=== PATIENT | female | born 1955 | race Caucasian/White ===

== ENCOUNTER 2020-03-06 07:00 | Outpatient (REF) | payer MEDICARE, MEDICAID, SELFPAY ==
--- NOTE | 2020-03-06 | MR_ITS ---
EXAMINATION: MR LUMBAR SPINE WITHOUT CONTRAST CLINICAL INFORMATION: Right lumbar radiculopathy. COMPARISON: No relevant prior imaging. TECHNIQUE: MRI of the lumbar spine was obtained using routine sequences without contrast. FINDINGS: There is a chronic compression deformity that is partially visualized within the gpdzh-[id number] of this examination at T11. Vertebral heights are otherwise maintained. Slight grade 1 anterolisthesis of L5 on S1 related to facet degenerative changes at this level. There are are no acute bone marrow signal changes. Slight loss of intervertebral disc height and T2 signal intensity at L5-S1. Disc desiccation is visualized at multiple additional levels. The tip of the conus medullaris is located at L2-L3. No mass effect the conus. Visualized distal cord signal intensity is normal. At L1-L2 the annular contour is normal. No canal or neuroforaminal compromise. At L2-L3 the annular contour is normal. No canal or neuroforaminal compromise. At L3-L4 the annular contour is normal. No canal or neuroforaminal compromise. At L4-L5 there is an asymmetrically bulging disc to the right. No canal stenosis. No mass effect on the traversing or foraminal nerve root. At L5-S1 there is a slightly bulging disc. Bilateral facet degenerative change. No canal stenosis. No mass effect on the traversing or foraminal nerve roots. Limited visualization of the retroperitoneal anatomy reveals a well marginated benign-appearing cystic lesion within the upper pole of left kidney. Psoas and paraspinal muscle groups are symmetric. IMPRESSION: Mild disc degeneration at multiple levels within the lumbar spine. Slight grade 1 anterolisthesis of L5 on S1 related to facet degenerative changes at this level. No canal stenosis. No mass effect on the traversing or foraminal nerve roots within the [id number]-rl-[id number] of this examination. A chronic compression deformity of the T11 vertebral body is partially included within the cqthc-st-dwss of this examination with approximately 50% vertebral height loss centrally and slight anterior wedging.
== END 2020-03-06 07:01 | disposition home or self-care (01) ==
LOC: HO.MRI 07:00
PROVIDERS: Visit Provider Anesthesiology
DX: M54.16 Radiculopathy, lumbar region (principal)
CPT/HCPCS: 72148

== ENCOUNTER → 2020-03-08 17:13 | Outpatient (BNVA) | payer MEDICARE, MEDICAID, SELFPAY | PROVIDERS: Visit Provider Anesthesiology | DX: G89.4 Chronic pain syndrome (principal); M47.816 Spondylosis without myelopathy or radiculopathy, lumbar region; M43.16 Spondylolisthesis, lumbar region | CPT/HCPCS: 99213 ==

== ENCOUNTER → 2020-03-27 08:29 | Outpatient (BNVA) | payer MEDICARE, MEDICAID, SELFPAY | PROVIDERS: PCP Internal Medicine; Visit Provider Anesthesiology | DX: G89.4 Chronic pain syndrome (principal); M47.816 Spondylosis without myelopathy or radiculopathy, lumbar region; M43.16 Spondylolisthesis, lumbar region | CPT/HCPCS: 99212 ==

== ENCOUNTER → 2020-04-10 10:35 | Outpatient (BNVA) | payer MEDICARE, MEDICAID, SELFPAY | PROVIDERS: PCP Internal Medicine; Visit Provider Anesthesiology | DX: G89.4 Chronic pain syndrome (principal); M47.816 Spondylosis without myelopathy or radiculopathy, lumbar region; M43.16 Spondylolisthesis, lumbar region; M46.1 Sacroiliitis, not elsewhere classified; Z79.891 Long term (current) use of opiate analgesic | CPT/HCPCS: 99212 ==

== ENCOUNTER → 2020-05-10 13:37 | Outpatient (BNVA) | payer MEDICARE, MEDICAID, SELFPAY | PROVIDERS: PCP Internal Medicine; Visit Provider Anesthesiology | DX: M47.816 Spondylosis without myelopathy or radiculopathy, lumbar region (principal); M43.16 Spondylolisthesis, lumbar region; G89.4 Chronic pain syndrome; M46.1 Sacroiliitis, not elsewhere classified | CPT/HCPCS: 99212 ==

== ENCOUNTER 2020-06-02 12:49 | Day surgery (SDC) | payer MEDICARE, MEDICAID, SELFPAY ==
--- NOTE | 2020-06-01 10:25 | P.CONAN_ITS ---
Documented by User: Narcisa Musa 06/01/20 10:28 HPI - Anesthesia Eval Consult details Narrative: 64yo F for bilateral Therapeutic Medial Branch Block, L3-L4-DR L5 [facility] Past Medical History Medical History Allergic rhinitis Anxiety Chronic pain syndrome COPD (chronic obstructive pulmonary disease) Crohn's disease Depression Ear build-up Ear discharge of both ears GERD (gastroesophageal reflux disease) GERD without esophagitis Lumbar degenerative disc disease Osteoporosis Overweight (BMI 25.0-29.9) Pure hypercholesterolemia Renal calculi Sacroiliitis Spondylolisthesis, lumbar region Spondylosis of lumbar region without myelopathy or radiculopathy Vitamin D deficiency Surgical History Surgical History History of hysterectomy History of nasal surgery History of surgery Social History Social History Alcohol intake: current Alcohol intake frequency: holidays/special occasions only Alcohol type: wine Smoking Status: Former smoker Second Hand Smoke Exposure: No Use of substances other than those prescribed or required for medical reasons: No Advance Directives: Yes Advance Directives Information Provided: No Advance Directives on File: Yes Advance Directives Date on File: 06/02/20 Recently lost weight without trying: No Meds Allergies Allergy/AdvReac Type Severity Reaction Status Date / Time No Known Allergies Allergy Verified 05/29/20 14:59 [No Known Allergies*] Home Medications Medication Instructions Recorded Confirmed Type albuterol sulfate 90 mcg/actuation 2 puff PO Q6H PRN 04/10/20 05/29/20 History aerosol inhaler budesonide 180 mcg/actuation 2 inh INHALATION BID 04/10/20 05/29/20 History breath activated powder inhaler bupropion HCl 300 mg 24 hr tablet, 300 mg PO DAILY 04/10/20 05/29/20 History extended release cholecalciferol (vitamin D3) 25 25 mcg PO DAILY 04/10/20 05/29/20 History mcg (1,000 unit) capsule omeprazole 40 mg capsule,delayed 40 mg PO BID 04/10/20 05/29/20 History release polyethylene glycol 3350 17 17 g PO BID PRN 04/13/20 05/29/20 History gram/dose oral powder mesalamine 0.375 gram See Rx Instructions PO BID cap 05/29/20 05/29/20 History capsule,extended release 24 hr Exam Exam Date and Time: June 01, 2020 1025 Assessment and Plan Assessment Anesthesia Assessment: Chart Reviewed Documented by User: Genny Hu 06/02/20 13:32 [facility] Past Medical History Medical History Allergic rhinitis Anxiety Chronic pain syndrome COPD (chronic obstructive pulmonary disease) Crohn's disease Depression Ear build-up Ear discharge of both ears GERD (gastroesophageal reflux disease) GERD without esophagitis Lumbar degenerative disc disease Osteoporosis Overweight (BMI 25.0-29.9) Pure hypercholesterolemia Renal calculi Sacroiliitis Spondylolisthesis, lumbar region Spondylosis of lumbar region without myelopathy or radiculopathy Vitamin D deficiency Surgical History Surgical History History of hysterectomy History of nasal surgery History of surgery Social History Social History Alcohol intake: current Alcohol intake frequency: holidays/special occasions only Alcohol type: wine Smoking Status: Former smoker Second Hand Smoke Exposure: No Use of substances other than those prescribed or required for medical reasons: No Advance Directives: Yes Advance Directives Information Provided: No Advance Directives on File: Yes Advance Directives Date on File: 06/02/20 Recently lost weight without trying: No Meds Allergies Allergy/AdvReac Type Severity Reaction Status Date / Time No Known Allergies Allergy Verified 05/29/20 14:59 [No Known Allergies*] Home Medications Medication Instructions Recorded Confirmed Type albuterol sulfate 90 mcg/actuation 2 puff PO Q6H PRN 04/10/20 05/29/20 History aerosol inhaler budesonide 180 mcg/actuation 2 inh INHALATION BID 04/10/20 05/29/20 History breath activated powder inhaler bupropion HCl 300 mg 24 hr tablet, 300 mg PO DAILY 04/10/20 05/29/20 History extended release cholecalciferol (vitamin D3) 25 25 mcg PO DAILY 04/10/20 05/29/20 History mcg (1,000 unit) capsule omeprazole 40 mg capsule,delayed 40 mg PO BID 04/10/20 05/29/20 History release polyethylene glycol 3350 17 17 g PO BID PRN 04/13/20 05/29/20 History gram/dose oral powder mesalamine 0.375 gram See Rx Instructions PO BID cap 05/29/20 05/29/20 History capsule,extended release 24 hr Exam Airway Mallampati Class: II TM Dist: >3cm Neck ROM: Full Heart: RRR Lungs: CTA Assessment and Plan Assessment Anesthesia Assessment: Anesthesia Plan Discussed and Chart Reviewed Final Anesthetic Review NPO: Yes ASA Class: II Final Preanesthetic Review: Meds/Allgs Chart Reviewed, Consent Obtained/Reviewed and Anes Risks/Benef Reviewed Patient Risk: Intermediate Procedure Risk: Intermediate Anesthetic Plan Anesthetic Plan: MAC: Disposition: Standard PACU
[2020-06-01 10:44] VITALS: BMI 27.0
--- NOTE | 2020-06-02 | FL_ITS ---
EXAMINATION: XR FLUOROSCOPY WITH IMAGES CLINICAL INFORMATION: Medial branch block L3 and L4 COMPARISON: None. TECHNIQUE: Fluoroscopy performed by Dr. Chepe Sandhu. Fluoroscopy time: 100 minutes DAP: 7.10 mGycm2 Images: 6 FINDINGS: There is contrast with needle positioned lateral to bilateral L4 and L5 pedicles for medial branch block. No bony erosive changes seen. The SI joints are symmetrical. FL/FL guidance in OR IMPRESSION: Fluoroscopy provided to Dr. Sandhu for bilateral medial branch block at L4 and L5 vertebra
--- NOTE | 2020-06-02 13:00 | PM.OP ---
Brief Operative Note Date of Service: 06/02/20 Pre-op diagnosis: spondylosis lumbar without myelopathy or radiculopathy Post-op diagnosis: same Procedure: Bilateral medial branch block L3-L4 dorsal ramus L5 therapeutic with steroids Implants: None Surgeon: Chepe Sandhu MD Anesthesia: MAC Estimated blood loss (mL): 1 Pathology: none sent Condition: stable Disposition: PACU
--- NOTE | 2020-06-02 13:01 | MHC.SHP ---
Pre-Procedural Eval Section A The patient is an INPATIENT: No The History & Physical has been completed within 30 days and I have reviewed it.: No Section B Chief Complaint: Spondylosis of Lumbar Spine, Spondylolisthesis Details of Present Illness: spondylosis lumbar Relevant Family History (Specify if Yes): No Relevant Social History: None Present Medications: see Short Stay Collaborative assessment Medical History: No relevant PMH History of Previous Operations: No relevant previous surgery Allergies: Allergies Allergy/AdvReac Type Severity Reaction Status Date / Time No Known Allergies Allergy Verified 05/29/20 14:59 [No Known Allergies*] Review of Systems Sugical H&P ROS: Negative: Constitution, Cardiovascular, Respiratory, Neurological, Psychiatric, Hem-Onc, Allergic/Immunologic, Gastrointestinal, Genitourinary, Musculoskeletal, Integumentary, Endocrine and Eyes/Ears/Nose/Throat Exam Surgical H&P Exam: Normal: HEENT, Normal: Heart, Normal: Lungs, Normal: Extremities, Normal: Abdomen, Normal: Skin and Normal: Neurological Plan Diagnosis/Plan: Unchanged I have reviewed the history and physical and performed a pertinent physical examination on my patient. No changes have occurred unless specified.
[2020-06-02 13:07] VITALS: BP 148/101; PULSE 95; RESP 20; TEMP 37; O2SAT 98
--- NOTE | 2020-06-02 13:21 | MHC.SHP ---
Pre-Procedural Eval Section A The patient is an INPATIENT: No The History & Physical has been completed within 30 days and I have reviewed it.: No Section B Chief Complaint: Spondylosis of Lumbar Spine, Spondylolisthesis Details of Present Illness: spondylosis lumbar spine Relevant Family History (Specify if Yes): No Relevant Social History: None Present Medications: see Short Stay Collaborative assessment Medical History: No relevant PMH History of Previous Operations: No relevant previous surgery Allergies: Allergies Allergy/AdvReac Type Severity Reaction Status Date / Time No Known Allergies Allergy Verified 05/29/20 14:59 [No Known Allergies*] Review of Systems Sugical H&P ROS: Negative: Constitution, Cardiovascular, Respiratory, Neurological, Psychiatric, Hem-Onc, Allergic/Immunologic, Gastrointestinal, Genitourinary, Musculoskeletal, Integumentary, Endocrine and Eyes/Ears/Nose/Throat Exam Surgical H&P Exam: Normal: HEENT, Normal: Heart, Normal: Lungs, Normal: Extremities, Normal: Abdomen, Normal: Skin and Normal: Neurological Plan I have reviewed the history and physical and performed a pertinent physical examination on my patient. No changes have occurred unless specified.
--- NOTE | 2020-06-02 13:26 | MHC.SHP ---
Pre-Procedural Eval Section A The patient is an INPATIENT: No The History & Physical has been completed within 30 days and I have reviewed it.: No Section B Chief Complaint: Spondylosis of Lumbar Spine, Spondylolisthesis Details of Present Illness: as above Relevant Family History (Specify if Yes): No Relevant Social History: None Present Medications: see Short Stay Collaborative assessment Medical History: No relevant PMH History of Previous Operations: No relevant previous surgery Allergies: Allergies Allergy/AdvReac Type Severity Reaction Status Date / Time No Known Allergies Allergy Verified 05/29/20 14:59 [No Known Allergies*] Review of Systems Sugical H&P ROS: Negative: Constitution, Cardiovascular, Respiratory, Neurological, Psychiatric, Hem-Onc, Allergic/Immunologic, Gastrointestinal, Genitourinary, Musculoskeletal, Integumentary, Endocrine and Eyes/Ears/Nose/Throat Exam Surgical H&P Exam: Normal: HEENT, Normal: Heart, Normal: Lungs, Normal: Extremities, Normal: Abdomen, Normal: Skin and Normal: Neurological Plan I have reviewed the history and physical and performed a pertinent physical examination on my patient. No changes have occurred unless specified.I will perform b/l therapeutic medial branch block L3- L4- L5
[2020-06-02 14:08] VITALS: BP 128/73; PULSE 90; RESP 12; TEMP 36.4; O2SAT 98
--- NOTE | 2020-06-02 14:09 | P.OP_ITS ---
Operative Note Operative Note Date of Service: 06/02/20 Narrative: After obtaining informed consent about risks benefits and alternatives for medial branch block bilateral L3-L4 does ramus L5 the patient was taken inside of the operating room where she was positioned prone on operating table. [place] [employer] monitors were applied patient was deeply sedated. Time-out was performed delineating correct site side and nature of the procedure, patient's name and date of , risk of fire, need of antibiotics which is none, risk of DVT development. Patient's lower back was prepped with ChloraPrep and draped with utility drapes. C-arm was brought of the operating field and sq picture of sacral bone a and L4 and L5 vertebra as were demonstrated on the screen. The point of interest were delineated as superior articular process of bilateral L4 and L5 vertebra as at the connection with corresponding transverse processes, as well as connection of superior articular processes of S1 bilaterally with sacral alae. 22 gauge 3-1/2 inch needle was driven to were the point of interest in tunnel vision fashion. When tip of the needle gently contacted the bone the contrast was injected into the needle. In 1 position at the left L4 vertebra the vascular spread of the contrast was noted and needle was reposition. After injection of the contrast demonstrated no vascular in no intrathecal intake of the contrast each needle position was injected with 1-1.5 cc of bupivacaine 0.5% mixed with Kenalog. Total dose of Kenalog was 80 mg. The patient tolerated procedure well. She was taking outside of the operating room to recovery room where she recovered uneventfully. She went home without immediate complications. Of note severe sacroiliac joint instability signs were noted on the right side of the patient's sacral alae big gap between sacral alae a and iliac crest was observed on the screen.
[2020-06-02 14:23] VITALS: BP 148/96; PULSE 73; RESP 16; O2SAT 97
[2020-06-02 14:38] VITALS: BP 127/80; PULSE 71; RESP 16; O2SAT 97
== END 2020-06-02 15:10 | disposition home or self-care (01) ==
PROVIDERS: PCP Internal Medicine; Visit Provider Anesthesiology
PROC: (CPT 64493; principal; 2020-06-02 14:00)
DX: M47.816 Spondylosis without myelopathy or radiculopathy, lumbar region (principal); M43.16 Spondylolisthesis, lumbar region; M46.1 Sacroiliitis, not elsewhere classified; G89.4 Chronic pain syndrome; M81.0 Age-related osteoporosis without current pathological fracture; J44.9 Chronic obstructive pulmonary disease, unspecified; J30.9 Allergic rhinitis, unspecified; F32.9 Major depressive disorder, single episode, unspecified; E55.9 Vitamin D deficiency, unspecified; Z79.899 Other long term (current) drug therapy; Z87.891 Personal history of nicotine dependence
CPT/HCPCS: 64493; 64494; J1100; J2250; J3010; J3300; Q9967

== ENCOUNTER → 2020-06-26 11:06 | Outpatient (BNVA) | payer MEDICARE, MEDICAID, SELFPAY | PROVIDERS: PCP Internal Medicine; Visit Provider Anesthesiology ==

== ENCOUNTER → 2020-06-28 14:42 | Outpatient (BNVA) | payer MEDICARE, MEDICAID, SELFPAY | PROVIDERS: PCP Internal Medicine; Visit Provider Anesthesiology | DX: M47.816 Spondylosis without myelopathy or radiculopathy, lumbar region (principal); M43.16 Spondylolisthesis, lumbar region; M46.1 Sacroiliitis, not elsewhere classified; G89.4 Chronic pain syndrome | CPT/HCPCS: 99212 ==

== ENCOUNTER 2020-07-07 07:36 | Day surgery (SDC) | payer MEDICARE, MEDICAID, SELFPAY ==
[2020-07-04 09:44] VITALS: BMI 27.8
--- NOTE | 2020-07-06 13:09 | HO.ANESPROP2 ---
Documented by User: Narcisa Baezaney 07/17/20 08:36 HPI - Anesthesia Eval Consult details Narrative: 65yo F for Bilateral Sacroiliac Joint Steroid Injection s/p Medial Branch Block 05/2020 wit [facility] Active Problems Active Problems: All Active Problems (Updated 05/29/20 @ 15:13 by Ralph Colorado MD) Annual physical exam (Acute) Overweight (BMI 25.0-29.9) (Acute) Depression (Acute) Anxiety (Acute) Renal calculi (Acute) Vitamin D deficiency (Acute) Allergic rhinitis (Acute) Osteoporosis (Acute) Pure hypercholesterolemia (Acute) Lumbar degenerative disc disease (Acute) GERD without esophagitis (Acute) Crohn's disease (Acute) COPD (chronic obstructive pulmonary disease) (Acute) GERD (gastroesophageal reflux disease) (Acute) Ear discharge of both ears (Acute) Ear build-up (Acute) Sacroiliitis (Acute) Chronic pain syndrome (Acute) Spondylolisthesis, lumbar region (Acute) Spondylosis of lumbar region without myelopathy or radiculopathy (Acute) Past Medical History Medical History Allergic rhinitis Anxiety Chronic pain syndrome COPD (chronic obstructive pulmonary disease) Crohn's disease Depression Ear build-up Ear discharge of both ears GERD (gastroesophageal reflux disease) GERD without esophagitis Lumbar degenerative disc disease Osteoporosis Overweight (BMI 25.0-29.9) Pure hypercholesterolemia Renal calculi Sacroiliitis Spondylolisthesis, lumbar region Spondylosis of lumbar region without myelopathy or radiculopathy Vitamin D deficiency Surgical History Surgical History (Updated 07/04/20 @ 09:46 by Brooklyn Crespo) History of hysterectomy History of nasal surgery History of surgery History of surgery Social History Social History Alcohol intake: current Alcohol intake frequency: holidays/special occasions only Alcohol type: wine Smoking Status: Former smoker Second Hand Smoke Exposure: No Advance Directives Date on File: 06/02/20 Meds Allergies Allergy/AdvReac Type Severity Reaction Status Date / Time No Known Allergies Allergy Verified 07/19/20 08:13 [No Known Allergies*] Home Medications Medication Instructions Recorded Confirmed Last Taken Type albuterol sulfate 90 mcg/actuation 2 puff PO Q6H PRN 04/10/20 07/19/20 Unknown History aerosol inhaler budesonide 180 mcg/actuation 2 inh INHALATION BID 04/10/20 07/19/20 Unknown History breath activated powder inhaler bupropion HCl 300 mg 24 hr tablet, 300 mg PO DAILY 04/10/20 07/19/20 06/02/20 06:00 History extended release cholecalciferol (vitamin D3) 25 25 mcg PO DAILY 04/10/20 07/19/20 06/02/20 06:00 History mcg (1,000 unit) capsule omeprazole 40 mg capsule,delayed 40 mg PO BID 04/10/20 07/19/20 07/07/20 06:45 History release polyethylene glycol 3350 17 17 g PO BID PRN 04/13/20 07/19/20 Unknown History gram/dose oral powder mesalamine 0.375 gram See Rx Instructions PO BID cap 05/29/20 07/19/20 Unknown History capsule,extended release 24 hr Exam Exam Date and Time: July 06, 2020 1309 Height,Weight and Vital Signs: Height 5 ft 1 in Weight 66.678 kg Assessment and Plan Assessment Anesthesia Assessment: Chart Reviewed Documented by User: Jerry Olivas MD 07/27/20 07:57 [facility] Past Medical History Medical History Allergic rhinitis Anxiety Chronic pain syndrome COPD (chronic obstructive pulmonary disease) Crohn's disease Depression Ear build-up Ear discharge of both ears GERD (gastroesophageal reflux disease) GERD without esophagitis Lumbar degenerative disc disease Osteoporosis Overweight (BMI 25.0-29.9) Pure hypercholesterolemia Renal calculi Sacroiliitis Spondylolisthesis, lumbar region Spondylosis of lumbar region without myelopathy or radiculopathy Vitamin D deficiency Surgical History Surgical History (Updated 07/04/20 @ 09:46 by Brooklyn Crespo) History of hysterectomy History of nasal surgery History of surgery History of surgery Social History Social History Alcohol intake: current Alcohol intake frequency: holidays/special occasions only Alcohol type: wine Smoking Status: Former smoker Second Hand Smoke Exposure: No Advance Directives Date on File: 06/02/20 Meds Allergies Allergy/AdvReac Type Severity Reaction Status Date / Time No Known Allergies Allergy Verified 07/19/20 08:13 [No Known Allergies*] Home Medications Medication Instructions Recorded Confirmed Last Taken Type albuterol sulfate 90 mcg/actuation 2 puff PO Q6H PRN 04/10/20 07/19/20 Unknown History aerosol inhaler budesonide 180 mcg/actuation 2 inh INHALATION BID 04/10/20 07/19/20 Unknown History breath activated powder inhaler bupropion HCl 300 mg 24 hr tablet, 300 mg PO DAILY 04/10/20 07/19/20 06/02/20 06:00 History extended release cholecalciferol (vitamin D3) 25 25 mcg PO DAILY 04/10/20 07/19/20 06/02/20 06:00 History mcg (1,000 unit) capsule omeprazole 40 mg capsule,delayed 40 mg PO BID 04/10/20 07/19/20 07/07/20 06:45 History release polyethylene glycol 3350 17 17 g PO BID PRN 04/13/20 07/19/20 Unknown History gram/dose oral powder mesalamine 0.375 gram See Rx Instructions PO BID cap 05/29/20 07/19/20 Unknown History capsule,extended release 24 hr Exam Airway Mallampati Class: II TM Dist: >3cm Neck ROM: Full Assessment and Plan Assessment Anesthesia Assessment: Anesthesia Plan Discussed and Chart Reviewed Final Anesthetic Review NPO: Yes ASA Class: III Final Preanesthetic Review: No Changes in Pt Med Stat, Meds/Allgs Chart Reviewed, Consent Obtained/Reviewed and Anes Risks/Benef Reviewed Patient Risk: Intermediate Procedure Risk: Low Anesthetic Plan Anesthetic Plan: MAC: Disposition: Standard PACU
--- NOTE | ~2020-07-07 | FL_ITS ---
EXAMINATION: XR FLUOROSCOPY WITH IMAGES CLINICAL INFORMATION: Sacroiliac joint injection COMPARISON: None. TECHNIQUE: Fluoroscopy performed by Dr. Chepe Sandhu. Fluoroscopy time: 0.2 minutes DAP: 2.7 mGycm2 Images: 2 FINDINGS: Images demonstrate needle placement and contrast injection over the bilateral sacroiliac joints. FL/FL guidance in OR IMPRESSION: Fluoroscopic guidance for bilateral sacroiliac joint injection.
[2020-07-07 08:29] VITALS: BP 134/100; PULSE 95; RESP 18; TEMP 37.1; O2SAT 99
[2020-07-07] MEDS: Lactated Ringers 1,000 ML 100 ML IVCONT (08:35)
--- NOTE | 2020-07-07 08:50 | P.HPSUR_ITS ---
Pre-Procedural Eval Section A The patient is an INPATIENT: No Changes since office visit: Yes Patient answered all questions The History & Physical has been completed within 30 days and I have reviewed it.: No Section B Chief Complaint: Sacroiliitis Details of Present Illness: as above Relevant Family History (Specify if Yes): No Relevant Social History: None Present Medications: None Medical History: No relevant PMH History of Previous Operations: No relevant previous surgery Allergies: Allergies Allergy/AdvReac Type Severity Reaction Status Date / Time No Known Allergies Allergy Verified 07/07/20 08:39 [No Known Allergies*] Review of Systems Sugical H&P ROS: Negative: Constitution, Cardiovascular, Respiratory, Neurologic al, Psychiatric, Hem-Onc, Allergic/Immunologic, Gastrointestinal, Genitourinary, Musculoskeletal, Integumentary, Endocrine and Eyes/Ears/Nose/Throat Exam Surgical H&P Exam: Normal: HEENT, Normal: Heart, Normal: Lungs, Normal: Extremities, Normal: Abdomen, Normal: Skin and Normal: Neurological Plan Diagnosis/Plan: Unchanged I have reviewed the history and physical and performed a pertinent physical examination on my patient. No changes have occurred unless specified.
[2020-07-07 09:20] VITALS: BP 124/82; PULSE 92; RESP 16; TEMP 36.4; O2SAT 99
--- NOTE | 2020-07-07 09:23 | P.OP_ITS ---
Operative Note Operative Note Date of Service: 07/07/20 Narrative: Informed consent was explained thoroughly to the patient. All questions about benefits and risks for the procedure were answered. Patient came to the operating room she was positioned prone on the operating table with the pillow under her pelvis. [place] [employer] monitors were applied and patient was deeply sedated. Her lower back and buttocks was prepped with ChloraPrep prepped and draped with sterile towels. Sterilely draped C-arm was brought over the operating field and sq picture of patient's pelvis was demonstrated on the screen. For each joint tilting C-arm contralateral to the site of the joint and 15? to the foot of the patient the most posterior portion of the joints were clearly delineated on the screen. Skin was injected in the projection of the joint slightly medial to the location of the joint with 25 gauge 1/2 inch needle using local lidocaine 2% without epinephrine. After that 22 gauge 3 and 1/2 inch needle was driven to were each point of interest in tunnel vision fashion. When needle entered the joint capsule injection of the contrast was performed demonstrating intra-articular and minimally periarticular spread of the contrast. After that 4 cc. of bupivacaine 0.5% mixad with kenalog was injected into each joint. total dose of kenalog between 2 joints was 80 mg. Upon completion of the injections the needles were removed and pressure were applied. Sterile dressing was applied. Upon completion of the injection patient was awaken taking outside of the operating room to the recovery room where she recovered uneventfully. She went home without immediate complications.
[2020-07-07 09:35] VITALS: BP 138/88; PULSE 77; RESP 17; TEMP 36.4; O2SAT 97
== END 2020-07-07 10:32 | disposition home or self-care (01) ==
PROVIDERS: PCP Internal Medicine; Visit Provider Anesthesiology
PROC: 3E0U33Z Introduction of Anti-inflammatory into Joints, Percutaneous Approach (ICD-10-PCS; CPT 27096; principal; 2020-07-07 08:10)
DX: M46.1 Sacroiliitis, not elsewhere classified (principal); G89.4 Chronic pain syndrome; J44.9 Chronic obstructive pulmonary disease, unspecified; F32.9 Major depressive disorder, single episode, unspecified; Z79.899 Other long term (current) drug therapy; Z87.891 Personal history of nicotine dependence
CPT/HCPCS: G0260; J2250; J3010; J3300; Q9967

== ENCOUNTER → 2020-07-19 08:02 | Outpatient (BNVA) | payer MEDICARE, MEDICAID, SELFPAY | PROVIDERS: PCP Internal Medicine; Visit Provider Anesthesiology | DX: M47.816 Spondylosis without myelopathy or radiculopathy, lumbar region (principal); M43.16 Spondylolisthesis, lumbar region; G89.4 Chronic pain syndrome; M46.1 Sacroiliitis, not elsewhere classified | CPT/HCPCS: 99212 ==

== ENCOUNTER → 2020-08-02 11:19 | Outpatient (BNVA) | payer MEDICARE, MEDICAID, SELFPAY | PROVIDERS: PCP Internal Medicine; Visit Provider Anesthesiology | DX: M47.816 Spondylosis without myelopathy or radiculopathy, lumbar region (principal); M43.16 Spondylolisthesis, lumbar region; G89.4 Chronic pain syndrome; M45.1 Ankylosing spondylitis of occipito-atlanto-axial region; M53.3 Sacrococcygeal disorders, not elsewhere classified; Z79.899 Other long term (current) drug therapy | CPT/HCPCS: Q3014 ==

== ENCOUNTER 2020-08-16 07:25 | Outpatient (REF) | payer MEDICARE, MEDICAID, SELFPAY ==
[2020-08-16 08:31] LABS: MANUAL DIFF FLAG NO
[2020-08-16 08:38] LABS: Basophils Percent Auto 0.4 % (0-2); Eosinophils Absolute Auto 0.1 X10*3/uL (0.0-0.4); Eosinophils Percent Auto 1.5 % (0-4); Hematocrit 41.4 % (37-47); Hemoglobin 13.6 g/dl (12.0-16.0); Imm Gran Abs Auto 0.05 X10*3/uL (0.00-0.03); Imm Gran Pct Auto 0.6 % (0.0-0.4); Lymphocytes Absolute Auto 1.9 X10*3/uL (1.2-4.9); Lymphocytes Percent Auto 22.6 % (20-40); Mean Corpuscular HGB Conc 32.9 g/dl (31.0-35.0); Mean Corpuscular Hemoglobin 29.7 pg (27.0-33.0); Mean Corpuscular Volume 90.4 fL (80-98); Mean Platelet Volume 9.7 fL (9.4-12.3); Monocytes Absolute Auto 0.7 X10*3/uL (0.1-1.2); Monocytes Percent Auto 8.1 % (2-11); Neutrophils Absolute Auto 5.7 X10*3/uL (2.0-8.3); Neutrophils Percent Auto 66.8 % (45-73); Platelet Count 271 X10*3/uL (160-400); Red Blood Count 4.58 X10*6/uL (4.20-5.50); White Blood Count 8.6 X10*3/uL (4.8-10.8)
[2020-08-16 08:45] LABS: Glucose Urine UA NEG (NEG); Leukocyte Esterase Urine 2+ (NEG); Nitrite Urine POS (NEG); Specific Gravity - Urine >= 1.030 (1.005-1.025); UACC Culture Trigger YES; Urine Blood TRACE (NEG); Urine Ketones NEG (NEG); Urine Protein NEG (NEG-TRACE)
[2020-08-16 08:47] LABS: Appearance Urine HAZY; Color Urine YELLOW
[2020-08-16 09:02] LABS: Bacteria Urine 3+ /LPF; Mucus Urine 2+ /LPF; RBC Urine 0 /HPF (0); Squamous Epithelial Cell Urine 1+ /LPF
[2020-08-16 09:03] LABS: Amorphous Sediment Urine 2+ /LPF
[2020-08-16 09:10] LABS: Alanine Aminotransferase 15 U/L (0-31); Albumin Level 4.4 g/dL (3.5-5.0); Alkaline Phosphatase 82 U/L (39-117); Anion Gap 14 (12-20); Aspartate Amino Transferase 17 U/L (5-31); Bilirubin Total 0.8 mg/dL (0.0-1.0); Blood Urea Nitrogen 29 mg/dL (9-16); Calcium 9.7 mg/dL (8.4-10.2); Carbon Dioxide 26 mmol/L (22-29); Chloride 105 mmol/L (96-108); Cholesterol 193 mg/dL; Estimated Glomerular Filt Rate > 60; Glucose Fasting 84 mg/dL (60-99); HDL Cholesterol 58 mg/dL; LDL Cholesterol Calculated 117 mg/dl; Potassium 4.2 mmol/L (3.3-5.1); Sodium 141 mmol/L (135-145); Total Protein 6.7 g/dL (6.5-8.0); Triglycerides 91 mg/dL
[2020-08-16 09:21] LABS: Erythrocyte Sedimentation Rate 6 MM/HR (0-20)
[2020-08-16 09:23] LABS: TSH reflex Free T4 1.46 uIU/mL (0.32-4.0); Vitamin D 25-OH Total 20.2 ng/mL (>30)
== END 2020-08-16 07:26 | disposition home or self-care (01) ==
LOC: HO.LAB 07:25
PROVIDERS: PCP Internal Medicine; Visit Provider Internal Medicine
DX: Z00.00 Encounter for general adult medical examination without abnormal findings (principal); I10 Essential (primary) hypertension; N20.0 Calculus of kidney; E55.9 Vitamin D deficiency, unspecified; E78.00 Pure hypercholesterolemia, unspecified; E66.3 Overweight; M51.36 Other intervertebral disc degeneration, lumbar region
CPT/HCPCS: 36415; 80053; 80061; 81001; 81003; 82306; 84443; 85025; 85652; 87086; 99212

== ENCOUNTER → 2020-09-25 10:46 | Outpatient (REF) | payer MEDICARE, MEDICAID, SELFPAY ==
--- NOTE | 2020-09-25 11:00 | CA_ITS ---
Acquisition Time: 2020-09-25 11:11:22 Total Exercise Time: 00:06:35 Test Indications: Chest Pain Medications: SEE H Protocol: JIE Max HR: 146 BPM 93% of Pred: 156 BPM Max BP: 130/080 mmHG Max Work Load: 7.9 METS Exercise stress ECHO using Jie protocol, total of 6 min 35 sec. METS 7.90, TAPHR up to 93 %. Pt tolerated well, denies any anginal sx. EKG with isolated PVC. Mild upsloaping ST depression seen in lead 2. ECHO images taken at rest and immediately at peak exercise HR achieved. Definity contrast used. Normotensive response to exercise. Test reviewed with Dr. Hartman. Equivocal stress test Referred By: Jalen Doty Overread By: Gracie Nogueira NP
== END ==
LOC: HO.CARD 10:46
PROVIDERS: PCP Internal Medicine; Visit Provider Internal Medicine Cardiovascular Disease
DX: R07.2 Precordial pain (principal)
CPT/HCPCS: 93350; Q9957

== ENCOUNTER → 2020-09-27 08:07 | Outpatient (BNVA) | payer MEDICARE, MEDICAID, SELFPAY | PROVIDERS: PCP Internal Medicine; Visit Provider Anesthesiology | DX: M47.816 Spondylosis without myelopathy or radiculopathy, lumbar region (principal); M43.16 Spondylolisthesis, lumbar region; M46.1 Sacroiliitis, not elsewhere classified; M53.3 Sacrococcygeal disorders, not elsewhere classified; G89.4 Chronic pain syndrome | CPT/HCPCS: 99212 ==

== ENCOUNTER 2020-10-13 07:46 | Day surgery (SDC) | payer MEDICARE, MEDICAID, SELFPAY ==
[2020-10-09 10:35] VITALS: BMI 27.6
--- NOTE | 2020-10-11 12:34 | P.CONAN_ITS ---
Documented by User: Narcisa Baezaney 10/11/20 12:35 HPI - Anesthesia Eval Consult details Narrative: 65yo F for Ganglion Impar Block s/p joint injection with MAC 06/2020 [facility] Active Problems Active Problems: All Active Problems (Updated 08/02/20 @ 11:28 by Chepe Sandhu MD) Annual physical exam (Acute) Coccydynia (Acute) Overweight (BMI 25.0-29.9) (Acute) Depression (Acute) Anxiety (Acute) Renal calculi (Acute) Vitamin D deficiency (Acute) Allergic rhinitis (Acute) Osteoporosis (Acute) Pure hypercholesterolemia (Acute) Lumbar degenerative disc disease (Acute) GERD without esophagitis (Acute) Crohn's disease (Acute) COPD (chronic obstructive pulmonary disease) (Acute) GERD (gastroesophageal reflux disease) (Acute) Ear discharge of both ears (Acute) Ear build-up (Acute) Sacroiliitis (Acute) Chronic pain syndrome (Acute) Spondylolisthesis, lumbar region (Acute) Spondylosis of lumbar region without myelopathy or radiculopathy (Acute) Past Medical History Medical History Allergic rhinitis Anxiety Chronic pain syndrome Coccydynia COPD (chronic obstructive pulmonary disease) Crohn's disease Depression Ear build-up Ear discharge of both ears GERD (gastroesophageal reflux disease) GERD without esophagitis Lumbar degenerative disc disease Osteoporosis Overweight (BMI 25.0-29.9) Pure hypercholesterolemia Renal calculi Sacroiliitis Spondylolisthesis, lumbar region Spondylosis of lumbar region without myelopathy or radiculopathy Vitamin D deficiency Surgical History Surgical History History of hysterectomy History of nasal surgery History of surgery History of surgery Social History Social History Alcohol intake: current Alcohol intake frequency: holidays/special occasions only Alcohol type: wine Smoking Status: Former smoker Second Hand Smoke Exposure: No Are you DNR?: No Advance Directives: No Advance Directives Information Provided: Yes Advance Directives on File: No Advance Directives Date on File: 06/02/20 Recently lost weight without trying: No Eating poorly because of decreased appetite: No Nutrition Risks: No Nutritional Risk Meds Allergies Allergy/AdvReac Type Severity Reaction Status Date / Time No Known Allergies Allergy Verified 10/09/20 10:17 [No Known Allergies*] Home Medications Medication Instructions Recorded Confirmed Last Taken Type albuterol sulfate 90 mcg/actuation 2 puff PO Q6H PRN 04/10/20 10/09/20 Unknown History aerosol inhaler bupropion HCl 300 mg 24 hr tablet, 300 mg PO DAILY 04/10/20 10/13/20 10/13/20 06:30 History extended release cholecalciferol (vitamin D3) 25 25 mcg PO DAILY 04/10/20 10/09/20 06/02/20 06:00 History mcg (1,000 unit) capsule omeprazole 40 mg capsule,delayed 40 mg PO BID 04/10/20 10/13/20 10/13/20 06:30 History release polyethylene glycol 3350 17 17 g PO BID PRN 04/13/20 10/09/20 Unknown History gram/dose oral powder mesalamine 0.375 gram See Rx Instructions PO BID cap 05/29/20 10/09/20 Unknown History capsule,extended release 24 hr Exam Exam Date and Time: October 11, 2020 1234 Height,Weight and Vital Signs: Height 5 ft 1 in Weight 66.224 kg Pertinent Lab Results Pertinent Lab Results: Laboratory Tests 08/16/20 08/16/20 07:45 07:45 WBC 8.6 Hgb 13.6 Hct 41.4 Plt Count 271 Sodium 141 Potassium 4.2 Chloride 105 Carbon Dioxide 26 BUN 29 H Creatinine 0.70 Assessment and Plan Assessment Anesthesia Assessment: Chart Reviewed Documented by User: Acacia Loza 10/13/20 08:54 [facility] Past Medical History Medical History Allergic rhinitis Anxiety Chronic pain syndrome Coccydynia COPD (chronic obstructive pulmonary disease) Crohn's disease Depression Ear build-up Ear discharge of both ears GERD (gastroesophageal reflux disease) GERD without esophagitis Lumbar degenerative disc disease Osteoporosis Overweight (BMI 25.0-29.9) Pure hypercholesterolemia Renal calculi Sacroiliitis Spondylolisthesis, lumbar region Spondylosis of lumbar region without myelopathy or radiculopathy Vitamin D deficiency Family History Family history of problems with anesthesia: No Surgical History Surgical History History of hysterectomy History of nasal surgery History of surgery History of surgery History of Problems with Anesthesia: No Social History Social History Alcohol intake: current Alcohol intake frequency: holidays/special occasions only Alcohol type: wine Smoking Status: Former smoker Second Hand Smoke Exposure: No Are you DNR?: No Advance Directives: No Advance Directives Information Provided: Yes Advance Directives on File: No Advance Directives Date on File: 06/02/20 Recently lost weight without trying: No Eating poorly because of decreased appetite: No Nutrition Risks: No Nutritional Risk Meds Allergies Allergy/AdvReac Type Severity Reaction Status Date / Time No Known Allergies Allergy Verified 10/09/20 10:17 [No Known Allergies*] Home Medications Medication Instructions Recorded Confirmed Last Taken Type albuterol sulfate 90 mcg/actuation 2 puff PO Q6H PRN 04/10/20 10/09/20 Unknown History aerosol inhaler bupropion HCl 300 mg 24 hr tablet, 300 mg PO DAILY 04/10/20 10/13/20 10/13/20 06:30 History extended release cholecalciferol (vitamin D3) 25 25 mcg PO DAILY 04/10/20 10/09/20 06/02/20 06:00 History mcg (1,000 unit) capsule omeprazole 40 mg capsule,delayed 40 mg PO BID 04/10/20 10/13/20 10/13/20 06:30 History release polyethylene glycol 3350 17 17 g PO BID PRN 04/13/20 10/09/20 Unknown History gram/dose oral powder mesalamine 0.375 gram See Rx Instructions PO BID cap 05/29/20 10/09/20 Unknown History capsule,extended release 24 hr Exam Height,Weight and Vital Signs: Vital Signs Temp Pulse Resp BP Pulse Ox 10/13/20 08:07 98.0 F 90 16 144/85 H 94 Airway Mallampati Class: II TM Dist: >3cm Neck ROM: Full Loose/Missing/Broken Teeth: Yes (Loose top front) Heart: RRR Lungs: CTAB Assessment and Plan Assessment Anesthesia Assessment: Anesthesia Plan Discussed and Chart Reviewed Final Anesthetic Review NPO: Yes ASA Class: II Final Preanesthetic Review: No Changes in Pt Med Stat, Meds/Allgs Chart Reviewed, Consent Obtained/Reviewed and Anes Risks/Benef Reviewed Patient Risk: Low Procedure Risk: Low Assessment/Block/Sedation in SS: Assess/Block/Sedation-SS Anesthetic Plan Anesthetic Plan: MAC: Disposition: Standard PACU
--- NOTE | ~2020-10-13 | FL_ITS ---
EXAMINATION: XR FLUOROSCOPY WITH IMAGES CLINICAL INFORMATION: Ganglion block. COMPARISON: None. TECHNIQUE: Fluoroscopy performed by Dr. Chepe Sandhu. Fluoroscopy time: 0.2 minutes DAP: 11 mGycm2 Images: 3 FINDINGS: Images demonstrate needle placement and contrast injection over the inferior sacrum. FL/FL guidance in OR IMPRESSION: Fluoroscopic guidance for sacral injection.
[2020-10-13 08:07] VITALS: BP 144/85; PULSE 90; RESP 16; TEMP 36.7; O2SAT 94
[2020-10-13] MEDS: Lactated Ringers 1,000 ML 50 ML IV (08:17)
--- NOTE | 2020-10-13 08:35 | MHC.SHP ---
Pre-Procedural Eval Section A The patient is an INPATIENT: No Changes since office visit: Yes Patient answered all questions The History & Physical has been completed within 30 days and I have reviewed it.: No Section B Chief Complaint: Coccydynia Details of Present Illness: as above Relevant Family History (Specify if Yes): No Relevant Social History: None Present Medications: see Short Stay Collaborative assessment Medical History: No relevant PMH History of Previous Operations: No relevant previous surgery Allergies: Allergies Allergy/AdvReac Type Severity Reaction Status Date / Time No Known Allergies Allergy Verified 10/09/20 10:17 [No Known Allergies*] Review of Systems Sugical H&P ROS: Negative: Constitution, Cardiovascular, Respiratory, Neurological, Psychiatric, Hem-Onc, Allergic/Immunologic, Gastrointestinal, Genitourinary, Musculoskeletal, Integumentary, Endocrine and Eyes/Ears/Nose/Throat Exam Surgical H&P Exam: Normal: HEENT, Normal: Heart, Normal: Lungs, Normal: Extremities, Normal: Abdomen, Normal: Skin and Normal: Neurological Plan Diagnosis/Plan: Unchanged I have reviewed the history and physical and performed a pertinent physical examination on my patient. No changes have occurred unless specified.
--- NOTE | 2020-10-13 08:36 | P.BOP_ITS ---
Brief Operative Note Date of Service: 10/13/20 Pre-op diagnosis: coccydynia Post-op diagnosis: same Procedure: ganglion impar injection Implants: none Surgeon: Chepe Sandhu MD Anesthesia: MAC Was an Adjunct Trainer used for this Procedure?: No Estimated blood loss (mL): 1 Pathology: none sent Condition: stable Disposition: PACU
--- NOTE | 2020-10-13 08:39 | W.PM.OPN ---
Operative Note Operative Note Date of Service: 10/13/20 Narrative: After obtaining informed consent patient was taken to the operating room where she was position on operating table prone. ASA monitors were applied and patient was moderately sedated. Time-out was performed delineating correct site, side, the nature of the procedure, patient's allergy, preoperative antibiotic if needed. All operating room staff was participating in OR time-out procedure. The lower back, bilateral buttocks and inter- buttock crease worth thoroughly prepped with ChloraPrep and draped with sterile utility drapes. Sterilely draped C-arm was brought over the operating field and picture of caudal spine was delineated on the screen. The rudimentary disc between 1st and 2nd caudal vertebra was chosen as the target. 22 gauge 3-1/2 inch needle was inserted through the skin and advanced toward the disc between the 1st and 2nd vertebrae under anterior posterior and lateral views. When the tip of the needle cleared out the silhouette of the anterior caudal spine on lateral view injection of the contrast was performed delineating retro pelvic spread of the contrast and no intravesicular and no intravascular spread of the contrast.. After that injection of the treatment medicine containing bupivacaine 0.5% mixed with Kenalog 40 mg was injected into the area the needle was removed. Sterile dressing with bacitracin applied into inter buttock crease. Patient tolerated procedure well she was taken outside of the operating room to recovery room where she recovered uneventfully. SHE was informed about risk of the ganglion impar injections in terms of vesical or and rectal damage.
[2020-10-13 09:19] VITALS: BP 110/71; PULSE 77; RESP 14; TEMP 36.9; O2SAT 94
[2020-10-13 09:35] VITALS: BP 107/71; PULSE 71; RESP 14; O2SAT 95
[2020-10-13 09:43] VITALS: BP 105/66; PULSE 88; RESP 16; O2SAT 97
== END 2020-10-13 10:27 | disposition home or self-care (01) ==
PROVIDERS: PCP Internal Medicine; Visit Provider Anesthesiology
PROC: (CPT 64999; principal; 2020-10-13 09:00)
DX: M53.3 Sacrococcygeal disorders, not elsewhere classified (principal); M46.1 Sacroiliitis, not elsewhere classified; M47.816 Spondylosis without myelopathy or radiculopathy, lumbar region; M43.16 Spondylolisthesis, lumbar region; G89.4 Chronic pain syndrome; J44.9 Chronic obstructive pulmonary disease, unspecified; M81.0 Age-related osteoporosis without current pathological fracture; Z87.891 Personal history of nicotine dependence
CPT/HCPCS: 64999; J2250; J3010; J3300; Q9967

== ENCOUNTER → 2020-11-20 10:49 | Outpatient (BNVA) | payer MEDICARE, MEDICAID, SELFPAY | PROVIDERS: PCP Internal Medicine; Visit Provider Anesthesiology | DX: M47.816 Spondylosis without myelopathy or radiculopathy, lumbar region (principal); M43.16 Spondylolisthesis, lumbar region; M46.1 Sacroiliitis, not elsewhere classified; M53.3 Sacrococcygeal disorders, not elsewhere classified; G89.4 Chronic pain syndrome | CPT/HCPCS: 99212 ==

== ENCOUNTER 2021-02-15 13:16 | Day surgery (SDC) | payer MEDICARE, MEDICAID, SELFPAY ==
--- NOTE | 2021-02-14 10:29 | P.CONAN_ITS ---
Documented by User: Narcisa Musa NP 02/14/21 10:32 HPI - Anesthesia Eval Consult details Narrative: 65yo F for Ganglion Impar Block,sacral s/p same 09/2020 with [facility] Active Problems Active Problems: All Active Problems (Updated 10/13/20 @ 18:05 by Ralph Colorado MD) Hiatal hernia (Acute) Annual physical exam (Acute) Coccydynia (Acute) Overweight (BMI 25.0-29.9) (Acute) Depression (Acute) Anxiety (Acute) Renal calculi (Acute) Vitamin D deficiency (Acute) Allergic rhinitis (Acute) Osteoporosis (Acute) Pure hypercholesterolemia (Acute) Lumbar degenerative disc disease (Acute) GERD without esophagitis (Acute) Crohn's disease (Acute) COPD (chronic obstructive pulmonary disease) (Acute) GERD (gastroesophageal reflux disease) (Acute) Ear discharge of both ears (Acute) Ear build-up (Acute) Sacroiliitis (Acute) Chronic pain syndrome (Acute) Spondylolisthesis, lumbar region (Acute) Spondylosis of lumbar region without myelopathy or radiculopathy (Acute) Past Medical History Medical History Allergic rhinitis Anxiety Chronic pain syndrome Coccydynia COPD (chronic obstructive pulmonary disease) Crohn's disease Depression Ear build-up Ear discharge of both ears GERD (gastroesophageal reflux disease) GERD without esophagitis Hiatal hernia Lumbar degenerative disc disease Osteoporosis Overweight (BMI 25.0-29.9) Renal calculi Sacroiliitis Spondylolisthesis, lumbar region Spondylosis of lumbar region without myelopathy or radiculopathy Vitamin D deficiency Family History Family history of problems with anesthesia: No Surgical History Surgical History History of hysterectomy History of nasal surgery History of surgery History of surgery History of Problems with Anesthesia: No Social History Social History Alcohol intake: current Alcohol intake frequency: holidays/special occasions only Alcohol type: wine Patient Tobacco Use Status: Former Tobacco user Quit Date: 1 yr ago Second Hand Smoke Exposure: No Use of substances other than those prescribed or required for medical reasons: No Are you DNR?: No Advance Directives: No Advance Directives Information Provided: Yes Advance Directives Date on File: 06/02/20 Meds Allergies Allergy/AdvReac Type Severity Reaction Status Date / Time No Known Allergies Allergy Verified 02/15/21 13:23 [No Known Allergies*] Home Medications Medication Instructions Recorded Confirmed Last Taken Type albuterol sulfate 90 mcg/actuation 2 puff PO Q6H PRN 04/10/20 10/09/20 Unknown History aerosol inhaler bupropion HCl 300 mg 24 hr tablet, 300 mg PO DAILY 04/10/20 10/13/20 10/13/20 06:30 History extended release cholecalciferol (vitamin D3) 25 25 mcg PO DAILY 04/10/20 10/09/20 06/02/20 06:00 History mcg (1,000 unit) capsule omeprazole 40 mg capsule,delayed 40 mg PO BID 04/10/20 10/13/20 02/15/21 07:00 History release polyethylene glycol 3350 17 17 g PO BID PRN 04/13/20 10/09/20 Unknown History gram/dose oral powder mesalamine 0.375 gram See Rx Instructions PO BID cap 05/29/20 10/09/20 Unknown History capsule,extended release 24 hr Exam Exam Date and Time: February 14, 2021 1029 Pertinent Lab Results Pertinent Lab Results: Laboratory Tests ? 08/16/20 08/16/20 ? 07:45 07:45 WBC ?8.6 ? Hgb ?13.6 ? Hct ?41.4 ? Plt Count ?271 ? Sodium ? ?141 Potassium ? ?4.2 Chloride ? ?105 Carbon Dioxide ? ?26 BUN ? ?29 H Creatinine ? ?0.70 Assessment and Plan Assessment Anesthesia Assessment: Chart Reviewed Final Anesthetic Review Family History of Problems with Anesthesia: No History of Problems with Anesthesia: No Documented by User: Juni Barnard MD 02/15/21 14:49 [facility] Past Medical History Medical History Allergic rhinitis Anxiety Chronic pain syndrome Coccydynia COPD (chronic obstructive pulmonary disease) Crohn's disease Depression Ear build-up Ear discharge of both ears GERD (gastroesophageal reflux disease) GERD without esophagitis Hiatal hernia Lumbar degenerative disc disease Osteoporosis Overweight (BMI 25.0-29.9) Renal calculi Sacroiliitis Spondylolisthesis, lumbar region Spondylosis of lumbar region without myelopathy or radiculopathy Vitamin D deficiency Surgical History Surgical History History of hysterectomy History of nasal surgery History of surgery History of surgery Social History Social History Alcohol intake: current Alcohol intake frequency: holidays/special occasions only Alcohol type: wine Patient Tobacco Use Status: Former Tobacco user Quit Date: 1 yr ago Second Hand Smoke Exposure: No Use of substances other than those prescribed or required for medical reasons: No Are you DNR?: No Advance Directives: No Advance Directives Information Provided: Yes Advance Directives Date on File: 06/02/20 Meds Allergies Allergy/AdvReac Type Severity Reaction Status Date / Time No Known Allergies Allergy Verified 02/15/21 13:23 [No Known Allergies*] Home Medications Medication Instructions Recorded Confirmed Last Taken Type albuterol sulfate 90 mcg/actuation 2 puff PO Q6H PRN 04/10/20 10/09/20 Unknown History aerosol inhaler bupropion HCl 300 mg 24 hr tablet, 300 mg PO DAILY 04/10/20 10/13/20 10/13/20 06:30 History extended release cholecalciferol (vitamin D3) 25 25 mcg PO DAILY 04/10/20 10/09/20 06/02/20 06:00 History mcg (1,000 unit) capsule omeprazole 40 mg capsule,delayed 40 mg PO BID 04/10/20 10/13/20 02/15/21 07:00 History release polyethylene glycol 3350 17 17 g PO BID PRN 04/13/20 10/09/20 Unknown History gram/dose oral powder mesalamine 0.375 gram See Rx Instructions PO BID cap 05/29/20 10/09/20 Unknown History capsule,extended release 24 hr Exam Airway Mallampati Class: II TM Dist: >3cm Neck ROM: Full Loose/Missing/Broken Teeth: No Heart: [id number] Lungs: cta b/l Assessment and Plan Assessment Anesthesia Assessment: Anesthesia Plan Discussed Final Anesthetic Review NPO: Yes ASA Class: III Final Preanesthetic Review: No Changes in Pt Med Stat, Meds/Allgs Chart Reviewed, Consent Obtained/Reviewed and Anes Risks/Benef Reviewed Patient Risk: Intermediate Procedure Risk: Low Assessment/Block/Sedation in SS: Assess/Block/Sedation-SS Anesthetic Plan Anesthetic Plan: MAC: and Agree w/ Assess. and Plan Disposition: Standard PACU
--- NOTE | ~2021-02-15 | FL_ITS ---
EXAMINATION: XR FLUOROSCOPY WITH IMAGES CLINICAL INFORMATION: Perirectal/presacral pain. COMPARISON: Fluoroscopy 10/13/2020 TECHNIQUE: Fluoroscopy performed by Dr. Chepe Sandhu. Fluoroscopy time: 0.2 minutes DAP: 3.63 mGycm2 Images: 3 FINDINGS: There is needle placed in pre sacrococcygeal space with contrast opacifying it similar to previous study from 10/13/2020. FL/FL guidance in OR IMPRESSION: Fluoroscopy was provided to Dr. Chepe Sandhu for pain management.
[2021-02-15 13:25] VITALS: BMI 30.2
--- NOTE | 2021-02-15 13:26 | MHC.SHP ---
Pre-Procedural Eval Section A Date of Service: 02/15/21 Section B Chief Complaint: sacrococcygeal area Details of Present Illness: as above Relevant Family History (Specify if Yes): No Relevant Social History: None Present Medications: see Short Stay Collaborative assessment Medical History: No relevant PMH History of Previous Operations: No relevant previous surgery Allergies: Allergies Allergy/AdvReac Type Severity Reaction Status Date / Time No Known Allergies Allergy Verified 02/15/21 13:23 [No Known Allergies*] Review of Systems Sugical H&P ROS: Negative: Cardiovascular, Respiratory, Neurological, Psychiatric, Hem-Onc, Allergic/Immunologic, Gastrointestinal, Genitourinary, Musculoskeletal, Integumentary, Endocrine and Eyes/Ears/Nose/Throat and Yes, Specify: Constitution (obesity) Exam Surgical H&P Exam: Normal: HEENT, Normal: Heart, Normal: Lungs, Normal: Extremities, Normal: Skin and Normal: Neurological and Significant Findings: Abdomen (obese) Plan Diagnosis/Plan: Unchanged I have reviewed the history and physical and performed a pertinent physical examination on my patient. No changes have occurred unless specified.
[2021-02-15 13:50] VITALS: BMI 30.2
[2021-02-15 13:53] VITALS: BP 138/91; PULSE 85; RESP 16; TEMP 36.6; O2SAT 96
[2021-02-15] MEDS: Lactated Ringers 1,000 ML 100 ML IVCONT (14:00)
[2021-02-15 14:20] VITALS: BP 142/92; PULSE 79; RESP 16; O2SAT 97
--- NOTE | 2021-02-15 15:16 | PM.OP ---
Brief Operative Note Date of Service: 02/15/21 Pre-op diagnosis: Coccydynia Post-op diagnosis: same Implants: Ganglion impar steroid injection Surgeon: Chepe Sandhu MD Anesthesia: MAC Was an Line Maintenance Supervisor used for this Procedure?: No Estimated blood loss (mL): 1 Pathology: none sent Condition: stable Disposition: PACU
[2021-02-15 15:25] VITALS: BP 105/69; PULSE 68; RESP 16; TEMP 36.6; O2SAT 94
[2021-02-15 15:40] VITALS: BP 108/84; PULSE 71; RESP 16; O2SAT 94
[2021-02-15] MEDS: Acetaminophen 325 MG TABLET 650 MG PO (15:51)
[2021-02-15] MEDS: oxyCODONE HCl Immed Release 5 MG TABLET 10 MG PO (15:51)
[2021-02-15 16:01] VITALS: BP 128/97; PULSE 99; RESP 18; O2SAT 98
[2021-02-15] MEDS: fentaNYL citrate/PF 100 MCG/2 ML VIAL 50 MCG IVPUSH ×2 (16:06→16:15)
[2021-02-15 16:11] VITALS: BP 163/103; PULSE 86; RESP 16; O2SAT 96
--- NOTE | 2021-02-15 20:50 | P.OP_ITS ---
Operative Note Operative Note Date of Service: 02/15/21 Narrative: Informed consent was explained to the patient. All questions were explained and? answered.? The patient was taken inside the operating room where she was positioned prone on the operating table.? [employer] [place] [employer] monitors were applied.? Patient was deeply sedated.? Time-out was performed delineating correct site, side, the nature of the procedure, patient's allergy, preoperative antibiotic if needed.? All operating room staff was participating in OR time-out procedure. The lower back upper buttocks and inter gluteal crease were prepped with ChloraPrep twice and draped with sterile towels.? Sterilely draped C-arm was brought over the operating field and picture of the coccyx midline superimposing the symphysis pubis was obtained on the screen. ? After that the position of the C-arm was changed for the lateral view.? The coccygeal spine was chosen as the target for the injection.? The intervertebral disc between the 2nd and 1st coccygeal vertebra was chosen as the target for the insertion of the needle.? The projection of the target to the skin was infiltrated with lidocaine 2%.? After that 22 gauge 3-1/2 inch needle was advanced through the disc on anterior posterior and lateral views.? When needle cleared out the anterior contour of the coccygeal spine 2 mm -injection of the contrast was performed demonstrating the spread of the contrast in the posterior retro pelvic space and no contrast spread in vesicular, intravascular or intestinal pattern.? After that the treatment solution containing kenalog 80 mg a and bupivacaine 0.5% was injected into the area.? The patient tolerated procedure well.? She went to recovery room where she recovered uneventfully.
== END 2021-02-15 16:49 | disposition home or self-care (01) ==
PROVIDERS: PCP Internal Medicine; Visit Provider Anesthesiology
PROC: (CPT 64999; principal; 2021-02-15 14:30)
DX: M53.3 Sacrococcygeal disorders, not elsewhere classified (principal); M46.1 Sacroiliitis, not elsewhere classified
CPT/HCPCS: 64999; J2250; J3010; J3300; Q9967

== ENCOUNTER 2021-03-26 11:10 | Outpatient (REF) | payer MEDICARE, MEDICAID, SELFPAY | END 2021-03-26 11:11 | disposition home or self-care (01) | LOC: HO.LAB 11:10 | PROVIDERS: Visit Provider Internal Medicine | DX: Z20.822 Contact with and (suspected) exposure to COVID-19 (principal) | CPT/HCPCS: C9803; U0003; U0005 ==

== ENCOUNTER → 2021-04-12 08:03 | Outpatient (BNVA) | payer MEDICARE, MEDICAID, SELFPAY | PROVIDERS: PCP Internal Medicine; Visit Provider Anesthesiology | DX: M47.816 Spondylosis without myelopathy or radiculopathy, lumbar region (principal); M43.16 Spondylolisthesis, lumbar region; M46.1 Sacroiliitis, not elsewhere classified; M53.3 Sacrococcygeal disorders, not elsewhere classified; G89.4 Chronic pain syndrome | CPT/HCPCS: 99212 ==

== ENCOUNTER → 2021-05-07 15:54 | Outpatient (BNVA) | payer MEDICARE, MEDICAID, SELFPAY | PROVIDERS: PCP Internal Medicine; Visit Provider Anesthesiology | DX: M47.816 Spondylosis without myelopathy or radiculopathy, lumbar region (principal); M43.16 Spondylolisthesis, lumbar region; M46.1 Sacroiliitis, not elsewhere classified; M53.3 Sacrococcygeal disorders, not elsewhere classified; G89.4 Chronic pain syndrome | CPT/HCPCS: 99212 ==

== ENCOUNTER → 2021-05-30 08:09 | Outpatient (BNVA) | payer MEDICARE, MEDICAID, SELFPAY | PROVIDERS: PCP Internal Medicine; Visit Provider Anesthesiology | DX: Z51.81 Encounter for therapeutic drug level monitoring (principal); M47.816 Spondylosis without myelopathy or radiculopathy, lumbar region; M43.16 Spondylolisthesis, lumbar region; M46.1 Sacroiliitis, not elsewhere classified; M53.3 Sacrococcygeal disorders, not elsewhere classified; G89.4 Chronic pain syndrome | CPT/HCPCS: 99212 ==

== ENCOUNTER → 2021-06-27 08:23 | Outpatient (BNVA) | payer MEDICARE, MEDICAID, SELFPAY | PROVIDERS: PCP Internal Medicine; Visit Provider Anesthesiology | DX: Z51.81 Encounter for therapeutic drug level monitoring (principal); F11.20 Opioid dependence, uncomplicated; M47.816 Spondylosis without myelopathy or radiculopathy, lumbar region; M43.16 Spondylolisthesis, lumbar region; M46.1 Sacroiliitis, not elsewhere classified; M53.3 Sacrococcygeal disorders, not elsewhere classified; G89.4 Chronic pain syndrome | CPT/HCPCS: 99212 ==

== ENCOUNTER → 2021-07-25 09:44 | Outpatient (BNVA) | payer MEDICARE, MEDICAID, SELFPAY | PROVIDERS: PCP Internal Medicine; Visit Provider Anesthesiology | DX: Z51.81 Encounter for therapeutic drug level monitoring (principal); F11.20 Opioid dependence, uncomplicated; M47.816 Spondylosis without myelopathy or radiculopathy, lumbar region; M43.16 Spondylolisthesis, lumbar region; M46.1 Sacroiliitis, not elsewhere classified; M53.3 Sacrococcygeal disorders, not elsewhere classified; G89.4 Chronic pain syndrome | CPT/HCPCS: 99212 ==

== ENCOUNTER → 2021-08-22 13:28 | Outpatient (BNVA) | payer MEDICARE, MEDICAID, SELFPAY | PROVIDERS: PCP Internal Medicine; Visit Provider Anesthesiology | DX: Z51.81 Encounter for therapeutic drug level monitoring (principal); F11.20 Opioid dependence, uncomplicated | CPT/HCPCS: 99211 ==

== ENCOUNTER → 2021-09-19 13:13 | Outpatient (BNVA) | payer MEDICARE, MEDICAID, SELFPAY | PROVIDERS: PCP Internal Medicine; Visit Provider Anesthesiology | DX: Z51.81 Encounter for therapeutic drug level monitoring (principal); F11.20 Opioid dependence, uncomplicated | CPT/HCPCS: 99211 ==

== ENCOUNTER 2021-09-20 10:45 | Outpatient (REF) | payer MEDICARE, MEDICAID, SELFPAY ==
--- NOTE | ~2021-09-20 | XR_ITS ---
EXAMINATION: XR KNEE, LEFT CLINICAL INFORMATION: Pain COMPARISON: None TECHNIQUE: Four views of the left knee. FINDINGS: Mild medial compartment joint space narrowing. No evidence of acute fracture or dislocation. Moderate effusion. No abnormal soft tissue calcification. XR/XR knee LT 3V IMPRESSION: No radiographic evidence of acute fracture. Moderate effusion. Mild medial compartment arthritis.
== END 2021-09-20 10:46 | disposition home or self-care (01) ==
LOC: HO.XRAY 10:45
PROVIDERS: PCP Internal Medicine; Visit Provider Internal Medicine
DX: M25.562 Pain in left knee (principal)
CPT/HCPCS: 73562

== ENCOUNTER → 2021-10-17 07:59 | Outpatient (BNVA) | payer MEDICARE, MEDICAID, SELFPAY | PROVIDERS: PCP Internal Medicine; Visit Provider Physician Assistant | DX: M25.562 Pain in left knee (principal); S86.812D Strain of other muscle(s) and tendon(s) at lower leg level, left leg, subsequent encounter | CPT/HCPCS: 99212 ==

== ENCOUNTER 2021-10-24 08:42 | Outpatient (REF) | payer MEDICARE, MEDICAID, SELFPAY ==
--- NOTE | ~2021-10-24 | US_ITS ---
EXAMINATION: US VENOUS ULTRASOUND WITH DOPPLER LOWER EXTREMITY, LEFT CLINICAL INFORMATION: Left leg edema COMPARISON: None TECHNIQUE: Ultrasound of the deep veins is performed from the hip to the calf with compression sonography and color and pulse Doppler assessment. Spectral analysis with color-flow imaging is performed. FINDINGS: There is normal venous compression and respiratory variation and augmented flow. The visualized common femoral vein, superficial femoral vein, profunda femoral vein, popliteal vein, and the trifurcation region shows no evidence of deep venous thrombosis. There is no significant popliteal fossa cyst. No appreciable abnormal fluid collections. If the patient's symptoms persist, followup ultrasound in 5 days 7 days might be of value to exclude proximal propagation from a non-visualized calf vein. US/US venous duplex LE LT IMPRESSION: No DVT demonstrated in the left lower extremity.
== END 2021-10-24 08:43 | disposition home or self-care (01) ==
LOC: HO.US 08:42
PROVIDERS: Visit Provider Physician Assistant
DX: R60.9 Edema, unspecified (principal); M79.89 Other specified soft tissue disorders; S86.812A Strain of other muscle(s) and tendon(s) at lower leg level, left leg, initial encounter; Z51.81 Encounter for therapeutic drug level monitoring; Z79.899 Other long term (current) drug therapy
CPT/HCPCS: 93971; 99211

== ENCOUNTER 2021-10-31 07:00 | Outpatient (REF) | payer MEDICARE, MEDICAID, SELFPAY ==
--- NOTE | ~2021-10-31 | MM_ITS ---
EXAMINATION: BONE DENSITOMETRY CLINICAL INDICATION: Age-related osteoporosis without current pathological fracture. COMPARISON: Baseline BD dated 07/22/2019. TECHNIQUE: Using a [employer] DXA System (software version: 13.1) manufactured by [employer], dual-energy x-ray absorptiometry was performed of the lumbar spine and left hip. The images are of good technical quality. Summary results are attached. FINDINGS: AP SPINE L1-L4: Current: BMD 0.702 g/cm2, Z-score -2.6, T-score -4.0, osteoporosis, 7.3% decrease from baseline (<5% change is not significant). Baseline: BMD 0.757 g/cm2. LEFT FEMUR, NECK: Current: BMD 0.711 g/cm2, Z-score -1.0, T-score -2.4, osteopenia. Baseline: BMD 0.738 g/cm2. LEFT FEMUR, TOTAL: Current: BMD 0.729 g/cm2, Z-score -1.2, T-score -2.2, osteopenia, 3.2% decrease from baseline (<5% change is not significant). Baseline: BMD 0.753 g/cm2. IDENTIFIED RISK FACTORS: Osteoporosis, history of fracture (adult), tobacco use (current smoker), recurrent falls. Early menopause, secondary osteoporosis, hysterectomy, bilateral oophorectomy. HISTORY OF FRACTURE: Spine. Other. MEDICATIONS: Vitamin D. MM/XR DEXA axial skeleton IMPRESSION: 1. DIAGNOSIS: Severe osteoporosis based on the lowest T-score value of -4.0 in the lumbar spine and fracture history applying World Health Organization criteria. 2. 10-YEAR FRACTURE RISK PREDICTION, FRAX: Major osteoporotic fracture (clinical spine, forearm, hip or shoulder) 21.1%. Hip fracture 6.5%. 3. Treatment Recommendations: NOF guidelines recommend consideration for treatment in postmenopausal women and men age 50 and older presenting with the following: -A hip or vertebral (clinical or morphometric) fracture. -T-score less than or equal to -2.5 at the femoral neck or spine after appropriate evaluation to exclude secondary causes. -Low bone mass at the hip or spine and a 10-year fracture probability by FRAX of greater than or equal to 3% for hip fracture or greater than or equal to 20% for major osteoporotic fracture based on the [place] adapted WHO algorithm. 4. Other Recommendations: All treatment decisions require clinical judgment and consideration of individual patient factors, including patient preferences, comorbidities, previous drug use, risk factors not captured in the FRAX model (e.g. frailty, falls, vitamin D deficiency, increased bone turnover, interval significant decline in bone density) and possible under or overestimation of fracture risk by FRAX. Additional medical evaluation for secondary cause of low bone mineral density may be appropriate. FUTURE SCAN RECOMMENDATION: People with diagnosed cases of osteoporosis or at high risk for fracture should have regular bone mineral density tests. For patients eligible for Medicare, routine testing is allowed once every 2 years. The testing frequency can be increased to one year for patients who have rapidly progressing disease, those who are receiving or discontinuing medical therapy to restore bone mass, or have additional risk factors.
--- NOTE | ~2021-10-31 | MM_ITS ---
EXAMINATION: MM SCREENING DIGITAL BREAST TOMOSYNTHESIS, BILATERAL CLINICAL INFORMATION: Screening. Asymptomatic. The lifetime risk of breast cancer based on the Tyrer-Cuzick Model is 3%. COMPARISON: Outside mammography: 04/13/2010, 12/21/2008, 03/04/2007 ([facility]). TECHNIQUE: Digital breast tomosynthesis is performed in both the craniocaudal and mediolateral oblique views along with computer-aided detection (CAD). Synthesized 2D images are generated from the tomosynthesis. FINDINGS: There are scattered areas of fibroglandular density (ACR BI-RADS breast composition Category b). There are no significant masses, abnormal calcifications, or other abnormalities. Parenchymal pattern is similar to prior studies. There is no developing density or architectural abnormality. The axilla and skin contours are unremarkable. No significant changes from prior outside exams. MM/MM tomosynthesis screening BI IMPRESSION: No mammographic evidence of malignancy. ASSESSMENT: BI-RADS 1: Negative RECOMMENDATION: Routine annual mammography screening. This patient's information was entered into a reminder system with a target due date for their next mammogram.
[2021-10-31 07:11] LABS: MANUAL DIFF FLAG NO
[2021-10-31 07:26] LABS: Basophils Percent Auto 0.4 % (0-2); Eosinophils Absolute Auto 0.2 X10*3/uL (0.0-0.4); Eosinophils Percent Auto 2.9 % (0-4); Hematocrit 42.5 % (37.0-47.0); Hemoglobin 13.8 g/dl (12.0-16.0); Imm Gran Abs Auto 0.03 X10*3/uL (0.00-0.03); Imm Gran Pct Auto 0.4 % (0.0-0.4); Lymphocytes Absolute Auto 1.7 X10*3/uL (1.2-4.9); Lymphocytes Percent Auto 24.7 % (20-40); Mean Corpuscular HGB Conc 32.5 g/dl (31.0-35.0); Mean Corpuscular Hemoglobin 28.3 pg (27.0-33.0); Mean Corpuscular Volume 87.1 fL (80.0-98.0); Mean Platelet Volume 9.3 fL (9.4-12.3); Monocytes Absolute Auto 0.6 X10*3/uL (0.1-1.2); Monocytes Percent Auto 8.2 % (2-11); Neutrophils Absolute Auto 4.4 x10*3/uL (2.0-8.3); Neutrophils Percent Auto 63.4 % (45-73); Platelet Count 260 X10*3/uL (160-400); Red Blood Count 4.88 X10*6/uL (4.20-5.50); Red Cell Distribution Width 11.5 % (11.0-16.0)
[2021-10-31 08:10] LABS: Appearance Urine CLOUDY; Color Urine YELLOW; Glucose Urine UA NEG (NEG); Leukocyte Esterase Urine 3+ (NEG); Nitrite Urine POS (NEG); Specific Gravity - Urine 1.015 (1.005-1.025); UACC Culture Trigger YES; Urine Blood TRACE (NEG); Urine Ketones NEG (NEG); Urine Protein NEG (NEG-TRACE)
[2021-10-31 08:14] LABS: Alanine Aminotransferase 17 U/L (0-31); Albumin Level 4.5 g/dL (3.5-5.0); Alkaline Phosphatase 103 U/L (39-117); Anion Gap 14 (12-20); Aspartate Amino Transferase 17 U/L (5-31); Bilirubin Total 0.5 mg/dL (0.0-1.0); Blood Urea Nitrogen 14 mg/dL (9-16); Calcium 9.5 mg/dL (8.4-10.2); Carbon Dioxide 24 mmol/L (22-29); Chloride 108 mmol/L (96-108); Cholesterol 235 mg/dL; Estimated Glomerular Filt Rate > 60; Glucose Fasting 99 mg/dL (60-99); HDL Cholesterol 54 mg/dL; LDL Cholesterol Calculated 149 mg/dl; Potassium 4.1 mmol/L (3.3-5.1); Sodium 142 mmol/L (135-145); Total Protein 6.9 g/dL (6.5-8.0); Triglycerides 163 mg/dL
[2021-10-31 08:22] LABS: TSH reflex Free T4 1.81 uIU/mL (0.32-4.0); Vitamin D 25-OH Total 21.4 ng/mL (>30)
[2021-10-31 09:10] LABS: Bacteria Urine 3+ /LPF; Squamous Epithelial Cell Urine 1+ /LPF; WBC Urine TNTC /HPF (0-4)
[2021-10-31 09:12] LABS: WBC Clumps Urine NOTED
== END 2021-10-31 07:01 | disposition home or self-care (01) ==
LOC: HO.MAMMO 07:00
PROVIDERS: PCP Internal Medicine; Visit Provider Internal Medicine
DX: Z12.31 Encounter for screening mammogram for malignant neoplasm of breast (principal); M81.0 Age-related osteoporosis without current pathological fracture; I10 Essential (primary) hypertension; E78.00 Pure hypercholesterolemia, unspecified; E55.9 Vitamin D deficiency, unspecified; R82.71 Bacteriuria; B96.20 Unspecified Escherichia coli [E. coli] as the cause of diseases classified elsewhere; Z16.11 Resistance to penicillins
CPT/HCPCS: 36415; 77063; 77067; 77080; 80053; 80061; 81001; 81003; 82306; 84443; 85025; 87086; 87088; 87186

== ENCOUNTER → 2021-11-21 08:10 | Outpatient (BNVA) | payer MEDICARE, MEDICAID, SELFPAY | PROVIDERS: PCP Internal Medicine; Visit Provider Anesthesiology | DX: M47.816 Spondylosis without myelopathy or radiculopathy, lumbar region (principal); M43.16 Spondylolisthesis, lumbar region; G89.4 Chronic pain syndrome; M46.1 Sacroiliitis, not elsewhere classified; M53.3 Sacrococcygeal disorders, not elsewhere classified; Z79.891 Long term (current) use of opiate analgesic | CPT/HCPCS: 99212 ==

== ENCOUNTER → 2021-12-19 08:44 | Outpatient (BNVA) | payer MEDICARE, MEDICAID, SELFPAY | PROVIDERS: PCP Internal Medicine; Visit Provider Anesthesiology | DX: G89.4 Chronic pain syndrome (principal); M47.816 Spondylosis without myelopathy or radiculopathy, lumbar region; M43.16 Spondylolisthesis, lumbar region; M46.1 Sacroiliitis, not elsewhere classified; M53.3 Sacrococcygeal disorders, not elsewhere classified; Z79.891 Long term (current) use of opiate analgesic | CPT/HCPCS: 99212 ==

== ENCOUNTER → 2022-01-16 08:39 | Outpatient (BNVA) | payer MEDICARE, MEDICAID, SELFPAY | PROVIDERS: PCP Internal Medicine; Visit Provider Anesthesiology | DX: M47.816 Spondylosis without myelopathy or radiculopathy, lumbar region (principal); M43.16 Spondylolisthesis, lumbar region; G89.4 Chronic pain syndrome; M46.1 Sacroiliitis, not elsewhere classified; M53.3 Sacrococcygeal disorders, not elsewhere classified; Z79.891 Long term (current) use of opiate analgesic | CPT/HCPCS: 99212 ==

== ENCOUNTER → 2022-02-13 08:40 | Outpatient (BNVA) | payer MEDICARE, MEDICAID, SELFPAY | PROVIDERS: PCP Internal Medicine; Visit Provider Anesthesiology | DX: Z51.81 Encounter for therapeutic drug level monitoring (principal); F11.20 Opioid dependence, uncomplicated | CPT/HCPCS: 99211 ==

== ENCOUNTER → 2022-03-21 08:44 | Outpatient (BNVA) | payer MEDICARE, MEDICAID, SELFPAY | PROVIDERS: PCP Internal Medicine; Visit Provider Anesthesiology | DX: Z51.81 Encounter for therapeutic drug level monitoring (principal); F11.20 Opioid dependence, uncomplicated | CPT/HCPCS: 99211 ==

== ENCOUNTER → 2022-04-22 10:32 | Outpatient (BNVA) | payer MEDICARE, MEDICAID, SELFPAY | PROVIDERS: PCP Internal Medicine; Visit Provider Anesthesiology | DX: Z51.81 Encounter for therapeutic drug level monitoring (principal); F11.20 Opioid dependence, uncomplicated; M47.816 Spondylosis without myelopathy or radiculopathy, lumbar region; M43.16 Spondylolisthesis, lumbar region; M46.1 Sacroiliitis, not elsewhere classified; M53.3 Sacrococcygeal disorders, not elsewhere classified; G89.4 Chronic pain syndrome | CPT/HCPCS: 99212 ==

== ENCOUNTER 2022-05-14 12:53 | Outpatient (REF) | payer MEDICARE, MEDICAID, SELFPAY ==
--- NOTE | ~2022-05-14 | XR_ITS ---
EXAMINATION: XR CHEST CLINICAL INFORMATION: Chest pain. COMPARISON: 10/27/2019 chest radiographs. TECHNIQUE: 2 views of the chest were obtained. FINDINGS: No significant abnormality is noted involving the heart, lungs, mediastinum, bony thorax or soft tissues. XR/XR chest 2V IMPRESSION: No acute cardiopulmonary process.
== END 2022-05-14 12:54 | disposition home or self-care (01) ==
LOC: HO.XRAY 12:53
PROVIDERS: PCP Internal Medicine; Visit Provider Internal Medicine
DX: R09.89 Other specified symptoms and signs involving the circulatory and respiratory systems (principal)
CPT/HCPCS: 71046

== ENCOUNTER → 2022-05-21 08:35 | Outpatient (BNVA) | payer MEDICARE, MEDICAID, SELFPAY | PROVIDERS: PCP Internal Medicine; Visit Provider Anesthesiology | DX: Z13.89 Encounter for screening for other disorder (principal) ==

== ENCOUNTER 2022-12-23 14:40 | Outpatient (AMB) | payer OTHER, SELFPAY ==
[2022-12-23 14:44] VITALS: BP 128/80; PULSE 85; O2SAT 96; BMI 29.3
--- NOTE | 2022-12-23 14:44 | MHC.PC.OV ---
Vital Signs 12/23/22 14:44 Height 5 ft 1 in Weight 155 lb 4 oz BMI 29.3 BP 128/80 Blood Pressure Location Lt brachial Position Sitting Pulse 85 Pulse Source Pulse Oximeter Pulse Oximetry (%) 96 Oxygen Delivery Method Room Air Intake Visit Reasons: PE Undergraduate Internship Required: No Accompanied by: Self / Same As Patient Allergies mortin Allergy (Intermediate, Uncoded 04/27/23 17:40) Activates Crohns Medication List - Last Reconciled 12/23/22 by Ralph Colorado MD albuterol sulfate 90 mcg/actuation 2 puffs PO Q6H PRN budesonide 180 mcg/actuation (Pulmicort Flexhaler) 2 inhalations PO BID bupropion HCl 300 mg PO DAILY calcitonin (salmon) 200 unit/actuation 1 spray intranasal (ALT) DAILY cholecalciferol (vitamin D3) 25 mcg PO DAILY diphenhydramine HCl 25 mg PO TID PRN 30 days fluticasone propionate 50 mcg/actuation 2 sprays intranasal DAILY PRN 30 days hydroxyzine HCl 50 mg PO BID mesalamine ER 2 capsules PO 2 times a day; omeprazole 40 mg PO ONCE oxycodone Take 1-2 tabs orally 2 times a day PRN; Partial Fill upon patient request. Tobacco use date assessed: 12/23/22 Fall risk assessment: 1 Fall in past year Last assessed Fall Risk: 12/23/22 Dental Screening Dental Screen Date: 12/23/22 Did you have a dental visit in the last 12 months?: Yes Did you have a dental problem in the last 6 months where you did not have access to dental care?: No Was dental information given to patient?: Patient has dentist CATHERINE GUDINO HPI Details Patient comes in today for her annual physical examination States that she feels okay Still has chronic low back pain and joint pains but states that her pain are mostly manageable on her current Rx - she is now following up with [facility] She denies any headaches or dizziness Denies any chest pains, no SOB No nausea/vomiting, no abdominal pain No change in bowel habits noted She denies any acute urinary symptoms [facility] History Compression fracture of T11 vertebra with delayed healing Compression fracture of L4 vertebra Obesity (BMI 30-39.9) Hiatal hernia Coccydynia Overweight (BMI 25.0-29.9) Depression Anxiety Renal calculi Vitamin D deficiency Allergic rhinitis Osteoporosis Lumbar degenerative disc disease GERD without esophagitis Crohn's disease COPD (chronic obstructive pulmonary disease) GERD (gastroesophageal reflux disease) Ear discharge of both ears Ear build-up Sacroiliitis Chronic pain syndrome Spondylolisthesis, lumbar region Spondylosis of lumbar region without myelopathy or radiculopathy Surgical History (Updated 04/27/23 @ 18:21 by Ralph Colorado MD) Hx of colonoscopy History of surgery History of hysterectomy History of surgery History of nasal surgery Social History Housing: Apartment Alcohol intake: current Alcohol intake frequency: holidays/special occasions only Alcohol type: wine Patient Tobacco Use Status: Former Tobacco user Quit Date: 1 yr ago Tobacco use type: Cigarette e-Cigarette/Vaping Use: Never Used Second Hand Smoke Exposure: No Advance Directives Date on File: 06/02/20 service: No Current occupational status: disabled Cognitive needs: No Hearing needs: No Vision needs: Yes (glasses) Questionnaire PHQ-9 Over the last 2 weeks, how often have you been bothered by any of the following problems? 1. Little interest or pleasure in doing things: not at all 2. Feeling down, depressed, or hopeless: not at all 3. Trouble falling or staying asleep, or sleeping too much: not at all 4. Feeling tired or having little energy: not at all 5. Poor appetite or overeating: not at all 6. Feeling bad about yourself - or that you are a failure or have let yourself or your family down: not at all 7. Trouble concentrating on things, such as reading the newspaper or watching television: not at all 8. Moving or speaking so slowly that other people could have noticed. Or the opposite - being so fidgety or restless that you have been moving around a lot more than usual: not at all 9. Thoughts that you would be better off or of hurting yourself in some way: not at all Total score: 0 Depression Screening Interpretation: Negative 57076 - PHQ-9 Billing: Yes Source: Developed by Drs. Francisco Javier Rodriguez, Palak BKamran Sapp and colleagues, with an educational kelsie from [employer]. Thrive Questionnaire Date Thrive assessed: 12/23/22 I am a: Patient What is your living situation today?: I have a steady place to live Within the past 12 months, did the food you bought not last and you didn't have the money to get more?: Never true Within the past 12 months, did you worry whether your food would run out before you got money to buy more?: Never true Do you have trouble paying for medicines?: No Do you have trouble getting transportation to medical appointments?: No Do you have trouble paying your heating and electricity bill?: No Do you have trouble taking care of your child, family member or friend?: No Do you have trouble with day-to-day activities such as bathing, preparing meals, shopping, managing finances, etc.?: No Are you currently unemployed and looking for a job?: No Are you interested in more education?: No Currently or been in a relationship where the following occur: no concerns reported AUDIT C Alcohol Use Questionnaire (AUDIT-C) 1. How often do you have a drink containing alcohol?: Monthly or less Total Score: 1 Score Reviewed/Action Taken: Yes CULLEN-7 AMB Questionnaire CULLEN-7 Date CULLEN - 7 assessed: 12/23/22 Feeling nervous, anxious, or on edge: 0 = Not at all Not being able to stop or control worryin = Not at all Worrying too much about different things: 0 = Not at all Trouble relaxin = Not at all Being so restless that it is hard to sit still: 0 = Not at all Becoming easily annoyed or irritable: 0 = Not at all Feeling afraid as if something awful might happen: 0 = Not at all Total CULLEN-7 score (0-4 normal; 5-9 mild; 10-14 moderate; 15-21 severe): 0 Source: Developed by Drs. Francisco Javier Rodriguez, Kamran Robison and colleagues, with an educational kelsie from [employer]. Physical exam (Primary Care) Vital Signs: Last Vital Signs Pulse 85 12/23/22 14:44 BP 128/80 12/23/22 14:44 Pulse Ox 96 12/23/22 14:44 Oxygen Delivery Method Room Air 12/23/22 14:44 BMI result Body Mass Index 29.3 Tobacco/Smoking Status: Tobacco use Status Tobacco use date assessed 12/23/22 12/23/22 14:57 Patient Tobacco Use Status Former Tobacco user 12/23/22 14:57 Tobacco use type Cigarette 12/23/22 14:57 e-Cigarette/Vaping Use Never Used 12/23/22 14:57 PHQ-9: PHQ-9 Score PHQ-9: Total score 0 12/23/22 15:19 Depression Screening Interpretation: Negative Thrive Assessment: Date of Thrive Assessment Date Thrive assessed 12/23/22 12/23/22 14:57 Currently or been in a relationship where the following occur: no concerns reported Assessment and Plan Assessment & Plan (1) Annual physical exam: Code(s): Z00.00 - Encounter for general adult medical examination without abnormal findings Plan: Check labs [place] - has not had any follow up labs done in over a year now (labs were last done in October 2021) Had her repeat colonoscopy last done with Dr. Carrillo Dhillon on 05/28/2021 - is up-to-date She is scheduled for her annual mammogram in February 2023 (2) Pure hypercholesterolemia: Code(s): E78.00 - Pure hypercholesterolemia, unspecified Plan: She is advised that her cholesterol numbers last done in October 2021 were high and have increased significantly from her previous numbers but patient continues to decline pharmacotherapy and prefers NOT to start on cholesterol-lowering medications as much as possible Reinforced low cholesterol diet Will have her recheck her fasting lipids and labs [place]O for follow-up (3) COPD (chronic obstructive pulmonary disease): Code(s): J44.9 - Chronic obstructive pulmonary disease, unspecified Qualifiers: COPD type: unspecified COPD Qualified Code(s): J44.9 - Chronic obstructive pulmonary disease, unspecified Plan: Continue Pulmicort Flexhaler 180 mcg 2 inhalations BID and Albuterol HFA 2 inhalations every 6 hours as needed Follow up with pulmonary as scheduled (4) Crohn's disease: Code(s): K50.90 - Crohn's disease, unspecified, without complications Qualifiers: Digestive disease complication type: without complication Gastrointestinal tract location: unspecified location Qualified Code(s): K50.90 - Crohn's disease, unspecified, without complications Plan: States that aside for some occasional diarrhea, her Crohn's disease has been well-controlled overall on her current Rx Continue Mesalamine ER 1.2 gm 2 tablets BID and Dicyclomine 10 mg TID PRN Had a normal EGD and colonoscopy done at [facility] on 03/31/2019 and normal repeat colonoscopy last year on 05/28/2021 Follow-up with GI (Dr. Dhillon) as scheduled (5) GERD without esophagitis: Code(s): K21.9 - Gastro-esophageal reflux disease without esophagitis Plan: Dietary restrictions reinforced Continue Omeprazole 40 mg BID Follow up with GI as scheduled (6) Osteoporosis: Code(s): M81.0 - Age-related osteoporosis without current pathological fracture Qualifiers: Osteoporosis type: age-related Presence of current pathological fracture: without current pathological fracture Qualified Code(s): M81.0 - Age-related osteoporosis without current pathological fracture Plan: Baseline BMD done last year on 10/31/2021 revealed (+) severe osteoporosis with a T score of -4.0 in the lumbar spine - this has declined significantly from her baseline BMD done in 2019 Reinforced fall precautions Continue Calcitonin 200 units nasal spray QD Follow up with endocrinology as scheduled (7) Vitamin D deficiency: Code(s): E55.9 - Vitamin D deficiency, unspecified Plan: Advised that her Vitamin D level is still low on her labs back in October 2021 Continue Vitamin D3 1000 units QD (8) Allergic rhinitis: Code(s): J30.9 - Allergic rhinitis, unspecified Qualifiers: Allergic rhinitis seasonality: unspecified Allergic rhinitis trigger: unspecified Qualified Code(s): J30.9 - Allergic rhinitis, unspecified Plan: Continue Loratadine 10 mg QD PRN and Fluticasone 50 mcg nasal spray QD PRN (9) Lumbar degenerative disc disease: Code(s): M51.36 - Other intervertebral disc degeneration, lumbar region Plan: Reinforced activity and weight-lifting restrictions Continue Oxycodone 5 mg PRN Follow up with [facility] as scheduled (10) Left knee pain: Code(s): M25.562 - Pain in left knee Qualifiers: Chronicity: unspecified Qualified Code(s): M25.562 - Pain in left knee Plan: Mostly due to OA Follow up with orthopedics as scheduled (11) Renal calculi: Code(s): N20.0 - Calculus of kidney Plan: Follow up with urology (Dr. Genny Lopez) as scheduled Patient has had to undergo ESWL a few times in the past due to recurrent obstructive kidney stones (12) Anxiety: Code(s): F41.9 - Anxiety disorder, unspecified Plan: Continue Hydroxyzine 50 mg BID PRN and Bupropion 300 mg QD (13) Depression: Code(s): F32.9 - Major depressive disorder, single episode, unspecified Qualifiers: Active/Remission status: currently active Depression Type: major depressive disorder Major depression episode severity: unspecified Major depression recurrence: recurrent Qualified Code(s): F33.9 - Major depressive disorder, recurrent, unspecified Plan: Continue Bupropion 300 mg QD Follow up with psychiatry as scheduled (14) Obesity (BMI 30-39.9): Code(s): E66.9 - Obesity, unspecified Plan: Reinforced diet/exercise as tolerated/lose weight Plan Follow up in 4 months Orders: Orders Comprehensive [place]. Panel Fast 12/23/22 E78.00 - Pure hypercholesterolemia, unspecified, Z00.00 - Encounter for general adult medical examination without abnormal findings TSH reflex Free T4 12/23/22 E78.00 - Pure hypercholesterolemia, unspecified, Z00.00 - Encounter for general adult medical examination without abnormal findings Vitamin D 25-OH Total 12/23/22 E55.9 - Vitamin D deficiency, unspecified, Z00.00 - Encounter for general adult medical examination without abnormal findings Complete Blood Count Auto Diff 12/23/22 I10 - Essential (primary) hypertension, Z00.00 - Encounter for general adult medical examination without abnormal findings Lipid Panel 12/23/22 E78.00 - Pure hypercholesterolemia, unspecified, Z00.00 - Encounter for general adult medical examination without abnormal findings UA CC w/rflx Micro + Cult 12/23/22 R30.0 - Dysuria, Z00.00 - Encounter for general adult medical examination without abnormal findings Medications: Changed From oxycodone Take 1-2 tabs orally 2 times a day PRN; Partial Fill upon patient request. 28 caps 0RF severe pain (scale score 7-10) To oxycodone Take 1-2 tabs orally 2 times a day PRN; Partial Fill upon patient request. 28 caps 0RF severe pain (scale score 7-10) Coding Level of Care Code Est Pt Prev Care >65y(81222) Diagnoses Annual physical exam Z00.00 Pure hypercholesterolemia E78.00 Chronic obstructive pulmonary disease, unspecified COPD type J44.9 COPD type: unspecified COPD Crohn's disease without complication, unspecified gastrointestinal tract location K50.90 Digestive disease complication type: without complication Gastrointestinal tract location: unspecified location GERD without esophagitis K21.9 Age-related osteoporosis without current pathological fracture M81.0 Osteoporosis type: age-related Presence of current pathological fracture: without current pathological fracture Vitamin D deficiency E55.9 Allergic rhinitis, unspecified seasonality, unspecified trigger J30.9 Allergic rhinitis seasonality: unspecified Allergic rhinitis trigger: unspecified Lumbar degenerative disc disease M51.36 Left knee pain, unspecified chronicity M25.562 Chronicity: unspecified Renal calculi N20.0 Anxiety F41.9 Episode of recurrent major depressive disorder, unspecified depression episode severity F33.9 Active/Remission status: currently active Depression Type: major depressive disorder Major depression episode severity: unspecified Major depression recurrence: recurrent Obesity (BMI 30-39.9) E66.9
== END 2022-12-23 15:39 | disposition home or self-care (01) ==
PROVIDERS: Visit Provider Internal Medicine
DX: Z00.00 Encounter for general adult medical examination without abnormal findings (principal); E78.00 Pure hypercholesterolemia, unspecified; J44.9 Chronic obstructive pulmonary disease, unspecified; K50.90 Crohn's disease, unspecified, without complications; K21.9 Gastro-esophageal reflux disease without esophagitis; M81.0 Age-related osteoporosis without current pathological fracture; E55.9 Vitamin D deficiency, unspecified; J30.9 Allergic rhinitis, unspecified; M51.36 Other intervertebral disc degeneration, lumbar region; M25.562 Pain in left knee; N20.0 Calculus of kidney; F41.9 Anxiety disorder, unspecified
CPT/HCPCS: 99397

== ENCOUNTER 2023-02-25 07:41 | Outpatient (REF) | payer OTHER, SELFPAY ==
[2023-02-25 07:55] LABS: MANUAL DIFF FLAG NO
[2023-02-25 09:24] LABS: Basophils Percent Auto 0.3 % (0-2); Eosinophils Absolute Auto 0.2 X10*3/uL (0.0-0.4); Eosinophils Percent Auto 2.5 % (0-4); Hematocrit 42.1 % (37.0-47.0); Hemoglobin 13.1 g/dl (12.0-16.0); Imm Gran Abs Auto 0.02 X10*3/uL (0.00-0.03); Imm Gran Pct Auto 0.3 % (0.0-0.4); Lymphocytes Absolute Auto 1.5 X10*3/uL (1.2-4.9); Lymphocytes Percent Auto 26.1 % (20-40); Mean Corpuscular HGB Conc 31.1 g/dl (31.0-35.0); Mean Corpuscular Hemoglobin 25.6 pg (27.0-33.0); Mean Corpuscular Volume 82.2 fL (80.0-98.0); Monocytes Absolute Auto 0.5 X10*3/uL (0.1-1.2); Monocytes Percent Auto 9.2 % (2-11); Neutrophils Absolute Auto 3.6 x10*3/uL (2.0-8.3); Neutrophils Percent Auto 61.6 % (45-73); Platelet Count 238 X10*3/uL (160-400); Red Blood Count 5.12 X10*6/uL (4.20-5.50); Red Cell Distribution Width 13.2 % (11.0-16.0); White Blood Count 5.9 X10*3/uL (4.8-10.8)
[2023-02-25 09:31] LABS: Appearance Urine Cloudy; Color Urine Yellow; Glucose Urine UA Negative (Negative); PH 7.5 (5.0-9.0); Urine Blood Negative (Negative)
[2023-02-25 09:32] LABS: Leukocyte Esterase Urine Moderate (2+) (Negative); Nitrite Urine Positive (Negative); UMIC TRIGGER UACC YES; Urine Ketones Negative (Negative); Urine Protein Negative (Neg-Trace)
[2023-02-25 09:36] LABS: Bacteria Urine 4+ (None Seen); Hyaline Casts Urine 0-2 /LPF (0-2); RBC Urine 0-2 /HPF (0-2); Squamous Epithelial Cell Urine 0-2 /HPF (0-2); UACC Culture Trigger YES; WBC Urine >50 /HPF (0-5)
[2023-02-25 10:04] LABS: Alanine Aminotransferase 11 U/L (0-31); Albumin Level 4.2 g/dL (3.5-5.0); Alkaline Phosphatase 111 U/L (39-117); Anion Gap 13 (12-20); Aspartate Amino Transferase 13 U/L (5-31); Bilirubin Total 0.6 mg/dL (0.0-1.0); Blood Urea Nitrogen 13 mg/dL (9-16); Calcium 9.3 mg/dL (8.4-10.2); Carbon Dioxide 24 mmol/L (22-29); Chloride 109 mmol/L (96-108); Cholesterol 208 mg/dL (<200); Estimated Glomerular Filt Rate > 60; Glucose Fasting 106 mg/dL (60-99); HDL Cholesterol 46 mg/dL (>40); LDL Cholesterol Calculated 136 mg/dL (<100); Potassium 3.7 mmol/L (3.3-5.1); Sodium 142 mmol/L (135-145); Total Protein 6.8 g/dL (6.5-8.0); Triglycerides 134 mg/dL (<150)
[2023-02-25 10:10] LABS: TSH reflex Free T4 0.86 uIU/mL (0.32-4.0); Vitamin D 25-OH Total 27.1 ng/mL (>30)
== END 2023-02-25 07:42 | disposition home or self-care (01) ==
LOC: HO.LAB 07:41
PROVIDERS: PCP Internal Medicine; Visit Provider Internal Medicine
DX: Z00.00 Encounter for general adult medical examination without abnormal findings (principal); I10 Essential (primary) hypertension; E78.00 Pure hypercholesterolemia, unspecified; E55.9 Vitamin D deficiency, unspecified; R30.0 Dysuria
CPT/HCPCS: 36415; 80053; 80061; 81001; 82306; 84443; 85025; 87086; 87088; 87186

== ENCOUNTER 2023-03-13 12:35 | Outpatient (AMB) | payer OTHER, SELFPAY ==
--- NOTE | 2023-03-13 12:58 | AM.OFFVISNUR ---
Intake Intake Visit Reasons: flu shot Allergies mortin Allergy (Intermediate, Uncoded 12/23/22 15:24) Activates Crohns Office Procedures Flu Questionnaire Does the patient have a severe egg allergy?: No Does the patient have severe life threatening allergies?: No Does the patient have a fever or illness today?: No Has the patient ever had Guillain-[place] Syndrome?: No Has the patient ever had any past reaction to a flu shot?: No Immunizations flu vacc [id number] 6mos up(PF) 60 mcg(15 mcgx4)/0.5 mL IM syringe Performing Provider: Ralph Colorado MD [facility] Administered by: Laureen Chapman RN on 03/13/23 12:58 Dose Route Admin Location Dispensed Lot Number Expiration Date NDC Cloth Printer 0.5 mL IM Right Deltoid 0.5 mL [id number] 11/23/23 11460-009-10 [employer] VIS Given Date VIS Provided VIS Publication Date 03/13/23 Single Vaccine 20 Eligibility Eligibility Date Funding Source Not [facility] Eligible 03/13/23 Private Coding Assessment & Plan Assessment & Plan Orders: Orders Influenza [id number] Immunization Today Z23 - Encounter for immunization
== END 2023-03-13 13:00 | disposition home or self-care (01) ==
PROVIDERS: PCP Internal Medicine; Visit Provider Internal Medicine
DX: Z23 Encounter for immunization (principal)
CPT/HCPCS: 90471; 90686

== ENCOUNTER 2023-03-17 12:31 | Outpatient (REF) | payer OTHER, SELFPAY ==
--- NOTE | ~2023-03-17 | MM_ITS ---
EXAMINATION: MM SCREENING DIGITAL BREAST TOMOSYNTHESIS, BILATERAL CLINICAL INFORMATION: Screening. Asymptomatic. COMPARISON: Mammography: This study is compared with prior exams dating back to 2009. TECHNIQUE: Digital breast tomosynthesis is performed in both the craniocaudal and mediolateral oblique views along with computer-aided detection (CAD). Synthesized 2D images are generated from the tomosynthesis. FINDINGS: The breasts are almost entirely fatty (ACR BI-RADS breast composition Category a). There are no significant masses, abnormal calcifications, or other abnormalities. MM/MM tomosynthesis screening BI IMPRESSION: No mammographic evidence of malignancy. ASSESSMENT: BI-RADS BI-RADS 1 - Negative RECOMMENDATION: Routine annual mammography screening. 1 year F/U This examination should not preclude the clinical evaluation of a suspicious palpable abnormality. This patient's information was entered into a reminder system with a target due date for their next mammogram.
== END 2023-03-17 12:32 | disposition home or self-care (01) ==
LOC: HO.MAMMO 12:31
PROVIDERS: PCP Internal Medicine; Visit Provider Internal Medicine
DX: Z12.31 Encounter for screening mammogram for malignant neoplasm of breast (principal)
CPT/HCPCS: 77063; 77067

== ENCOUNTER → 2023-03-17 12:45 | Outpatient (BNV) | payer OTHER, SELFPAY | PROVIDERS: PCP Internal Medicine; Visit Provider Radiology Diagnostic Radiology | DX: Z12.31 Encounter for screening mammogram for malignant neoplasm of breast (principal) | CPT/HCPCS: 77063; 77067 ==

== ENCOUNTER 2023-04-25 14:20 | Outpatient (AMB) | payer OTHER, SELFPAY ==
[2023-04-25 14:55] VITALS: BP 106/80; PULSE 94; O2SAT 99; BMI 28.0
--- NOTE | 2023-04-25 14:55 | A.OFFPC_ITS ---
Vital Signs 04/25/23 14:55 Height 5 ft 1 in Weight 148 lb BMI 28.0 BP 106/80 Blood Pressure Location Lt brachial Position Sitting Pulse 94 Pulse Source Pulse Oximeter Pulse Oximetry (%) 99 Oxygen Delivery Method Room Air Intake Visit Reasons: 4 month f/u Allergies mortin Allergy (Intermediate, Uncoded 04/27/23 17:40) Activates Crohns Medication List - Last Reconciled 04/27/23 by Ralph Colorado MD albuterol sulfate 90 mcg/actuation 2 puffs PO Q6H PRN budesonide 180 mcg/actuation (Pulmicort Flexhaler) 2 inhalations PO BID bupropion HCl 300 mg PO DAILY calcitonin (salmon) 200 unit/actuation 1 spray intranasal (ALT) DAILY cholecalciferol (vitamin D3) 25 mcg PO DAILY diphenhydramine HCl 25 mg PO TID PRN 30 days fluticasone propionate 50 mcg/actuation 2 sprays intranasal DAILY PRN 30 days hydroxyzine HCl 50 mg PO BID mesalamine ER 2 capsules PO 2 times a day; omeprazole 40 mg PO ONCE oxycodone 15 mg PO Q4H PRN 2 days oxycodone Take 1-2 tabs orally 2 times a day PRN; Partial Fill upon patient request. Tobacco use date assessed: 12/23/22 Fall risk assessment: 1 Fall in past year Last assessed Fall Risk: 04/25/23 Dental Screening Dental Screen Date: 04/25/23 Did you have a dental visit in the last 12 months?: Yes Did you have a dental problem in the last 6 months where you did not have access to dental care?: No Was dental information given to patient?: Patient has dentist HPI 4 month f/u HPI Details Patient comes in today for her follow up visit She recently underwent repeat da Fauzia/laparoscopic repair of her paraesophageal hernia with mesh a couple of weeks ago at [facility] Is currently still experiencing some soreness over her epigastric area but states that she feels okay overall She denies any headaches or dizziness Denies any chest pains, no SOB No nausea/vomiting, no change in bowel habits noted Had her follow up labs done a couple of months ago - to discuss her results [facility] Medical History Compression fracture of T11 vertebra with delayed healing Compression fracture of L4 vertebra Obesity (BMI 30-39.9) Hiatal hernia Coccydynia Overweight (BMI 25.0-29.9) Depression Anxiety Renal calculi Vitamin D deficiency Allergic rhinitis Osteoporosis Lumbar degenerative disc disease GERD without esophagitis Crohn's disease COPD (chronic obstructive pulmonary disease) GERD (gastroesophageal reflux disease) Ear discharge of both ears Ear build-up Sacroiliitis Chronic pain syndrome Spondylolisthesis, lumbar region Spondylosis of lumbar region without myelopathy or radiculopathy Surgical History History of surgery History of hysterectomy History of surgery History of nasal surgery Social History Housing: Apartment Alcohol intake: current Alcohol intake frequency: holidays/special occasions only Alcohol type: wine Patient Tobacco Use Status: Former Tobacco user Quit Date: 1 yr ago Tobacco use type: Cigarette e-Cigarette/Vaping Use: Never Used Second Hand Smoke Exposure: No Advance Directives Date on File: 06/02/20 service: No Current occupational status: disabled Cognitive needs: No Hearing needs: No Vision needs: Yes (glasses) Questionnaire Thrive Questionnaire Date Thrive assessed: 12/23/22 CULLEN-7 AMB Questionnaire CULLEN-7 Date CULLEN - 7 assessed: 12/23/22 Source: Developed by Drs. Francisco Javier Rodriguez, Palak العلي, Kamran Calvin and colleagues, with an educational kelsie from [employer]. Review of Systems Const Denies chills, Reports fatigue, Denies fever(s) and Denies headache(s) ENT Denies dysphagia, Denies dizziness, Denies otalgia, Denies headache(s), Denies neck pain, Denies odynophagia, Denies sinus pain and Denies sore throat Card Denies chest pain, Denies palpitations and Denies dyspnea Resp Denies cough and Denies dyspnea GI Reports abdominal pain (mild, over the epigastric area (related to her recent surgery)), Denies constipation, Denies dysphagia, Denies heartburn, Denies diarrhea, Denies nausea, Denies odynophagia and Denies vomiting Denies difficulty voiding, Denies nocturia and Denies dysuria Musc Reports back pain (over the lower back - chronic), Reports arthralgias (over both knees) and Denies neck pain Skin/Breast Denies rash Neuro Denies dizziness and Denies headache(s) Psych Denies anxiety Endo Reports fatigue and Denies palpitations Aller/Immun Reports seasonal rhinorrhea Physical exam (Primary Care) Vital Signs: Last Vital Signs Pulse 94 04/25/23 14:55 BP 106/80 04/25/23 14:55 Pulse Ox 99 04/25/23 14:55 Oxygen Delivery Method Room Air 04/25/23 14:55 BMI result Body Mass Index 28.0 Tobacco/Smoking Status: Tobacco use Status Tobacco use date assessed 12/23/22 04/25/23 14:56 Patient Tobacco Use Status Former Tobacco user 04/25/23 14:56 Tobacco use type Cigarette 04/25/23 14:56 e-Cigarette/Vaping Use Never Used 04/25/23 14:56 Thrive Assessment: Date of Thrive Assessment Date Thrive assessed 12/23/22 04/25/23 14:56 Const General: no acute distress and alert HENMT Ears: TM's normal bilaterally and EAC's normal Throat: Yes posterior oropharynx normal and Yes tonsils normal (no TP congestion) Neck Neck: Yes no lymphadenopathy and Yes supple Resp Auscultation: clear to auscultation bilaterally, no rales and no wheezes Cardio Rate: regular rate Rhythm: regular rhythm Heart sounds: no murmurs GI Palpation (GI): Soft to palpation, Tenderness to palpation present (GI) (minimal) in the epigastrum, no guarding, not rigid and No Rebound tenderness present Auscultation: normal bowel sounds Back/Spine/Pelvis Thoracic/Lumbar Spine: lumbar spinal tenderness Skin Rashes: no rashes Extrem General: Yes no clubbing, cyanosis or edema Right lower extremity: knee Details: tenderness; no swelling Left lower extremity: knee Details: tenderness; no swelling Results Reviewed Results Reviewed: Laboratory Tests 02/25/23 02/25/23 07:52 07:53 WBC 5.9 Hgb 13.1 Hct 42.1 Plt Count 238 Sodium 142 Potassium 3.7 Creatinine 0.57 Estimated GFR > 60 Fasting Glucose 106 H Calcium 9.3 AST 13 ALT 11 Triglycerides 134 Cholesterol 208 H LDL Cholesterol, Calc 136 H HDL Cholesterol 46 25-OH Vitamin D Total 27.1 TSH 0.86 Ur Specific [place] 1.010 Urine Protein Negative Urine Glucose (UA) Negative Urine Blood Negative Assessment and Plan Assessment & Plan (1) Pure hypercholesterolemia: Code(s): E78.00 - Pure hypercholesterolemia, unspecified Plan: Results of her labs done a couple of months ago reviewed and discussed with patient - advised that her cholesterol numbers have improved slightly from last year but they are still elevated Reinforced low cholesterol diet; patient still does NOT wish to be started on cholesterol-lowering medications and would like to continue working on diet modification alone Will recheck her fasting lipids and labs in 6 months for follow-up (2) COPD (chronic obstructive pulmonary disease): Code(s): J44.9 - Chronic obstructive pulmonary disease, unspecified Qualifiers: COPD type: unspecified COPD Qualified Code(s): J44.9 - Chronic obstructive pulmonary disease, unspecified Plan: Continue Pulmicort Flexhaler 180 mcg 2 inhalations BID and Albuterol HFA 2 inhalations every 6 hours as needed Follow up with pulmonary as scheduled (3) Crohn's disease: Code(s): K50.90 - Crohn's disease, unspecified, without complications Qualifiers: Digestive disease complication type: without complication Gastrointestinal tract location: unspecified location Qualified Code(s): K50.90 - Crohn's disease, unspecified, without complications Plan: States that aside for some occasional diarrhea, her Crohn's disease has been w ell-controlled overall on her current Rx Continue Mesalamine ER 1.2 gm 2 tablets BID and Dicyclomine 10 mg TID PRN Had a normal EGD and colonoscopy done at [facility] a few years ago on 03/31/2019 Follow-up with GI (Dr. Shepherd) as scheduled (4) Hiatal hernia: Code(s): K44.9 - Diaphragmatic hernia without obstruction or gangrene Plan: S/P repeat da Fauzia/laparoscopic paraesophageal hernia repair with mesh a couple of weeks ago on 04/15/2023 Follow up with thoracic surgery as scheduled (5) GERD without esophagitis: Code(s): K21.9 - Gastro-esophageal reflux disease without esophagitis Plan: Dietary restrictions reinforced Continue Omeprazole 40 mg BID Follow up with GI as scheduled (6) Osteoporosis: Code(s): M81.0 - Age-related osteoporosis without current pathological fracture Qualifiers: Osteoporosis type: age-related Presence of current pathological fracture: without current pathological fracture Qualified Code(s): M81.0 - Age- related osteoporosis without current pathological fracture Plan: Baseline BMD done a couple of years ago on 10/31/2021 revealed (+) severe osteoporosis with a T score of -4.0 in the lumbar spine - this has declined significantly from her baseline BMD done in 2019 Reinforced fall precautions She has been started on Calcitonin 200 units nasal spray QD Follow up with endocrinology as scheduled (7) Vitamin D deficiency: Code(s): E55.9 - Vitamin D deficiency, unspecified Plan: Advised that her Vitamin D level is still low on her recent labs Continue Vitamin D3 1000 units QD (8) Allergic rhinitis: Code(s): J30.9 - Allergic rhinitis, unspecified Qualifiers: Allergic rhinitis seasonality: unspecified Allergic rhinitis trigger: unspecified Qualified Code(s): J30.9 - Allergic rhinitis, unspecified Plan: Continue Loratadine 10 mg QD PRN and Fluticasone 50 mcg nasal spray QD PRN (9) Lumbar degenerative disc disease: Code(s): M51.36 - Other intervertebral disc degeneration, lumbar region Plan: Reinforced activity and weight-lifting restrictions Continue Oxycodone 5 mg PRN She used to see [facility] but now appears to be following up with pain management at [facility] (10) Left knee pain: Code(s): M25.562 - Pain in left knee Qualifiers: Chronicity: unspecified Qualified Code(s): M25.562 - Pain in left knee Plan: Most likely due to OA Follow up with orthopedics as scheduled (11) Renal calculi: Code(s): N20.0 - Calculus of kidney Plan: Patient has had to undergo ESWL a few times in the past due to recurrent obstructive kidney stones Follow up with urology (Dr. Genny Lopez) as scheduled (12) Anxiety: Code(s): F41.9 - Anxiety disorder, unspecified Plan: Continue Hydroxyzine 50 mg BID PRN and Bupropion 300 mg QD (13) Depression: Code(s): F32.9 - Major depressive disorder, single episode, unspecified Qualifiers: Active/Remission status: currently active Depression Type: major depre ssive disorder Major depression episode severity: unspecified Major depression recurrence: recurrent Qualified Code(s): F33.9 - Major depressive disorder, recurrent, unspecified Plan: Continue Bupropion 300 mg QD Follow up with psychiatry as scheduled (14) Obesity (BMI 30-39.9): Code(s): E66.9 - Obesity, unspecified Plan: Reinforced diet/exercise as tolerated/lose weight Plan Follow up in 6 months Orders: Orders Lipid Panel 6 Months E78.00 - Pure hypercholesterolemia, unspecified Comprehensive [place]. Panel Fast 6 Months E78.00 - Pure hypercholesterolemia, unspecified Complete Blood Count Auto Diff 6 Months I10 - Essential (primary) hypertension UA CC w/rflx Micro + Cult 6 Months R30.0 - Dysuria Vitamin D 25-OH Total 6 Months E55.9 - Vitamin D deficiency, unspecified Coding Level of Care Code Est Pt Level 4 (17131) Diagnoses Pure hypercholesterolemia E78.00 Chronic obstructive pulmonary disease, unspecified COPD type J44.9 COPD type: unspecified COPD Crohn's disease without complication, unspecified gastrointestinal tract location K50.90 Digestive disease complication type: without complication Gastrointestinal tract location: unspecified location Hiatal hernia K44.9 GERD without esophagitis K21.9 Age-related osteoporosis without current pathological fracture M81.0 Osteoporosis type: age-related Presence of current pathological fracture: without current pathological fracture Vitamin D deficiency E55.9 Allergic rhinitis, unspecified seasonality, unspecified trigger J30.9 Allergic rhinitis seasonality: unspecified Allergic rhinitis trigger: unspecified Lumbar degenerative disc disease M51.36 Left knee pain, unspecified chronicity M25.562 Chronicity: unspecified Renal calculi N20.0 Anxiety F41.9 Episode of recurrent major depressive disorder, unspecified depression episode severity F33.9 Active/Remission status: currently active Depression Type: major depressive disorder Major depression episode severity: unspecified Major depression recurrence: recurrent Obesity (BMI 30-39.9) E66.9
== END 2023-04-25 15:58 | disposition home or self-care (01) ==
PROVIDERS: PCP Internal Medicine; Visit Provider Internal Medicine
DX: E78.00 Pure hypercholesterolemia, unspecified (principal); J44.9 Chronic obstructive pulmonary disease, unspecified; K50.90 Crohn's disease, unspecified, without complications; F33.9 Major depressive disorder, recurrent, unspecified; K44.9 Diaphragmatic hernia without obstruction or gangrene; K21.9 Gastro-esophageal reflux disease without esophagitis; M81.0 Age-related osteoporosis without current pathological fracture; E55.9 Vitamin D deficiency, unspecified; J30.9 Allergic rhinitis, unspecified; M51.36 Other intervertebral disc degeneration, lumbar region; M25.562 Pain in left knee; N20.0 Calculus of kidney
CPT/HCPCS: 99214

== ENCOUNTER 2023-10-29 08:45 | Outpatient (AMB) | payer OTHER, SELFPAY ==
[2023-10-29 08:47] VITALS: BP 138/94; PULSE 90; O2SAT 98; BMI 27.8
--- NOTE | 2023-10-29 08:47 | A.OFFPC_ITS ---
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 Allergies ibuprofen [From Motrin] Adverse Reaction (Intermediate, Verified 10/29/23 09:18) activates her Crohn's disease Medication List - Last Reconciled 10/29/23 by Ralph Colorado MD albuterol sulfate 90 mcg/actuation 2 puffs PO Q6H PRN budesonide 180 mcg/actuation (Pulmicort Flexhaler) 2 inhalations PO BID bupropion HCl XL 300 mg PO DAILY calcitonin (salmon) 200 unit/actuation 1 spray intranasal (ALT) DAILY cholecalciferol (vitamin D3) 25 mcg PO DAILY diphenhydramine HCl 25 mg PO TID PRN 30 days fluticasone propionate 50 mcg/actuation 2 sprays intranasal DAILY PRN 30 days hydroxyzine HCl 50 mg PO BID mesalamine 1.2 grams PO DAILY omeprazole 40 mg PO DAILY Tobacco use date assessed: 10/29/23 Fall risk assessment: No Falls in past year Last assessed Fall Risk: 10/29/23 Dental Screening Dental Screen Date: 10/29/23 Did you have a dental visit in the last 12 months?: Yes Did you have a dental problem in the last 6 months where you did not have access to dental care?: No Was dental information given to patient?: Patient has dentist HPI 6 month f/u HPI Details Patient comes in today for her follow up visit States that she feels okay She denies any headaches or dizziness Denies any chest pains, no SOB No nausea/vomiting, no abdominal pain No change in bowel habits noted Patient brought in her BP log for the past week from home - log shows that her systolic BP averages around 129 to 145 mm, with the systolic BP over 140 mm only a couple of times Still has frequent recurrent pain over her lower back and multiple joints but states that these have been adequately controlled on her current meds and regimen - she continues to follow up with pain management at [facility] She did not get her follow up labs done prior to her visit today - states that she was not aware that she needed to get labs done and will try to go and get them done [facility] Medical History Compression fracture of T11 vertebra with delayed healing Compression fracture of L4 vertebra Obesity (BMI 30-39.9) Hiatal hernia Coccydynia Overweight (BMI 25.0-29.9) Depression Anxiety Renal calculi Vitamin D deficiency Allergic rhinitis Osteoporosis Lumbar degenerative disc disease GERD without esophagitis Crohn's disease COPD (chronic obstructive pulmonary disease) GERD (gastroesophageal reflux disease) Ear discharge of both ears Ear build-up Sacroiliitis Chronic pain syndrome Spondylolisthesis, lumbar region Spondylosis of lumbar region without myelopathy or radiculopathy Surgical History Hx of colonoscopy History of surgery History of hysterectomy History of surgery History of nasal surgery Social History Housing: Apartment Alcohol intake: current Alcohol intake frequency: holidays/special occasions only Alcohol type: wine Patient Tobacco Use Status: Former Tobacco user Tobacco use type: Cigarette e-Cigarette/Vaping Use: Never Used Second Hand Smoke Exposure: No Advance Directives Date on File: 06/02/20 service: No Current occupational status: disabled Cognitive needs: No Hearing needs: No Vision needs: Yes (glasses) Questionnaire PHQ-9 Over the last 2 weeks, how often have you been bothered by any of the following problems? 1. Little interest or pleasure in doing things: not at all 2. Feeling down, depressed, or hopeless: not at all 3. Trouble falling or staying asleep, or sleeping too much: not at all 4. Feeling tired or having little energy: not at all 5. Poor appetite or overeating: not at all 6. Feeling bad about yourself - or that you are a failure or have let yourself or your family down: not at all 7. Trouble concentrating on things, such as reading the newspaper or watching television: not at all 8. Moving or speaking so slowly that other people could have noticed. Or the opposite - being so fidgety or restless that you have been moving around a lot more than usual: not at all 9. Thoughts that you would be better off or of hurting yourself in some way: not at all Total score: 0 Depression Screening Interpretation: Negative Depression Screening Done: Yes 80222 - PHQ-9 Billing: Yes Source: Developed by Drs. Francisco Javier Rodriguez, Palak العلي, Kamran Calvin and colleagues, with an educational kelsie from [employer]. Thrive Questionnaire Date Thrive assessed: 10/29/23 I am a: Patient What is your living situation today?: I have a steady place to live Within the past 12 months, did the food you bought not last and you didn't have the money to get more?: Never true Within the past 12 months, did you worry whether your food would run out before you got money to buy more?: Never true Do you have trouble paying for medicines?: No Do you have trouble getting transportation to medical appointments?: No Do you have trouble paying your heating and electricity bill?: No Do you have trouble taking care of your child, family member or friend?: No Do you have trouble with day-to-day activities such as bathing, preparing meals, shopping, managing finances, etc.?: No Are you currently unemployed and looking for a job?: No Are you interested in more education?: No Please select the resources that you would like help with: None Currently or been in a relationship where the following occur: no concerns reported THRIVE Score: 0 AUDIT C Alcohol Use Questionnaire (AUDIT-C) 1. How often do you have a drink containing alcohol?: Monthly or less 3. How often do you have six or more drinks on one occasion?: Never Total Score: 1 Score Reviewed/Action Taken: Yes CULLEN-7 AMB Questionnaire CULLEN-7 Date CULLEN - 7 assessed: 10/29/23 Feeling nervous, anxious, or on edge: 0 = Not at all Not being able to stop or control worryin = Not at all Worrying too much about different things: 0 = Not at all Trouble relaxin = Not at all Being so restless that it is hard to sit still: 0 = Not at all Becoming easily annoyed or irritable: 0 = Not at all Feeling afraid as if something awful might happen: 0 = Not at all Total CULLEN-7 score (0-4 normal; 5-9 mild; 10-14 moderate; 15-21 severe): 0 Source: Developed by Drs. Francisco Javier Rodriguez, Palak العلي, Kamran Calvin and colleagues, with an educational kelsie from [employer]. CULLEN-7 Assessment Billing CULLEN-7 Assessment Tool: CULLEN-7 Assessment 95212 Review of Systems Const Denies chills, Denies fatigue, Denies fever(s) and Denies headache(s) ENT Denies dysphagia, Denies dizziness, Denies otalgia, Denies headache(s), Denies neck pain, Denies odynophagia, Denies sinus pain and Denies sore throat Card Denies chest pain, Denies palpitations and Denies dyspnea Resp Denies cough and Denies dyspnea GI Denies abdominal pain, Denies constipation, Denies dysphagia, Denies heartburn, Denies diarrhea, Denies nausea, Denies odynophagia and Denies vomiting Denies difficulty voiding, Denies nocturia, Denies dysuria and Denies urinary urgency Musc Reports back pain (over the lower back - chronic), Reports arthralgias (over both knees) and Denies neck pain Skin/Breast Denies rash Neuro Denies dizziness and Denies headache(s) Psych Denies anxiety Endo Denies fatigue and Denies palpitations Aller/Immun Reports seasonal rhinorrhea Physical exam (Primary Care) Vital Signs: Last Vital Signs Pulse 90 10/29/23 08:47 BP 138/94 H 10/29/23 08:47 Pulse Ox 98 10/29/23 08:47 Oxygen Delivery Method Room Air 10/29/23 08:47 BMI result Body Mass Index 27.8 Tobacco/Smoking Status: Tobacco use Status Tobacco use date assessed 10/29/23 10/29/23 08:55 Patient Tobacco Use Status Former Tobacco user 10/29/23 08:55 Tobacco use type Cigarette 10/29/23 08:55 e-Cigarette/Vaping Use Never Used 10/29/23 08:55 Depression Screening Interpretation: Negative Thrive Assessment: Date of Thrive Assessment Date Thrive assessed 10/29/23 10/29/23 09:00 Currently or been in a relationship where the following occur: no concerns reported Const General: no acute distress and alert HENMT Ears: TM's normal bilaterally and EAC's normal Throat: Yes posterior oropharynx normal and Yes tonsils normal (no TP congestion) Neck Neck: Yes no lymphadenopathy and Yes supple Thyroid: Thyroid normal Resp Auscultation: clear to auscultation bilaterally, no rales and no wheezes Cardio Rate: regular rate Rhythm: regular rhythm Heart sounds: no murmurs GI Palpation (GI): Soft to palpation and nontender Auscultation: normal bowel sounds General: Yes no CVA tenderness Back/Spine/Pelvis Back: no CVA tenderness Thoracic/Lumbar Spine: lumbar spinal tenderness Skin Rashes: no rashes Extrem General: Yes no clubbing, cyanosis or edema Right lower extremity: knee Details: tenderness; no swelling Left lower extremity: knee Details: tenderness; no swelling Assessment and Plan Assessment & Plan (1) Pure hypercholesterolemia: Code(s): E78.00 - Pure hypercholesterolemia, unspecified Plan: She was not able to get her follow up labs done prior to her appointment today - states that she will try to get them done [facility] She was reminded that her cholesterol numbers were still elevated when they were last checked in February 2023 although they have improved slightly from previous Reinforced low cholesterol diet; patient still does NOT wish to be started on cholesterol-lowering medications and would like to continue working on diet modification alone Will recheck her fasting lipids and labs in 6 months for follow-up (2) COPD (chronic obstructive pulmonary disease): Code(s): J44.9 - Chronic obstructive pulmonary disease, unspecified Qualifiers: COPD type: unspecified COPD Qualified Code(s): J44.9 - Chronic obstructive pulmonary disease, unspecified Plan: Continue Pulmicort Flexhaler 180 mcg 2 inhalations BID and Albuterol HFA 2 inhalations every 6 hours as needed Follow up with pulmonary as scheduled (3) Crohn's disease: Code(s): K50.90 - Crohn's disease, unspecified, without complications Qualifiers: Gastrointestinal tract location: unspecified location Digestive disease complication type: without complication Qualified Code(s): K50.90 - Crohn's disease, unspecified, without complications Plan: States that aside for some occasional diarrhea, her Crohn's disease has been mostly well-controlled overall on her current Rx Continue Mesalamine ER 1.2 gm 1 tablet QD and Dicyclomine 10 mg TID PRN She had a normal EGD and colonoscopy done at [facility] a few years ago on 03/31/2019 Follow-up with GI (Dr. Shepherd) as scheduled (4) Hiatal hernia: Code(s): K44.9 - Diaphragmatic hernia without obstruction or gangrene Plan: S/P repeat da Fauzia/laparoscopic paraesophageal hernia repair with mesh a couple of weeks ago on 04/15/2023 Follow up with thoracic surgery as scheduled (5) GERD without esophagitis: Code(s): K21.9 - Gastro-esophageal reflux disease without esophagitis Plan: Dietary restrictions reinforced Continue Omeprazole 40 mg BID Follow up with GI as scheduled (6) Osteoporosis: Code(s): M81.0 - Age-related osteoporosis without current pathological fracture Qualifiers: Osteoporosis type: age-related Presence of current pathological fracture: without current pathological fracture Qualified Code(s): M81.0 - Age- related osteoporosis without current pathological fracture Plan: Baseline BMD done a couple of years ago on 10/31/2021 revealed (+) severe osteoporosis with a T score of -4.0 in the lumbar spine - this has declined significantly from her baseline BMD done in 2019 Reinforced fall precautions She has been started on Calcitonin 200 units nasal spray QD Follow up with endocrinology as scheduled (7) Vitamin D deficiency: Code(s): E55.9 - Vitamin D deficiency, unspecified Plan: Continue Vitamin D3 1000 units QD (8) Allergic rhinitis: Code(s): J30.9 - Allergic rhinitis, unspecified Qualifiers: Allergic rhinitis trigger: unspecified Allergic rhinitis seasonality: unspecified Qualified Code(s): J30.9 - Allergic rhinitis, unspecified Plan: Continue Loratadine 10 mg QD PRN and Fluticasone 50 mcg nasal spray QD PRN (9) Lumbar degenerative disc disease: Code(s): M51.36 - Other intervertebral disc degeneration, lumbar region Plan: Reinforced activity and weight-lifting restrictions Continue Oxycodone 5 mg PRN She used to see [facility] but now appears to be following up with pain management at [facility] (10) Left knee pain: Code(s): M25.562 - Pain in left knee Qualifiers: Chronicity: unspecified Qualified Code(s): M25.562 - Pain in left knee Plan: This is most likely due to OA Follow up with orthopedics as scheduled (11) Renal calculi: Code(s): N20.0 - Calculus of kidney Plan: Patient has had to undergo ESWL a few times in the past due to recurrent obstructive kidney stones Follow up with urology (Dr. Genny Lopez) as scheduled (12) Anxiety: Code(s): F41.9 - Anxiety disorder, unspecified Plan: Continue Hydroxyzine 50 mg BID PRN and Bupropion 300 mg QD (13) Depression: Code(s): F32.9 - Major depressive disorder, single episode, unspecified Qualifiers: Depression Type: major depressive disorder Major depression recurrence: recurrent Active/Remission status: currently active Major depression episode severity: unspecified Qualified Code(s): F33.9 - Major depressive disorder, recurrent, unspecified Plan: Continue Bupropion 300 mg QD Follow up with psychiatry as scheduled (14) Overweight (BMI 25.0-29.9): Code(s): E66.3 - Overweight Plan: Reinforced diet/exercise as tolerated/lose weight Plan Follow up in 6 months Orders: Orders Comprehensive [place]. Panel Fast 6 Months E78.00 - Pure hypercholesterolemia, unspecified Lipid Panel 6 Months E78.00 - Pure hypercholesterolemia, unspecified Coding Level of Care Code Est Pt Level 4 (89083) Diagnoses Pure hypercholesterolemia E78.00 Chronic obstructive pulmonary disease, unspecified COPD type J44.9 COPD type: unspecified COPD Crohn's disease without complication, unspecified gastrointestinal tract location K50.90 Gastrointestinal tract location: unspecified location Digestive disease complication type: without complication Hiatal hernia K44.9 GERD without esophagitis K21.9 Age-related osteoporosis without current pathological fracture M81.0 Osteoporosis type: age-related Presence of current pathological fracture: without current pathological fracture Vitamin D deficiency E55.9 Allergic rhinitis, unspecified seasonality, unspecified trigger J30.9 Allergic rhinitis trigger: unspecified Allergic rhinitis seasonality: unspecified Lumbar degenerative disc disease M51.36 Left knee pain, unspecified chronicity M25.562 Chronicity: unspecified Renal calculi N20.0 Anxiety F41.9 Episode of recurrent major depressive disorder, unspecified depression episode severity F33.9 Depression Type: major depressive disorder Major depression recurrence: recurrent Active/Remission status: currently active Major depression episode severity: unspecified Overweight (BMI 25.0-29.9) E66.3 Additional Codes CULLEN-7 Assessment Billing - CULLEN-7 Assessment Tool: CULLEN-7 Assessment [id number] ([id number])
[2023-10-29 09:29] VITALS: BP 136/96
== END 2023-10-29 09:33 | disposition home or self-care (01) ==
PROVIDERS: PCP Internal Medicine; Visit Provider Internal Medicine
DX: F33.9 Major depressive disorder, recurrent, unspecified (principal)
CPT/HCPCS: 96127; 99214

== ENCOUNTER 2023-11-03 11:46 | Emergency (ER) | payer OTHER, SELFPAY ==
--- NOTE | ~2023-11-03 | CT_ITS ---
EXAMINATION: CT CHEST WITHOUT CONTRAST CLINICAL INFORMATION: Right-sided rib pain. Leaning injury COMPARISON: Chest radiograph 05/14/2022 TECHNIQUE: Multidetector volumetric CT imaging of the chest was done. Axial MIP volume rendering provided. Sagittal and coronal reformatted images were obtained. This CT examination was performed using dose optimization techniques as appropriate, variously including the following: *Automated exposure control *Adjustment of mA and/or kV according to patient size (this includes techniques or standardized protocols for targeted exams where dose is matched to indication/reason for exam; i.e. 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 LUNGS: Status post partial right pneumonectomy with a suture line present. No recurrent lung mass is seen. There is a question of a small subcentimeter right perihilar nodular density but diagnosis is difficult without IV contrast. No concerning lung masses are seen. Bibasilar atelectasis is present. MEDIASTINUM: The mediastinum is normal. CORONARY ARTERY CALCIFICATION: None visualized on this study. PLEURA: There is no pleural effusion. No pleural mass or thickening. AXILLA: No lymphadenopathy. UPPER ABDOMEN: There is a small to moderate-sized hiatal hernia present. There is bilateral nonobstructing nephrolithiasis with the largest stone measuring 4 mm in the mid left kidney. The stone measures 1350 Hounsfield units and is 10.3 cm from the posterior axillary line. A benign 3.3 cm Bosniak class I renal cyst is noted in the upper pole of the left kidney which requires no additional imaging or follow up. No solid renal masses are seen. OSSEOUS STRUCTURES: There is generalized osteopenia. There is a compression fracture involving the T10 vertebral body. Multifocal other milder thoracic compression fractures are seen most prominent at T4 and T5. CT/CT chest wo IV con IMPRESSION: 1. No evidence of a rib fracture. 2. Status post partial right pneumonectomy. 3. Bilateral nonobstructing nephrolithiasis. 4. Multifocal thoracic compression fractures. 5. Other incidental findings as described above. Fleischner guidelines were followed.
[2023-11-03 14:11] VITALS: BP 164/111; PULSE 96; RESP 18; TEMP 36.4; O2SAT 99; BMI 27.8
--- NOTE | 2023-11-03 14:13 | ED.GENADULT ---
HPI - General Adult General Chief complaint: General Medical Stated complaint: Rib injury Time Seen by Provider: 11/03/23 20:37 Source: patient Mode of arrival: ambulatory Limitations: no limitations History of Present Illness ED Provider: kayley HPI narrative: Patient states that she leaned over her dryer door and felt pops in her right ribs. Patient states that she has broken these ribs before and was hospitalized for a week because of it pain increases on deep breaths and movement no shortness a breath Related Data Home Medications ?Medication ?Instructions ?Recorded ?Confirmed bupropion HCl 300 mg 24 hr tablet, 300 mg PO DAILY 04/10/20 10/29/23 extended release cholecalciferol (vitamin D3) 25 25 mcg PO DAILY 04/10/20 10/29/23 mcg (1,000 unit) capsule hydroxyzine HCl 50 mg tablet 50 mg PO BID 10/01/21 10/29/23 mesalamine 1.2 gram tablet,delayed 1.2 g PO DAILY 10/29/23 10/29/23 release omeprazole 40 mg capsule,delayed 40 mg PO DAILY 10/29/23 10/29/23 release Previous Rx's ?Medication ?Instructions ?Recorded budesonide 180 mcg/actuation 2 inh PO BID #1 ea 03/25/21 breath activated powder inhaler (Pulmicort Flexhaler) diphenhydramine HCl 25 mg capsule 25 mg PO TID PRN allergy symptoms 07/22/23 30 days #90 caps fluticasone propionate 50 2 spray intranasal DAILY PRN 08/06/23 mcg/actuation nasal allergy symptoms 30 days #16 grams spray,suspension albuterol sulfate 90 mcg/actuation 2 puff PO Q6H PRN Shortness Of 10/07/23 aerosol inhaler Breath #8.5 grams calcitonin (salmon) 200 1 spray intranasal (ALT) DAILY 10/07/23 unit/actuation nasal spray #3.7 mL lidocaine 4 % topical patch 1 patch topical DAILY #15 ea 11/03/23 (Salonpas (lidocaine)) oxycodone 5 mg tablet 5 mg PO Q6H PRN pain #20 tabs 11/03/23 Allergies Allergy/AdvReac Type Severity Reaction Status Date / Time ibuprofen [From Motrin] AdvReac Intermediate activates Verified 11/03/23 14:16 her Crohn's disease Review of Systems Review of Systems: Yes all other systems are reviewed and are negative [facility] Past Medical History Medical History Compression fracture of T11 vertebra with delayed healing Compression fracture of L4 vertebra Obesity (BMI 30-39.9) Hiatal hernia Coccydynia Overweight (BMI 25.0-29.9) Depression Anxiety Renal calculi Vitamin D deficiency Allergic rhinitis Osteoporosis Lumbar degenerative disc disease GERD without esophagitis Crohn's disease COPD (chronic obstructive pulmonary disease) GERD (gastroesophageal reflux disease) Ear discharge of both ears Ear build-up Sacroiliitis Chronic pain syndrome Spondylolisthesis, lumbar region Spondylosis of lumbar region without myelopathy or radiculopathy Surgical History Hx of colonoscopy History of surgery History of hysterectomy History of surgery History of nasal surgery Social History Social History Housing: Apartment Alcohol intake: current Alcohol intake frequency: holidays/special occasions only Alcohol type: wine Patient Tobacco Use Status: Former Tobacco user Tobacco use type: Cigarette Smoked in Last 30 Days: No e-Cigarette/Vaping Use: Never Used Second Hand Smoke Exposure: No Advance Directives: No Advance Directives Information Provided: Yes Advance Directives Date on File: 06/02/20 Do you have a plan to hurt others: No Plan service: No Current occupational status: disabled Cognitive needs: No Hearing needs: No Vision needs: Yes (glasses) Physical Exam ED Vital Signs: BMI result Body Mass Index 27.8 Appearance: Alert. Oriented X3. No acute distress. ENT: Pharynx normal. Oral Mucosa moist Neck: Normal inspection. Neck supple. CVS: Normal heart rate and rhythm. Pulses normal. Respiratory: No respiratory distress. Equal air entry bilateral, no wheezing/rales/rhonchi right lower rib costal margin Abdomen: Soft and nontender. Bowel sounds are present, no mass palpable, no CVA tenderness Skin: Skin warm and dry. Normal skin color. Normal skin turgor. Extremities: No lower extremity edema. No calf tenderness Neuro: Oriented X 3. Course Course Course Narrative: RME performed by Erma Amezcua PA-C. Patient is a 68 year old assigned female at presenting to the emergency department with right sided rib pain. Patient states that she leaned over her dryer door and felt pops in her right ribs. Patient states that she has broken these ribs before and was hospitalized for a week because of it. Detailed physical exam and review of systems are deferred to the director of physical education. Imaging ordered. Patient placed back in the waiting room pending room availability and results. Medications Administered Discontinued Medications Generic Name Dose Route Start Last Admin Trade Name Natacha PRN Reason Stop Dose Admin Lidocaine 1 patch 11/03/23 21:05 11/03/23 21:23 Lidocaine 4 % Patch Adh..Patch TRANSDERMA 11/03/23 21:06 1 patch ONCE ONE Administration Protocol Morphine Sulfate 30 mg 11/03/23 21:05 11/03/23 21:23 Morphine Sulfate Immed Release 15 Mg Tablet PO 11/03/23 21:06 30 mg ONCE ONE Administration Medical Decision Making Medical Decision Making MDM Narrative: Patient's CT scan negative for rib fracture likely has rib contusion Differential Diagnosis Differential Diagnoses: The differential diagnosis associated with the presentation includes Rib fracture/contusion Independent Interpretation I performed an independent interpretation of an: CT Scan Radiology Impression Discussion of test interpretation with radiology: I have reviewed the radiologist's reading. Radiologist Impression: [address] [address] [address] Scan Report Signed Patient: Vicki Lindquist MR#: [id number] : 1955 Acct:[id number] Age/Sex: 68 / F ADM Date: 11/03/23 Loc: HO.ED Attending Dr: Ordering Physician: Erma Amezcua Date of Service: 11/03/23 Procedure(s): CT chest wo IV con Accession Number(s): [id number] cc: Ralph Colorado MD; Erma Amezcua~ EXAMINATION: CT CHEST WITHOUT CONTRAST CLINICAL INFORMATION: Right-sided rib pain. Leaning injury COMPARISON: Chest radiograph 05/14/2022 TECHNIQUE: Multidetector volumetric CT imaging of the chest was done. Axial MIP volume rendering provided. Sagittal and coronal reformatted images were obtained. This CT examination was performed using dose optimization techniques as appropriate, variously including the following: *Automated exposure control *Adjustment of mA and/or kV according to patient size (this includes techniques or standardized protocols for targeted exams where dose is matched to indication/reason for exam; i.e. 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 LUNGS: Status post partial right pneumonectomy with a suture line present. No recurrent lung mass is seen. There is a question of a small subcentimeter right perihilar nodular density but diagnosis is difficult without IV contrast. No concerning lung masses are seen. Bibasilar atelectasis is present. MEDIASTINUM: The mediastinum is normal. CORONARY ARTERY CALCIFICATION: None visualized on this study. PLEURA: There is no pleural effusion. No pleural mass or thickening. AXILLA: No lymphadenopathy. UPPER ABDOMEN: There is a small to moderate-sized hiatal hernia present. There is bilateral nonobstructing nephrolithiasis with the largest stone measuring 4 mm in the mid left kidney. The stone measures 1350 Hounsfield units and is 10.3 cm from the posterior axillary line. A benign 3.3 cm Bosniak class I renal cyst is noted in the upper pole of the left kidney which requires no additional imaging or follow up. No solid renal masses are seen. OSSEOUS STRUCTURES: There is generalized osteopenia. There is a compression fracture involving the T10 vertebral body. Multifocal other milder thoracic compression fractures are seen most prominent at T4 and T5. CT/CT chest wo IV con IMPRESSION: 1. No evidence of a rib fracture. 2. Status post partial right pneumonectomy. 3. Bilateral nonobstructing nephrolithiasis. 4. Multifocal thoracic compression fractures. 5. Other incidental findings as described above. Fleischner guidelines were followed. Discharge Plan Discharge Clinical Impression: Rib contusion Patient Disposition: Home, Self-Care Instructions: Rib Contusion (ED) Additional Instructions: Likely have rib contusion of the right lower rib Take pain medication as prescribed Apply Lidoderm patch daily for [address] scan is negative for acute fracture Prescriptions: New oxycodone 5 mg tablet 5 mg PO Q6H PRN (Reason: pain) Qty: 20 0RF Rx Instructions: Partial Fill upon patient request. lidocaine [Salonpas (lidocaine)] 4 % adhesive patch,medicated 1 patch topical DAILY Qty: 15 0RF Rx Instructions: may leave on for up to 12 hrs No Action Pulmicort Flexhaler 180 mcg/actuation aerosol powdr breath activated 2 inh PO BID Qty: 1 0RF diphenhydramine HCl 25 mg capsule 25 mg PO TID PRN (Reason: allergy symptoms) 30 Days Qty: 90 0RF fluticasone propionate 50 mcg/actuation spray,suspension 2 spray intranasal DAILY PRN (Reason: allergy symptoms) 30 Days Qty: 16 5RF Rx Instructions: administer into each nostril calcitonin (salmon) 200 unit/actuation spray,non-aerosol 1 spray intranasal (ALT) DAILY Qty: 3.7 0RF albuterol sulfate 90 mcg/actuation HFA aerosol inhaler 2 puff PO Q6H PRN (Reason: Shortness Of Breath) Qty: 8.5 2RF bupropion HCl 300 mg tablet extended release 24 hr 300 mg PO DAILY cholecalciferol (vitamin D3) 25 mcg (1,000 unit) capsule 25 mcg PO DAILY omeprazole 40 mg capsule,delayed release(DR/EC) 40 mg PO DAILY mesalamine 1.2 gram tablet,delayed release (DR/EC) 1.2 g PO DAILY hydroxyzine HCl 50 mg tablet 50 mg PO BID Interventions: ED Discharge Assessment Last Done: 11/03/23 22:08 Discharge Date/Time: 11/03/23 22:09 Print Language: Indonesian
[2023-11-03 20:10] VITALS: BP 183/90; PULSE 85; RESP 20; TEMP 36.6; O2SAT 98
[2023-11-03] MEDS: Lidocaine 4 % Patch ADH..PATCH 1 PATCH TRANSDERMA (21:23)
[2023-11-03] MEDS: Morphine Sulfate Immed Release 15 MG TABLET 30 MG PO (21:23)
[2023-11-03 21:53] VITALS: BP 183/90; PULSE 85; RESP 20; TEMP 36.6; O2SAT 98
[2023-11-03 22:08] VITALS: BP 183/90; PULSE 85; RESP 20; TEMP 36.6; O2SAT 98
== END 2023-11-03 22:09 | disposition home or self-care (01) ==
PROVIDERS: Emergency Provider Internal Medicine; PCP Internal Medicine
DX: S22.31XA Fracture of one rib, right side, initial encounter for closed fracture (principal); J44.9 Chronic obstructive pulmonary disease, unspecified; X58.XXXA Exposure to other specified factors, initial encounter; Y93.9 Activity, unspecified; Y92.9 Unspecified place or not applicable; Y99.9 Unspecified external cause status
CPT/HCPCS: 71250; 99284

== ENCOUNTER 2023-11-10 16:24 | Outpatient (AMB) | payer OTHER, SELFPAY ==
--- NOTE | 2023-11-10 16:34 | MHC.PC.OV ---
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 Channel Layer: Not Required per policy Accompanied by: Self / Same As Patient Allergies ibuprofen [From Motrin] Adverse Reaction (Intermediate, Verified 11/10/23 17:14) activates her Crohn's disease Medication List - Last Reconciled 11/10/23 by Ralph Colorado MD albuterol sulfate 90 mcg/actuation 2 puffs PO Q6H PRN budesonide 180 mcg/actuation (Pulmicort Flexhaler) 2 inhalations PO BID bupropion HCl XL 300 mg PO DAILY calcitonin (salmon) 200 unit/actuation 1 spray intranasal (ALT) DAILY cholecalciferol (vitamin D3) 25 mcg PO DAILY diphenhydramine HCl 25 mg PO TID PRN 30 days fluticasone propionate 50 mcg/actuation 2 sprays intranasal DAILY PRN 30 days hydroxyzine HCl 50 mg PO BID lidocaine 4% (Salonpas (lidocaine)) 1 patch topical DAILY mesalamine 1.2 grams PO DAILY omeprazole 40 mg PO DAILY oxycodone 5 mg PO Q6H PRN Tobacco use date assessed: 11/10/23 Fall risk assessment: 1 Fall in past year Last assessed Fall Risk: 11/10/23 Dental Screening Dental Screen Date: 10/29/23 [place] [facility] [place] HPI Details Patient comes in today for her [facility] follow-up visit She went to the ER last week for increased pain in her right cage area Recalls that she was leaning over the door of her drum drier at home, with her right ribs pressed onto the drum drier door when she felt something pop on her right ribs followed by increased pain that feels worse when she moves or takes deep breaths States that she has broken some ribs over the same area in the past and with her symptoms, was concerned that she may have broken her ribs again prompting her to go to the ER [facility] for further evaluation She had a chest CT done, which showed no evidence of a rib fracture She was reassured and sent home on a few tablets of Oxycodone 5 mg and Lidocaine patch and would like to get a reflll for some Oxycodone 5 mg Patient states that she is currently still experiencing recurrent pain over her right rib anterolaterally but her pain is slightly better than last week She denies any headaches or dizziness Denies any chest pains, no increased shortness of breath No nausea /vomiting, no abdominal pain No change in bowel habits noted [facility] Medical History Compression fracture of T11 vertebra with delayed healing Compression fracture of L4 vertebra Obesity (BMI 30-39.9) Hiatal hernia Coccydynia Overweight (BMI 25.0-29.9) Depression Anxiety Renal calculi Vitamin D deficiency Allergic rhinitis Osteoporosis Lumbar degenerative disc disease GERD without esophagitis Crohn's disease COPD (chronic obstructive pulmonary disease) GERD (gastroesophageal reflux disease) Ear discharge of both ears Ear build-up Sacroiliitis Chronic pain syndrome Spondylolisthesis, lumbar region Spondylosis of lumbar region without myelopathy or radiculopathy Surgical History Hx of colonoscopy History of surgery History of hysterectomy History of surgery History of nasal surgery Social History Housing: Apartment Alcohol intake: current Alcohol intake frequency: holidays/special occasions only Alcohol type: wine Patient Tobacco Use Status: Former Tobacco user Tobacco use type: Cigarette e-Cigarette/Vaping Use: Never Used Second Hand Smoke Exposure: No Advance Directives Date on File: 06/02/20 service: No Current occupational status: disabled Cognitive needs: No Hearing needs: No Vision needs: Yes (glasses) Questionnaire Thrive Questionnaire Date Thrive assessed: 10/29/23 CULLEN-7 AMB Questionnaire CULLEN-7 Date CULLEN - 7 assessed: 10/29/23 Source: Developed by Drs. Francisco Javier Rodriguez, Palak العلي, Kamran Calvin and colleagues, with an educational kelsie from [employer] Review of Systems Const Denies chills, Denies fatigue, Denies fever(s) and Denies headache(s) ENT Denies dysphagia, Denies dizziness, Denies otalgia, Denies headache(s), Denies neck pain, Denies odynophagia, Denies sinus pain and Denies sore throat Card Reports chest pain (mostly over the right ribs - feels worse with movement or deep breaathing), Denies palpitations and Denies dyspnea Resp Denies cough and Denies dyspnea GI Denies abdominal pain, Denies constipation, Denies dysphagia, Denies heartburn, Denies diarrhea, Denies nausea, Denies odynophagia and Denies vomiting Denies difficulty voiding, Denies nocturia, Denies dysuria and Denies urinary urgency Musc Reports back pain (over the lower back - chronic), Reports arthralgias (over both knees) and Denies neck pain Skin/Breast Denies rash Neuro Denies dizziness and Denies headache(s) Psych Denies anxiety Endo Denies fatigue and Denies palpitations Physical exam (Primary Care) Vital Signs: Last Vital Signs Pulse 90 11/10/23 16:36 BP 150/100 H 11/10/23 16:36 Pulse Ox 98 11/10/23 16:36 Oxygen Delivery Method Room Air 11/10/23 16:36 BMI result Body Mass Index 27.5 Tobacco/Smoking Status: Tobacco use Status Tobacco use date assessed 11/10/23 11/10/23 16:41 Patient Tobacco Use Status Former Tobacco user 11/10/23 16:35 Tobacco use type Cigarette 11/10/23 16:35 e-Cigarette/Vaping Use Never Used 11/10/23 16:35 Thrive Assessment: Date of Thrive Assessment Date Thrive assessed 10/29/23 11/10/23 16:35 Const General: no acute distress and alert HENMT Ears: TM's normal bilaterally and EAC's normal Throat: Yes posterior oropharynx normal and Yes tonsils normal (no TP congestion) Neck Neck: Yes no lymphadenopathy and Yes supple Thyroid: Thyroid normal Chest Other: (+) tenderness over the right ribs/chest wall anterlaterally Resp Auscultation: clear to auscultation bilaterally, no rales and no wheezes Cardio Rate: regular rate Rhythm: regular rhythm Heart sounds: no murmurs GI Palpation (GI): Soft to palpation and nontender Auscultation: normal bowel sounds General: Yes no CVA tenderness Back/Spine/Pelvis Back: no CVA tenderness Thoracic/Lumbar Spine: lumbar spinal tenderness Skin Rashes: no rashes Extrem General: Yes no clubbing, cyanosis or edema Right lower extremity: knee Details: tenderness; no swelling Left lower extremity: knee Details: tenderness; no swelling Assessment and Plan Assessment & Plan (1) Rib pain on right side: Code(s): R07.81 - Pleurodynia Plan: Patient's chest CT done at the ER last week revealed NO rib fractures Continue Oxycodone 5 mg Q 6 to 8 hours PRN (Rx refilled) but she is advised to start cutting back on her dosing (2) Pure hypercholesterolemia: Code(s): E78.00 - Pure hypercholesterolemia, unspecified Plan: She still is not able to get her follow up labs done yet - states that she will try to get them done [place] She was reminded that her cholesterol numbers were still elevated when they were last checked in February 2023 although they have improved slightly from previous Reinforced low cholesterol diet; patient still does NOT wish to be started on cholesterol-lowering medications and would like to continue working on diet modification alone Will recheck her fasting lipids and labs in 6 months for follow-up (3) COPD (chronic obstructive pulmonary disease): Code(s): J44.9 - Chronic obstructive pulmonary disease, unspecified Qualifiers: COPD type: unspecified COPD Qualified Code(s): J44.9 - Chronic obstructive pulmonary disease, unspecified Plan: Continue Pulmicort Flexhaler 180 mcg 2 inhalations BID and Albuterol HFA 2 inhalations every 6 hours as needed Follow up with pulmonary as scheduled (4) Crohn's disease: Code(s): K50.90 - Crohn's disease, unspecified, without complications Qualifiers: Gastrointestinal tract location: unspecified location Digestive disease complication type: without complication Qualified Code(s): K50.90 - Crohn's disease, unspecified, without complications Plan: States that aside for some occasional diarrhea, her Crohn's disease has been mostly well-controlled overall on her current Rx Continue Mesalamine ER 1.2 gm 1 tablet QD and Dicyclomine 10 mg TID PRN She had a normal EGD and colonoscopy done at [facility] a few years ago on 03/31/2019 Follow-up with GI (Dr. Shepherd) as scheduled (5) Hiatal hernia: Code(s): K44.9 - Diaphragmatic hernia without obstruction or gangrene Plan: S/P repeat da Fauzia/laparoscopic paraesophageal hernia repair with mesh back on 04/15/2023 Follow up with thoracic surgery as scheduled (6) GERD without esophagitis: Code(s): K21.9 - Gastro-esophageal reflux disease without esophagitis Plan: Dietary restrictions reinforced Continue Omeprazole 40 mg BID Follow up with GI as scheduled (7) Osteoporosis: Code(s): M81.0 - Age-related osteoporosis without current pathological fracture Qualifiers: Osteoporosis type: age-related Presence of current pathological fracture: without current pathological fracture Qualified Code(s): M81.0 - Age-related osteoporosis without current pathological fracture Plan: Baseline BMD done a couple of years ago on 10/31/2021 revealed (+) severe osteoporosis with a T score of -4.0 in the lumbar spine - this has declined significantly from her baseline BMD done in 2019 Reinforced fall precautions Continue Calcitonin 200 units nasal spray QD Follow up with endocrinology as scheduled (8) Vitamin D deficiency: Code(s): E55.9 - Vitamin D deficiency, unspecified Plan: Continue Vitamin D3 1000 units QD (9) Allergic rhinitis: Code(s): J30.9 - Allergic rhinitis, unspecified Qualifiers: Allergic rhinitis trigger: unspecified Allergic rhinitis seasonality: unspecified Qualified Code(s): J30.9 - Allergic rhinitis, unspecified Plan: Continue Loratadine 10 mg QD PRN and Fluticasone 50 mcg nasal spray QD PRN (10) Lumbar degenerative disc disease: Code(s): M51.36 - Other intervertebral disc degeneration, lumbar region Plan: Reinforced activity and weight-lifting restrictions Continue Oxycodone 5 mg PRN She used [place] [facility] [place] but now appears to be following up with pain management at [facility] (11) Left knee pain: Code(s): M25.562 - Pain in left knee Qualifiers: Chronicity: unspecified Qualified Code(s): M25.562 - Pain in left knee Plan: This is most likely due to OA Follow up with orthopedics as scheduled (12) Renal calculi: Code(s): N20.0 - Calculus of kidney Plan: Patient has had to undergo ESWL a few times in the past due to recurrent obstructive kidney stones Follow up with urology (Dr. Genny Lopez) as scheduled (13) Anxiety: Code(s): F41.9 - Anxiety disorder, unspecified Plan: Continue Hydroxyzine 50 mg BID PRN and Bupropion 300 mg QD (14) Depression: Code(s): F32.9 - Major depressive disorder, single episode, unspecified Qualifiers: Depression Type: major depressive disorder Major depression recurrence: recurrent Active/Remission status: currently active Major depression episode severity: unspecified Qualified Code(s): F33.9 - Major depressive disorder, recurrent, unspecified Plan: Continue Bupropion 300 mg QD Follow up with psychiatry as scheduled (15) Overweight (BMI 25.0-29.9): Code(s): E66.3 - Overweight Plan: Reinforced diet/exercise as tolerated/lose weight Plan Follow up as scheduled in April 2024 Medications: Changed From oxycodone Partial Fill upon patient request. 5 mg PO Q6H PRN 20 tabs 0RF pain To oxycodone Partial Fill upon patient request. 5 mg PO Q6-8H PRN 20 tabs 0RF pain Coding Level of Care Code Est Pt Level 4 (87908) Diagnoses Rib pain on right side R07.81 Pure hypercholesterolemia E78.00 Chronic obstructive pulmonary disease, unspecified COPD type J44.9 COPD type: unspecified COPD Crohn's disease without complication, unspecified gastrointestinal tract location K50.90 Gastrointestinal tract location: unspecified location Digestive disease complication type: without complication Hiatal hernia K44.9 GERD without esophagitis K21.9 Age-related osteoporosis without current pathological fracture M81.0 Osteoporosis type: age-related Presence of current pathological fracture: without current pathological fracture Vitamin D deficiency E55.9 Allergic rhinitis, unspecified seasonality, unspecified trigger J30.9 Allergic rhinitis trigger: unspecified Allergic rhinitis seasonality: unspecified Lumbar degenerative disc disease M51.36 Left knee pain, unspecified chronicity M25.562 Chronicity: unspecified Renal calculi N20.0 Anxiety F41.9 Episode of recurrent major depressive disorder, unspecified depression episode severity F33.9 Depression Type: major depressive disorder Major depression recurrence: recurrent Active/Remission status: currently active Major depression episode severity: unspecified Overweight (BMI 25.0-29.9) E66.3
[2023-11-10 16:36] VITALS: BP 150/100; PULSE 90; O2SAT 98; BMI 27.5
== END 2023-11-10 17:20 | disposition home or self-care (01) ==
PROVIDERS: PCP Internal Medicine; Visit Provider Internal Medicine
DX: R07.81 Pleurodynia (principal); J44.9 Chronic obstructive pulmonary disease, unspecified; K50.90 Crohn's disease, unspecified, without complications; F33.9 Major depressive disorder, recurrent, unspecified; E78.00 Pure hypercholesterolemia, unspecified; K44.9 Diaphragmatic hernia without obstruction or gangrene; K21.9 Gastro-esophageal reflux disease without esophagitis; M81.0 Age-related osteoporosis without current pathological fracture; E55.9 Vitamin D deficiency, unspecified; J30.9 Allergic rhinitis, unspecified; M51.36 Other intervertebral disc degeneration, lumbar region; M25.562 Pain in left knee
CPT/HCPCS: 99214

== ENCOUNTER 2023-11-11 06:33 | Outpatient (REF) | payer OTHER, SELFPAY ==
[2023-11-11 06:46] LABS: MANUAL DIFF FLAG NO
[2023-11-11 08:11] LABS: Basophils Percent Auto 0.6 % (0-2); Eosinophils Absolute Auto 0.2 X10*3/uL (0.0-0.4); Eosinophils Percent Auto 3.5 % (0-4); Hematocrit 41.7 % (37.0-47.0); Hemoglobin 13.6 g/dl (12.0-16.0); Imm Gran Abs Auto 0.02 X10*3/uL (0.00-0.03); Imm Gran Pct Auto 0.3 % (0.0-0.4); Lymphocytes Absolute Auto 1.8 X10*3/uL (1.2-4.9); Lymphocytes Percent Auto 27.2 % (20-40); Mean Corpuscular HGB Conc 32.6 g/dl (31.0-35.0); Mean Corpuscular Hemoglobin 27.9 pg (27.0-33.0); Mean Corpuscular Volume 85.6 fL (80.0-98.0); Mean Platelet Volume 9.8 fL (9.4-12.3); Monocytes Absolute Auto 0.7 X10*3/uL (0.1-1.2); Monocytes Percent Auto 10.1 % (2-11); Neutrophils Absolute Auto 3.9 x10*3/uL (2.0-8.3); Neutrophils Percent Auto 58.3 % (45-73); Platelet Count 242 X10*3/uL (160-400); Red Blood Count 4.87 X10*6/uL (4.20-5.50); Red Cell Distribution Width 13.4 % (11.0-16.0); White Blood Count 6.6 X10*3/uL (4.8-10.8)
[2023-11-11 08:14] LABS: Appearance Urine Cloudy; Color Urine Yellow; Glucose Urine UA Negative (Negative); Leukocyte Esterase Urine Moderate (2+) (Negative); Nitrite Urine Positive (Negative); PH 6.5 (5.0-9.0); Specific Gravity - Urine 1.015 (1.005-1.025); UMIC TRIGGER UACC YES; Urine Blood Moderate (2+) (Negative); Urine Ketones Negative (Negative); Urine Protein Trace mg/dL (Neg-Trace)
[2023-11-11 08:20] LABS: Bacteria Urine 4+ (None Seen); Hyaline Casts Urine 0-2 /LPF (0-2); RBC Urine >20 /HPF (0-2); Squamous Epithelial Cell Urine 0-2 /HPF (0-2); UACC Culture Trigger YES; WBC Urine >50 /HPF (0-5)
[2023-11-11 09:09] LABS: Alanine Aminotransferase 18 U/L (0-31); Albumin Level 4.2 g/dL (3.5-5.0); Alkaline Phosphatase 91 U/L (39-117); Anion Gap 14 (12-20); Aspartate Amino Transferase 18 U/L (5-31); Bilirubin Total 0.4 mg/dL (0.0-1.0); Blood Urea Nitrogen 11 mg/dL (9-16); Calcium 9.5 mg/dL (8.4-10.2); Carbon Dioxide 24 mmol/L (22-29); Chloride 106 mmol/L (96-108); Cholesterol 177 mg/dL (<200); Estimated Glomerular Filt Rate > 60; Glucose Fasting 90 mg/dL (60-99); HDL Cholesterol 51 mg/dL (>40); LDL Cholesterol Calculated 110 mg/dL (<100); Potassium 3.6 mmol/L (3.3-5.1); Sodium 140 mmol/L (135-145); Total Protein 6.8 g/dL (6.5-8.0); Triglycerides 83 mg/dL (<150)
[2023-11-11 09:25] LABS: TSH reflex Free T4 1.45 uIU/mL (0.32-4.0); Vitamin D 25-OH Total 25.2 ng/mL (>30)
== END 2023-11-11 06:34 | disposition home or self-care (01) ==
LOC: HO.LAB 06:33
PROVIDERS: PCP Internal Medicine; Visit Provider Internal Medicine
DX: Z00.00 Encounter for general adult medical examination without abnormal findings (principal); E78.00 Pure hypercholesterolemia, unspecified; I10 Essential (primary) hypertension; E55.9 Vitamin D deficiency, unspecified; R82.90 Unspecified abnormal findings in urine
CPT/HCPCS: 36415; 80053; 80061; 81001; 82306; 84443; 85025; 87086; 87088; 87186

== ENCOUNTER 2024-01-09 11:52 | Outpatient (AMB) | payer OTHER, SELFPAY ==
--- NOTE | 2024-01-09 11:52 | AM.OFFWIN_ITS ---
Intake Vital Signs 01/09/24 11:53 Height 5 ft 1 in Weight 149 lb BMI 28.2 BP 118/82 Blood Pressure Location Lt brachial Position Sitting Pulse 99 Pulse Source Pulse Oximeter Temp 98.1 F Temp Source Oral Pulse Oximetry (%) 97 Oxygen Delivery Method Room Air Intake Visit Reasons: EP Congestion 3 days Intake Note: pt c/o productive cough congestion for 3 days Patient Tobacco Use Status: Former Tobacco user Allergies ibuprofen [From Motrin] Adverse Reaction (Intermediate, Verified 01/09/24 11:53) activates her Crohn's disease Do you need a note to return to daycare/school/sports/work: No HPI HPI Comments History of Present Illness Details 68 y/o female patient who presents to [facility] walk in clinic with c/o URI symptoms x 3 days. Reports Productive cough associated with wheezing, SOB and chest tightness. [facility] Medical History Compression fracture of T11 vertebra with delayed healing Compression fracture of L4 vertebra Obesity (BMI 30-39.9) Hiatal hernia Coccydynia Overweight (BMI 25.0-29.9) Depression Anxiety Renal calculi Vitamin D deficiency Allergic rhinitis Osteoporosis Lumbar degenerative disc disease GERD without esophagitis Crohn's disease COPD (chronic obstructive pulmonary disease) GERD (gastroesophageal reflux disease) Ear discharge of both ears Ear build-up Sacroiliitis Chronic pain syndrome Spondylolisthesis, lumbar region Spondylosis of lumbar region without myelopathy or radiculopathy Surgical History Hx of colonoscopy History of surgery History of hysterectomy History of surgery History of nasal surgery Social History Housing: Apartment Alcohol intake: current Alcohol intake frequency: holidays/special occasions only Alcohol type: wine Patient Tobacco Use Status: Former Tobacco user Tobacco use type: Cigarette e-Cigarette/Vaping Use: Never Used Second Hand Smoke Exposure: No Advance Directives Date on File: 06/02/20 service: No Current occupational status: disabled Cognitive needs: No Hearing needs: No Vision needs: Yes (glasses) Review of Systems Const All systems reviewed & are unremarkable except as noted in HPI and below Physical Exam Vital Signs: Last Vital Signs Temp 98.1 F 01/09/24 11:53 Pulse 99 01/09/24 11:53 BP 118/82 01/09/24 11:53 Pulse Ox 97 01/09/24 11:53 Oxygen Delivery Method Room Air 01/09/24 11:53 BMI result Body Mass Index 28.2 Const General: comfortable and no acute distress Orientation/consciousness: patient oriented x3 HEENT Head: Yes normocephalic Ears: external ears normal and TM abnormal with fluid behind the TM bilateral Face and sinus: Yes sinuses nontender Mouth: moist mucous membranes Throat: Yes posterior oropharynx normal Resp Effort & Inspection: normal respiratory effort, able to speak in complete sentences and Actively coughing Auscultation: no crackles, no rales, rhonchi throughout and wheezes throughout Cardio Heart sounds: S1 normal heart sound present and S2 normal heart sound present Neuro General: patient oriented x3, gait normal and moves all extremities Psych Speech and movement: Normal speech and movement present Office Procedures Nebulizer Treatment Nebulizer Treatment 01462-Rhtsozoad/MDI RX initial, or Nebulizer Subsequent Treatment Office Meds ipratropium 0.5 mg-albuterol 3 mg (2.5 mg base)/3 mL nebulization soln Performing Provider: Veronica Edwards NP Performing Location: [facility] Administered by: Veronica Edwards NP on 01/09/24 12:19 Dose Route Admin Location Dispensed Lot Number Expiration Date ND Board Writer 3 mL inhalation 3 mL [id number] 06/26/24 24652-330-63 [employer] Assessment & Plan Assessment & Plan (1) Productive cough: Code(s): R05.8 - Other specified cough Plan: Ordered Neb Tx in the office Ordered Chest Xray Ordered Abx (2) Wheezing on auscultation: Code(s): R06.2 - Wheezing Plan: Ordered Neb Tx in the office Ordered Chest Xray Ordered Abx Orders: Orders XR chest 2V Today R05.8 - Other specified cough, R06.2 - Wheezing AMB Nebulizer Treatment Today R06.2 - Wheezing Medications: New doxycycline hyclate 100 mg PO BID 10 days 20 caps 0RF R05.8 - Other specified cough, R06.2 - Wheezing prednisone 50 mg PO DAILY 5 days 5 tabs 0RF R06.2 - Wheezing azithromycin 500 mg PO DAILY 3 days 3 tabs 0RF R05.8 - Other specified cough, R06.2 - Wheezing benzonatate 100 mg PO TID 90 caps 0RF R05.8 - Other specified cough Refilled albuterol sulfate 90 mcg/actuation 2 puffs PO Q6H PRN 8.5 grams 0RF Shortness Of Breath R06.2 - Wheezing Coding Level of Care Code Est Pt Level 4 (30585) Diagnoses Productive cough R05.8 Wheezing on auscultation R06.2 CPT Codes Nebulizer Treatment - Nebulizer Treatment, initial or subsequent: 41427- Nebulizer/MDI RX initial, or Nebulizer Subsequent Treatment ([id number]) Time Spent (min) 20
[2024-01-09 11:53] VITALS: BP 118/82; PULSE 99; TEMP 36.7; O2SAT 97; BMI 28.2
== END 2024-01-09 13:03 | disposition home or self-care (01) ==
PROVIDERS: PCP Internal Medicine; Visit Provider Nurse Practitioner Family
DX: R05.8 Other specified cough (principal); R06.2 Wheezing
CPT/HCPCS: 94640; 99214; J7620

== ENCOUNTER 2024-01-09 12:15 | Outpatient (REF) | payer OTHER, SELFPAY ==
--- NOTE | ~2024-01-09 | XR_ITS ---
EXAMINATION: XR CHEST CLINICAL INFORMATION: Productive cough. Shortness of breath, chest pain, wheezing. COMPARISON: Most recent CT chest dated 11/03/2023. TECHNIQUE: 2 views of the chest were obtained. FINDINGS: No airspace consolidation. No pleural effusion or pneumothorax. Stable cardiomediastinal silhouette. Redemonstration of a sliding hiatal hernia. No acute osseous abnormality. Left humeral ORIF. XR/XR chest 2V IMPRESSION: 1. No acute cardiopulmonary findings. 2. Stable sliding hiatal hernia.
== END 2024-01-09 12:16 | disposition home or self-care (01) ==
LOC: HO.HMGCX 12:15
PROVIDERS: PCP Internal Medicine; Visit Provider Nurse Practitioner Family
DX: R06.2 Wheezing (principal); R05.8 Other specified cough
CPT/HCPCS: 71046

== ENCOUNTER 2024-01-13 07:09 | Outpatient (REF) | payer OTHER, SELFPAY ==
[2024-01-13 08:30] LABS: COVID-19 Test Negative (Negative); IDNOW Serial# 152EDE1D
== END 2024-01-13 07:10 | disposition home or self-care (01) ==
LOC: HO.LAB 07:09
DX: R05.9 Cough, unspecified (principal)
CPT/HCPCS: 87635

== ENCOUNTER 2024-02-14 11:14 | Emergency (ER) | payer OTHER, SELFPAY ==
--- NOTE | ~2024-02-14 | XR_ITS ---
EXAMINATION: XR CHEST 2 VIEWS CLINICAL INFORMATION: chest pain COMPARISON: December 2023 TECHNIQUE: XR CHEST 2 VIEWS, 2 Views Lungs and Stormy: Both lungs are clear. Pleura: Normal. Costophrenic angles are sharp. No pneumothorax. Heart: The heart is normal in size. Mediastinum: Retrocardiac opacity with air-fluid level likely sliding hilum hernia unchanged.. Bones: Partially included metals ORIF left humerus. XR/XR chest 2V IMPRESSION: 1. No radiographic evidence of acute cardiopulmonary disease. 2. Retrocardiac opacity with air-fluid level likely sliding hiatal hernia. Electronically signed by: Hemant Harris MD 02/14/2024 01:08 PM EDT
--- NOTE | ~2024-02-14 | CT_ITS ---
EXAMINATION: CT CERVICAL SPINE CLINICAL INFORMATION: fall, dizzy COMPARISON: No prior CT available, TECHNIQUE: Computed axial sagittal and coronal images acquired using department's standard protocol. This CT examination was performed using dose optimization techniques as appropriate, variously including the following: *Automated exposure control *Adjustment of mA and/or kV according to patient size (this includes techniques or standardized protocols for targeted exams where dose is matched to indication/reason for exam; i.e. extremities or head) *Use of iterative reconstruction technique CONTRAST: None DLP: 973 mGy-cm FINDINGS: SKULL BASE: Visualized structures at skull base are normal, complete opacification of right maxillary sinus. CERVICAL VERTEBRAE: Seven cervical vertebrae identified maintaining proper height and alignment, ATLANTOAXIAL AND ATLANTOOCCIPITAL ARTICULATION: Included occipital condyle are properly articulating with C1, measuring of C1 is intact. Proper articulation of the odontoid process with C1. POSTERIOR SPINES and lateral transverse processes: All are intact. DISCS: Narrowing of intervertebral disc spaces and developed small osteophyte from the edges of endplates encroaching on the neural foramen bilaterally at multiple levels. PREVERTEBRAL SOFT TISSUE: Within normal limits, no evidence of prevertebral soft tissue swelling. Visualized portion of the trachea larynx are normal. LUNG APICES: Included lung apices are clear bilaterally. Paravertebral soft tissue including LYMPH NODE AND SALIVARY GLANDS THYROID: Paravertebral soft tissue including cervical lymph nodes are within normal limits. Included paranasal and salivary unremarkable. CT/CT cervical spine wo IV con IMPRESSION: 1. No CT evidence of cervical spine fracture. 2. Mild narrowing of intervertebral disc spaces and developed small osteophyte from the edges of endplates encroaching on the neural foramen bilaterally at multiple levels. 3. Incidental finding was made of complete Opacification of the right maxillary sinus. Electronically signed by: Hemant Harris MD 02/14/2024 02:09 PM EDT
--- NOTE | ~2024-02-14 | CT_ITS ---
EXAMINATION: CT HEAD WITHOUT CONTRAST CLINICAL INFORMATION: Fall. Dizziness. COMPARISON: None available. TECHNIQUE: Contiguous axial imaging was performed from the skull base to vertex without intravenous administration of contrast. This CT examination was performed using dose optimization techniques as appropriate, variously including the following: *Automated exposure control *Adjustment of mA and/or kV according to patient size (this includes techniques or standardized protocols for targeted exams where dose is matched to indication/reason for exam; i.e. extremities or head) *Use of iterative reconstruction technique DLP: 973 mGy-cm FINDINGS: No acute intracranial hemorrhage. No mass effect or midline shift. No parenchymal lesion. The omalley-white differentiation is maintained. No extra-axial fluid collection. The ventricles and sulci are unremarkable. The basal cisterns are patent. The calvarium is intact. Near complete opacification of the right maxillary sinus. Otherwise, the visualized paranasal sinuses and mastoid air cells are clear. CT/CT head/brain wo IV con IMPRESSION: 1. No acute intracranial hemorrhage or mass effect. 2. Near-complete opacification of the right maxillary sinus. Electronically signed by: Timi Driver MD 02/14/2024 01:59 PM EDT
--- NOTE | 2024-02-14 11:17 | ED.GENADULT ---
HPI - General Adult General Chief complaint: Fall Stated complaint: fall Time Seen by Provider: 02/14/24 12:46 Source: patient Mode of arrival: ambulatory Limitations: no limitations History of Present Illness ED Provider: DR. Doss HPI narrative: Patient is a 68-year-old female with history of COPD, chronic pain syndrome, GERD, Crohns, DDD presenting to the emergency department with complaint of dizziness, lightheadedness, chest pain and dyspnea after a fall on Friday or Friday. 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 Denies head strike or loss of consciousness, not anticoagulated. Went to [facility] [place] on Fri for evaluation and told everything was negative. Patient is complaining of severe chest pain with movement or touch or taking a deep breath, patient has black and blue on her anterior chest from the that she sustained last week. Patient is in apparent distress during the exam due to pain and blood pressure is high due to pain. Patient was prescribed oxycodone at discharge from [facility] that is not controlling her pain well. not taking anticoagulation. Related Data Home Medications ?Medication ?Instructions ?Recorded ?Confirmed bupropion HCl 300 mg 24 hr tablet, 300 mg PO DAILY 04/10/20 11/10/23 extended release cholecalciferol (vitamin D3) 25 25 mcg PO DAILY 04/10/20 11/10/23 mcg (1,000 unit) capsule hydroxyzine HCl 50 mg tablet 50 mg PO BID 10/01/21 11/10/23 mesalamine 1.2 gram tablet,delayed 1.2 g PO DAILY 10/29/23 11/10/23 release omeprazole 40 mg capsule,delayed 40 mg PO DAILY 10/29/23 11/10/23 release Previous Rx's ?Medication ?Instructions ?Recorded budesonide 180 mcg/actuation 2 inh PO BID #1 ea 03/25/21 breath activated powder inhaler (Pulmicort Flexhaler) diphenhydramine HCl 25 mg capsule 25 mg PO TID PRN allergy symptoms 07/22/23 30 days #90 caps fluticasone propionate 50 2 spray intranasal DAILY PRN 08/06/23 mcg/actuation nasal allergy symptoms 30 days #16 grams spray,suspension calcitonin (salmon) 200 1 spray intranasal (ALT) DAILY 10/07/23 unit/actuation nasal spray #3.7 mL lidocaine 4 % topical patch 1 patch topical DAILY #15 ea 11/03/23 (Salonpas (lidocaine)) albuterol sulfate 90 mcg/actuation 2 puff PO Q6H PRN Shortness Of 01/09/24 aerosol inhaler Breath #8.5 grams azithromycin 500 mg tablet 500 mg PO DAILY 3 days #3 tabs 01/09/24 benzonatate 100 mg capsule 100 mg PO TID #90 caps 01/09/24 doxycycline hyclate 100 mg capsule 100 mg PO BID 10 days #20 caps 01/09/24 prednisone 50 mg tablet 50 mg PO DAILY 5 days #5 tabs 01/09/24 hydromorphone 2 mg tablet 2 mg PO Q6H PRN pain #7 tabs 02/14/24 (Dilaudid) Allergies Allergy/AdvReac Type Severity Reaction Status Date / Time ibuprofen [From Motrin] AdvReac Intermediate activates Verified 02/14/24 11:21 her Crohn's disease Review of Systems Review of Systems: All other systems are reviewed and are negative Constitutional: Reports as per HPI and Reports no additional constitutional complaints Eyes: Reports as per HPI and Reports no additional eye complaints Reports system reviewed and no additional complaints, except as documented Cardiovascular: Reports as per HPI and Reports no additional cardiovascular complaints Respiratory: Reports as per HPI and Reports no additional respiratory complaints Gastrointestinal: Reports as per HPI and Reports no additional gastrointestinal complaints Genitourinary: Reports no additional female genitourinary complaints Musculoskeletal: Reports no additional musculoskeletal complaints Skin/Breast: Reports system reviewed and no additional complaints, except as docu Psychiatric: Reports no additional psychiatric complaints Endocrine: Reports no additional endocrine complaints Hematologic/Lymphatic: Reports no additional hematologic/lymphatic complaints Allergic/Immunologic: Reports no additional allergic/immunologic complaints Reports system reviewed and no additional complaints, except as documented and Reports Abnormal speech present [facility] Past Medical History Medical History Compression fracture of T11 vertebra with delayed healing Compression fracture of L4 vertebra Obesity (BMI 30-39.9) Hiatal hernia Coccydynia Overweight (BMI 25.0-29.9) Depression Anxiety Renal calculi Vitamin D deficiency Allergic rhinitis Osteoporosis Lumbar degenerative disc disease GERD without esophagitis Crohn's disease COPD (chronic obstructive pulmonary disease) GERD (gastroesophageal reflux disease) Ear discharge of both ears Ear build-up Sacroiliitis Chronic pain syndrome Spondylolisthesis, lumbar region Spondylosis of lumbar region without myelopathy or radiculopathy Surgical History Hx of colonoscopy History of surgery History of hysterectomy History of surgery History of nasal surgery Social History Social History Housing: Apartment Alcohol intake: current Alcohol intake frequency: holidays/special occasions only Alcohol type: wine Patient Tobacco Use Status: Former Tobacco user Tobacco use type: Cigarette e-Cigarette/Vaping Use: Never Used Second Hand Smoke Exposure: No Advance Directives Date on File: 06/02/20 service: No Current occupational status: disabled Cognitive needs: No Hearing needs: No Vision needs: Yes (glasses) Physical Exam ED Vital Signs: Vital Signs - 24 hr 02/14/24 11:18 02/14/24 13:05 02/14/24 15:00 Temperature 97.3 F 97.6 F Pulse Rate 95 85 82 Respiratory Rate 20 20 Blood Pressure 192/147 H 198/132 H 172/108 H Pulse Oximetry 98 96 97 Oxygen Delivery Method Room Air Room Air Room Air BMI result Body Mass Index 28.6 Vital signs have been reviewed and appear to be correct. Blood pressure elevated. Heart rate normal. Respiratory rate normal. Temperature normal. Oxygen saturation normal. Appearance: Alert. Oriented X3. in acute distress due to pain. Head: Normal external exam. Normocephalic. Atraumatic. No Yan signs noted. No raccoon eyes noted Eyes: PERRLA. EOMI. Conjunctiva and sclera normal. Eyelids normal. ENT: TM's Normal. Pharynx normal. Uvula midline. Moist mucous membranes. No trismus noted. No drooling noted. No muffled voice noted. Neck: Normal inspection. Neck supple. FROM. No adenopathy. Thyroid Normal. No meningeal signs. No neck mass noted. CVS: Normal heart rate and rhythm. Heart sound normal. No murmurs noted. Pulses normal throughout. Respiratory: No respiratory distress. Painless inspiration. Breath sounds normal. No wheezes/rales/rhonchi noted. Anterior chest wall and sternal ecchymosis, severe tenderness to touch or movement, No accessory muscle usage noted or decreased air movement noted. Abdomen: Soft and nontender. Bowel sounds normal in all 4 quadrants. No distention noted. No organomegaly noted. No visible injury noted. Back: No CVA tenderness. Full range of motion noted. Skin: Skin warm and dry. Normal skin color. Normal skin turgor. No rashes/lesions/lacerations noted. Extremities: No lower extremity edema. Extremities exhibit normal range of motion. Extremities nontender. Neuro: Oriented X 3. Cranial nerve exam: II-XII are grossly intact No motor deficit. No sensory deficit. Reflexes normal. Course Course Course Narrative: This is a rapid medical exam performed by Pérez Gordon NP: Additional HPI, ROS, PE not included below will be deferred to primary provider. Plan: EKG, labs, CXR, CT head and cspine Reevaluation(s) Reevaluation #1: feels better with Dilaudid, chest pain and high blood pressure secondary to recent fall and severe pain, will control with Dilaudid p.r.n. and follow-up with PCP. Patient was counseled about Dilaudid and risk of dizziness and falling Time: 15:18 Medications Administered Discontinued Medications Generic Name Dose Route Start Last Admin Trade Name Freq PRN Reason Stop Dose Admin Morphine Sulfate 2 mg 02/14/24 13:20 02/14/24 13:52 Morphine Sulfate 2 Mg/Ml Cartridge IVPUSH 02/14/24 13:21 2 mg ONCE ONE Administration Protocol Medical Decision Making Differential Diagnosis Differential Diagnoses: The differential diagnosis associated with the presentation includes ( ACS, chest wall pain, electrolyte derangement, severe anemia, rib fracture, sternal fracture, intracranial bleed, cervical spine injury.) Admission/Observation Consideration of admission/observation: Escalation of care including admission/observation considered Lab Data MDM Lab Attestation statement: I reviewed the patient's lab results. 02/14/24 11:54 02/14/24 11:54 Labs: Lab Results 02/14/24 Range/Units 11:54 WBC 8.5 (4.8-10.8) X10*3/uL RBC 4.87 (4.20-5.50) X10*6/uL Hgb 13.9 (12.0-16.0) g/dl Hct 41.1 (37.0-47.0) % MCV 84.4 (80.0-98.0) fL MCH 28.5 (27.0-33.0) pg MCHC 33.8 (31.0-35.0) g/dl RDW 12.1 (11.0-16.0) % Plt Count 212 (160-400) X10*3/uL MPV 8.8 L (9.4-12.3) fL Immature Gran % (Auto) 0.6 H (0.0-0.4) % Neut % (Auto) 68.6 (45-73) % Lymph % (Auto) 18.1 L (20-40) % Woodward % (Auto) 9.8 (2-11) % Eos % (Auto) 2.5 (0-4) % Baso % (Auto) 0.4 (0-2) % Lymph # (Auto) 1.6 (1.2-4.9) X10*3/uL Woodward # (Auto) 0.8 (0.1-1.2) X10*3/uL Eos # (Auto) 0.2 (0.0-0.4) X10*3/uL Baso # (Auto) 0.0 (0.0-0.2) X10*3/uL Abs Immat Gran (auto) 0.05 H (0.00-0.03) X10*3/uL Absolute Neuts (auto) 5.9 (2.0-8.3) x10*3/uL Absolute Nucleated RBC 0.000 (0.0-0.012) X10*3/uL Nucleated RBC % (auto) 0.0 (0.0-0.2) /100WBC PT 10.4 L (10.9-12.4) SEC INR 0.9 (0.9-1.1) Sodium 142 (135-145) mmol/L Potassium 3.3 (3.3-5.1) mmol/L Chloride 110 H (96-108) mmol/L Carbon Dioxide 23 (22-29) mmol/L Anion Gap 12 (12-20) BUN 13 (9-16) mg/dL Creatinine 0.61 (0.5-1.4) mg/dL Estim Creat Clear Calc 79.2 Estimated GFR > 60 Random Glucose 89 (60-115) mg/dL Calcium 9.3 (8.4-10.2) mg/dL Total Bilirubin 0.6 (0.0-1.0) mg/dL AST 23 (5-31) U/L ALT 25 (0-31) U/L Alkaline Phosphatase 89 (39-117) U/L Troponin I High Sens < 2.7 (<3.5-17.0) ng/L Total Protein 6.8 (6.5-8.0) g/dL Albumin 4.1 (3.5-5.0) g/dL Independent Interpretation I performed an independent interpretation of an: EKG ( Normal sinus rhythm at 84 beats per minutes, left axis deviation, normal intervals, LVH.), Plain X-Ray ( Chest:. No radiographic evidence of acute cardiopulmonary disease. 2. Retrocardiac opacity with air-fluid level likely sliding hiatal hernia.) and CT Scan ( Head/cervical spine: No acute intracranial pathology, no cervical spine injury.) Radiology Impression Discussion of test interpretation with radiology: I have reviewed the radiologist's reading. Discharge Plan Discharge Clinical Impression: Chest wall contusion Patient Disposition: Home, Self-Care Instructions: Contusion in Adults (ED) Prescriptions: New hydromorphone [Dilaudid] 2 mg tablet 2 mg PO Q6H PRN (Reason: pain) Qty: 7 0RF Rx Instructions: Partial Fill upon patient request. No Action Pulmicort Flexhaler 180 mcg/actuation aerosol powdr breath activated 2 inh PO BID Qty: 1 0RF diphenhydramine HCl 25 mg capsule 25 mg PO TID PRN (Reason: allergy symptoms) 30 Days Qty: 90 0RF fluticasone propionate 50 mcg/actuation spray,suspension 2 spray intranasal DAILY PRN (Reason: allergy symptoms) 30 Days Qty: 16 5RF Rx Instructions: administer into each nostril calcitonin (salmon) 200 unit/actuation spray,non-aerosol 1 spray intranasal (ALT) DAILY Qty: 3.7 0RF lidocaine [Salonpas (lidocaine)] 4 % adhesive patch,medicated 1 patch topical DAILY Qty: 15 0RF Rx Instructions: may leave on for up to 12 hrs bupropion HCl 300 mg tablet extended release 24 hr 300 mg PO DAILY cholecalciferol (vitamin D3) 25 mcg (1,000 unit) capsule 25 mcg PO DAILY omeprazole 40 mg capsule,delayed release(DR/EC) 40 mg PO DAILY mesalamine 1.2 gram tablet,delayed release (DR/EC) 1.2 g PO DAILY prednisone 50 mg tablet 50 mg PO DAILY 5 Days Qty: 5 0RF azithromycin 500 mg tablet 500 mg PO DAILY 3 Days Qty: 3 0RF doxycycline hyclate 100 mg capsule 100 mg PO BID 10 Days Qty: 20 0RF benzonatate 100 mg capsule 100 mg PO TID Qty: 90 0RF albuterol sulfate 90 mcg/actuation HFA aerosol inhaler 2 puff PO Q6H PRN (Reason: Shortness Of Breath) Qty: 8.5 0RF hydroxyzine HCl 50 mg tablet 50 mg PO BID Referrals: Ralph Colorado MD [Primary Care Provider] - Print Language: Kinyarwanda
[2024-02-14 11:18] VITALS: BP 192/147; PULSE 95; RESP 20; TEMP 36.3; O2SAT 98; BMI 28.6
--- NOTE | 2024-02-14 11:20 | ECG_ITS ---
Test Reason : CP Blood Pressure : / mmHG Vent. Rate : 084 BPM Atrial Rate : 084 BPM P-R Int : 120 ms QRS Dur : 078 ms QT Int : 356 ms P-R-T Axes : 027 -36 002 degrees QTc Int : 420 ms Normal sinus rhythm Left axis deviation Moderate voltage criteria for LVH, may be normal variant ( R in aVL , [place] product ) Nonspecific ST abnormality Abnormal ECG When compared with ECG of 28-JAN-2019 14:37, T wave amplitude has decreased in Lateral leads Referred By: Joyce Gordon Electronically Signed By:FLAKO CRUZ
[2024-02-14 12:04] LABS: Basophils Percent Auto 0.4 % (0-2); Eosinophils Absolute Auto 0.2 X10*3/uL (0.0-0.4); Eosinophils Percent Auto 2.5 % (0-4); Hematocrit 41.1 % (37.0-47.0); Hemoglobin 13.9 g/dl (12.0-16.0); Imm Gran Abs Auto 0.05 X10*3/uL (0.00-0.03); Imm Gran Pct Auto 0.6 % (0.0-0.4); Lymphocytes Absolute Auto 1.6 X10*3/uL (1.2-4.9); Lymphocytes Percent Auto 18.1 % (20-40); MANUAL DIFF FLAG NO; Mean Corpuscular HGB Conc 33.8 g/dl (31.0-35.0); Mean Corpuscular Hemoglobin 28.5 pg (27.0-33.0); Mean Corpuscular Volume 84.4 fL (80.0-98.0); Mean Platelet Volume 8.8 fL (9.4-12.3); Monocytes Absolute Auto 0.8 X10*3/uL (0.1-1.2); Monocytes Percent Auto 9.8 % (2-11); Neutrophils Absolute Auto 5.9 x10*3/uL (2.0-8.3); Neutrophils Percent Auto 68.6 % (45-73); Platelet Count 212 X10*3/uL (160-400); Red Blood Count 4.87 X10*6/uL (4.20-5.50); Red Cell Distribution Width 12.1 % (11.0-16.0); White Blood Count 8.5 X10*3/uL (4.8-10.8)
[2024-02-14 12:10] LABS: INTERNATIONAL NORM RATIO 0.9 (0.9-1.1); Prothrombin Time 10.4 SEC (10.9-12.4)
[2024-02-14 12:21] LABS: Alanine Aminotransferase 25 U/L (0-31); Albumin Level 4.1 g/dL (3.5-5.0); Alkaline Phosphatase 89 U/L (39-117); Anion Gap 12 (12-20); Aspartate Amino Transferase 23 U/L (5-31); Bilirubin Total 0.6 mg/dL (0.0-1.0); Blood Urea Nitrogen 13 mg/dL (9-16); Calcium 9.3 mg/dL (8.4-10.2); Carbon Dioxide 23 mmol/L (22-29); Chloride 110 mmol/L (96-108); Creatinine Clr Calc Pharmacy 79.2; Estimated Glomerular Filt Rate > 60; Glucose Random 89 mg/dL (60-115); Potassium 3.3 mmol/L (3.3-5.1); Sodium 142 mmol/L (135-145); Total Protein 6.8 g/dL (6.5-8.0)
[2024-02-14 12:28] LABS: Troponin-I High Sensitivity < 2.7 ng/L (<3.5-17.0)
[2024-02-14 13:05] VITALS: BP 198/132; PULSE 85; RESP 20; TEMP 36.4; O2SAT 96
[2024-02-14] MEDS: Morphine Sulfate 2 MG/ML CARTRIDGE IVPUSH (13:52)
[2024-02-14 15:00] VITALS: BP 172/108; PULSE 82; O2SAT 97
[2024-02-14] MEDS: HYDROmorphone HCl 1 MG/ML SYRINGE IVPUSH (15:23)
[2024-02-14 16:34] VITALS: BP 172/108; PULSE 82; RESP 14; TEMP 36.8; O2SAT 97
== END 2024-02-14 16:34 | disposition home or self-care (01) ==
PROVIDERS: Registered Nurse Emergency; Emergency Provider Emergency Medicine; PCP Internal Medicine
DX: S20.219A Contusion of unspecified front wall of thorax, initial encounter (principal); W01.0XXA Fall on same level from slipping, tripping and stumbling without subsequent striking against object, initial encounter; Y93.9 Activity, unspecified; Y92.9 Unspecified place or not applicable; Y99.9 Unspecified external cause status; R07.9 Chest pain, unspecified; R06.00 Dyspnea, unspecified; R42 Dizziness and giddiness; Z79.899 Other long term (current) drug therapy; J44.9 Chronic obstructive pulmonary disease, unspecified
CPT/HCPCS: 36415; 70450; 71046; 72125; 80053; 84484; 85025; 85610; 93005; 96374; 96375; 99284; 99285; J1170; J2270

== ENCOUNTER 2024-02-17 12:06 | Outpatient (AMB) | payer OTHER, SELFPAY ==
--- NOTE | 2024-02-17 12:33 | A.OFFPC_ITS ---
Vital Signs 02/17/24 12:36 Height 5 ft 1 in Weight 150 lb 4 oz BMI 28.4 BP 140/76 H Blood Pressure Location Lt brachial Position Sitting Pulse 93 Pulse Source Pulse Oximeter Pulse Oximetry (%) 96 Oxygen Delivery Method Room Air Intake Visit Reasons: EDF [facility] 02/10 Fall Intake Note: Patient is here to follow-up after a [place] [facility], [facility] on 02/14 Aerospace Technician Required: No Asset Management Coordinator: Not Required per policy Accompanied by: Self / Same As Patient Allergies ibuprofen [From Motrin] Adverse Reaction (Intermediate, Verified 02/17/24 12:35) activates her Crohn's disease Tobacco use date assessed: 02/17/24 Fall risk assessment: 1 Fall in past year Last assessed Fall Risk: 02/17/24 Dental Screening Dental Screen Date: 10/29/23 HPI HPI Comments History of Present Illness Details 68 yo female patient who presents to the clinic today for EDF. She was admitted at [facility] on 02/14/24 after she fell and landed on her chest. She was diagnosed with chest wall contusion and discharged home with Dilaudid. Pt reports still having severe pain, pain worse with breathing, coughing and sneezing. Reports that Dilaudid has been working very well, but she ran out of medications and Acetaminophen not working. Reports Tramadol, Oxy and Lido patches not working at all. Pt in tears and very emotional, does not want to return to ED for pain medications. [facility] Medical History Compression fracture of T11 vertebra with delayed healing Compression fracture of L4 vertebra Obesity (BMI 30-39.9) Hiatal hernia Coccydynia Overweight (BMI 25.0-29.9) Depression Anxiety Renal calculi Vitamin D deficiency Allergic rhinitis Osteoporosis Lumbar degenerative disc disease GERD without esophagitis Crohn's disease COPD (chronic obstructive pulmonary disease) GERD (gastroesophageal reflux disease) Ear discharge of both ears Ear build-up Sacroiliitis Chronic pain syndrome Spondylolisthesis, lumbar region Spondylosis of lumbar region without myelopathy or radiculopathy Surgical History Hx of colonoscopy History of surgery History of hysterectomy History of surgery History of nasal surgery Social History (Reviewed 02/17/24 @ 12:35 by LYDIA [place] Housing: Apartment Alcohol intake: current Alcohol intake frequency: holidays/special occasions only Alcohol type: wine Patient Tobacco Use Status: Former Tobacco user Tobacco use type: Cigarette e-Cigarette/Vaping Use: Never Used Second Hand Smoke Exposure: No Advance Directives Date on File: 06/02/20 service: No Current occupational status: disabled Cognitive needs: No Hearing needs: No Vision needs: Yes (glasses) Questionnaire Thrive Questionnaire Date Thrive assessed: 10/29/23 CULLEN-7 AMB Questionnaire CULLEN-7 Date CULLEN - 7 assessed: 10/29/23 Source: Developed by Drs. Francisco Javier Rodriguez, Palak العلي, Kamran Calvin and colleagues, with an educational kelsie from [employer]. Review of Systems Const All systems reviewed & are unremarkable except as noted in HPI and below Physical exam (Primary Care) Vital Signs: Last Vital Signs Pulse 93 02/17/24 12:36 BP 140/76 H 02/17/24 12:36 Pulse Ox 96 02/17/24 12:36 Oxygen Delivery Method Room Air 02/17/24 12:36 BMI result Body Mass Index 28.4 Tobacco/Smoking Status: Tobacco use Status Tobacco use date assessed 02/17/24 02/17/24 12:38 Patient Tobacco Use Status Former Tobacco user 02/17/24 12:38 Tobacco use type Cigarette 02/17/24 12:38 e-Cigarette/Vaping Use Never Used 02/17/24 12:38 Thrive Assessment: Date of Thrive Assessment Date Thrive assessed 10/29/23 02/17/24 12:38 Const General: cooperative Nutritional Appearance: obese Orientation/consciousness: patient oriented x3 Chest Chest palpation & inspection: abnormal inspection of the chest (Large black/blue bruise, sternal region and breast. ) erythema, no crepitus and tenderness Resp Effort & Inspection: normal respiratory effort Auscultation: clear to auscultation bilaterally, no crackles, no rales, no rhonchi and no wheezes Cardio Heart sounds: S1 normal heart sound present and S2 normal heart sound present Skin General skin exam: ecchymosis and erythema Neuro General: patient oriented x3, gait normal and moves all extremities Psych Speech and movement: Normal speech and movement present Assessment and Plan Assessment & Plan (1) Chest wall contusion: Code(s): S20.219A - Contusion of unspecified front wall of thorax, initial encounter Qualifiers: Encounter type: initial encounter Laterality: unspecified laterality Qualified Code(s): S20.219A - Contusion of unspecified front wall of thorax, initial encounter Plan: Ordered Vicodin Q4-5 hrs for severe pain IceHot Lidocaine patches Medications: New hydrocodone-acetaminophen 5-300 mg Partial Fill upon patient request. 1 tab PO Q4-6H PRN 7 tabs 0RF severe pain S20.219A - Contusion of unspecified front wall of thorax, initial encounter Discontinued hydromorphone (Dilaudid) Partial Fill upon patient request. Discontinued Reason: Patient Completed Course 2 mg PO Q6H PRN 7 tabs 0RF pain Coding Level of Care Code Est Pt Level 4 (38999) Diagnoses Contusion of chest wall, unspecified laterality, initial encounter S20.219A Encounter type: initial encounter Laterality: unspecified laterality Time Spent (min) 20 Comment Spent reviewing hospital notes and Patient education
[2024-02-17 12:36] VITALS: BP 140/76; PULSE 93; O2SAT 96; BMI 28.4
== END 2024-02-17 13:52 | disposition home or self-care (01) ==
PROVIDERS: PCP Internal Medicine; Visit Provider Nurse Practitioner Family
DX: S20.219A Contusion of unspecified front wall of thorax, initial encounter (principal)

== ENCOUNTER → 2024-02-17 12:06 | Outpatient (BNVA) | payer OTHER, SELFPAY | PROVIDERS: PCP Internal Medicine; Visit Provider Nurse Practitioner Family | DX: S20.219A Contusion of unspecified front wall of thorax, initial encounter (principal) | CPT/HCPCS: 99212 ==

== ENCOUNTER 2024-03-11 08:33 | Outpatient (AMB) | payer OTHER, SELFPAY ==
[2024-03-11 08:52] VITALS: BP 162/104; PULSE 84; O2SAT 98; BMI 28.9
--- NOTE | 2024-03-11 08:52 | A.OFFPC_ITS ---
Vital Signs 03/11/24 08:52 Height 5 ft 1 in Weight 153 lb BMI 28.9 BP 162/104 H Blood Pressure Location Lt brachial Position Sitting Pulse 84 Pulse Source Pulse Oximeter Pulse Oximetry (%) 98 Oxygen Delivery Method Room Air Intake Visit Reasons: [facility] 02/22 lifting injury/vertigo Emulsion Operator Required: No Accompanied by: Self / Same As Patient Allergies ibuprofen [From Motrin] Adverse Reaction (Intermediate, Verified 03/11/24 08:53) activates her Crohn's disease Tobacco use date assessed: 02/17/24 Fall risk assessment: 1 Fall in past year Last assessed Fall Risk: 03/11/24 Dental Screening Dental Screen Date: 10/29/23 HPI HPI Comments History of Present Illness Details 68 y/o female patient who presents to [facility] clinic today for HDF. Pt was admitted @ [facility] for Compression Fracture L4. She was discharged home on Pain medications. She is currently being followed by Pain management. She saw Orthopedics who have recommended Surgical interventions. Pt is still contemplating about surgery. Pt very emotional during the visit requesting more Pain medications (Percocet). [facility] Medical History Compression fracture of T11 vertebra with delayed healing Compression fracture of L4 vertebra Obesity (BMI 30-39.9) Hiatal hernia Coccydynia Overweight (BMI 25.0-29.9) Depression Anxiety Renal calculi Vitamin D deficiency Allergic rhinitis Osteoporosis Lumbar degenerative disc disease GERD without esophagitis Crohn's disease COPD (chronic obstructive pulmonary disease) GERD (gastroesophageal reflux disease) Ear discharge of both ears Ear build-up Sacroiliitis Chronic pain syndrome Spondylolisthesis, lumbar region Spondylosis of lumbar region without myelopathy or radiculopathy Surgical History Hx of colonoscopy History of surgery History of hysterectomy History of surgery History of nasal surgery Social History Housing: Apartment Alcohol intake: current Alcohol intake frequency: holidays/special occasions only Alcohol type: wine Patient Tobacco Use Status: Former Tobacco user Tobacco use type: Cigarette e-Cigarette/Vaping Use: Never Used Second Hand Smoke Exposure: No Advance Directives Date on File: 06/02/20 service: No Current occupational status: disabled Cognitive needs: No Hearing needs: No Vision needs: Yes (glasses) Questionnaire PHQ-9 Over the last 2 weeks, how often have you been bothered by any of the following problems? 1. Little interest or pleasure in doing things: not at all 2. Feeling down, depressed, or hopeless: not at all 3. Trouble falling or staying asleep, or sleeping too much: not at all 4. Feeling tired or having little energy: not at all 5. Poor appetite or overeating: not at all 6. Feeling bad about yourself - or that you are a failure or have let yourself or your family down: not at all 7. Trouble concentrating on things, such as reading the newspaper or watching television: not at all 8. Moving or speaking so slowly that other people could have noticed. Or the opposite - being so fidgety or restless that you have been moving around a lot more than usual: not at all 9. Thoughts that you would be better off or of hurting yourself in some way: not at all Total score: 0 Depression Screening Interpretation: Negative Depression Screening Done: Yes 59270 - PHQ-9 Billing: Yes Source: Developed by Drs. Francisco Javier Rodriguez, Palak العلي, Kamran Calvin and colleagues, with an educational kelsie from [employer]. Thrive Questionnaire Date Thrive assessed: 10/29/23 AUDIT C Alcohol Use Questionnaire (AUDIT-C) 1. How often do you have a drink containing alcohol?: Monthly or less 3. How often do you have six or more drinks on one occasion?: Never Total Score: 1 Score Reviewed/Action Taken: Yes CULLEN-7 AMB Questionnaire CULLEN-7 Date CULLEN - 7 assessed: 10/29/23 Source: Developed by Drs. Francisco Javier Rodriguez, Kamran Robison and colleagues, with an educational kelsie from [employer]. Review of Systems Const All systems reviewed & are unremarkable except as noted in HPI and below Physical exam (Primary Care) Vital Signs: Last Vital Signs Pulse 84 03/11/24 08:52 BP 162/104 H 03/11/24 08:52 Pulse Ox 98 03/11/24 08:52 Oxygen Delivery Method Room Air 03/11/24 08:52 BMI result Body Mass Index 28.9 Tobacco/Smoking Status: Tobacco use Status Tobacco use date assessed 02/17/24 03/11/24 09:03 Patient Tobacco Use Status Former Tobacco user 03/11/24 09:03 Tobacco use type Cigarette 03/11/24 09:03 e-Cigarette/Vaping Use Never Used 03/11/24 09:03 PHQ-9: PHQ-9 Score PHQ-9: Total score 0 03/11/24 09:25 Depression Screening Interpretation: Negative Thrive Assessment: Date of Thrive Assessment Date Thrive assessed 10/29/23 03/11/24 09:03 Const Other: Walks with a cane for support. General: cooperative and no acute distress; No comfortable Nutritional Appearance: obese Orientation/consciousness: patient oriented x3 Resp Effort & Inspection: normal respiratory effort Auscultation: clear to auscultation bilaterally Cardio Heart sounds: S1 normal heart sound present and S2 normal heart sound present Back/Spine/Pelvis Other: Has a Back brace Back: back tenderness Neuro General: patient oriented x3 and moves all extremities Psych Affect: Labile affect present and Sad affect present Coding Level of Care Code Est Pt Level 4 (08142) Diagnoses Compression fracture of L4 vertebra, initial encounter S32.040A Encounter type: initial encounter Time Spent (min) 20 Comment Spent reviewing Hospital notes and patient education. Assessment & Plan Assessment & Plan (1) Compression fracture of L4 vertebra: Code(s): S32.040A - Wedge compression fracture of fourth lumbar vertebra, initial encounter for closed fracture Category: Medical Qualifiers: Encounter type: initial encounter Qualified Code(s): S32.040A - Wedge compression fracture of fourth lumbar vertebra, initial encounter for closed fracture Plan: Advised Pt to f/u with pain management regarding pain control Informed Pt that I'll message PCP regarding Narcotics refills. B/P elevated this morning and previous months. Advised Pt to start HTN medication due to risk of Stroke or DC. Pt declined HTN medications, stating that BP elevated due to her Pain. Advised Pt that I will not Prescribe Narcotics due to her persistent elevated BP readings.
== END 2024-03-11 09:52 | disposition home or self-care (01) ==
PROVIDERS: PCP Internal Medicine; Visit Provider Nurse Practitioner Family
DX: S32.040A Wedge compression fracture of fourth lumbar vertebra, initial encounter for closed fracture (principal)

== ENCOUNTER → 2024-03-11 08:33 | Outpatient (BNVA) | payer OTHER, SELFPAY | PROVIDERS: PCP Internal Medicine; Visit Provider Nurse Practitioner Family | DX: S32.040D Wedge compression fracture of fourth lumbar vertebra, subsequent encounter for fracture with routine healing (principal); X58.XXXD Exposure to other specified factors, subsequent encounter | CPT/HCPCS: 96127; 99212 ==

== ENCOUNTER 2024-04-07 08:23 | Outpatient (AMB) | payer OTHER, SELFPAY ==
[2024-04-07 08:26] VITALS: BP 120/86; PULSE 84; O2SAT 97; BMI 28.4
--- NOTE | 2024-04-07 08:26 | MHC.PC.OV ---
Vital Signs 04/07/24 08:26 Height 5 ft 1 in Weight 150 lb 8 oz BMI 28.4 BP 120/86 Blood Pressure Location Lt brachial Position Sitting Pulse 84 Pulse Source Pulse Oximeter Pulse Oximetry (%) 97 Oxygen Delivery Method Room Air Intake Visit Reasons: [facility] 03/26 high bp Consulting Practice Manager Required: No Accompanied by: Self / Same As Patient Allergies ibuprofen [From Motrin] Adverse Reaction (Intermediate, Verified 04/07/24 08:26) activates her Crohn's disease Tobacco use date assessed: 04/07/24 Fall risk assessment: No Falls in past year Last assessed Fall Risk: 04/07/24 Dental Screening Dental Screen Date: 04/07/24 Did you have a dental visit in the last 12 months?: Yes Did you have a dental problem in the last 6 months where you did not have access to dental care?: No Was dental information given to patient?: Patient has dentist HPI HPI Comments History of Present Illness Details 68 y/o female patient who presents to the clinic today for HDF. Patient was admitted at [facility] on 03/23/24 for Elevated BP associated with headaches/dizziness, and pain control due to multiple compression fractures. She was discharged home in stable condition. CT Angio Head and neck demonstrated a small 1 mm out pouching from right ICA showing small Aneurysm. She was evaluated by Neurology while in the hospital - who will continue to monitor out patient. She was started on Amlodipine 5 mg to regulate her BPs. [facility] Medical History Compression fracture of T11 vertebra with delayed healing Compression fracture of L4 vertebra Obesity (BMI 30-39.9) Hiatal hernia Coccydynia Overweight (BMI 25.0-29.9) Depression Anxiety Renal calculi Vitamin D deficiency Allergic rhinitis Osteoporosis Lumbar degenerative disc disease GERD without esophagitis Crohn's disease COPD (chronic obstructive pulmonary disease) GERD (gastroesophageal reflux disease) Ear discharge of both ears Ear build-up Sacroiliitis Chronic pain syndrome Spondylolisthesis, lumbar region Spondylosis of lumbar region without myelopathy or radiculopathy Surgical History Hx of colonoscopy History of surgery History of hysterectomy History of surgery History of nasal surgery Social History Housing: Apartment Alcohol intake: current Alcohol intake frequency: holidays/special occasions only Alcohol type: wine Patient Tobacco Use Status: Former Tobacco user Tobacco use type: Cigarette e-Cigarette/Vaping Use: Never Used Second Hand Smoke Exposure: No Advance Directives Date on File: 06/02/20 service: No Current occupational status: disabled Cognitive needs: No Hearing needs: No Vision needs: Yes (glasses) Questionnaire PHQ-9 Over the last 2 weeks, how often have you been bothered by any of the following problems? 1. Little interest or pleasure in doing things: not at all 2. Feeling down, depressed, or hopeless: not at all 3. Trouble falling or staying asleep, or sleeping too much: not at all 4. Feeling tired or having little energy: not at all 5. Poor appetite or overeating: not at all 6. Feeling bad about yourself - or that you are a failure or have let yourself or your family down: not at all 7. Trouble concentrating on things, such as reading the newspaper or watching television: not at all 8. Moving or speaking so slowly that other people could have noticed. Or the opposite - being so fidgety or restless that you have been moving around a lot more than usual: not at all 9. Thoughts that you would be better off or of hurting yourself in some way: not at all Total score: 0 Depression Screening Interpretation: Negative Depression Screening Done: Yes 49501 - PHQ-9 Billing: Yes Source: Developed by Drs. Francisco Javier Rodriguez, Palak العلي, Kamran Calvin and colleagues, with an educational kelsie from [employer]. Thrive Questionnaire Date Thrive assessed: 04/07/24 I am a: Patient What is your living situation today?: I have a steady place to live Within the past 12 months, did the food you bought not last and you didn't have the money to get more?: Never true Within the past 12 months, did you worry whether your food would run out before you got money to buy more?: Never true Do you have trouble paying for medicines?: No Do you have trouble getting transportation to medical appointments?: No Do you have trouble paying your heating and electricity bill?: No Do you have trouble taking care of your child, family member or friend?: No Do you have trouble with day-to-day activities such as bathing, preparing meals, shopping, managing finances, etc.?: No Are you currently unemployed and looking for a job?: No Are you interested in more education?: No Please select the resources that you would like help with: None Currently or been in a relationship where the following occur: No concerns reported THRIVE Score: 0 AUDIT C Alcohol Use Questionnaire (AUDIT-C) 1. How often do you have a drink containing alcohol?: Monthly or less 3. How often do you have six or more drinks on one occasion?: Never Total Score: 1 Score Reviewed/Action Taken: Yes CULLEN-7 AMB Questionnaire CULLEN-7 Date CULLEN - 7 assessed: 04/07/24 Feeling nervous, anxious, or on edge: 0 = Not at all Not being able to stop or control worryin = Not at all Worrying too much about different things: 0 = Not at all Trouble relaxin = Not at all Being so restless that it is hard to sit still: 0 = Not at all Becoming easily annoyed or irritable: 0 = Not at all Feeling afraid as if something awful might happen: 0 = Not at all Total CULLEN-7 score (0-4 normal; 5-9 mild; 10-14 moderate; 15-21 severe): 0 Source: Developed by Drs. Francisco Javier Rodriguez, Palak العلي, Kamran Calvin and colleagues, with an educational kelsie from [employer]. Review of Systems Const All systems reviewed & are unremarkable except as noted in HPI and below Physical exam (Primary Care) Vital Signs: Last Vital Signs Pulse 84 04/07/24 08:26 BP 120/86 04/07/24 08:26 Pulse Ox 97 04/07/24 08:26 Oxygen Delivery Method Room Air 04/07/24 08:26 BMI result Body Mass Index 28.4 Tobacco/Smoking Status: Tobacco use Status Tobacco use date assessed 04/07/24 04/07/24 08:31 Patient Tobacco Use Status Former Tobacco user 04/07/24 08:31 Tobacco use type Cigarette 04/07/24 08:31 e-Cigarette/Vaping Use Never Used 04/07/24 08:31 PHQ-9: PHQ-9 Score PHQ-9: Total score 0 04/07/24 08:31 Depression Screening Interpretation: Negative Thrive Assessment: Date of Thrive Assessment Date Thrive assessed 04/07/24 04/07/24 08:31 Currently or been in a relationship where the following occur: No concerns reported Const General: cooperative and no acute distress Nutritional Appearance: obese Orientation/consciousness: patient oriented x3 HENMT Head: Yes normocephalic Resp Effort & Inspection: normal respiratory effort Auscultation: clear to auscultation bilaterally Cardio Heart sounds: S1 normal heart sound present and S2 normal heart sound present Skin General skin exam: no rashes or lesions noted Neuro General: patient oriented x3, gait normal and moves all extremities Psych Speech and movement: Normal speech and movement present Coding Level of Care Code Est Pt Level 4 (34708) Diagnoses Elevated blood pressure reading R03.0 Brain aneurysm I67.1 Additional Codes PHQ-9 - 48243 - PHQ-9 Billing: Yes ([id number]) Time Spent (min) 20 Assessment & Plan Assessment & Plan (1) Elevated blood pressure reading: Code(s): R03.0 - Elevated blood-pressure reading, without diagnosis of hypertension Plan: Continue on Amlodipine 5 mg F/U with PCP. (2) Brain aneurysm: Code(s): I67.1 - Cerebral aneurysm, nonruptured Plan: CTA found 1 mm small Aneurysm right ICA. Managed by [facility] Neurology.
== END 2024-04-07 08:43 | disposition home or self-care (01) ==
PROVIDERS: PCP Internal Medicine; Visit Provider Nurse Practitioner Family
DX: R03.0 Elevated blood-pressure reading, without diagnosis of hypertension (principal); I67.1 Cerebral aneurysm, nonruptured

== ENCOUNTER → 2024-04-07 08:23 | Outpatient (BNVA) | payer OTHER, SELFPAY | PROVIDERS: PCP Internal Medicine; Visit Provider Nurse Practitioner Family | DX: R03.0 Elevated blood-pressure reading, without diagnosis of hypertension (principal); I67.1 Cerebral aneurysm, nonruptured | CPT/HCPCS: 96127; 99212 ==

== ENCOUNTER 2024-04-29 09:10 | Outpatient (AMB) | payer OTHER, SELFPAY ==
[2024-04-29 09:13] VITALS: BP 116/80; PULSE 85; O2SAT 96; BMI 28.7
--- NOTE | 2024-04-29 09:13 | A.OFFPC_ITS ---
Vital Signs 04/29/24 09:13 Height 5 ft 1 in Weight 152 lb BMI 28.7 BP 116/80 Blood Pressure Location Lt brachial Position Sitting Pulse 85 Pulse Source Pulse Oximeter Pulse Oximetry (%) 96 Oxygen Delivery Method Room Air Intake Visit Reasons: 6 Month F/U Passport Support Associate Required: No Accompanied by: Self / Same As Patient Allergies ibuprofen [From Motrin] Adverse Reaction (Intermediate, Verified 04/29/24 09:53) activates her Crohn's disease Medication List - Last Reconciled 04/29/24 by Ralph Colorado MD albuterol sulfate 90 mcg/actuation 2 puffs PO Q6H PRN amlodipine 5 mg PO DAILY budesonide 180 mcg/actuation (Pulmicort Flexhaler) 2 inhalations PO BID bupropion HCl XL 300 mg PO DAILY calcitonin (salmon) 200 unit/actuation 1 spray intranasal (ALT) DAILY cholecalciferol (vitamin D3) 25 mcg PO DAILY diphenhydramine HCl 25 mg PO TID PRN 30 days fluticasone propionate 50 mcg/actuation 2 sprays intranasal DAILY PRN 30 days gabapentin 100 mg PO BEDTIME 30 days hydroxyzine HCl 50 mg PO BID lidocaine 4% (Salonpas (lidocaine)) 1 patch topical DAILY mesalamine 1.2 grams PO DAILY omeprazole 40 mg PO DAILY oxycodone 5 mg PO BID-TID PRN Tobacco use date assessed: 04/29/24 Fall risk assessment: No Falls in past year Last assessed Fall Risk: 04/29/24 Dental Screening Dental Screen Date: 04/29/24 Did you have a dental visit in the last 12 months?: Yes Did you have a dental problem in the last 6 months where you did not have access to dental care?: No Was dental information given to patient?: Patient has dentist HPI 6 Month F/U HPI Details Patient comes in today for her follow-up visit States that she just recently completed her PT sessions for her left shoulder Has not yet received any physical therapy for her lower back and she is still experiencing frequent and recurrent low back pain She also has not been back to see pain management at [facility] in a while now and is advised to reach out to them to schedule her appt with them [place] She appears to be tolerating her Amlodipine for her blood pressure so far States that she still has recurrent dizziness but she denies any headaches Denies any exertional chest pains, no increased shortness of breath No nausea/vomiting, no abdominal pain No change in bowel habits noted She has not yet had her follow-up labs done prior to her appointment today [facility] Medical History Compression fracture of T11 vertebra with delayed healing Compression fracture of L4 vertebra Obesity (BMI 30-39.9) Hiatal hernia Coccydynia Overweight (BMI 25.0-29.9) Depression Anxiety Renal calculi Vitamin D deficiency Allergic rhinitis Osteoporosis Lumbar degenerative disc disease GERD without esophagitis Crohn's disease COPD (chronic obstructive pulmonary disease) GERD (gastroesophageal reflux disease) Ear discharge of both ears Ear build-up Sacroiliitis Chronic pain syndrome Spondylolisthesis, lumbar region Spondylosis of lumbar region without myelopathy or radiculopathy Surgical History Hx of colonoscopy History of surgery History of hysterectomy History of surgery History of nasal surgery Social History Housing: Apartment Alcohol intake: current Alcohol intake frequency: holidays/special occasions only Alcohol type: wine Patient Tobacco Use Status: Former Tobacco user Tobacco use type: Cigarette e-Cigarette/Vaping Use: Never Used Second Hand Smoke Exposure: No Advance Directives Date on File: 06/02/20 service: No Current occupational status: disabled Cognitive needs: No Hearing needs: No Vision needs: Yes (glasses) Questionnaire PHQ-9 Over the last 2 weeks, how often have you been bothered by any of the following problems? 1. Little interest or pleasure in doing things: not at all 2. Feeling down, depressed, or hopeless: not at all 3. Trouble falling or staying asleep, or sleeping too much: not at all 4. Feeling tired or having little energy: not at all 5. Poor appetite or overeating: not at all 6. Feeling bad about yourself - or that you are a failure or have let yourself or your family down: not at all 7. Trouble concentrating on things, such as reading the newspaper or watching television: not at all 8. Moving or speaking so slowly that other people could have noticed. Or the opposite - being so fidgety or restless that you have been moving around a lot more than usual: not at all 9. Thoughts that you would be better off or of hurting yourself in some way: not at all Total score: 0 Depression Screening Interpretation: Negative Depression Screening Done: Yes 18658 - PHQ-9 Billing: Yes Source: Developed by Drs. Francisco Javier Rodriguez, Palak العلي, Kamran Calvin and colleagues, with an educational kelsie from [employer]. Thrive Questionnaire Date Thrive assessed: 04/29/24 I am a: Patient What is your living situation today?: I have a steady place to live Within the past 12 months, did the food you bought not last and you didn't have the money to get more?: Never true Within the past 12 months, did you worry whether your food would run out before you got money to buy more?: Never true Do you have trouble paying for medicines?: No Do you have trouble getting transportation to medical appointments?: No Do you have trouble paying your heating and electricity bill?: No Do you have trouble taking care of your child, family member or friend?: No Do you have trouble with day-to-day activities such as bathing, preparing meals, shopping, managing finances, etc.?: No Are you currently unemployed and looking for a job?: No Are you interested in more education?: No Please select the resources that you would like help with: None Currently or been in a relationship where the following occur: No concerns reported THRIVE Score: 0 AUDIT C Alcohol Use Questionnaire (AUDIT-C) 1. How often do you have a drink containing alcohol?: Monthly or less 3. How often do you have six or more drinks on one occasion?: Never Total Score: 1 Score Reviewed/Action Taken: Yes CULLEN-7 AMB Questionnaire CULLEN-7 Date CULLEN - 7 assessed: 04/29/24 Feeling nervous, anxious, or on edge: 0 = Not at all Not being able to stop or control worryin = Not at all Worrying too much about different things: 0 = Not at all Trouble relaxin = Not at all Being so restless that it is hard to sit still: 0 = Not at all Becoming easily annoyed or irritable: 0 = Not at all Feeling afraid as if something awful might happen: 0 = Not at all Total CULLEN-7 score (0-4 normal; 5-9 mild; 10-14 moderate; 15-21 severe): 0 Source: Developed by Drs. Francisco Javier Rodriguez, Palak العلي, Kamran Calvin and colleagues, with an educational kelsie from [employer]. Review of Systems Const Denies chills, Denies fatigue, Denies fever(s) and Denies headache(s) ENT Denies dysphagia, Reports dizziness (recurrent), Denies otalgia, Denies headache(s), Denies neck pain, Denies odynophagia and Denies sore throat Card Denies chest pain, Denies palpitations and Denies dyspnea Resp Denies chest congestion, Denies cough and Denies dyspnea GI Denies abdominal pain, Denies constipation, Denies dysphagia, Denies heartburn, Denies diarrhea, Denies nausea, Denies odynophagia and Denies vomiting Denies difficulty voiding, Denies nocturia, Denies dysuria and Denies urinary urgency Musc Reports back pain (over the lower back - chronic), Reports arthralgias (over both knees; previous left shoulder pain has improved with PT) and Denies neck pain Skin/Breast Denies rash Neuro Reports dizziness (recurrent) and Denies headache(s) Psych Denies anxiety Endo Denies fatigue and Denies palpitations Physical exam (Primary Care) Vital Signs: Last Vital Signs Pulse 85 04/29/24 09:13 BP 116/80 04/29/24 09:13 Pulse Ox 96 04/29/24 09:13 Oxygen Delivery Method Room Air 04/29/24 09:13 BMI result Body Mass Index 28.7 Tobacco/Smoking Status: Tobacco use Status Tobacco use date assessed 04/29/24 04/29/24 09:16 Patient Tobacco Use Status Former Tobacco user 04/29/24 09:16 Tobacco use type Cigarette 04/29/24 09:16 e-Cigarette/Vaping Use Never Used 04/29/24 09:16 PHQ-9: PHQ-9 Score PHQ-9: Total score 0 04/29/24 10:00 Depression Screening Interpretation: Negative Thrive Assessment: Date of Thrive Assessment Date Thrive assessed 04/29/24 04/29/24 09:16 Currently or been in a relationship where the following occur: No concerns reported Const General: no acute distress and alert HENMT Ears: TM's normal bilaterally and EAC's normal Throat: Yes posterior oropharynx normal and Yes tonsils normal (no TP congestion) Neck Neck: Yes no lymphadenopathy and Yes supple Thyroid: Thyroid normal Resp Auscultation: clear to auscultation bilaterally, no rales and no wheezes Cardio Rate: regular rate Rhythm: regular rhythm Heart sounds: no murmurs GI Palpation (GI): Soft to palpation and nontender Auscultation: normal bowel sounds General: Yes no CVA tenderness Back/Spine/Pelvis Back: no CVA tenderness Thoracic/Lumbar Spine: lumbar spinal tenderness Skin Rashes: no rashes Extrem General: Yes no clubbing, cyanosis or edema Right lower extremity: knee Details: tenderness; no swelling Left lower extremity: knee Details: tenderness; no swelling Coding Level of Care Code Est Pt Level 4 (32968) Diagnoses Recurrent vertigo R42 Pure hypercholesterolemia E78.00 Chronic obstructive pulmonary disease, unspecified COPD type J44.9 COPD type: unspecified COPD Crohn's disease without complication, unspecified gastrointestinal tract location K50.90 Gastrointestinal tract location: unspecified location Digestive disease complication type: without complication Hiatal hernia K44.9 GERD without esophagitis K21.9 Age-related osteoporosis without current pathological fracture M81.0 Osteoporosis type: age-related Presence of current pathological fracture: without current pathological fracture Vitamin D deficiency E55.9 Allergic rhinitis, unspecified seasonality, unspecified trigger J30.9 Allergic rhinitis trigger: unspecified Allergic rhinitis seasonality: unspecified Degeneration of intervertebral disc of lumbar region with discogenic back pain M51.360 Disc-related pain type: discogenic back pain only Left knee pain, unspecified chronicity M25.562 Chronicity: unspecified Renal calculi N20.0 Anxiety F41.9 Episode of recurrent major depressive disorder, unspecified depression episode severity F33.9 Depression Type: major depressive disorder Major depression recurrence: recurrent Active/Remission status: currently active Major depression episode severity: unspecified Overweight (BMI 25.0-29.9) E66.3 Additional Codes PHQ-9 - 89367 - PHQ-9 Billing: Yes ([id number]) Assessment & Plan Assessment & Plan (1) Recurrent vertigo: Code(s): R42 - Dizziness and giddiness Category: Medical Plan: Unknown etiology Will refer her to ENT for further evaluation and management (2) Pure hypercholesterolemia: Code(s): E78.00 - Pure hypercholesterolemia, unspecified Category: Medical Plan: Patient was not able to get her follow-up labs done prior to her visit today - states that she will try to get these done [facility] Reinforced low cholesterol diet; patient still does NOT wish to be started on cholesterol-lowering medications and would like to continue working on diet modification alone Will recheck her fasting lipids and labs in 4 months for follow-up (3) COPD (chronic obstructive pulmonary disease): Code(s): J44.9 - Chronic obstructive pulmonary disease, unspecified Category: Medical Qualifiers: COPD type: unspecified COPD Qualified Code(s): J44.9 - Chronic obstructive pulmonary disease, unspecified Plan: Continue Pulmicort Flexhaler 180 mcg 2 inhalations BID and Albuterol HFA 2 inhalations every 6 hours as needed Follow up with pulmonary as scheduled (4) Crohn's disease: Code(s): K50.90 - Crohn's disease, unspecified, without complications Category: Medical Qualifiers: Gastrointestinal tract location: unspecified location Digestive disease complication type: without complication Qualified Code(s): K50.90 - Crohn's disease, unspecified, without complications Plan: States that aside for some occasional diarrhea, her Crohn's disease has been mostly well-controlled overall on her current Rx Continue Mesalamine ER 1.2 gm 1 tablet QD and Dicyclomine 10 mg TID PRN She had a normal EGD and colonoscopy done at [facility] a few years ago on 03/31/2019; due to her IBD, will likely need a repeat colonoscopy soon Follow-up with GI (Dr. Shepherd) as scheduled (5) Hiatal hernia: Code(s): K44.9 - Diaphragmatic hernia without obstruction or gangrene Category: Medical Plan: S/P repeat da Fauzia/laparoscopic paraesophageal hernia repair with mesh last year on 04/15/2023 Follow up with thoracic surgery as scheduled (6) GERD without esophagitis: Code(s): K21.9 - Gastro-esophageal reflux disease without esophagitis Category: Medical Plan: Dietary restrictions reinforced Continue Omeprazole 40 mg BID Follow up with GI as scheduled (7) Osteoporosis: Code(s): M81.0 - Age-related osteoporosis without current pathological fracture Category: Medical Qualifiers: Osteoporosis type: age-related Presence of current pathological fracture: without current pathological fracture Qualified Code(s): M81.0 - Age- related osteoporosis without current pathological fracture Plan: Baseline BMD done a couple of years ago on 10/31/2021 revealed (+) severe osteoporosis with a T score of -4.0 in the lumbar spine - this has declined significantly from her baseline BMD done in 2019 Reinforced fall precautions Continue Calcitonin 200 units nasal spray QD Will need repeat BMD next year (2024) for follow up Follow up with endocrinology as scheduled (8) Vitamin D deficiency: Code(s): E55.9 - Vitamin D deficiency, unspecified Category: Medical Plan: Continue Vitamin D3 1000 units QD (9) Allergic rhinitis: Code(s): J30.9 - Allergic rhinitis, unspecified Category: Medical Qualifiers: Allergic rhinitis trigger: unspecified Allergic rhinitis seasonality: unspecified Qualified Code(s): J30.9 - Allergic rhinitis, unspecified Plan: Continue Loratadine 10 mg QD PRN and Fluticasone 50 mcg nasal spray QD PRN (10) Lumbar degenerative disc disease: Code(s): M51.36 - Other intervertebral disc degeneration, lumbar region Category: Medical Qualifiers: Disc-related pain type: discogenic back pain only Qualified Code(s): M51.360 - Other intervertebral disc degeneration, lumbar region with discogenic back pain only Plan: Reinforced activity and weight-lifting restrictions Spine CT done last year showed (+) chronic T11 compression fracture as well as multilevel degenerative disc disease in her thoracolumbar spine Continue Oxycodone 5 mg BID - TID PRN - have advised her that I started back on Oxycodone a while back to her with her left shoulder fracture last year and then for her lumbar spine compression fracture and she now should start preparing to cut back and come off her pain med soon as I have reminded her of what I told her in the past - that I am not going to continue refilling her pain medication indefinitely as I am NOT taking on any more patients for chronic pain Rx She used to see [facility] and switched over to pain management at [facility] but she has not seen them in a while and has been advised to reach out to them to schedule a follow up appt with them [place] Will also try increasing her Gabapentin from 100 mg daily at bedtime to 100 mg TID (11) Left knee pain: Code(s): M25.562 - Pain in left knee Category: Medical Qualifiers: Chronicity: unspecified Qualified Code(s): M25.562 - Pain in left knee Plan: This is most likely due to OA Follow up with orthopedics as scheduled (12) Renal calculi: Code(s): N20.0 - Calculus of kidney Category: Medical Plan: Patient has had to undergo ESWL a few times in the past due to recurrent obstructive kidney stones Follow up with urology (Dr. Genny Lopez) as scheduled (13) Anxiety: Code(s): F41.9 - Anxiety disorder, unspecified Category: Medical Plan: Continue Hydroxyzine 50 mg BID PRN and Bupropion 300 mg QD (14) Depression: Code(s): F32.9 - Major depressive disorder, single episode, unspecified Category: Medical Qualifiers: Depression Type: major depressive disorder Major depression recurrence: recurrent Active/Remission status: currently active Major depression episode severity: unspecified Qualified Code(s): F33.9 - Major depressive disorder, recurrent, unspecified Plan: Continue Bupropion 300 mg QD Follow up with psychiatry as scheduled (15) Overweight (BMI 25.0-29.9): Code(s): E66.3 - Overweight Category: Medical Plan: Reinforced diet; exercise and weight loss may not be practical given patient's multiple physical issues Plan Follow up in 4 months Orders: Orders Complete Blood Count Auto Diff 4 Months D64.9 - Anemia, unspecified Lipid Panel 4 Months E78.00 - Pure hypercholesterolemia, unspecified Comprehensive [place]. Panel Fast 4 Months E78.00 - Pure hypercholesterolemia, unspecified TSH reflex Free T4 4 Months E78.00 - Pure hypercholesterolemia, unspecified UA CC w/rflx Micro + Cult 4 Months R30.0 - Dysuria Vitamin D 25-OH Total 4 Months E55.9 - Vitamin D deficiency, unspecified Referrals Ear/Nose/Throat Referral R42 - Dizziness and giddiness Medications: New amlodipine 5 mg PO DAILY 90 days 90 tabs 1RF Changed From gabapentin 100 mg PO BEDTIME 30 days 30 caps 1RF To gabapentin 100 mg PO TID 30 days 90 caps 1RF
--- OUTSIDE RECORDS SUMMARY | 2024-05-05 00:50 | XMS_ITS | Continuity of Care Document ---
Author Organization [facility] Address [address] [place] [id number]- Care Team Providers Care Elephant Tamer Name Role Phone Ralph Colorado MD Primary Care Physician [facility]counter [facility] Date(s): 03/17/24 - 04/16/[facility] [address] [place] [phone]- Encounter Type: Triage Allergies, Adverse Reactions, Alerts Substance Criticality Severity Reaction Reaction Severity Status ibuprofen 1 High criticality Severe IBS/Crohn's flare; abd pain Active 1severe stomach pain r/t ulcerative colitis Immunizations Given and Recorded Vaccine Date Status Refusal Reason [id number] bivalent booster vax 06/05/22 Recorded influenza virus vaccine, inactivated 03/18/22 Heriberto rded influenza virus vaccine, inactivated 02/28/21 Heriberto rded influenza virus vaccine, inactivated 02/15/20 Heriberto rded influenza virus vaccine, inactivated 03/04/19 Heriberto rded influenza virus vaccine, inactivated 02/10/19 Heriberto rded influenza virus vaccine, inactivated 04/12/18 Heriberto rded influenza virus vaccine, inactivated 02/24/16 Heriberto rded influenza virus vaccine, inactivated 02/08/15 Heriberto rded influenza virus vaccine, inactivated 1 03/29/06 [facility] [place] SARS-CoV-2 (COVID-19) mRNA-1273 vaccine 11/17/21 R ecorded SARS-CoV-2 (COVID-19) mRNA-1273 vaccine 04/17/21 R ecorded SARS-CoV-2 (COVID-19) mRNA-1273 vaccine 09/29/20 R ecorded SARS-CoV-2 (COVID-19) mRNA-1273 vaccine 09/01/20 R ecorded pneumococcal 13-valent vaccine 06/15/21 Recorded zoster vaccine, inactivated 04/12/18 Recorded zoster vaccine, inactivated 09/29/17 Recorded Zoster Vaccine Live 07/19/16 Recorded pneumococcal 23-valent vaccine 03/30/16 Recorded tetanus-diphtheria toxoids (Td) 11/07/05 Given 1Result Comment: Lot [id number] Exp 11/22/06 Medications amLODIPine 5 mg oral tablet 5 mg, 1, tablet, By Mouth, Daily, # 30 tablet, Refills 0, Tot. Refills 0, Maintenance, 03/25/24 11:56:00 AM EDT, Route to Pharmacy Electronically, [facility], Partial fill upon patient request if the prescription is for a schedule II opioid drug., 155, cm, 03/25/24 9:45:00 EDT, Height, 72.5, kg, 03/23/24 23:20:00 EDT, Dry Weight Start Date: 03/25/24 Stop Date: 04/24/24 Status: Ordered Quantity: 30.0 Unit: tablet Repeat number: 1 aspirin 81 mg oral delayed release tablet 81 mg, 1, tablet, By Mouth, Daily, # 90 tablet, Refills 3, Tot. Refills 3, Maintenance, 04/01/24 11:40:00 AM EST, [id number] Partial fill upon patient request if the prescription is for a schedule II opioid drug., 155, cm, 03/31/24 11:05:00 EST, Height, 72.5, kg, 03/23/24 23:20:00 EDT, Dry Weight Start Date: 04/01/24 Status: Ordered Quantity: 90.0 Unit: tablet Repeat number: 4 buPROPion 300 mg/24 hours (XL) oral tablet, extended release 1 tablet = 300 mg, By Mouth, Daily, 0 Refills, Maintenance, 02/25/18 12:44:24 PM EDT, ER Tablet Start Date: 02/25/18 Status: Ordered Repeat number: 1 calcitonin 200 iu/inh nasal spray 1 sprays, Nares, Both, Daily, # 3.7 mL, 0 Refills, Maintenance, 10/15/22 9:32:00 AM EDT, [place], [facility], Partial fill upon patient request if the prescription is for a schedule II opioid drug., 156, cm, 10/15/22 8:56:00 EDT, Height, 73, kg, 10/11/22 0:38:00 EDT, Dry Weight Start Date: 10/15/22 Status: Ordered Quantity: 3.7 Unit: mL Repeat number: 1 fluticasone 50 mcg/inh nasal spray 0 Refills, Maintenance, 12/10/23 8:10:00 AM EDT, Partial fill upon patient request if the prescription is for a schedule II opioid drug. Start Date: 12/10/23 Status: Ordered Repeat number: 1 hydrOXYzine hydrochloride 50 mg oral tablet 1 tablet = 50 mg, By Mouth, 2 times a day, PRN as needed for anxiety, 0 Refills, Maintenance, 01/06/23 11:25:00 AM EDT Start Date: 01/06/23 Status: Ordered Repeat number: 1 meclizine 25 mg oral tablet 1 tablet = 25 mg, By Mouth, 3 times a day, PRN for dizziness, # 30 tablet, 0 Refills, Maintenance, 03/25/24 11:55:00 AM EDT, Table[place], [facility], Partial fill upon patient request if theprescription is for a schedule II opioid drug., 155, cm, 03/25/24 9:45:00 EDT, Height, 72.5, kg, 03/23/24 23:20:00 EDT, Dry Weight Start Date: 03/25/24 Status: Ordered Quantity: 30.0 Unit: tablet Repeat number: 1 mesalamine 1.2 g oral delayed release tablet 1 tablet = 1.2 Gm, By Mouth, Daily, Maintenance, 05/22/23 6:06:00 PM EST Start Date: 05/22/23 Status: Ordered Repeat number: 1 MiraLax Powder 1 pack/packet = 17 Gm, By Mouth, Daily, 0 Refills, Maintenance, 05/30/23 12:43:00 PM EST, Powder, Partial fill upon patient request if the prescription is for a schedule II opioid drug. Start Date: 05/30/23 Status: Ordered Repeat number: 1 omeprazole 40 mg oral enteric coated capsule 1 capsule = 40 mg, By Mouth, 2 times a day, 0 Refills, Maintenance, 02/01/19 11:43:29 AM EDT, EC Capsule Start Date: 02/01/19 Status: Ordered Repeat number: 1 oxyCODONE 5 mg oral tablet 5 mg, 1, tablet, By Mouth, Every 4 hours, PRN, # 36 tablet, Refills 0, Tot. Refills 0, Pain , Moderate Start Date: 03/03/24 Status: Ordered Quantity: 36.0 Unit: tablet Repeat number: 1 Plavix 75 mg oral tablet 75 mg, 1, tablet, By Mouth, Daily, # 90 tablet, Refills 3, Tot. Refills 3, Maintenance, 04/01/24 11:39:00 AM EST, Route to Pharmacy Electronically, [facility]/pharmacy #[id number], Partial fill upon patient request if the prescription is for a schedule II opioid drug., 155, cm, 03/31/24 11:05:00 EST, Height, 72.5, kg, 03/23/24 23:20:00 EDT, Dry Weight Start Date: 04/01/24 Status: Ordered Quantity: 90.0 Unit: tablet Repeat number: 4 Ventolin HFA 108 mcg/inh inhalation aerosol with adapter 2 puffs, Inhalation, Every 6 hours, PRN Wheezing/Shortness of Breath, 0 Refills, Maintenance, 10/10/22 8:14:00 PM EDT, Aerosol Start Date: 10/10/22 Status: Ordered Repeat number: 1 VITAMIN D3 1,000 UNIT SOFTGEL VITAMIN D3 1,000 UNIT SOFTGEL, 1, capsule, By Mouth, Daily at bedtime, 0 Refills, Maintenance, 12/30/23 8:45:00 AM EDT Start Date: 12/30/23 Status: Ordered Repeat number: 1 Vitamin D3 1000 intl units oral tablet 1 tablet = 1,000 International_Units, By Mouth, Daily, 0 Refills, Maintenance, 10/31/16 9:53:42 AM EDT Start Date: 10/31/16 Status: Ordered Repeat number: 1 Problem List Condition Confirmation Course Effective Dates Status Health St atus Informant DDD (degenerative disc disease), lumbar Confirmed Active Depressive disorder Confirmed Active IBD - Inflammatory bowel disease Confirmed Active Kidney stone Confirmed Active Myofascial pain Confirmed Active Obese class I Confirmed Active Osteoporosis Confirmed Active PTSD - Post-traumatic stress disorder Confirmed Active Repair of cystocele and rectocele Confirmed 2003 Active Disorder of sacroiliac joint Confirmed Active Back pain, sacroiliac Confirmed Active RAFI - Total abdominal hysterectomy and bilateral salpingo-oophorecto my Confirmed Active Social History Social History Type Response Tobacco Use: 4 or less cigar ettes(less than 1/4 pack)/day in last 30 days. Other: some day smoker. Sex Sex Representation Female (finding) Patient Care team information Care Team Personnel Name: Ralph [place] MD Position: Reference Physician Member Role: PCP Address: [address] [place] [address] Telecom: Name: Wendi Polk RN Position: [facility] RN Member Role: Primary Care Nurse Name: Dallin Carter MA Position: [facility] ERICA RAMIREZ Member Role: Primary Care Nurse Name: Narcisa Mauricio RN Position: [facility] RN Member Role: Primary Care Nurse Name: Erich Venegas RN Position: [facility] RN Member Role: Primary Care Nurse Name: Valerie Westfall RN Position: [facility] RN Member Role: Primary Care Nurse Name: Shanti Schmitz LPN Position: [facility] RN Member Role: Primary Care Nurse Name: Jj Cervantes RN Position: [facility] RN Member Role: Primary Care Nurse Care Team Related Persons Name: PATEL GOMEZ Name: OTHER, ADALEAH Name: TRISTIAN RIVERA Name: ADRIANA VARGAS Insurance Providers Guarantor name: [facility] [employer] [facility] Information #: 1 Payer: ALEX GIPSON [facility] Member Number: NA Policy Number: NA Group Number: NA
--- OUTSIDE RECORDS SUMMARY | 2024-05-05 00:50 | XMS_ITS | Continuity of Care Document ---
Author Organization [facility] Address [address] [place] [address]- Care Team Providers Care Continuous Dryout Operator Helper Name Role Phone Ralph [place] MD [id number] - [facility] [address] [place] [address]- Attending Physician: Prashant Sanchez DO Admitting Physician: Prashant Sanchez DO Referring Physician: Ralph Colorado MD Encounter Type: Pre-OutPatient One Time Allergies, Adverse Reactions, Alerts Substance Criticality Severity Reaction Reaction Severity Status ibuprofen 1 High criticality Severe IBS/Crohn's flare; abd pain Active 1severe stomach pain r/t ulcerative colitis Immunizations Given and Recorded Vaccine Date Status Refusal Reason [id number] bivalent booster vax 06/05/22 Recorded influenza virus vaccine, inactivated 03/18/22 Heriberto rded influenza virus vaccine, inactivated 02/28/21 Heriberto rded influenza virus vaccine, inactivated 02/15/20 Heriberto rded influenza virus vaccine, inactivated 03/04/19 Heriberto rded influenza virus vaccine, inactivated 02/10/19 Heriberto rded influenza virus vaccine, inactivated 11/18/18 Heriberto rded influenza virus vaccine, inactivated 02/24/16 [...] toxoids (Td) 11/07/05 Given 1Result Comment: Lot [id number] Exp 11/22/06 Medications amLODIPine 5 mg oral tablet 5 mg, 1, tablet, By Mouth, Daily, # 30 tablet, Refills 0, Tot. Refills 0, Maintenance, 03/25/24 11:56:00 AM EDT, Route to Pharmacy Electronically, [facility] 3, Partial fill upon patient request if [...] 11:40:00 AM EST, [id number] Partial fill upon patient request if the [...] 0 Refills, Maintenance, 10/15/22 9:32:00 AM EDT, [place], [facility], Partial fill upon patient [...] Refills, Maintenance, 03/25/24 11:55:00 AM EDT, Tablet, [facility], Partial fill upon patient [...] 11:39:00 AM EST, Route to Pharmacy Electronically, [facility]/pharmacy #[id number], Partial fill upon patient request if the [...] stone Confirmed Active Myofascial pain Confirmed Active Osteoporosis Confirmed Active PTSD - Post-traumatic stress disorder Confirmed Active Repair of cystocele and rectocele Confirmed 2004 Active Disorder of sacroiliac joint Confirmed Active [...] Position: Reference Physician Member Role: PCP Address: [address] [place] [address] Telecom: Name: Wendi Polk RN Position: [facility] RN Member Role: Primary Care Nurse Name: Dallin Carter MA Position: [facility] ERICA RAMIREZ Member Role: Primary Care Nurse Name: Narcisa Mauricio RN Position: [facility] RN Member Role: Primary Care Nurse Name: Erich Venegas RN Position: [facility] RN Member Role: Primary Care Nurse Name: Valerie Westfall RN Position: [facility] RN Member Role: Primary Care Nurse Name: Shanti Schmitz LPN Position: [facility] RN Member Role: Primary Care Nurse Name: Jj Cervantes RN Position: [facility] RN Member Role: Primary Care Nurse Care Team Related Persons Name: PATEL GOMEZ Name: OTHER, ADALEARama Name: TRISTIAN RIVERA Name: ADRIANA VARGAS Insurance Providers Guarantor name: MANJU FLEMING Health Plan Information #: 1 Payer: ALEX GIPSON [facility] Member Number: [id number] Policy Number: NA Group Number: NA Health Plan Information #: 2 Payer: [facility] Member Number: [id number] Policy Number: NA Group Number: NA
--- OUTSIDE RECORDS SUMMARY | 2024-05-05 00:50 | XMS_ITS | Continuity of Care Document ---
Author Organization [facility] [address] [place], [address] [place] [address]- Care Team Providers Care Brick Sorter Name Role Phone Stanislav GARCIA, Ralph Bee Primary Care Physician [facility] Date(s): 03/17/24 - 04/16/24 [facility] [address] [place] [address] Drive [address] [place], [place] [address] Encounter Type: Triage Allergies, Adverse Reactions, Alerts Substance Criticality Severity Reaction Reaction Severity Status ibuprofen 1 High criticality Severe IBS/Crohn's flare; abd pain Active 1severe stomach pain r/t ulcerative colitis Immunizations Given and Recorded Vaccine Date Status Refusal Reason [id number] bivalent booster vax 06/05/22 Recorded influenza virus [...] toxoids (Td) 11/07/05 Given 1Result Comment: Lot [id number] Exp 11/22/06 Medications amLODIPine 5 mg oral tablet 5 mg, 1, tablet, By Mouth, Daily, # 30 tablet, Refills 0, Tot. Refills 0, Maintenance, 03/25/24 11:56:00 AM EDT, Route to Pharmacy Electronically, [facility], Partial fill upon patient request if [...] 11:40:00 AM EST, [id number], Partial fill upon patient request if the [...] 0 Refills, Maintenance, 10/15/22 9:32:00 AM EDT, [place], [facility], Partial fill upon patient [...] Refills, Maintenance, 03/25/24 11:55:00 AM EDT, Tablet, [facility], Partial fill upon patient [...] 11:39:00 AM EST, Route to Pharmacy Electronically, [facility]/pharmacy #[id number], Partial fill upon patient request if the [...] Position: Reference Physician Member Role: PCP Address: [address] [place] [address] Telecom: Name: Wendi Polk RN Position: [facility] RN Member Role: Primary Care Nurse Name: Dallin Carter MA Position: [facility] ERICA MA Member Role: Primary Care Nurse Name: Narcisa Mauricio RN Position: [facility] RN Member Role: Primary Care Nurse Name: Erich Venegas RN Position: [facility] RN Member Role: Primary Care Nurse Name: Valerie Westfall RN Position: [facility] RN Member Role: Primary Care Nurse Name: Shanti Schmitz LPN Position: [facility] RN Member Role: Primary Care Nurse Name: Jj Cervantes RN Position: [facility] RN Member Role: Primary Care Nurse Care Team Related Persons Name: PATEL GOMEZ Name: OTHER, ADALEAH Name: TRISTIAN RIVERA Name: ADRIANA VARGAS Insurance Providers Guarantor name: [facility] Health Plan Information #: 1 Payer: ALEX GIPSON [employer] Member Number: NA Policy Number: NA Group Number: NA
--- OUTSIDE RECORDS SUMMARY | 2024-05-05 00:50 | XMS_ITS | Continuity of Care Document ---
Author Organization [facility] Address [address] [place] [address]- Care Team Providers Care Ladle Cleaner Name Role Phone Stanislav GARCIA, Ralph Bee Primary Care Physician [phone] Encounter 02/26/24 - 04/14/24 [facility] [address] [place] [address]- Discharge Disposition: GOALS MET Encounter Type: Disch [facility] Allergies, Adverse Reactions, Alerts Substance Criticality Severity Reaction Reaction Severity Status ibuprofen 1 High criticality Severe IBS/Crohn's flare; abd pain Active 1severe stomach pain r/t ulcerative colitis Immunizations Given and Recorded Vaccine Date Status Refusal Reason [id number] bivalent booster vax 06/05/22 Recorded influenza virus vaccine, inactivated 03/18/22 Heriberto rded influenza virus vaccine, inactivated 02/28/21 Heriberto rded influenza virus vaccine, inactivated 02/15/20 Heriberto rded influenza virus vaccine, inactivated 03/04/19 Heriberto rded influenza virus vaccine, inactivated 02/10/19 Heriberto rded influenza virus vaccine, inactivated 04/12/18 Heriberto rded influenza virus vaccine, inactivated 02/24/16 Heriberto rded influenza virus vaccine, inactivated 9/16/15 Heriberto rded influenza virus vaccine, inactivated 1 [...] toxoids (Td) 11/07/05 Given 1Result Comment: Lot [id number] Exp 11/22/06 Medications amLODIPine 5 mg oral tablet 5 mg, 1, tablet, By Mouth, Daily, # 30 tablet, Refills 0, Tot. Refills 0, Maintenance, 03/25/24 11:56:00 AM EDT, Route to Pharmacy Electronically, [facility], Partial fill upon patient request [...] 11:40:00 AM EST, [id number] Partial fill upon patient request if the [...] 0 Refills, Maintenance, 10/15/22 9:32:00 AM EDT, [place], [facility], Partial fill upon patient [...] Refills, Maintenance, 03/25/24 11:55:00 AM EDT, Tablet, [facility], Partial fill upon patient [...] 11:39:00 AM EST, Route to Pharmacy Electronically, [facility]/pharmacy #[id number], Partial fill upon patient request if the [...] Position: Reference Physician Member Role: PCP Address: [address] [place] [address] Telecom: Name: Wendi Polk RN Position: [facility] RN Member Role: Primary Care Nurse Name: Dallin Carter MA Position: [facility] ERICA RAMIREZ Member Role: Primary Care Nurse Name: Narcisa Mauricio RN Position: [facility] RN Member Role: Primary Care Nurse Name: Erich Venegas RN Position: [facility] RN Member Role: Primary Care Nurse Name: Valerie Westfall RN Position: [facility] RN Member Role: Primary Care Nurse Name: Shanti Schmitz LPN Position: [facility] RN Member Role: Primary Care Nurse Name: Jj Cervantes RN Position: [facility] RN Member Role: Primary Care Nurse Care Team Related Persons Name: PATEL GOMEZ Name: OTHER, ADALEAH Name: TRISTIAN RIVERA Name: ADRIANA VARGAS Insurance Providers Guarantor name: [facility] [employer] [facility] Information #: 1 Payer: [employer]SON [facility] Member Number: NA Policy Number: NA Group Number: NA
--- OUTSIDE RECORDS SUMMARY | 2024-05-05 00:50 | XMS_ITS | Continuity of Care Document ---
Author Organization [facility] Address [address] [place] [address]- Care Team Providers Care Isotope Hydrologist Name Role Phone Ralph [place] MD Primary Care Physician [facility] Date(s): 03/17/24 - 04/18/24 [facility] [address] [place] [address]- Attending Physician: Prashant Sanchez DO Admitting Physician: Prashant Sanchez DO Encounter Type: Pre-OutPatient One Time Allergies, Adverse Reactions, Alerts Substance Criticality Severity Reaction Reaction Severity Status ibuprofen 1 High criticality Severe IBS/Crohn's flare; abd pain Active 1severe stomach pain r/t ulcerative colitis Immunizations Given and Recorded Vaccine Date Status Refusal Reason [id number] bivalent booster vax 06/05/22 Recorded influenza virus [...] toxoids (Td) 11/07/05 Given 1Result Comment: Lot [id number] Exp 11/22/06 Medications amLODIPine 5 mg oral tablet 5 mg, 1, tablet, By Mouth, Daily, # 30 tablet, Refills 0, Tot. Refills 0, Maintenance, 03/25/24 11:56:00 AM EDT, Route to Pharmacy Electronically, [facility], Partial fill upon patient request if [...] 11:40:00 AM EST, [id number] Partial fill upon patient request if the [...] 0 Refills, Maintenance, 10/15/22 9:32:00 AM EDT, [place], [facility], Partial fill upon patient [...] Refills, Maintenance, 03/25/24 11:55:00 AM EDT, Tablet, [facility], Partial fill upon patient [...] 11:39:00 AM EST, Route to Pharmacy Electronically, [facility]/pharmacy #[id number], Partial fill upon patient request if the [...] Care team information Care Team Personnel Name: Stanislav GARCIA, Ralph Bee Position: Reference Physician Member Role: PCP Address: [address] [place] [address] Telecom: Name: Wendi Polk RN Position: [facility] RN Member Role: Primary Care Nurse Name: Dallin Carter MA Position: [facility] ERICA RAMIREZ Member Role: Primary Care Nurse Name: Narcisa Mauricio RN Position: [facility] RN Member Role: Primary Care Nurse Name: Erich Venegas RN Position: [facility] RN Member Role: Primary Care Nurse Name: Valerie Westfall RN Position: [facility] RN Member Role: Primary Care Nurse Name: Shanti Schmitz LPN Position: [facility] RN Member Role: Primary Care Nurse Name: Jj Cervantes RN Position: [facility] RN Member Role: Primary Care Nurse Care Team Related Persons Name: PATEL GOMEZ Name: OTHER, SAJI Name: TRISTIAN RIVERA Name: ADRIANA VARGAS Insurance Providers Guarantor name: MANJU FLEMING Health Plan Information #: 2 [facility] Member Number: [id number] Policy Number: NA Group Number: NA Health Plan Information #: 1 Payer: [facility]LEX [facility] Member Number: [id number] Policy Number: NA Group Number: NA
--- OUTSIDE RECORDS SUMMARY | 2024-05-05 00:50 | XMS_ITS | Continuity of Care Document ---
Author Organization [facility] ter Address [address] [place] [id number]- Care Team Providers Care Bridge Gang Worker Name Role Phone Stanislav GARCIA, Ralph Bee Primary Care Physician [phone] Encounter [facility] Date(s): 04/01/24 - 04/28/[address] [address] Attending Physician: Sung Siegel MD Referring Physician: Sung Siegel MD Encounter Type: Preadmit IP Allergies, Adverse Reactions, Alerts Substance Criticality Severity Reaction Reaction Severity Status ibuprofen 1 High criticality Severe IBS/Crohn's flare; abd pain Active 1severe stomach pain r/t ulcerative colitis Immunizations Given and Recorded Vaccine Date Status Refusal Reason [id number] bivalent booster vax 06/05/22 Recorded influenza virus [...] toxoids (Td) 11/07/05 Given 1Result Comment: Lot [id number] Exp 11/22/06 Medications amLODIPine 5 mg oral tablet 5 mg, 1, tablet, By Mouth, Daily, # 30 tablet, Refills 0, Tot. Refills 0, Maintenance, 03/25/24 11:56:00 AM EDT, Route to Pharmacy Electronically, [facility], Partial fill upon patient [...] 11:40:00 AM EST, [id number] Partial fill upon patient request if the [...] 0 Refills, Maintenance, 10/15/22 9:32:00 AM EDT, [place], [facility], Partial fill upon patient [...] Refills, Maintenance, 03/25/24 11:55:00 AM EDT, Tablet, [facility], Partial fill upon patient [...] 11:39:00 AM EST, Route to Pharmacy Electronically, [facility]/pharmacy #[id number], Partial fill upon patient request if the [...] Position: Reference Physician Member Role: PCP Address: [address] [place] [address]- Telecom: Name: Wendi Polk RN Position: [facility] RN Member Role: Primary Care Nurse Name: Dallin Carter MA Position: [facility] ERICA RAMIREZ Member Role: Primary Care Nurse Name: Narcisa Mauricio RN Position: [facility] RN Member Role: Primary Care Nurse Name: Erich Venegas RN Position: [facility] RN Member Role: Primary Care Nurse Name: Valerie Westfall RN Position: [facility] RN Member Role: Primary Care Nurse Name: Shanti Schmitz LPN Position: [facility] RN Member Role: Primary Care Nurse Name: Jj Cervantes RN Position: [facility] RN Member Role: Primary Care Nurse Care Team Related Persons Name: PATEL GOMEZ Name: OTHER, ADALEARama Name: TRISTIAN RIVERA Name: ADRIANA VARGAS Insurance Providers Guarantor name: MANJU FLEMING Health Plan Information #: 1 Payer: [employer] Member Number: [id number] Policy Number: NA Group Number: NA Health Plan Information #: 2 Payer: [employer] Member Number: [id number] Policy Number: NA Group Number: NA
--- OUTSIDE RECORDS SUMMARY | 2024-05-05 00:50 | XMS_ITS | Continuity of Care Document ---
Author Organization [facility] Address [address] [place] [address]- Care Team Providers Care Production Support Analyst Name Role Phone Ralph Colorado MD Primary Care Physician Encounter [facility] R [id number] Date(s): 03/31/24 - 04/30/24 [facility] [address] [place] [address]- Attending Physician: Lissy Nicole Admitting Physician: Lissy Nicole Referring Physician: Lissy Nicole Encounter Type: Triage Allergies, Adverse Reactions, Alerts Substance Criticality Severity Reaction Reaction Severity Status ibuprofen 1 High criticality Severe IBS/Crohn's flare; abd pain Active 1severe stomach pain r/t ulcerative colitis Immunizations Given and Recorded Vaccine Date Status Refusal Reason [id number] bivalent booster vax 06/05/22 Recorded influenza virus [...] toxoids (Td) 11/07/05 Given 1Result Comment: Lot [id number] Exp 11/22/06 Medications amLODIPine 5 mg oral tablet 5 mg, 1, tablet, By Mouth, Daily, # 30 tablet, Refills 0, Tot. Refills 0, Maintenance, 03/25/24 11:56:00 AM EDT, Route to Pharmacy Electronically, [facility], Partial fill upon patient request [...] [id number] Partial fill upon patient request if the [...] 0 Refills, Maintenance, 10/15/22 9:32:00 AM EDT, [place], [facility], Partial fill upon patient [...] Refills, Maintenance, 03/25/24 11:55:00 AM EDT, Tablet, [facility], Partial fill upon patient [...] 11:39:00 AM EST, Route to Pharmacy Electronically, [facility]/pharmacy #[id number], Partial fill upon patient request if the [...] Position: Reference Physician Member Role: PCP Address: [address] [place] [address] [place] [address] Telecom: Name: Wendi Polk RN Position: [facility] RN Member Role: Primary Care Nurse Name: Dallin Carter MA Position: [facility] ERICA MA Member Role: Primary Care Nurse Name: Narcisa Mauricio RN Position: [facility] RN Member Role: Primary Care Nurse Name: Erich Venegas RN Position: [facility] RN Member Role: Primary Care Nurse Name: Valerie Westfall RN Position: [facility] RN Member Role: Primary Care Nurse Name: Shanti Schmitz LPN Position: [facility] RN Member Role: Primary Care Nurse Name: Jj Cervantes RN Position: [facility] RN Member Role: Primary Care Nurse Care Team Related Persons Name: PATEL GOMEZ Name: OTHER, ADALEAH Name: TRISTIAN RIVERA Name: ADRIANA VARGAS Insurance Providers Guarantor name: [facility] Health Plan Information #: 1 Payer: [employer] Member Number: NA Policy Number: NA Group Number: NA
== END 2024-04-29 10:33 | disposition home or self-care (01) ==
PROVIDERS: PCP Internal Medicine; Visit Provider Internal Medicine
DX: R42 Dizziness and giddiness (principal); J44.9 Chronic obstructive pulmonary disease, unspecified; K50.90 Crohn's disease, unspecified, without complications; F33.9 Major depressive disorder, recurrent, unspecified; E78.00 Pure hypercholesterolemia, unspecified; K44.9 Diaphragmatic hernia without obstruction or gangrene; K21.9 Gastro-esophageal reflux disease without esophagitis; M81.0 Age-related osteoporosis without current pathological fracture; E55.9 Vitamin D deficiency, unspecified; J30.9 Allergic rhinitis, unspecified; M51.360 Other intervertebral disc degeneration, lumbar region with discogenic back pain only; M25.562 Pain in left knee

== ENCOUNTER → 2024-04-29 09:10 | Outpatient (BNVA) | payer OTHER, SELFPAY | PROVIDERS: PCP Internal Medicine; Visit Provider Internal Medicine | DX: R42 Dizziness and giddiness (principal); E78.00 Pure hypercholesterolemia, unspecified; J44.9 Chronic obstructive pulmonary disease, unspecified; K50.90 Crohn's disease, unspecified, without complications; K44.9 Diaphragmatic hernia without obstruction or gangrene; K21.9 Gastro-esophageal reflux disease without esophagitis; M81.0 Age-related osteoporosis without current pathological fracture; E55.9 Vitamin D deficiency, unspecified; J30.9 Allergic rhinitis, unspecified; M51.360 Other intervertebral disc degeneration, lumbar region with discogenic back pain only; M25.562 Pain in left knee; N20.0 Calculus of kidney; F41.9 Anxiety disorder, unspecified; F33.9 Major depressive disorder, recurrent, unspecified; E66.3 Overweight | CPT/HCPCS: 96127; 99212 ==

== ENCOUNTER 2024-05-05 06:45 | Outpatient (REF) | payer OTHER, SELFPAY ==
--- NOTE | ~2024-05-05 | MM_ITS ---
EXAMINATION: MM SCREENING DIGITAL BREAST TOMOSYNTHESIS, BILATERAL CLINICAL INFORMATION: Screening. Asymptomatic. COMPARISON: Mammography: Comparison is made with available priors TECHNIQUE: Digital breast mammography with tomosynthesis is performed in both the craniocaudal and mediolateral oblique views along with computer-aided detection (CAD). FINDINGS: There are scattered areas of fibroglandular density (ACR BI-RADS breast composition Category b). There are no significant masses, abnormal calcifications, or other abnormalities. MM/MM tomosynthesis screening BI IMPRESSION: No mammographic evidence of malignancy. ASSESSMENT: BI-RADS BI-RADS 1 - Negative RECOMMENDATION: Routine annual mammography screening. 1 year F/U This examination should not preclude the clinical evaluation of a suspicious palpable abnormality. This patient's information was entered into a reminder system with a target due date for their next mammogram. Electronically signed by: Tayler Mckeon DO 05/11/2024 09:38 AM [facility]
[2024-05-05 07:00] LABS: MANUAL DIFF FLAG NO
[2024-05-05 07:38] LABS: Basophils Percent Auto 0.4 % (0-2); Eosinophils Absolute Auto 0.3 X10*3/uL (0.0-0.4); Eosinophils Percent Auto 4.1 % (0-4); Hematocrit 42.7 % (37.0-47.0); Hemoglobin 13.3 g/dl (12.0-16.0); Imm Gran Abs Auto 0.04 X10*3/uL (0.00-0.03); Imm Gran Pct Auto 0.6 % (0.0-0.4); Lymphocytes Absolute Auto 1.7 X10*3/uL (1.2-4.9); Lymphocytes Percent Auto 24.3 % (20-40); Mean Corpuscular HGB Conc 31.1 g/dl (31.0-35.0); Mean Corpuscular Hemoglobin 27.4 pg (27.0-33.0); Mean Corpuscular Volume 87.9 fL (80.0-98.0); Mean Platelet Volume 9.1 fL (9.4-12.3); Monocytes Absolute Auto 0.6 X10*3/uL (0.1-1.2); Monocytes Percent Auto 8.8 % (2-11); Neutrophils Absolute Auto 4.2 x10*3/uL (2.0-8.3); Neutrophils Percent Auto 61.8 % (45-73); Platelet Count 270 X10*3/uL (160-400); Red Blood Count 4.86 X10*6/uL (4.20-5.50); Red Cell Distribution Width 11.8 % (11.0-16.0); White Blood Count 6.8 X10*3/uL (4.8-10.8)
[2024-05-05 07:46] LABS: Appearance Urine Clear; Color Urine Yellow; Glucose Urine UA Negative (Negative); Leukocyte Esterase Urine Small (1+) (Negative); Nitrite Urine Negative (Negative); PH 5.5 (5.0-9.0); UMIC TRIGGER UACC YES; Urine Blood Negative (Negative); Urine Ketones Negative (Negative); Urine Protein Negative (Neg-Trace)
[2024-05-05 07:52] LABS: Bacteria Urine None Seen (None Seen); Hyaline Casts Urine 0-2 /LPF (0-2); RBC Urine 0-2 /HPF (0-2); Squamous Epithelial Cell Urine 0-2 /HPF (0-2); UACC Culture Trigger YES
[2024-05-05 08:14] LABS: Alanine Aminotransferase 20 U/L (0-31); Albumin Level 4.2 g/dL (3.5-5.0); Alkaline Phosphatase 97 U/L (39-117); Anion Gap 11 (12-20); Aspartate Amino Transferase 25 U/L (5-31); Bilirubin Total 0.4 mg/dL (0.0-1.0); Blood Urea Nitrogen 21 mg/dL (9-16); Calcium 9.5 mg/dL (8.4-10.2); Carbon Dioxide 29 mmol/L (22-29); Chloride 106 mmol/L (96-108); Cholesterol 195 mg/dL (<200); Estimated Glomerular Filt Rate > 60; Glucose Fasting 91 mg/dL (60-99); HDL Cholesterol 49 mg/dL (>40); LDL Cholesterol Calculated 124 mg/dL (<100); Potassium 3.9 mmol/L (3.3-5.1); Sodium 142 mmol/L (135-145); Total Protein 7.1 g/dL (6.5-8.0); Triglycerides 110 mg/dL (<150)
== END 2024-05-05 06:46 | disposition home or self-care (01) ==
LOC: HO.MAMMO 06:45
PROVIDERS: PCP Internal Medicine; Visit Provider Internal Medicine
DX: Z00.00 Encounter for general adult medical examination without abnormal findings (principal); E78.00 Pure hypercholesterolemia, unspecified; E55.9 Vitamin D deficiency, unspecified; I10 Essential (primary) hypertension; R30.0 Dysuria; Z12.31 Encounter for screening mammogram for malignant neoplasm of breast
CPT/HCPCS: 36415; 77063; 77067; 80053; 80061; 81001; 82306; 85025; 87086

== ENCOUNTER → 2024-05-05 08:00 | Outpatient (BNV) | payer OTHER, SELFPAY | PROVIDERS: PCP Internal Medicine; Visit Provider Internal Medicine | DX: Z12.31 Encounter for screening mammogram for malignant neoplasm of breast (principal) | CPT/HCPCS: 77063; 77067 ==

== ENCOUNTER 2024-06-07 09:57 | Outpatient (AMB) | payer OTHER, SELFPAY ==
--- OUTSIDE RECORDS SUMMARY | 2024-06-07 11:13 | XMS_ITS | Continuity of Care Document ---
Author Organization [facility] Address [address] [place] [address]- Care Team Providers Care Pool Attendant Name Role Phone Stanislav GARCIA, Ralph Bee Primary Care Physician [facility]counter [facility] Date(s): 04/30/24 - 05/30/24 [facility] [address] [place] [address] Encounter Type: Triage Allergies, Adverse Reactions, Alerts Substance Criticality Severity Reaction Reaction Severity Status ibuprofen 1 High criticality Severe IBS/Crohn's flare; abd pain Active 1severe stomach pain r/t ulcerative colitis Immunizations Given and Recorded Vaccine Date Status Refusal Reason [id number] bivalent booster vax 06/05/22 Recorded influenza virus [...] toxoids (Td) 11/07/05 Given 1Result Comment: Lot [id number] Exp 11/22/06 Medications amLODIPine 5 mg oral tablet 5 mg, 1, tablet, By Mouth, Daily, # 30 tablet, Refills 0, Tot. Refills 0, Maintenance, 03/25/24 11:56:00 AM EDT, Route to Pharmacy Electronically, [facility], Partial fill upon patient request [...] AM EST, Route to Pharmacy Electronically, [facility]/pharmacy #[id number], Partial fill upon patient request if the [...] 0 Refills, Maintenance, 10/15/22 9:32:00 AM EDT, [place], [facility], Partial fill upon patient [...] Refills, Maintenance, 03/25/24 11:55:00 AM EDT, [place], [facility], Partial fill upon patient [...] AM EST, Route to Pharmacy Electronically, [facility]/pharmacy #[id number], Partial fill upon patient request if the [...] Position: Reference Physician Member Role: PCP Address: [address] [place] [address] [place] [address] Telecom: Name: Wendi Polk RN Position: [facility] RN Member Role: Primary Care Nurse Name: Dallin Carter MA Position: [facility] ERICA MA Member Role: Primary Care Nurse Name: Narcisa Mauricio RN Position: [facility] RN Member Role: Primary Care Nurse Name: Erich Venegas RN Position: [facility] RN Member Role: Primary Care Nurse Name: Valerie Westfall RN Position: [facility] RN Member Role: Primary Care Nurse Name: Shanti Schmitz LPN Position: [facility] RN Member Role: Primary Care Nurse Name: Jj Cervantes RN Position: [facility] RN Member Role: Primary Care Nurse Care Team Related Persons Name: PATEL GOMEZ Name: OTHER, ADALEAH Name: TRISTIAN RIVERA Name: ADRIANA VARGAS Insurance Providers Guarantor name: [facility] [employer] [facility] Information #: 1 Payer: [employer] [facility] Member Number: NA Policy Number: NA Group Number: NA
--- NOTE | 2024-06-07 11:15 | MHC.OFFWIV ---
Intake Vital Signs 06/07/24 11:17 Height 5 ft 1 in Weight 150 lb BMI 28.3 BP 130/90 H Blood Pressure Location Lt brachial Position Sitting Pulse 97 Pulse Source Pulse Oximeter Temp 97.9 F Temp Source Oral Pulse Oximetry (%) 98 Oxygen Delivery Method Room Air Intake Visit Reasons: EP nasal drip, cough, mucus Intake Note: Pt is here today c/o post nasal drip, cough and mucus Patient Tobacco Use Status: Former Tobacco user Allergies ibuprofen [From Motrin] Adverse Reaction (Intermediate, Verified 06/07/24 11:18) activates her Crohn's disease HPI HPI Comments History of Present Illness Details Patient is a 68yo F who presents for cough Friday started with nasal congestion and a dry cough; worse at night She tried Claritin with some relief and was able to sleep last night States today she still has cough with mucus that feels like it needs to come up Hx of PNA in past and has knee replacement surgery scheduled for 06/21 Denies fever or chills No phlegm produced still PFSH Medical History Compression fracture of T11 vertebra with delayed healing Compression fracture of L4 vertebra Obesity (BMI 30-39.9) Hiatal hernia Coccydynia Overweight (BMI 25.0-29.9) Depression Anxiety Renal calculi Vitamin D deficiency Allergic rhinitis Osteoporosis Lumbar degenerative disc disease GERD without esophagitis Crohn's disease COPD (chronic obstructive pulmonary disease) GERD (gastroesophageal reflux disease) Ear discharge of both ears Ear build-up Sacroiliitis Chronic pain syndrome Spondylolisthesis, lumbar region Spondylosis of lumbar region without myelopathy or radiculopathy Surgical History Hx of colonoscopy History of surgery History of hysterectomy History of surgery History of nasal surgery Social History Housing: Apartment Alcohol intake: current Alcohol intake frequency: holidays/special occasions only Alcohol type: wine Patient Tobacco Use Status: Former Tobacco user Tobacco use type: Cigarette e-Cigarette/Vaping Use: Never Used Second Hand Smoke Exposure: No Advance Directives Date on File: 06/02/20 service: No Current occupational status: disabled Cognitive needs: No Hearing needs: No Vision needs: Yes (glasses) Review of Systems Const Denies chills and Denies fever(s) ENT Denies otalgia, Reports nasal discharge, Denies sinus pressure, Reports sore throat and Denies throat swelling Card Denies chest pain, Denies syncope and Denies dyspnea Resp Denies change in phlegm color, Reports cough, Denies excessive phlegm production and Denies dyspnea GI Denies abdominal pain and Denies vomiting Neuro Denies syncope Aller/Immun Denies throat swelling Physical Exam Vital Signs: Last Vital Signs Temp 97.9 F 06/07/24 11:17 Pulse 97 06/07/24 11:17 BP 130/90 H 06/07/24 11:17 Pulse Ox 98 06/07/24 11:17 Oxygen Delivery Method Room Air 06/07/24 11:17 BMI result Body Mass Index 28.3 General: Non-toxic, NAD. Speaking full sentences. Skin: Warm dry throughout Eye: EOMI HENT: Airway patent. Uvula midline. No pharyngeal erythema or edema. 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 Bilateral canals clear. TM non-erythematous, non-bulging. No TM perforation or hemotympanum noted. Respiratory: + slight rhonchi mid lung region without wheeze or rales. No respiratory distress. No tachypnea or stridor Cardiac: RRR. No murmur MSK: Full ROM extremities. Neurology: alert. No aphasia or facial droop. Gait without abnormality Psych: Good mood and affect Assessment & Plan Assessment & Plan (1) Cough: Code(s): R05.9 - Cough, unspecified Qualifiers: Cough type: acute Qualified Code(s): R05.1 - Acute cough Plan: Patient seen and evaluated. Non-toxic Tessalon for cough Flu/COVID/RSV ordered and obtained Use humidifier at night, sleep with head elevation Patient gave verbal understanding and had no additional questions or concerns at time of discharge All questions answered Orders: Orders SARS-CoV2/FLU/RSV Today R05.9 - Cough, unspecified Medications: New benzonatate 200 mg PO BID-TID PRN 14 caps 0RF cough Coding Level of Care Code Est Pt Level 3 (75606) Diagnoses Acute cough R05.1 Cough type: acute
[2024-06-07 11:17] VITALS: BP 130/90; PULSE 97; TEMP 36.6; O2SAT 98; BMI 28.3
== END 2024-06-07 12:18 | disposition home or self-care (01) ==
PROVIDERS: PCP Internal Medicine; Visit Provider Physician Assistant
DX: R05.1 Acute cough (principal)

== ENCOUNTER 2024-06-07 09:57 | Outpatient (REF) | payer OTHER, SELFPAY ==
[2024-06-07 16:16] LABS: Influenza A PCR NEGATIVE (Negative); Influenza B PCR NEGATIVE (Negative); Resp Syncy Virus RNA Qual PCR POSITIVE (Negative); SARS COV2 PCR INHOUSE NEGATIVE (Negative)
== END 2024-06-07 09:58 | disposition home or self-care (01) ==
LOC: HO.LNP 09:57
PROVIDERS: PCP Internal Medicine; Visit Provider Physician Assistant
DX: R05.1 Acute cough (principal)
CPT/HCPCS: 0241U; 99212

== ENCOUNTER 2024-06-08 09:11 | Outpatient (REF) | payer OTHER, SELFPAY ==
--- NOTE | ~2024-06-08 | XR_ITS ---
EXAMINATION: XR CHEST CLINICAL INFORMATION: J21.0 - Acute bronchiolitis due to respiratory syncytial virus COMPARISON: 02/14/2024. TECHNIQUE: 2 views of the chest were obtained. FINDINGS: The cardiac, hilar, and mediastinal contours are normal. Aorta is calcified and tortuous. There is a moderate size retrocardiac hiatus hernia with air-fluid level. The lungs are clear bilaterally. There is no pneumothorax or pleural effusion. Osseous structures demonstrate osteopenia and degenerative changes of the spine. Minimal compression deformities evident of 3 upper thoracic vertebral bodies. These appear chronic. Fixation hardware left proximal humerus. XR/XR chest 2V IMPRESSION: 1. No active pulmonary disease. 2. Retrocardiac hiatus hernia. Electronically signed by: Ez Lazaro MD 06/08/2024 10:47 AM [facility]
== END 2024-06-08 09:12 | disposition home or self-care (01) ==
LOC: HO.HMGCX 09:11
PROVIDERS: PCP Internal Medicine; Visit Provider Physician Assistant
DX: J44.0 Chronic obstructive pulmonary disease with (acute) lower respiratory infection (principal); J21.0 Acute bronchiolitis due to respiratory syncytial virus
CPT/HCPCS: 71046; 99212

== ENCOUNTER 2024-06-08 09:11 | Outpatient (AMB) | payer OTHER, SELFPAY ==
--- NOTE | 2024-06-08 09:40 | MHC.OFFWIV ---
Intake Vital Signs 06/08/24 09:50 Weight 150 lb BP 110/78 Blood Pressure Location Rt brachial Position Sitting Pulse 98 Pulse Source Pulse Oximeter Temp 98.2 F Temp Source Oral Pulse Oximetry (%) 97 Oxygen Delivery Method Room Air Intake Visit Reasons: EP wheezing, cough, not better Intake Note: Patient here for new wheezing and would like to rule out pneumonia. Patient Tobacco Use Status: Former Tobacco user Allergies ibuprofen [From Motrin] Adverse Reaction (Intermediate, Verified 06/08/24 09:52) activates her Crohn's disease Do you need a note to return to daycare/school/sports/work: No HPI HPI Comments History of Present Illness Details This is a 68-year-old female with a past medical history of hyperlipidemia, COPD not currently oxygen dependent, gastroesophageal reflux disease and planned surgery on June 21, 2024 for a total knee replacement presenting for evaluation of wheezing and cough after being diagnosed with RSV yesterday. Patient denies having any fevers, chills, otalgia, pharyngitis, chest pain or overt shortness of breath. Patient has been taking Tessalon Perles without relief of her symptoms. [facility] Medical History Compression fracture of T11 vertebra with delayed healing Compression fracture of L4 vertebra Obesity (BMI 30-39.9) Hiatal hernia Coccydynia Overweight (BMI 25.0-29.9) Depression Anxiety Renal calculi Vitamin D deficiency Allergic rhinitis Osteoporosis Lumbar degenerative disc disease GERD without esophagitis Crohn's disease COPD (chronic obstructive pulmonary disease) GERD (gastroesophageal reflux disease) Ear discharge of both ears Ear build-up Sacroiliitis Chronic pain syndrome Spondylolisthesis, lumbar region Spondylosis of lumbar region without myelopathy or radiculopathy Surgical History Hx of colonoscopy History of surgery History of hysterectomy History of surgery History of nasal surgery Social History Housing: Apartment Alcohol intake: current Alcohol intake frequency: holidays/special occasions only Alcohol type: wine Patient Tobacco Use Status: Former Tobacco user Tobacco use type: Cigarette e-Cigarette/Vaping Use: Never Used Second Hand Smoke Exposure: No Advance Directives Date on File: 06/02/20 service: No Current occupational status: disabled Cognitive needs: No Hearing needs: No Vision needs: Yes (glasses) Review of Systems Const All systems reviewed & are unremarkable except as noted in HPI and below Reports as per HPI, Denies body aches, Denies chills, Reports fatigue and Denies fever(s) Eyes Reports no additional complaints ENT Reports no additional complaints, Denies otalgia and Denies sore throat Card Reports no additional complaints and Denies dyspnea Resp Reports as per HPI, Reports cough, Denies hemoptysis, Denies dyspnea and Reports wheezing GI Reports as per HPI Reports no additional complaints Musc Reports no additional complaints Skin/Breast Reports system reviewed and no additional complaints, except as documented Neuro Reports no additional complaints Psych Reports no additional complaints Endo Reports no additional complaints and Reports fatigue Eran/Lymph Reports no additional complaints Aller/Immun Reports no additional complaints and Reports wheezing Physical Exam Vital Signs: Last Vital Signs Temp 98.2 F 06/08/24 09:50 Pulse 98 06/08/24 09:50 BP 110/78 06/08/24 09:50 Pulse Ox 97 06/08/24 09:50 Oxygen Delivery Method Room Air 06/08/24 09:50 Const General: cooperative, comfortable, no acute distress, alert, awake and Physically active; No lethargic Nutritional Appearance: average body habitus Orientation/consciousness: patient oriented x3 and No lethargic Limitations: no limitations HEENT Head: Yes normal to inspection and Yes normocephalic Ears: hearing grossly normal bilaterally, external ears normal, TM's normal bilaterally and EAC's normal General nose exam: Normal external nose present Face and sinus: Yes normal facial exam Mouth: Normal oral and palatal mucosa present and moist mucous membranes Throat: Yes posterior oropharynx normal and Yes postnasal drainage Eyes General: appearance normal, both eyes and all related structures Neck Lymphatic: no lymphadenopathy noted Resp Effort & Inspection: normal respiratory effort, able to speak in complete sentences, abnormal respiratory pattern, no audible wheezes, Actively coughing and no respiratory distress Auscultation: wheezes expiratory wheezes (bilaterally) Cardio Rate: regular rate Rhythm: regular rhythm Skin General skin exam: no rashes or lesions noted Neuro General: patient oriented x3 Psych Appearance: grossly normal Mental Status: mental status grossly normal Affect: Anxious affect present Attitude: cooperative Thought content: Normal thought content present Insight: Good insight present (Psych) Judgement: Good judgement present (Psych) Results Reviewed Results Reviewed: Chest x-ray reveals no acute findings. Assessment & Plan Assessment & Plan (1) RSV (acute bronchiolitis due to respiratory syncytial virus): Comment: Patient is wheezing, there is no infiltrate noted on chest x-ray. Patient will be discharged with prednisone. Code(s): J21.0 - Acute bronchiolitis due to respiratory syncytial virus Plan: Prednisone 40 mg daily x4 days. Anticipatory guidance provided as related to RSV. Orders: Orders XR chest 2V Today J21.0 - Acute bronchiolitis due to respiratory syncytial virus Medications: New prednisone 40 mg (2 x 20 mg) PO DAILY 8 tabs 0RF Coding Level of Care Code Est Pt Level 4 (45646) Diagnoses RSV (acute bronchiolitis due to respiratory syncytial virus) J21.0 Time Spent (min) 20
[2024-06-08 09:50] VITALS: BP 110/78; PULSE 98; TEMP 36.8; O2SAT 97
== END 2024-06-08 11:05 | disposition home or self-care (01) ==
PROVIDERS: PCP Internal Medicine; Visit Provider Physician Assistant
DX: J21.0 Acute bronchiolitis due to respiratory syncytial virus (principal)

== ENCOUNTER → 2024-06-08 10:28 | Outpatient (BNV) | payer OTHER, SELFPAY | PROVIDERS: PCP Internal Medicine; Visit Provider Radiology Diagnostic Radiology | DX: J21.0 Acute bronchiolitis due to respiratory syncytial virus (principal) | CPT/HCPCS: 71046 ==

== ENCOUNTER 2024-09-07 10:20 | Outpatient (AMB) | payer OTHER, SELFPAY ==
[2024-09-07 10:22] VITALS: BP 114/80; PULSE 101; O2SAT 96; BMI 27.2
--- NOTE | 2024-09-07 10:22 | A.OFFPC_ITS ---
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 Required: No Accompanied by: Self / Same As Patient Allergies ibuprofen [From Motrin] Adverse Reaction (Intermediate, Verified 09/07/24 11:15) activates her Crohn's disease Medication List - Last Reconciled 09/07/24 by Ralph Colorado MD albuterol sulfate 90 mcg/actuation 2 puffs PO Q6H PRN amlodipine 5 mg PO DAILY 90 days budesonide 180 mcg/actuation (Pulmicort Flexhaler) 2 inhalations PO BID bupropion HCl XL 300 mg PO DAILY calcitonin (salmon) 200 unit/actuation 1 spray intranasal (ALT) DAILY cholecalciferol (vitamin D3) 25 mcg PO DAILY diphenhydramine HCl 25 mg PO TID PRN 30 days fluticasone propionate 50 mcg/actuation 2 sprays intranasal DAILY PRN 30 days hydroxyzine HCl 50 mg PO BID mesalamine 1.2 grams PO DAILY omeprazole 40 mg PO DAILY oxycodone 5 mg PO BID-TID PRN Tobacco use date assessed: 09/07/24 Fall risk assessment: No Falls in past year Last assessed Fall Risk: 09/07/24 Dental Screening Dental Screen Date: 09/07/24 Did you have a dental visit in the last 12 months?: Yes Did you have a dental problem in the last 6 months where you did not have access to dental care?: No Was dental information given to patient?: Patient has dentist HPI HTN, lumbar spine compression Fx, OA, Crohn's HPI Details Patient comes in today for her follow up visit States that she has been experiencing increased fatigue lately, which she finds unusual Relates that she feels exhausted all the time recently and she thinks that this is mostly because she has not been getting much sleep at night States that she has been waking up often in the middle of the night lately for no particular reason and would not be able to go back to sleep for a long time She recently underwent left knee TKA on 06/22/24 with [facility] and is currently finishing up her physical therapy - will be having her last session today Feels that the surgery has helped with her knee pain a lot She denies any headaches or dizziness Denies any chest pains, no increased shortness of breath No nausea/vomiting, no abdominal pain No change in bowel habits noted She was not able to get her follow up labs done prior to her appointment today although she did get her labs done back in April 2024 after her office visit [facility] Medical History (Updated 09/08/24 @ 02:51 by Ralph Colorado MD) Insomnia Primary osteoarthritis of left knee Compression fracture of T11 vertebra with delayed healing Compression fracture of L4 vertebra Obesity (BMI 30-39.9) Hiatal hernia Coccydynia Overweight (BMI 25.0-29.9) Depression Anxiety Renal calculi Vitamin D deficiency Allergic rhinitis Osteoporosis Lumbar degenerative disc disease GERD without esophagitis Crohn's disease COPD (chronic obstructive pulmonary disease) GERD (gastroesophageal reflux disease) Ear discharge of both ears Ear build-up Sacroiliitis Chronic pain syndrome Spondylolisthesis, lumbar region Spondylosis of lumbar region without myelopathy or radiculopathy Surgical History Hx of colonoscopy History of surgery History of hysterectomy History of surgery History of nasal surgery Social History Housing: Apartment Alcohol intake: current Alcohol intake frequency: holidays/special occasions only Alcohol type: wine Patient Tobacco Use Status: Former Tobacco user Tobacco use type: Cigarette e-Cigarette/Vaping Use: Never Used Second Hand Smoke Exposure: No Advance Directives Date on File: 06/02/20 service: No Current occupational status: disabled Cognitive needs: No Hearing needs: No Vision needs: Yes (glasses) Questionnaire PHQ-9 Over the last 2 weeks, how often have you been bothered by any of the following problems? 1. Little interest or pleasure in doing things: not at all 2. Feeling down, depressed, or hopeless: not at all 3. Trouble falling or staying asleep, or sleeping too much: not at all 4. Feeling tired or having little energy: not at all 5. Poor appetite or overeating: not at all 6. Feeling bad about yourself - or that you are a failure or have let yourself or your family down: not at all 7. Trouble concentrating on things, such as reading the newspaper or watching television: not at all 8. Moving or speaking so slowly that other people could have noticed. Or the opposite - being so fidgety or restless that you have been moving around a lot more than usual: not at all 9. Thoughts that you would be better off or of hurting yourself in some way: not at all Total score: 0 Depression Screening Interpretation: Negative Depression Screening Done: Yes 01953 - PHQ-9 Billing: Yes Source: Developed by Drs. Francisco Javier Rodriguez, Palak العلي, Kamran Calvin and colleagues, with an educational kelsie from [employer]. Thrive Questionnaire Date Thrive assessed: 09/07/24 I am a: Patient What is your living situation today?: I have a steady place to live Within the past 12 months, did the food you bought not last and you didn't have the money to get more?: Never true Within the past 12 months, did you worry whether your food would run out before you got money to buy more?: Never true Do you have trouble paying for medicines?: No Do you have trouble getting transportation to medical appointments?: No Do you have trouble paying your heating and electricity bill?: No Do you have trouble taking care of your child, family member or friend?: No Do you have trouble with day-to-day activities such as bathing, preparing meals, shopping, managing finances, etc.?: No Are you currently unemployed and looking for a job?: No Are you interested in more education?: No Please select the resources that you would like help with: None Currently or been in a relationship where the following occur: No concerns reported THRIVE Score: 0 AUDIT C Alcohol Use Questionnaire (AUDIT-C) 1. How often do you have a drink containing alcohol?: Monthly or less 3. How often do you have six or more drinks on one occasion?: Never Total Score: 1 Score Reviewed/Action Taken: Yes CULLEN-7 AMB Questionnaire CULLEN-7 Date CULLEN - 7 assessed: 09/07/24 Feeling nervous, anxious, or on edge: 0 = Not at all Not being able to stop or control worryin = Not at all Worrying too much about different things: 0 = Not at all Trouble relaxin = Not at all Being so restless that it is hard to sit still: 0 = Not at all Becoming easily annoyed or irritable: 0 = Not at all Feeling afraid as if something awful might happen: 0 = Not at all Total CULLEN-7 score (0-4 normal; 5-9 mild; 10-14 moderate; 15-21 severe): 0 Source: Developed by Drs. Francisco Javier Rodriguez, Palak العلي, Kamran Calvin and colleagues, with an educational kelsie from [employer]. Review of Systems Const Denies chills, Reports difficulty sleeping (increased lately - wakes up often in the middle of the night), Denies fatigue, Denies fever(s) and Denies headache(s) ENT Denies dysphagia, Denies dizziness, Denies otalgia, Denies headache(s), Denies neck pain, Denies odynophagia and Denies sore throat Card Denies chest pain, Denies palpitations and Denies dyspnea Resp Denies chest congestion, Denies cough and Denies dyspnea GI Denies abdominal pain, Denies constipation, Denies dysphagia, Denies heartburn, Denies diarrhea, Denies nausea, Denies odynophagia and Denies vomiting Denies difficulty voiding, Denies nocturia, Denies dysuria and Denies urinary urgency Musc Reports back pain (over the lower back - chronic), Reports arthralgias (over both knees; going to PT for L knee currently) and Denies neck pain Skin/Breast Denies rash Neuro Denies dizziness and Denies headache(s) Psych Denies anxiety Endo Denies fatigue and Denies palpitations Physical exam (Primary Care) Vital Signs: Last Vital Signs Pulse 101 H 09/07/24 10:22 BP 114/80 09/07/24 10:22 Pulse Ox 96 09/07/24 10:22 Oxygen Delivery Method Room Air 09/07/24 10:22 BMI result Body Mass Index 27.2 Tobacco/Smoking Status: Tobacco use Status Tobacco use date assessed 09/07/24 09/07/24 10:31 Patient Tobacco Use Status Former Tobacco user 09/07/24 10:31 Tobacco use type Cigarette 09/07/24 10:31 e-Cigarette/Vaping Use Never Used 09/07/24 10:31 PHQ-9: PHQ-9 Score PHQ-9: Total score 0 09/07/24 11:18 Depression Screening Interpretation: Negative Thrive Assessment: Date of Thrive Assessment Date Thrive assessed 09/07/24 09/07/24 10:31 Currently or been in a relationship where the following occur: No concerns reported Const General: no acute distress and alert HENMT Ears: TM's normal bilaterally and EAC's normal Throat: Yes posterior oropharynx normal and Yes tonsils normal (no TP congestion) Neck Neck: Yes supple and No lymphadenopathy Thyroid: Thyroid normal Resp Auscultation: clear to auscultation bilaterally, no rales and no wheezes Cardio Rate: regular rate Rhythm: regular rhythm Heart sounds: no murmurs GI Palpation (GI): Soft to palpation and nontender Auscultation: normal bowel sounds General: Yes no CVA tenderness Back/Spine/Pelvis Back: no CVA tenderness Thoracic/Lumbar Spine: lumbar spinal tenderness Skin Rashes: no rashes Extrem Other: (+) healed vertical scar over the anterior aspect of the left knee General: Yes no clubbing, cyanosis or edema Right lower extremity: knee Details: tenderness; no swelling Left lower extremity: knee Details: tenderness; no swelling Results Reviewed Results Reviewed: Laboratory Tests 05/05/24 05/05/24 06:55 06:58 WBC 6.8 Hgb 13.3 Hct 42.7 Plt Count 270 D Sodium 142 Potassium 3.9 Creatinine 0.68 Estimated GFR > 60 Fasting Glucose 91 Calcium 9.5 AST 25 ALT 20 Triglycerides 110 Cholesterol 195 LDL Cholesterol, Calc 124 H HDL Cholesterol 49 25-OH Vitamin D Total 31.0 Ur Specific [place] 1.020 Urine Protein Negative Urine Glucose (UA) Negative Urine Blood Negative Urine Nitrite Negative Ur Leukocyte Esterase Small (1+) H Coding Level of Care Code Est Pt Level 4 (22459) Diagnoses Pure hypercholesterolemia E78.00 Chronic obstructive pulmonary disease, unspecified COPD type J44.9 COPD type: unspecified COPD Crohn's disease without complication, unspecified gastrointestinal tract location K50.90 Gastrointestinal tract location: unspecified location Digestive disease complication type: without complication Hiatal hernia K44.9 GERD without esophagitis K21.9 Age-related osteoporosis without current pathological fracture M81.0 Osteoporosis type: age-related Presence of current pathological fracture: without current pathological fracture Vitamin D deficiency E55.9 Allergic rhinitis, unspecified seasonality, unspecified trigger J30.9 Allergic rhinitis trigger: unspecified Allergic rhinitis seasonality: unspecified Primary osteoarthritis of left knee M17.12 Degeneration of intervertebral disc of lumbar region with discogenic back pain M51.360 Disc-related pain type: discogenic back pain only Renal calculi N20.0 Insomnia, unspecified type G47.00 Insomnia type: unspecified Anxiety F41.9 Episode of recurrent major depressive disorder, unspecified depression episode severity F33.9 Depression Type: major depressive disorder Major depression recurrence: recurrent Active/Remission status: currently active Major depression episode severity: unspecified Overweight (BMI 25.0-29.9) E66.3 Additional Codes PHQ-9 - 81592 - PHQ-9 Billing: Yes ([id number]) Assessment & Plan Assessment & Plan (1) Pure hypercholesterolemia: Code(s): E78.00 - Pure hypercholesterolemia, unspecified Category: Medical Plan: Patient was not able to get her follow-up labs done prior to her visit today but she did get her labs done back in April 2024 right after her office visit then Have advised patient that her cholesterol levels then have increased slightly from previous Reinforced low cholesterol diet; patient still does NOT wish to be started on cholesterol-lowering medications and would like to continue working on diet m odification alone at this time Will recheck her fasting lipids and labs in 3 months for follow-up - will just have patient use her current orders (updated) for her next lab draw (2) COPD (chronic obstructive pulmonary disease): Code(s): J44.9 - Chronic obstructive pulmonary disease, unspecified Category: Medical Qualifiers: COPD type: unspecified COPD Qualified Code(s): J44.9 - Chronic o bstructive pulmonary disease, unspecified Plan: Appears controlled at present Continue Pulmicort Flexhaler 180 mcg 2 inhalations BID and Albuterol HFA 2 inhalations every 6 hours as needed Follow up with pulmonary as scheduled (3) Crohn's disease: Code(s): K50.90 - Crohn's disease, unspecified, without complications Category: Medical Qualifiers: Gastrointestinal tract location: unspecified location Digestive disease complication type: without complication Qualified Code(s): K50.90 - Crohn's disease, unspecified, without complications Plan: States that aside for some occasional diarrhea, her Crohn's disease has been mostly well-controlled overall on her current Rx Continue Mesalamine ER 1.2 gm 1 tablet QD and Dicyclomine 10 mg TID PRN She had a normal EGD and colonoscopy done at [facility] a few years ago on 03/31/2019; due to her IBD, will likely need a repeat colonoscopy soon Follow-up with GI (Dr. Shepherd) as scheduled (4) Hiatal hernia: Code(s): K44.9 - Diaphragmatic hernia without obstruction or gangrene Category: Medical Plan: S/P repeat da Fauzia/laparoscopic paraesophageal hernia repair with mesh a couple of years ago on 04/15/2023 Follow up with thoracic surgery as scheduled (5) GERD without esophagitis: Code(s): K21.9 - Gastro-esophageal reflux disease without esophagitis Category: Medical Plan: Dietary restrictions reinforced Continue Omeprazole 40 mg QD Follow up with GI as scheduled (6) Osteoporosis: Code(s): M81.0 - Age-related osteoporosis without current pathological fracture Category: Medical Qualifiers: Osteoporosis type: age-related Presence of current pathological fracture: without current pathological fracture Qualified Code(s): M81.0 - Age- related osteoporosis without current pathological fracture Plan: Her baseline BMD done back on 10/31/2021 revealed (+) severe osteoporosis with a T score of -4.0 in the lumbar spine - this has declined significantly from her baseline BMD done in 2019 Reinforced fall precautions Continue Calcitonin 200 units nasal spray QD Will need repeat BMD later this year (2024) for follow up - this will be ordered at her next visit Follow up with endocrinology as scheduled (7) Vitamin D deficiency: Code(s): E55.9 - Vitamin D deficiency, unspecified Category: Medical Plan: Continue Vitamin D3 1000 units QD (8) Allergic rhinitis: Code(s): J30.9 - Allergic rhinitis, unspecified Category: Medical Qualifiers: Allergic rhinitis trigger: unspecified Allergic rhinitis seasonality: unspecified Qualified Code(s): J30.9 - Allergic rhinitis, unspecified Plan: Continue Loratadine 10 mg QD PRN and Fluticasone 50 mcg nasal spray QD PRN (9) Primary osteoarthritis of left knee: Code(s): M17.12 - Unilateral primary osteoarthritis, left knee Category: Medical Plan: Patient recently underwent left knee TKA on 06/22/24 with [facility] and is currently finishing up her physical therapy - will be having her last session today She feels that the surgery has helped with her knee pain a lot Follow up with orthopedics as scheduled (10) Lumbar degenerative disc disease: Code(s): M51.36 - Other intervertebral disc degeneration, lumbar region Category: Medical Qualifiers: Disc-related pain type: discogenic back pain only Qualified Code(s): M51.360 - Other intervertebral disc degeneration, lumbar region with discogenic back pain only Plan: Reinforced activity and weight-lifting restrictions Spine CT done a couple of years ago showed (+) chronic T11 compression fracture as well as multilevel degenerative disc disease in her thoracolumbar spine Follow up with [facility] as scheduled (11) Renal calculi: Code(s): N20.0 - Calculus of kidney Category: Medical Plan: Patient has had to undergo ESWL a few times in the past due to recurrent obstructive kidney stones Follow up with urology (Dr. Genny Lopez) as scheduled (12) Insomnia: Code(s): G47.00 - Insomnia, unspecified Category: Medical Qualifiers: Insomnia type: unspecified Qualified Code(s): G47.00 - Insomnia, unspecified Plan: Sleep hygiene discussed Have advised patient that there is a very high likelihood that her recent increased fatigue is due to sleep deprivation Will start her on a trial of Trazodone 50 mg Q HS PRN (13) Anxiety: Code(s): F41.9 - Anxiety disorder, unspecified Category: Medical Plan: Continue Hydroxyzine 50 mg BID PRN and Bupropion XL 300 mg QD (14) Depression: Code(s): F32.9 - Major depressive disorder, single episode, unspecified Category: Medical Qualifiers: Depression Type: major depressive disorder Major depression recurrence: recurrent Active/Remission status: currently active Major depression episode severity: unspecified Qualified Code(s): F33.9 - Major depressive disorder, recurrent, unspecified Plan: Continue Bupropion XL 300 mg QD Follow up with psychiatry as scheduled (15) Overweight (BMI 25.0-29.9): Code(s): E66.3 - Overweight Category: Medical Plan: Reinforced diet; exercise and weight loss are not practical given patient's multiple physical issues Plan Follow up in 4 months Medications: New trazodone 50 mg PO BEDTIME 30 days PRN 30 tabs 1RF sleep
--- OUTSIDE RECORDS SUMMARY | 2024-09-07 12:22 | XMS_ITS | Clinical Summary ---
Author Organization [facility] [address] [facility] Address [address] [place] [address] Phone Care Team Providers Care Manager Technical Services Name Role Phone Ralph Colorado MD Primary Care Provider + [phone] Allergies Active Allergy Reactions Criticality Noted Date Comments Ibuprofen 09/10/2022 Medications buPROPion SR (WELLBUTRIN SR) 150 mg 12 hr tablet Take 300 mg by mouth. Daily Active calcium carbonate/vitam in D3 (CALCIUM + D ORAL) Take by mouth. Active hydrOXYzine HCL (ATARAX) 50 mg tablet Take 1 Tablet by mouth 3 times daily as needed. Active MESALAMINE ORAL Take by mouth. Active omeprazole (PRILOSEC) 20 mg tablet,delayed release (DR/EC) Take 40 mg by mouth 2 times daily. Active albuterol HFA (PROAIR HFA ; PROVENTIL HFA ; VENTOLIN HFA) 90 mcg/actuation inhaler Inhale 2 puffs by mouth. 06/19/2022 Active omeprazole (PriLOSEC) [address] capsuleIndicati ons:GERD (gastroesophage al reflux disease) TAKE 1 CAPSULE BY MOUTH TWICE A DAY 180 capsule 1 05/24/2024 Active Vitamin D3 25 mcg (1,000 unit) capsuleIndicati ons:Vitamin D deficiency TAKE 1 CAPSULE BY MOUTH ONCE DAILY 90 capsule 2 06/21/2024 Active Active Problems Problem Noted Date Diagnosed Date Hiatal hernia 04/18/2024 Assessment & Plan (04/18/2024 4:11 PM EST): Ms. Lindquist is a 68 yr. female who initially had a robotic laparoscopic paraesophageal hernia repair with mesh and Kj fundoplication on August 27, 2022. Also had a redo robotic laparoscopic paraesophageal hernia repair with mesh on April 15, 2023. Presents today with complaints of ongoing signficant heartburn and occassional dysphagia. Upon arrival to office she states that her symptoms have now dissipated. Her barium swallow study shows only a very small hiatal hernia with approximately one half of the fundus above the diaphragm with mild esophageal dysmotility and prompt passage of barium from esophagus into the stomach. She was instructed to contact the thoracic surgery department moving forward on a as needed basis. and no longer complains of epigastric pain. She states that she can occasionally has the sensation that food gets slightly held up but admits that she has not been adhering to small meals and knows that she should. She has no further complaints at this time and denies any nausea, vomiting, retching, regurgitation, odynophagia or dysphagia. While in office we did review her most recent barium swallow study which was performed February 17, 2024 which showed a very small hiatal hernia with only one half of the gastric fundus above the diaphragm. Barium pill was swallowed without difficulty and prompt passage of pill from the esophagus into the stomach. There is only some mild esophageal dysmotility noted. Disorder of sacroiliac joint 03/26/2024 DDD (degenerative disc disease), lumbar 03/26/20 24 Kidney stone 03/26/2024 Myofascial pain 03/26/2024 Posttraumatic stress disorder 03/26/2024 Status post total abdominal hysterectomy and bilateral salpingo-oophorectomy (RAFI-BSO) 03/26/2024 GERD (gastroesophageal reflux disease) 4 Overview (03/25/2024): Last Assessment & Plan: Ms. Lindquist is a 68 year old female who had a robotic paraesophageal hernia repair with mesh and Kj fundoplication in August 2022 followed by a recurrence requiring re- do paraesophageal hernia repair with mesh in March 2023. Patient has had ongoing issues with GERD, and also some possible dysphagia. Previous barium swallow studies show mild-moderate esophageal dysmotility. EGD earlier this year shows a small hiatal hernia and a relaxed LES. ?? Will check a repeat barium swallow to assess for recurrence of her hernia and/or worsening esophageal dysmotility. ?? Patient will have a follow up in the office after this test to discuss results and any potential intervention. Patient to call with questions or concerns prior to her next appointment. HTN (hypertension) 10/24/2023 Overview (03/25/2024): Last Assessment & Plan: During his office visit today her BP was 166/120 and rechecked multiple times within this range. Diastolic hypertension. She denies DA SILVA, blurry vision, chest pain, back pain. Our office did contact PCP to reach out to patient. I also recommended that she go to the ED but she declined and said she would recheck at home and follow up with PCP. I reinforced to her that if she experiences any above symptoms she needs to go to the ED urgently. At the time of documentation, she called office to report BP: 141/90. She is instructed to continue to monitor. VT (ventricular tachycardia) (CMS/HCC V24, CMS/H CC V28) 05/28/2023 Overview (03/25/2024): Last Assessment & Plan: The patient has episodes of nonsustained ventricular tachycardia that occurs in the postoperative period. It is possible that electrolyte abnormalities with the etiology of this. Her nuclear stress test does not show any evidence of ischemia. This is reassuring for her. Her chest discomfort seems atypical and most likely related to her hernia/recent surgeries. Recommend ongoing risk factor management including control of her lipids and continued walking for physical fitness and general cardiovascular health. She is advised to eat a well-balanced nutritious diet as well. Pulmonary nodule 05/30/2022 Overview (03/25/2024): Last Assessment & Plan: I also explained to her that the pulmonary nodule in question is indeed no longer present on the CAT scan. Pathology from the surgery was benign. Ground glass opacity present on imaging of lung 08/21/2017 Hepatitis C antibody positive in blood 7 Vitamin D deficiency 04/22/2017 Dyslipidemia 02/14/2017 Overview (03/25/2024): Last Assessment & Plan: I do not have a recent lipid profile on this patient. Given no obvious coronary artery disease, would recommend LDL less than 130. Elevated fasting glucose 02/14/2017 Osteoporosis 08/22/2016 Allergic rhinitis 02/07/2015 Female cystocele 02/07/2015 Insomnia 02/07/2015 Anxiety 01/16/2015 Bilateral chronic knee pain 01/16/2015 Chronic back pain 01/16/2015 Crohn's disease ([facility] V24, [facility] V28) 01/16 Depression 01/16/2015 Recurrent UTI 01/16/2015 Encounters Date Type Department Care Team Description 07/22/2024 Telephone Lung Screening Program - [place] [address] [facility] [address] [place] [id number] Brooklyn Borrego [place] Results (Lung Cancer Screening 07/18/2024- incidental findings) 07/18/2024 8:45 AM EST - 07/18/2024 11:59 PM EST Hospital Encounter [facility] CT Scan [address] [place] [id number] Encounter for screening for lung cancer; Former smoker Discharge Disposition: Home or Self Care 07/16/2024 Lab Requisition [facility] - Main Lab [address] [facility] [place] [id number] Senia Lambert NP Urgency of urination from Last 3 Months Immunizations Name Administration Dates Next Due Influenza Quadravalent, MDCK , 0.5ml, preservative free (Flucelvax) 6mo and older 02/10/2019 Influenza Quadravalent, MDCK , 0.5ml, with preservative (Flucelvax) 6mo and older 02/14/2017 Influenza trivalent, with pr eservative (Fluzone; Afluria) 6mo and older 03/18/2022,02/28/2021,02/15/2020,03/04,02/10/2019,04/12/2018,02/24/2016 ,02/08/2015,03/29/2006 Influenza, Unspecified 02/08/2015 Pneumococcal conjugate 13 va lent (Prevnar 13, PCV13) 2mo and older 06/15/2021 Pneumococcal polysaccharide 23 valent (Pneumovax 23) 2yo and older 03/30/2016 Td, Unspecified 11/07/2005 Zoster Live 07/19/2016 Zoster recombinant (Shingrix ) 19yo and older 04/12/2018,09/29/2017 Surgical History Surgery Date Site/Laterality Comments OOPHORECTOMY Left PROCEDURE: HISTORICAL OOPHORECTOMY PARTIAL HYSTERECTOMY 05/26/1999 PROCEDURE: NV SUPRACERVICAL ABDL HYSTER W/WO RMVL TUBE OVARY OTHER SURGICAL HISTORY PROCEDURE: NV CYSTO MANJ W/O RMVL URETERAL STONE; COMMENT: s/p bladder lift SINUS SURGERY 05/26/2016 PROCEDURE: NV UNLISTED PROCEDURE ACCESSORY SINUSES OTHER SURGICAL HISTORY 06/11/2022 Right PROCEDURE: NV RMVL LUNG OTHER THAN PNEUMONECT 1 SEGMENTECTOMY; COMMENT: Da Fauzia RLL superior segmentectomy, mediastinal lymphadenectomy, bronch w aspiration OTHER SURGICAL HISTORY 09/18/2022 PROCEDURE: NV LAPS RPR PARAESPHGL HRNA INCL FUNDPLSTY W/MESH OTHER SURGICAL HISTORY 04/15/2023 N/A PROCEDURE: NV LAPS RPR PARAESPHGL HRNA INCL FUNDPLSTY W/MESH Medical History Medical History Date Comments Chronic back pain DX:Chronic eleanor k pain Chronic knee pain DX:Chronic kne e pain Crohn disease (CMS/HCC V24, CMS/HCC V28) DX:Crohn disease (HCC); COMM ENT: last colonscopy 2012; dr jermaine cobian Chronic UTI DX:Chronic UTI Depression DX:Depression Anxiety DX:Anxiety; COMM ENT: [facility] Cystocele 02/07/2015 DX:Cystocele Osteopenia 02/07/2015 DX:Osteopenia Allergic rhinitis 02/07/2015 DX:Allergic rh initis Hepatitis C 02/07/2015 DX:Hepatitis C; COMMENT: Per old records; no confirmatory labs in records Insomnia 02/07/2015 DX:Insomnia History of endoscopic gastrointestinal surgery DX:History of endoscopic gastrointestinal surgery Esophageal ulcer DX:Esophageal u lcer Osteoporosis DX:Osteoporosis History of tobacco abuse DX:Hist ory of tobacco abuse Rib fracture DX:Rib fracture; COMMENT: noted incide on CT Hiatal hernia DX:Hiatal hernia Calculus of kidney DX:Calculus o f kidney Incarcerated paraesophageal hernia 08/12/2022 DX:Incarcerated paraesophageal hernia Hiatal hernia with GERD 04/22/2017 DX:Hiata l hernia with GERD Family History Medical History Relation Name Comments Diabetes Brother 1 htn Colon cancer Brother 2 Heart attack Father Hypertension Father OH at age 46, s moker Kidney cancer Maternal Grandmother Abdominal Aortic Anuerysm (AAA) Mother Diabetes Mother Breast cancer Neg Hx Relation Name Status Comments Brother 1 Brother 2 Father Maternal Grandmother Mother Social History Tobacco Use Types Packs/Day Years Used Date Smoking Tobacco: Former Cigarettes Q uit: 04/25/2023 Smokeless Tobacco: Never Tobacco Cessation:Counseling Given: Not Answered Alcohol Use Standard Drinks/Week Comments Yes 0 (1 standard drink = 0.6 oz pur e alcohol) Comments Unknown Sex and Gender Information Value Date Recorded Sex Assigned at Female 07/15/2024 3:34 PM EST Legal Sex Female 8:06 PM EST Gender Identity Female 07/15/2024 3:34 PM EST Sexual Orientation Straight 07/18/2024 8: 50 AM EST Obstetrics History Last Filed Vital Signs Vital Sign Reading Time Taken Comments Blood Pressure 172/109 03/31/2024 2:50 PM EST 152 /96 Pulse 93 03/31/2024 2:50 PM EST Temperature 36.8 ??C (98.2 ??F) 03/31/2024 2:50 PM ES T Respiratory Rate 14 03/31/2024 2:50 PM EST Oxygen Saturation 97% 03/31/2024 2:50 PM EST Inhaled Oxygen Concentration - - Weight 69.4 kg (153 lb) 03/31/2024 2:50 PM EST Height 154.9 cm (5' 1 ) 03/31/2024 2:50 PM EST Body Mass Index 28.91 03/31/2024 2:50 PM EST Plan of Treatment Health Maintenance Due Date Last Done Comments DTaP,Tdap,and Td Vaccines (2 - Td or Tdap) 11/08/2015 11/07/2005 Breast Cancer Screening 01/21/2020 01/20/2018 Colorectal Cancer Screening: Colonoscopy 04/27/2022 06/25/2017 Depression Screening 04/27/2022 Falls Risk Assessment 04/27/2022 Medicare Annual Wellness Visit 04/27/2022 Social Influencers of Health Screening 04/27/2022 Cholesterol Screening (Lipid Panel) 08/12/2022 08/12/2017 Hypertension/CHF/CAD Annual BMP Blood Test 12/18/2023 06/24/2018 COVID-19 Vaccine ( season) 2024 08/06/2023, 03/18/2023, 06/05/2022, Additional history exists Pneumococcal Vaccine: 50+ Years (3 of 3 - PCV20 or PCV21) 06/15/2026 06/15/2021, 03/30/2016 Osteoporosis Screening (Bone Density Screening) 01/21/2028 01/20/2018 RSV Immunization Adult Patients (1 - 1-dose 75+ series) 2031 Hepatitis C Screening Completed 11/03/2015 Zoster Vaccines Completed 04/12/2018, 050 11/2017, 07/19/2016 Influenza Vaccine Completed 01/19/2024, , 03/18/2022, Additional history exists HIB Vaccines Aged Out No longer eligi ble based on patient's age to complete this topic HPV Vaccines Aged Out No longer eligi ble based on patient's age to complete this topic Hepatitis A Vaccines Aged Out No long er eligible based on patient's age to complete this topic Hepatitis B Vaccines Aged Out No long er eligible based on patient's age to complete this topic IPV Vaccines Aged Out No longer eligi ble based on patient's age to complete this topic MMR Vaccines Aged Out No longer eligi ble based on patient's age to complete this topic Meningococcal ACWY Vaccine Aged Out N o longer eligible based on patient's age to complete this topic Meningococcal B Vaccine Aged Out No l onger eligible based on patient's age to complete this topic RSV Immunization Patients Under 20 months Aged Out No longer eligible based on patient's age to complete this topic Varicella Vaccines Aged Out No longer eligible based on patient's age to complete this topic Procedures Procedure Name Priority Date/Time Associated Diagnosis Comments CT LUNG SCREENING Routine 07/18/2024 9:0 9 AM EST Encounter for screening for lung cancer Former smoker EXTERNAL CT REPORT 07/18/2024 CULTURE URINE Routine 07/16/2024 12:00 AM EST Urgency of urination ANNUAL BMP BLOOD TEST Routine 06/24/2018 SCR MAMMO BI INCL CAD Routine 01/20/2018 10:31 AM EDT Encounter for screening mammogram for malignant neoplasm of breast DXA BONE DENSITY STUDY 1+ SITS AXIAL SKEL Routine 01/20/2018 10:16 AM EDT Asymptomatic menopausal state LIPID PANEL Routine 08/12/2017 HM COLONOSCOPY Routine 06/25/2017 HEPATITIS C SCREENING Routine 11/03/2015 from Last 3 Months or Most Recently Relevant to Health Maintenance Results * CT Lung Screening (07/18/2024 9:09 AM EST) Anatomical Region Laterality Modality Chest Computed Tomogra phy 07/22/2024 3:43 AM EST Impressions 07/22/2024 4:04 AM EST 1. ??New 5 mm nodule/opacity in the left upper lobe 2. ??Severe compression fracture of L1; new from June 2023 Lung RADS 3(S), recommend low-dose diagnostic chest CT in 6 months. The S qualifier is for impression # 2 -------- FINAL REPORT -------- Dictated By: Robyn Richard Dictated Date: 07/22/2024 03:43 ET Assigned Physician: Robyn Richard Reviewed and Electronically Signed By: Robyn Richard Signed Date: 07/22/2024 04:04 ET Workstation ID: [id number] Transcribed By: Self Edit Transcribed Date: 07/22/2024 03:43 ET Narrative 07/22/2024 4:04 AM EST Indication: Greater than 20 total pack-year smoking history, asymptomatic ??former smoker Technique: Low-dose CT scan of the chest obtained as a lung cancer screening study. Multiplanar reformatted images were obtained. ??Dose reduction technique: ASIR (Adaptive statistical iterative reconstruction) and/or AEC (automated exposure control) DLP: ??94 mGy-cm COMPARISON: 06/2023, 02/2023. FINDINGS: Lack of intravenous contrast limits evaluation of the raiza, vascular structures and visualized abdominal viscera. ?? Lungs/airways: Trachea and central airways are patent. ??Postsurgical appearance right lower lobe. ??Atelectasis/scarring anteriorly in the right upper lobe, lingula, right middle lobe and lung bases. New 5 mm nodule/opacity in the left upper lobe along the left major fissure (series 3, image 46) Scattered sub-5 mm nodules, similar to prior. For example: 3 mm solid nodule left lung apex (image 29) 3 mm groundglass nodule anterior left upper lobe (image 67) Base of the neck, mediastinum, heart, chest wall, vessels: ??The assessment of hilar lymphadenopathy is difficult without the use of IV contrast. ??Low-attenuation lesion in the left thyroid gland; similar to prior. ??No enlarged mediastinal lymphadenopathy. ??Mild coronary artery calcifications. ?? Hiatal hernia. Upper abdomen: This study was performed without contrast and with lower than standard dose. These factors reduce the sensitivity for detection of small lesions in the upper abdomen. Right-sided nephrolithiasis. ??Low-attenuation lesion in the left kidney; similar to prior. Bones/soft tissues: Streak artifact from left humeral hardware. ??New severe compression fracture of L1. ??Moderate to severe compression fracture of T11; similar to prior. Procedure Note Robyn Richard MD - 07/22/2024 Indication: Greater than 20 total pack-year smoking history, asymptomaticformer smoker Technique: Low-dose CT scan of the chest obtained as a lung cancerscreening study. Multiplanar reformatted images were obtained. Dosereduction technique: ASIR (Adaptive statistical iterative reconstruction)and/or AEC (automated exposure control) DLP: 94 mGy-cm COMPARISON: 06/2023, 02/2023. FINDINGS: Lack of intravenous contrast limits evaluation of the raiza,vascular structures and visualized abdominal viscera. Lungs/airways: Trachea and central airways are patent. Postsurgicalappearance right lower lobe. Atelectasis/scarring anteriorly in the rightupper lobe, lingula, right middle lobe and lung bases. New 5 mm nodule/opacity in the left upper lobe along the left majorfissure (series 3, image 46) Scattered sub-5 mm nodules, similar to prior. For example: 3 mm solid nodule left lung apex (image 29) 3 mm groundglass nodule anterior left upper lobe (image 67) Base of the neck, mediastinum, heart, chest wall, vessels: The assessmentof hilar lymphadenopathy is difficult without the use of IV contrast.Low-attenuation lesion in the left thyroid gland; similar to prior. Noenlarged mediastinal lymphadenopathy. Mild coronary arterycalcifications. Hiatal hernia. Upper abdomen: This study was performed without contrast and with lowerthan standard dose. These factors reduce the sensitivity for detection ofsmall lesions in the upper abdomen. Right-sided nephrolithiasis.Low-attenuation lesion in the left kidney; similar to prior. Bones/soft tissues: Streak artifact from left humeral hardware. Newsevere compression fracture of L1. Moderate to severe compressionfracture of T11; similar to prior. IMPRESSION: 1. New 5 mm nodule/opacity in the left upper lobe 2. Severe compression fracture of L1; new from June 2023 Lung RADS 3(S), recommend low-dose diagnostic chest CT in 6 months. The Squalifier is for impression # 2 -------- FINAL REPORT -------- Dictated By: Robyn Richard Dictated Date: 07/22/2024 03:43 ET Assigned Physician: Robyn Richard Reviewed and Electronically Signed By: Robyn Richard Signed Date: 07/22/2024 04:04 ET Workstation ID: [id number] Transcribed By: Self Edit Transcribed Date: 07/22/2024 03:43 ET Dennis Camara MD [facility] CT PROCEDURES Final Result * External CT Report (07/18/2024) Anatomical Region Laterality Modality Computed Tomogra phy Provider [employer] [facility] CT PROCEDURES Final Result * Culture urine (07/16/2024 12:00 AM EST) Culture, Urine 10,000-49,000 CFU/mL Mixed bacterial morphotypes present suggestive of possible contamination during collection. Suggest appropriate recollection if clinically indicated. 07/17/2024 8:59 AM EST [facility] Urine Urine specimen from urinary conduit / Unknown 07/16/2024 07/16/2024 2:02 PM EST Senia Lambert [facility] MICROBIOLOGY - GENERA L ORDERABLES Final Result [facility] [address] [place] [address], * Annual BMP Blood Test (06/24/2018) Annual BMP Blood Test Abstracted Historical Provider HEALTH MAINTENANCE Final Result * SCR MAMMO BI INCL CAD (01/20/2018 10:31 AM EDT) Anatomical Region Laterality Modality Radiographic Ellen ging 11/04/2017 12:4 1 PM EDT Narrative 01/20/2018 4:08 PM EDT This is a summary report. The complete report is available in the patient's medical record. If you cannot access the medical record, please contact the sending organization for a detailed fax or copy. Full field digital screening mammography, reviewed with CAD and compared to previous. ??The breasts are composed of fatty and fibroglandular tissue. ??No suspicious mass, architectural distortion or suspicious calcifications are identified. IMPRESSION: : No mammographic evidence of malignancy. BIRADS 1-Negative; N. 5 year breast cancer risk assessment 1.1 % Lifetime breast cancer risk assessment 5.2 % Breast cancer risk category Low (<15%) Procedure Note Lydia Ratliff MD - 05/14/2022 This is a summary report. The complete report is available in thepatient's medical record. If you cannot access the medical record, pleasecontact the sending organization for a detailed fax or copy. Full field digital screening mammography, reviewed with CAD and comparedto previous. The breasts are composed of fatty and fibroglandular tissue.No suspicious mass, architectural distortion or suspicious calcificationsare identified. IMPRESSION: : No mammographic evidence of malignancy. BIRADS 1-Negative; N. 5 year breast cancer risk assessment 1.1 % Lifetime breast cancer risk assessment 5.2 % Breast cancer risk category Low (<15%) Mirella Kimble DO IMG XR PROCEDURES Final Result * DXA BONE DENSITY STUDY 1+ SITS AXIAL SKEL (01/20/2018 10:16 AM EDT) Anatomical Region Laterality Modality Bone Densitometr y 11/04/2017 12:4 1 PM EDT Narrative 01/20/2018 4:47 PM EDT BONE DENSITY ? Lumbar Spine T-score is -3.8 ?? (SD relative to 20-29 y/o adult) Z-score is -2.3 ??(SD relative to age matched peers) This is consistent with osteoporosis by criteria defined by the WHO. Left Hip T-score is -2.0 Z-score is -0.6 This is consistent with osteopenia by criteria defined by the WHO. Impression: Based on the World Health Organization criteria, Vicki Lindquist should be classified as having osteoporosis. The [facility] Department of Internal Medicine recommends using National Osteoporosis Foundation (NOF) guidelines in treatment decisions related to osteoporosis. NOF guidelines suggest considering treatment for postmenopausal women and men aged 50 or older presenting with the following: History of hip or vertebral fracture. T-score less than or equal to -2.5 (DXA) at the femoral neck, total hip, or spine, after appropriate evaluation to exclude secondary causes. Low bone mass (T-score between -1.0 and -2.5 at the femoral neck or spine) AND a 10-year probability of a hip fracture greater than or equal to 3% OR a 10-year probability of a major osteoporosis-related fracture greater than or equal to 20% based on the [place]-adapted WHO algorithm Please note that all treatment decisions require clinical judgment and consideration of individual patient factors, including patient preferences, co-morbidities, previous drug use, risk factors not captured in the FRAX model (e.g., frailty, falls, vitamin D deficiency, increased bone turnover, interval significant decline in bone density) and possible under- or over-estimation of fracture risk by FRAX. 22 Procedure Note Jarret Rivera MD - 05/14/2022 BONE DENSITY Lumbar Spine T-score is -3.8 (SD relative to 20-29 y/o adult) Z-score is -2.3 (SD relative to age matched peers) This is consistent with osteoporosis by criteria defined by the WHO. Left Hip T-score is -2.0 Z-score is -0.6 This is consistent with osteopenia by criteria defined by the WHO. Impression: Based on the World Health Organization criteria, Vicki Lindquist should beclassified as having osteoporosis. The [facility] Department of Internal Medicine recommendsusing National Osteoporosis Foundation (NOF) guidelines in treatmentdecisions related to osteoporosis. NOF guidelines suggest consideringtreatment for postmenopausal women and men aged 50 or older presentingwith the following: History of hip or vertebral fracture. T-score less than or equal to -2.5 (DXA) at the femoral neck, total hip,or spine, after appropriate evaluation to exclude secondary causes. Low bone mass (T-score between -1.0 and -2.5 at the femoral neck or spine)AND a 10-year probability of a hip fracture greater than or equal to 3% ORa 10-year probability of a major osteoporosis-related fracture greaterthan or equal to 20% based on the [place]-adapted WHO algorithm Please note that all treatment decisions require clinical judgment andconsideration of individual patient factors, including patientpreferences, co-morbidities, previous drug use, risk factors not capturedin the FRAX model (e.g., frailty, falls, vitamin D deficiency, increasedbone turnover, interval significant decline in bone density) and possibleunder- or over-estimation of fracture risk by FRAX. 22 Mirella Kimble DO [facility] DXA PROCEDURE S Final Result * (ABNORMAL) Lipid panel (08/12/2017) LDL/HDL Ratio 4 0 - 4 Triglycerides 120 0 - 150 mg/dL Cholesterol 198 0 - 200 mg/dL HDL 54 >=40 mg/dL LDL Cholesterol 120(A) 0 - 100 mg/dL Blood Venous blood specimen / Unknown Historical Provider LAB BLOOD ORDERABLES Barbara l Result * Hm Colonoscopy (06/25/2017) Colonoscopy No Interpretation , Abstracted Anatomical Region Laterality Modality Other us Historical Provider HEALTH MAINTENANCE Final Result * Hepatitis C Screening (11/03/2015) Hepatitis C Screening Abstracted us Historical Provider HEALTH MAINTENANCE Final Result from Last 3 Months or Most Recently Relevant to Health Maintenance Insurance [facility] MEDICARE ADVANTAGE MEDICAID - [place] Care Teams Manager Technical Services Relationship Specialty Start Date End Date Ralph Colorado MD [address] [place] [address] [address] [place] PCP - General 05/15/22
--- OUTSIDE RECORDS SUMMARY | 2024-09-07 12:22 | XMS_ITS | Clinical Summary ---
Author Organization [facility] Address [address] [place] [address] Care Team Providers Care Research Physiologist Name Role Phone Unavailable Primary Care Provider Unavailabl e Source Comments PLEASE NOTE, if this patient is a minor, it may be UNLAWFUL to discuss sensitive information that is contained in these records (such as FAMILY PLANNING, MENTAL HEALTH or SUBSTANCE ABUSE) with the minor patient's parent or other person without the patient's specific authorization.[facility] Social History Tobacco Use Types Packs/Day Years Used Date Smoking Tobacco: Never Assessed Social Connections Answer Date Recorded Social Connections and Isolation 0 01/17/2019 Financial Resource Strain Answer Date R ecorded Financial Resource Strain 0 2018 Stress Answer Date Recorded Stress 0 01/17/2019 Physical Activity Answer Date Recorded Physical Activity 0 01/17/2019 Food Insecurity Answer Date Recorded Food 0 01/17/2019 Transportation Needs Answer Date Record ed Transportation 0 01/17/2019 Housing Stability Answer Date Recorded Housing 0 01/17/2019 Safety and Environment Answer Date Heriberto rded Safety 0 01/17/2019 Utilities Answer Date Recorded Utilities 0 01/17/2019 Employment Answer Date Recorded Employment 0 01/17/2019 Comments Unknown Sex and Gender Information Value Date Recorded Sex Assigned at Not on file Legal Sex Female 6:55 AM PST Gender Identity Not on file Sexual Orientation Not on file Last Filed Vital Signs Vital Sign Reading Time Taken Comments Blood Pressure - - Pulse - - Temperature - - Respiratory Rate - - Oxygen Saturation - - Inhaled Oxygen Concentration - - Weight 79.4 kg (175 lb) 07/23/2016 11:06 AM EST Height 154.9 cm (5' 1 ) 07/23/2016 11:06 AM EST Body Mass Index 33.07 07/23/2016 11:06 AM EST Plan of Treatment Not on file Insurance [place] - [place]
--- OUTSIDE RECORDS SUMMARY | 2024-09-07 12:22 | XMS_ITS | Encounter Summary ---
Author Organization [facility] Address [address] [place] [address] Care Team Providers Care Psychologist Social Name Role Phone Ralph Colorado MD Primary Care Provider + [phone] Encounter Details Date Type Department Care Team (Late st Contact Info) Description 07/16/[address] [facility] - Main Lab [address] [facility] [place] [address] Senia Lambert NP [address] [facility] [address] [place] [address] Urgency of urination Social History Tobacco Use Types Packs/Day Years Used Date Smoking Tobacco: Former Cigarettes Q uit: 04/25/2023 Smokeless Tobacco: Never Alcohol Use Standard Drinks/Week Comments Yes 0 (1 standard drink = 0.6 oz pur e alcohol) Comments Unknown Sex and Gender Information Value Date Recorded Sex Assigned at Female 07/15/2024 3:34 PM EST Legal Sex Female 8:06 PM EST Gender Identity Female 07/15/2024 3:34 PM EST Sexual Orientation Straight 07/18/2024 8: 50 AM EST documented as of this encounter Plan of Treatment Not on file documented as of this encounter Procedures Procedure Name Priority Date/Time Associated Diagnosis Comments CULTURE URINE Routine 07/16/2024 12:00 AM EST Urgency of urination documented in this encounter Results * Culture urine (07/16/2024 12:00 AM EST) Culture, Urine 10,000-49,000 CFU/mL Mixed bacterial morphotypes present suggestive of possible contamination during collection. Suggest appropriate recollection if clinically indicated. 07/17/2024 8:59 AM EST [facility] Urine Urine specimen from urinary conduit / Unknown 07/16/2024 07/16/2024 2:02 PM EST us Senia Lambert RIM TURNING MACHINE OPERATOR LAB MICROBIOLOGY - GENERA L ORDERABLES Final Result [facility] [address] [place] [address], [place] [phone] documented in this encounter Visit Diagnoses Diagnosis Urgency of urination documented in this encounter Care Teams Psychologist Social Relationship Specialty Start Date End Date Ralph Colorado MD [address] [place] [address] [address] [place], [place] PCP - General 05/15/22 documented as of this encounter
--- OUTSIDE RECORDS SUMMARY | 2024-09-07 12:22 | XMS_ITS | Encounter Summary ---
Author Organization [facility] Address [address] [place] [address] Care Team Providers Care Ward Clerk Name Role Phone Ralph Colorado MD Primary Care Provider + [phone] Encounter Details Date Type Department Care Team (Late st Contact Info) Description 04/09/2024 Lab Requisition [facility] - Main Lab [address] [place] [id number] Jaja Cornelius MD [address] [address] Dysuria Social History Tobacco Use Types Packs/Day Years [...] Date/Time Associated Diagnosis Comments CULTURE URINE Routine 04/09/2024 12:00 AM EST Dysuria documented in this encounter Results * (ABNORMAL) Culture urine (04/09/2024 12:00 AM EST) Culture, Urine >100,000 CFU/mL Escherichia coli(A) NAFISA 04/11/2024 9:54 AM EST [facility] Comment: This is an edited result. Previous organism was Gram negative bacilli on 04/10/2024 at 0817 EST. Urine Urine specimen from urinary conduit / Unknown 04/09/2024 04/09/2024 5:41 PM EST Narrative Organism Antibiotic Method Susceptibility Escherichia coli Amoxicillin/Clavulanate NAFISA 16 ug/ml: Intermediate Escherichia coli Ampicillin/Sulbactam NAFISA >=32 ug/ml: Resistant Escherichia coli Piperacillin/Tazobactam NAFISA <=4 ug/ml: Susceptible Escherichia coli Cefazolin (Urine) NAFISA 8 ug/ml: Susceptible Escherichia coli Cefoxitin NAFISA <=4 ug/ml: Susceptible Escherichia coli Ceftazidime NAFISA <=0.5 ug/ml: Susceptible Escherichia coli Ceftriaxone NAFISA <=0.25 ug/ml: Susceptible Escherichia coli Cefepime NAFISA <=0.12 ug/ml: Susceptible Escherichia coli Meropenem NAFISA <=0.25 ug/ml: Susceptible Escherichia coli Amikacin NAFISA 2 ug/ml: Susceptible Escherichia coli Gentamicin NAFISA <=1 ug/ml: Susceptible Escherichia coli Ciprofloxacin NAFISA <=0.06 ug/ml: Susceptible Escherichia coli Levofloxacin NAFISA <=0.12 ug/ml: Susceptible Escherichia coli Nitrofurantoin NAFISA <=16 ug/ml: Susceptible Escherichia coli Trimethoprim/Sulfamethoxazole NAFISA <=20 ug/ml: Susceptible Jaja Cornelius MD LAB MICROBIOLOGY - G ENERAL ORDERABLES Final Result [facility] [address] [place] [address], documented in this encounter Visit Diagnoses Diagnosis Dysuria documented in this encounter Care Teams Ward Clerk Relationship Specialty Start Date End Date Ralph Colorado MD [address] [address] [place] [address] PCP - General 05/15/22 documented as of this encounter
== END 2024-09-07 11:22 | disposition home or self-care (01) ==
LOC: HO.HMCH 10:20
PROVIDERS: PCP Internal Medicine; Visit Provider Internal Medicine
DX: E78.00 Pure hypercholesterolemia, unspecified (principal); J44.9 Chronic obstructive pulmonary disease, unspecified; K50.90 Crohn's disease, unspecified, without complications; F33.9 Major depressive disorder, recurrent, unspecified; K44.9 Diaphragmatic hernia without obstruction or gangrene; K21.9 Gastro-esophageal reflux disease without esophagitis; M81.0 Age-related osteoporosis without current pathological fracture; E55.9 Vitamin D deficiency, unspecified; J30.9 Allergic rhinitis, unspecified; M17.12 Unilateral primary osteoarthritis, left knee; M51.360 Other intervertebral disc degeneration, lumbar region with discogenic back pain only; N20.0 Calculus of kidney

== ENCOUNTER → 2024-09-07 10:20 | Outpatient (BNVA) | payer OTHER, SELFPAY | PROVIDERS: PCP Internal Medicine; Visit Provider Internal Medicine | DX: I10 Essential (primary) hypertension (principal); E78.00 Pure hypercholesterolemia, unspecified; M19.90 Unspecified osteoarthritis, unspecified site; J44.9 Chronic obstructive pulmonary disease, unspecified; K50.90 Crohn's disease, unspecified, without complications; K44.9 Diaphragmatic hernia without obstruction or gangrene; K21.9 Gastro-esophageal reflux disease without esophagitis; M81.0 Age-related osteoporosis without current pathological fracture; E55.9 Vitamin D deficiency, unspecified; J30.9 Allergic rhinitis, unspecified; M17.12 Unilateral primary osteoarthritis, left knee; M51.360 Other intervertebral disc degeneration, lumbar region with discogenic back pain only; N20.0 Calculus of kidney; G47.00 Insomnia, unspecified; F41.9 Anxiety disorder, unspecified; F33.9 Major depressive disorder, recurrent, unspecified; E66.3 Overweight; Z68.27 Body mass index [BMI] 27.0-27.9, adult | CPT/HCPCS: 96127; 99212 ==

== ENCOUNTER 2024-10-22 06:03 | Outpatient (REF) | payer OTHER, SELFPAY ==
[2024-10-22 06:24] LABS: MANUAL DIFF FLAG NO
[2024-10-22 07:06] LABS: Basophils Absolute Auto 0.1 X10*3/uL (0.0-0.2); Eosinophils Absolute Auto 0.2 X10*3/uL (0.0-0.4); Eosinophils Percent Auto 3.7 % (0-4); Hematocrit 41.2 % (37.0-47.0); Hemoglobin 12.9 g/dl (12.0-16.0); Imm Gran Abs Auto 0.03 X10*3/uL (0.00-0.03); Imm Gran Pct Auto 0.5 % (0.0-0.4); Lymphocytes Absolute Auto 1.6 X10*3/uL (1.2-4.9); Lymphocytes Percent Auto 28.6 % (20-40); Mean Corpuscular HGB Conc 31.3 g/dl (31.0-35.0); Mean Corpuscular Hemoglobin 26.7 pg (27.0-33.0); Mean Corpuscular Volume 85.3 fL (80.0-98.0); Monocytes Absolute Auto 0.6 X10*3/uL (0.1-1.2); Monocytes Percent Auto 11.1 % (2-11); Neutrophils Absolute Auto 3.2 x10*3/uL (2.0-8.3); Neutrophils Percent Auto 55.1 % (45-73); Platelet Count 317 X10*3/uL (160-400); Red Blood Count 4.83 X10*6/uL (4.20-5.50); Red Cell Distribution Width 13.2 % (11.0-16.0); White Blood Count 5.7 X10*3/uL (4.8-10.8)
[2024-10-22 07:36] LABS: Appearance Urine Clear; Color Urine Yellow; Glucose Urine UA Negative (Negative); Leukocyte Esterase Urine Trace (Negative); Nitrite Urine Negative (Negative); PH 7.5 (5.0-9.0); UMIC TRIGGER UACC YES; Urine Blood Negative (Negative); Urine Ketones Negative (Negative); Urine Protein Negative (Neg-Trace)
[2024-10-22 07:41] LABS: Bacteria Urine None Seen (None Seen); Hyaline Casts Urine 0-2 /LPF (0-2); RBC Urine 0-2 /HPF (0-2); Squamous Epithelial Cell Urine 0-2 /HPF (0-2); UACC Culture Trigger YES
[2024-10-22 07:45] LABS: Alanine Aminotransferase 23 U/L (0-31); Albumin Level 4.3 g/dL (3.5-5.0); Alkaline Phosphatase 92 U/L (39-117); Anion Gap 14 (12-20); Aspartate Amino Transferase 20 U/L (5-31); Bilirubin Total 0.4 mg/dL (0.0-1.0); Blood Urea Nitrogen 16 mg/dL (9-16); Calcium 9.7 mg/dL (8.4-10.2); Carbon Dioxide 25 mmol/L (22-29); Chloride 107 mmol/L (96-108); Cholesterol 187 mg/dL (<200); Estimated Glomerular Filt Rate > 60; Glucose Fasting 98 mg/dL (60-99); HDL Cholesterol 42 mg/dL (>40); LDL Cholesterol Calculated 118 mg/dL (<100); Potassium 4.3 mmol/L (3.3-5.1); Sodium 142 mmol/L (135-145); Total Protein 7.3 g/dL (6.5-8.0); Triglycerides 137 mg/dL (<150)
[2024-10-22 08:01] LABS: Vitamin D 25-OH Total 30.8 ng/mL (>30)
== END 2024-10-22 06:04 | disposition home or self-care (01) ==
LOC: HO.LAB 06:03
PROVIDERS: PCP Internal Medicine; Visit Provider Internal Medicine
DX: I67.1 Cerebral aneurysm, nonruptured (principal); R51.9 Headache, unspecified; D64.9 Anemia, unspecified; E78.00 Pure hypercholesterolemia, unspecified; R30.0 Dysuria; E55.9 Vitamin D deficiency, unspecified
CPT/HCPCS: 36415; 80053; 80061; 81001; 82306; 84443; 85025; 87086; 87088; 87186; 96127; 99212

== ENCOUNTER 2024-10-22 07:18 | Outpatient (AMB) | payer OTHER, SELFPAY ==
--- NOTE | 2024-10-22 07:23 | A.OFFPC_ITS ---
Vital Signs 10/22/24 07:24 Height 5 ft 1 in Weight 149 lb BMI 28.2 BP 134/78 Blood Pressure Location Lt brachial Position Sitting Pulse 84 Pulse Source Pulse Oximeter Pulse Oximetry (%) 98 Oxygen Delivery Method Room Air Intake Visit Reasons: [facility] D/C 10/07/24 Allergies ibuprofen [From Motrin] Adverse Reaction (Intermediate, Verified 10/22/24 07:24) activates her Crohn's disease Medication List - Last Reconciled 10/22/24 by Veronica Edwards NP albuterol sulfate 90 mcg/actuation 2 puffs PO Q6H PRN amlodipine 5 mg PO DAILY 90 days budesonide 180 mcg/actuation (Pulmicort Flexhaler) 2 inhalations PO BID bupropion HCl XL 300 mg PO DAILY cholecalciferol (vitamin D3) 25 mcg PO DAILY fluticasone propionate 50 mcg/actuation 2 sprays intranasal DAILY PRN 30 days mesalamine 1.2 grams PO DAILY omeprazole 40 mg PO DAILY tizanidine 2 mg PO TID PRN trazodone 50 mg PO BEDTIME PRN 30 days Tobacco use date assessed: 10/22/24 Fall risk assessment: No Falls in past year Last assessed Fall Risk: 10/22/24 Dental Screening Dental Screen Date: 09/07/24 HPI HPI Comments History of Present Illness Details 69 y/o Female patient who presents [facility] city hospital clinic today for HDF. She was admitted at [facility] on 10/06 - 10/07 for an evaluation and treatment of Severe Headaches. 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 Patient has an appointment with [facility] Neuro outpatient for possible placement of flow diverting Stent. Today patient is doing well - headaches resolved. [facility] Medical History (Updated 10/22/24 @ 07:54 by Veronica Edwards NP) Generalized headaches Cerebral aneurysm Insomnia Primary osteoarthritis of left knee Compression fracture of T11 vertebra with delayed healing Compression fracture of L4 vertebra Obesity (BMI 30-39.9) Hiatal hernia Coccydynia Overweight (BMI 25.0-29.9) Depression Anxiety Renal calculi Vitamin D deficiency Allergic rhinitis Osteoporosis Lumbar degenerative disc disease GERD without esophagitis Crohn's disease COPD (chronic obstructive pulmonary disease) GERD (gastroesophageal reflux disease) Ear discharge of both ears Ear build-up Sacroiliitis Chronic pain syndrome Spondylolisthesis, lumbar region Spondylosis of lumbar region without myelopathy or radiculopathy Surgical History Hx of colonoscopy History of surgery History of hysterectomy History of surgery History of nasal surgery Social History Housing: Apartment Alcohol intake: current Alcohol intake frequency: holidays/special occasions only Alcohol type: wine Patient Tobacco Use Status: Former Tobacco user Tobacco use type: Cigarette e-Cigarette/Vaping Use: Never Used Second Hand Smoke Exposure: No Advance Directives Date on File: 06/02/20 service: No Current occupational status: disabled Cognitive needs: No Hearing needs: No Vision needs: Yes (glasses) Questionnaire PHQ-9 Over the last 2 weeks, how often have you been bothered by any of the following problems? 1. Little interest or pleasure in doing things: several days 2. Feeling down, depressed, or hopeless: several days 3. Trouble falling or staying asleep, or sleeping too much: not at all 4. Feeling tired or having little energy: several days 5. Poor appetite or overeating: not at all 6. Feeling bad about yourself - or that you are a failure or have let yourself or your family down: not at all 7. Trouble concentrating on things, such as reading the newspaper or watching television: not at all 8. Moving or speaking so slowly that other people could have noticed. Or the opposite - being so fidgety or restless that you have been moving around a lot more than usual: not at all 9. Thoughts that you would be better off or of hurting yourself in some way: not at all Total score: 3 Depression Screening Interpretation: Positive Depression Screening Done: Yes Source: Developed by Drs. Francisco Javier Rodriguez, Palak العلي, Kamran Calvin and colleagues, with an educational kelsie from [employer]. Thrive Questionnaire Date Thrive assessed: 09/07/24 I am a: Patient What is your living situation today?: I have a steady place to live Within the past 12 months, did the food you bought not last and you didn't have the money to get more?: Never true Within the past 12 months, did you worry whether your food would run out before you got money to buy more?: Sometimes True Do you have trouble paying for medicines?: No Do you have trouble getting transportation to medical appointments?: No Do you have trouble paying your heating and electricity bill?: No Do you have trouble taking care of your child, family member or friend?: No Do you have trouble with day-to-day activities such as bathing, preparing meals, shopping, managing finances, etc.?: No Are you currently unemployed and looking for a job?: I choose not to answer this question Are you interested in more education?: No Please select the resources that you would like help with: Utilities Currently or been in a relationship where the following occur: No concerns reported THRIVE Score: 1 AUDIT C Alcohol Use Questionnaire (AUDIT-C) 1. How often do you have a drink containing alcohol?: Never 3. How often do you have six or more drinks on one occasion?: Never Total Score: 0 CULLEN-7 AMB Questionnaire CULLEN-7 Date CULLEN - 7 assessed: 09/07/24 Feeling nervous, anxious, or on edge: 0 = Not at all Not being able to stop or control worryin = Not at all Worrying too much about different things: 1 = Several days Trouble relaxin = Several days Being so restless that it is hard to sit still: 0 = Not at all Becoming easily annoyed or irritable: 1 = Several days Feeling afraid as if something awful might happen: 0 = Not at all Total CULLEN-7 score (0-4 normal; 5-9 mild; 10-14 moderate; 15-21 severe): 3 Source: Developed by Drs. Francisco Javier Rodriguez, Palak العلي, Kamran Calvin and colleagues, with an educational kelsie from [employer]. Review of Systems Const All systems reviewed & are unremarkable except as noted in HPI and below Physical exam (Primary Care) Vital Signs: Last Vital Signs Pulse 84 10/22/24 07:24 BP 134/78 10/22/24 07:24 Pulse Ox 98 10/22/24 07:24 Oxygen Delivery Method Room Air 10/22/24 07:24 BMI result Body Mass Index 28.2 Tobacco/Smoking Status: Tobacco use Status Tobacco use date assessed 10/22/24 10/22/24 07:29 Patient Tobacco Use Status Former Tobacco user 10/22/24 07:29 Tobacco use type Cigarette 10/22/24 07:29 e-Cigarette/Vaping Use Never Used 10/22/24 07:29 PHQ-9: PHQ-9 Score PHQ-9: Total score 3 10/22/24 07:34 Depression Screening Interpretation: Positive Thrive Assessment: Date of Thrive Assessment Date Thrive assessed 09/07/24 10/22/24 07:29 Currently or been in a relationship where the following occur: No concerns reported Const General: comfortable and no acute distress Nutritional Appearance: overweight Orientation/consciousness: patient oriented x3 Resp Effort & Inspection: normal respiratory effort and able to speak in complete sentences Auscultation: clear to auscultation bilaterally Cardio Heart sounds: S1 normal heart sound present and S2 normal heart sound present Neuro General: patient oriented x3, gait normal and moves all extremities Coding Level of Care Code Est Pt Level 4 (80758) Diagnoses Cerebral aneurysm I67.1 Generalized headaches R51.9 Time Spent (min) 20 Assessment & Plan Assessment & Plan (1) Cerebral aneurysm: Code(s): I67.1 - Cerebral aneurysm, nonruptured Category: Medical Plan: Managed by [facility] Neuro F/U with Neuro as scheduled. (2) Generalized headaches: Code(s): R51.9 - Headache, unspecified Category: Medical Plan: Resolved. Medications: Discontinued diphenhydramine HCl Discontinued Reason: Patient Completed Course 25 mg PO TID 30 days PRN 90 caps 0RF allergy symptoms calcitonin (salmon) 200 unit/actuation Discontinued Reason: Patient Completed Course 1 spray intranasal (ALT) DAILY 3.7 mL 0RF prazosin Discontinued Reason: Patient no longer taking 1 mg PO BEDTIME 30 days PRN 30 caps 0RF sleep oxycodone Take as needed ONLY for severe pain Discontinued Reason: Patient Completed Course 5 mg PO BID-TID PRN 15 tabs 0RF pain
[2024-10-22 07:24] VITALS: BP 134/78; PULSE 84; O2SAT 98; BMI 28.2
== END 2024-10-22 07:52 | disposition home or self-care (01) ==
LOC: HO.HMCH 07:19
PROVIDERS: PCP Internal Medicine; Visit Provider Nurse Practitioner Family
DX: I67.1 Cerebral aneurysm, nonruptured (principal); R51.9 Headache, unspecified

== ENCOUNTER 2025-03-01 09:06 | Outpatient (AMB) | payer OTHER, SELFPAY ==
[2025-03-01 09:09] VITALS: BP 122/78; PULSE 93; RESP 18; TEMP 36.2; O2SAT 96; BMI 28.0
--- NOTE | 2025-03-01 09:09 | MHC.PC.OV ---
Vital Signs 03/01/25 09:09 Height 5 ft 1 in Weight 148 lb 6 oz BMI 28.0 BP 122/78 Blood Pressure Location Lt brachial Position Sitting Respiration 18 Pulse 93 Pulse Source Pulse Oximeter Temp 97.1 F Temp Source Temporal Artery Scan Pulse Oximetry (%) 96 Oxygen Delivery Method Room Air Intake Visit Reasons: [facility] on 02/16/25 d/t (L) left pain and swelling Cellophane Wrapping Examiner Required: No Accompanied by: Self / Same As Patient Allergies ibuprofen (From Motrin) Adverse Reaction (Intermediate, Verified 03/01/25 09:47) activates her Crohn's disease Medication List - Last Reconciled 03/01/25 by SUBHA Rashid albuterol sulfate 90 mcg/actuation 2 puffs PO Q6H PRN amlodipine 5 mg PO DAILY 90 days budesonide 180 mcg/actuation (Pulmicort Flexhaler) 2 inhalations PO BID bupropion HCl XL 300 mg PO DAILY cholecalciferol (vitamin D3) 25 mcg PO DAILY diphenhydramine HCl 25 mg PO TID PRN 30 days fluticasone propionate 50 mcg/actuation 2 sprays intranasal DAILY PRN 30 days gabapentin 300 mg PO TID 30 days loratadine (Allergy Relief (loratadine)) 10 mg PO DAILY PRN mesalamine 1.2 grams PO DAILY omeprazole 40 mg PO DAILY trazodone 50 mg PO BEDTIME PRN 30 days Tobacco use date assessed: 03/01/25 Fall risk assessment: No Falls in past year Last assessed Fall Risk: 03/01/25 Dental Screening Dental Screen Date: 03/01/25 Did you have a dental visit in the last 12 months?: No Did you have a dental problem in the last 6 months where you did not have access to dental care?: No Was dental information given to patient?: Patient has dentist HPI [facility] on 02/16/25 d/t (L) left pain and swelling HPI Details The patient is a 69-year-old female status post TKA by Dr. Daigle in May 2024 the patient presented to [facility] emergency room 02/17/2025. Complaining of left knee pain. Patient denies any trauma and stated that over the last few days she started to have some lateral left knee pain and did not think much of it. MRI of left knee shows small effusion with mild edema suggesting strain of the vastus medialis lateralis. Intact appearance of the distal quadriceps. Status post total knee arthroplasty with no evidence of fracture within limitations of the susceptibility artifact. Patient requested for DEXA scan to be ordered She denies chest pain, shortness of breath, heart palpitation or dizziness Denies abdominal pain/change in bowel habits [facility] Medical History Generalized headaches Cerebral aneurysm Insomnia Primary osteoarthritis of left knee Compression fracture of T11 vertebra with delayed healing Compression fracture of L4 vertebra Obesity (BMI 30-39.9) Hiatal hernia Coccydynia Overweight (BMI 25.0-29.9) Depression Anxiety Renal calculi Vitamin D deficiency Allergic rhinitis Osteoporosis Lumbar degenerative disc disease GERD without esophagitis Crohn's disease COPD (chronic obstructive pulmonary disease) GERD (gastroesophageal reflux disease) Ear discharge of both ears Ear build-up Sacroiliitis Chronic pain syndrome Spondylolisthesis, lumbar region Spondylosis of lumbar region without myelopathy or radiculopathy Surgical History Hx of colonoscopy History of surgery History of hysterectomy History of surgery History of nasal surgery Social History Housing: Apartment Alcohol intake: current Alcohol intake frequency: holidays/special occasions only Alcohol type: wine Patient Tobacco Use Status: Former Tobacco user Tobacco use type: Cigarette e-Cigarette/Vaping Use: Never Used Second Hand Smoke Exposure: No Advance Directives Date on File: 06/02/20 service: No Current occupational status: disabled Cognitive needs: No Hearing needs: No Vision needs: Yes (glasses) Questionnaire Thrive Questionnaire Date Thrive assessed: 10/22/24 I am a: Patient What is your living situation today?: I have a steady place to live Within the past 12 months, did the food you bought not last and you didn't have the money to get more?: Never true Within the past 12 months, did you worry whether your food would run out before you got money to buy more?: Sometimes True Do you have trouble paying for medicines?: No Do you have trouble getting transportation to medical appointments?: No Do you have trouble paying your heating and electricity bill?: No Do you have trouble taking care of your child, family member or friend?: No Do you have trouble with day-to-day activities such as bathing, preparing meals, shopping, managing finances, etc.?: No Are you currently unemployed and looking for a job?: I choose not to answer this question Are you interested in more education?: No Please select the resources that you would like help with: Utilities Currently or been in a relationship where the following occur: No concerns reported THRIVE Score: 1 CULLEN-7 AMB Questionnaire CULLEN-7 Date CULLEN - 7 assessed: 09/07/24 Source: Developed by Drs. Francisco Javier Rodriguez, Palak العلي, Kamran Calvin and colleagues, with an educational kelsie from [employer]. Review of Systems Const Denies body aches, Denies chills, Denies fever(s), Denies headache(s) and Denies poor appetite Eyes Reports no additional complaints ENT Denies dysphagia, Denies dizziness, Denies headache(s) and Denies odynophagia Card Denies chest pain, Denies syncope, Denies edema, Denies irregular heart rhythm, Denies lightheadedness and Denies dyspnea Resp Denies cough and Denies dyspnea GI Denies abdominal pain, Denies constipation, Denies dysphagia, Denies diarrhea, Denies nausea, Denies odynophagia and Denies vomiting Reports no additional complaints Musc Reports arthralgias (left knee s/p surgery) Skin/Breast Reports system reviewed and no additional complaints, except as documented Neuro Denies dizziness, Denies syncope and Denies headache(s) Psych Reports no additional complaints Physical exam (Primary Care) Vital Signs: Last Vital Signs Temp 97.1 F 03/01/25 09:09 Pulse 93 03/01/25 09:09 Resp 18 03/01/25 09:09 BP 122/78 03/01/25 09:09 Pulse Ox 96 03/01/25 09:09 Oxygen Delivery Method Room Air 03/01/25 09:09 BMI result Body Mass Index 28.0 Tobacco/Smoking Status: Tobacco use Status Tobacco use date assessed 03/01/25 03/01/25 09:23 Patient Tobacco Use Status Former Tobacco user 03/01/25 09:23 Tobacco use type Cigarette 03/01/25 09:23 e-Cigarette/Vaping Use Never Used 03/01/25 09:23 Thrive Assessment: Date of Thrive Assessment Date Thrive assessed 10/22/24 03/01/25 09:23 Currently or been in a relationship where the following occur: No concerns reported Const General: cooperative, healthy appearing, comfortable and no acute distress Orientation/consciousness: patient oriented x3 HENMT Head: Yes normocephalic Ears: hearing grossly normal bilaterally General nose exam: Normal external nose present Eyes General: appearance normal, both eyes and all related structures Conjunctivae: conjunctivae normal Neck Neck: Yes full ROM and Yes no lymphadenopathy Resp Effort & Inspection: normal respiratory effort Auscultation: clear to auscultation bilaterally, no crackles, no rales, no rhonchi and no wheezes Cardio Rate: regular rate Rhythm: regular rhythm Heart sounds: S1 normal heart sound present and S2 normal heart sound present Skin General skin exam: no rashes or lesions noted Neuro General: patient oriented x3 Gait exam (Neuro): Normal gait present Extrem General: Yes normal to inspection, Yes full ROM and No edema Left lower extremity: knee Details: swelling; no tenderness Psych Affect: normal affect Attitude: cooperative Insight: Good insight present (Psych) Judgement: Good judgement present (Psych) Coding Level of Care Code Est Pt Level 3 (98074) Diagnoses Left knee pain, unspecified chronicity M25.562 Chronicity: unspecified Time Spent (min) 35 Assessment & Plan Assessment & Plan (1) Left knee pain: Code(s): M25.562 - Pain in left knee Category: Medical Qualifiers: Chronicity: unspecified Qualified Code(s): M25.562 - Pain in left knee Plan: The patient will begin physical therapy on the to address the knee pain and swelling. Pain management will include the use of Tylenol and a muscle relaxer, as the patient cannot tolerate NSAIDs due to Crohn's disease. The patient requested Vicodin. Tramadol was offered and the patient declines-stating that it is not going to work for her. Baclofen 5 mg t.i.d. ordered. Plan Requested for dexa scan to be ordered, stating that it is due to be repeated. Orders: Orders XR DEXA axial skeleton Today M81.0 - Age-related osteoporosis without current pathological fracture Medications: New baclofen 5 mg PO TID 60 tabs 3RF
--- OUTSIDE RECORDS SUMMARY | 2025-03-01 10:01 | XMS_ITS | Encounter Summary ---
Author Organization [facility] Address [address] [place] [address] Care Team Providers Care Milieu Counselor Name Role Phone Ralph Colorado MD Primary Care Provider Encounter Details Date Type Department Care Team (Late Contact Info) Description 12/24/2024 Lab Requisition [facility] - Main Lab [address] [facility] [place] [place] [address] Skip Mccain MD [address] [place] [id number] Other abnormal findings in urine Social History Tobacco Use Types Packs/Day Years [...] as of this encounter Plan of Treatment Upcoming Encounters Date Type Department Care Team (Late Contact Info) Description 03/11/2025 9:00 AM EDT Office Visit Gastroenterology - [address] [facility] [address] [place] [phone] Dalia Khoury MD [address] [facility] [address] [place] [address] documented as of this encounter Procedures Procedure Name Priority Date/Time Associated Diagnosis Comments CULTURE URINE Routine 12/24/2024 11:03 AM EDT Other abnormal findings in urine documented in this encounter Results * (ABNORMAL) Culture urine (12/24/2024 11:03 AM EDT) Culture, Urine >=100,000 CFU/mL Escherichia coli(A) NAFISA 12/26/2024 8:37 AM EDT [facility] Urine Urine specimen from urethra / Unknown Non-blood Collection / Unknown 12/24/2024 11:03 AM EDT 12/24/2024 12:11 PM EDT Narrative Organism Antibiotic Method Susceptibility Escherichia coli Amoxicillin/Clavulanate NAFISA <=2 ug/ml: Susceptible Escherichia coli Ampicillin/Sulbactam NAFISA <=2 ug/ml: Susceptible Escherichia coli Piperacillin/Tazobactam NAFISA <=4 ug/ml: Susceptible Escherichia coli Cefazolin (Urine) NAFISA <=1 ug/ml: Susceptible Escherichia coli Cefoxitin NAFISA <=4 [...] Escherichia coli Trimethoprim/Sulfamethoxazole NAFISA <=20 ug/ml: Susceptible us kSip Mccain MD LAB MICROBIOLOGY - GENER AL ORDERABLES Final Result [facility] [address] [place] [address], documented in this encounter Visit Diagnoses Diagnosis Other abnormal findings in urine documented in this encounter Care Teams Milieu Counselor Relationship Specialty Start Date End Date Ralph Colorado MD [address] [place] [address] Dr [address] [place] PCP - General 05/15/22 documented as of this encounter
--- OUTSIDE RECORDS SUMMARY | 2025-03-01 10:01 | XMS_ITS | Clinical Summary ---
Author Organization [facility] 299 [facility] Address [address] [place] [address] Phone Care Team Providers Care Embedded Software Programmer Name Role Phone Ralph Colorado MD Primary Care Provider + [phone] Allergies Active Allergy Reactions Criticality Noted Date Comments Ibuprofen 09/10/2022 Medications buPROPion SR (WELLBUTRIN SR) 150 mg 12 hr tablet Take 300 mg by mouth. Daily Active calcium carbonate/vitami n D3 (CALCIUM + D ORAL) Take by [...] Inhale 2 puffs by mouth. 06/19/2022 Active Vitamin D3 25 mcg (1,000 unit) capsuleIndicatio ns:Vitamin D deficiency TAKE 1 CAPSULE BY MOUTH ONCE DAILY 90 capsule 2 06/21/2024 Active mesalamine (LIALDA) 1.2 gram EC tablet Take 1 tablet (1.2 g total) by mouth 4 (four) times a day. Do not crush, chew, or split. 120 each 11 11/03/2024 11/04/19 26 Active sucralfate (CARAFATE) 100 mg/mL suspensionIndica tions:Gastroesop hageal reflux disease, unspecified whether esophagitis present Take 10 mL (1 g total) by mouth 4 (four) times a day (with meals and nightly). Take 1 hour before meals and at bedtime 1200 mL 11/03/2024 11/04/19 26 Active omeprazole (PriLOSEC) [address] Burden ns:GERD (gastroesophagea l reflux disease) TAKE 1 CAPSULE BY MOUTH TWICE A DAY 180 capsule 1 11/22/2024 Active Active Problems Problem Noted Date Diagnosed Date Hiatal hernia 04/18/2024 Assessment & Plan (04/18/2024 4:11 PM EST): Ms. Fleming is a 68 yr. female who initially [...] salpingo-oophorectomy (RAFI-BSO) 03/26/2024 GERD (gastroesophageal reflux disease) Overview (03/25/2024): Last Assessment & Plan: Ms. Fleming is a 68 year old female who [...] small hiatal hernia and a relaxed LES. Will check a repeat barium swallow to assess for recurrence of her hernia and/or worsening esophageal dysmotility. Patient will have a follow up in the office after this test to discuss results and any potential intervention. Patient to call with questions or concerns prior to her next appointment. Assessment & Plan (11/03/2024 8:13 AM EDT): Continue BID PPI/ add carafate prn Orders: sucralfate (CARAFATE) 100 mg/mL suspension; Take 10 mL (1 g total) by mouth 4 (four) times a day (with meals and nightly). Take 1 hour before meals and at bedtime HTN (hypertension) 10/24/2023 Overview (03/25/2024): Last Assessment [...] 01/16/2015 Chronic back pain 01/16/2015 Crohn's disease (CMS/HCC V24, CMS/HCC V28) 01/16 Depression 01/16/2015 Recurrent UTI 01/16/2015 Encounters Date Type Department Care Team Description 02/28/2025 Telephone Gastroenterology - [address] [phone] Dalia Khoury MD 01/18/2025 7:45 AM EDT - 01/18/2025 11:59 PM EDT Hospital Encounter [facility] CT Scan [address] [place] [phone] Encounter for screening for malignant neoplasm of respiratory organs; Nicotine dependence, cigarettes, uncomplicated Discharge Disposition: Home or Self Care 12/28/2024 Telephone Gastroenterology - [address] [phone] Dalia Khoury MD 12/24/2024 Telephone Lung Screening Program - Dewy Rose 299 [facility] [address] [place] [address] Rissa العلي [place] 12/24/2024 Lab Requisition [facility] - Main Lab 299 [facility] [place] [address] Skip Mccain MD Other abnormal findings in urine from Last 3 Months Immunizations Immunization Administration Dates Next Due Influenza Quadravalent, MDCK [...] PROCEDURE: HISTORICAL OOPHORECTOMY PARTIAL HYSTERECTOMY 05/26/1999 PROCEDURE: MA SUPRACERVICAL ABDL HYSTER W/WO RMVL TUBE OVARY OTHER SURGICAL HISTORY PROCEDURE: MA CYSTO MANJ W/O RMVL URETERAL STONE; COMMENT: s/p bladder lift SINUS SURGERY 05/26/2016 PROCEDURE: MA UNLISTED PROCEDURE ACCESSORY SINUSES OTHER SURGICAL HISTORY 06/11/2022 Right PROCEDURE: MA RMVL LUNG OTHER THAN PNEUMONECT 1 SEGMENTECTOMY; COMMENT: Da Fauzia RLL superior segmentectomy, mediastinal lymphadenectomy, bronch w aspiration OTHER SURGICAL HISTORY 09/18/2022 PROCEDURE: MA LAPS RPR PARAESPHGL HRNA INCL FUNDPLSTY W/MESH OTHER SURGICAL HISTORY 04/15/2023 N/A PROCEDURE: MA LAPS RPR PARAESPHGL HRNA INCL FUNDPLSTY W/MESH Medical History Medical History Date Comments Chronic back pain DX:Chronic eleanor k pain Chronic knee pain DX:Chronic kne e pain Crohn disease (CMS/HCC V24, CMS/HCC V28) DX:Crohn disease (HCC); COMM ENT: last colonscopy 2012; dr jermaine cobian Chronic UTI DX:Chronic UTI Depression DX:Depression Anxiety DX:Anxiety; COMM E[facility]: [facility] Cystocele 02/07/2015 DX:Cystocele Osteopenia 02/07/2015 DX:Osteopenia Allergic [...] Brother 2 Heart attack Father Hypertension Father [place] at age 46, s moker Kidney cancer [...] 93 03/31/2024 2:50 PM EST Temperature 36.8 C (98.2 F) 03/31/2024 2:50 PM EST Respiratory Rate 14 03/31/2024 2:50 PM EST Oxygen Saturation 97% 03/31/2024 2:50 PM EST Inhaled Oxygen Concentration - - Weight 65.8 kg (145 lb) 11/03/2024 8:15 AM EDT Height 154.9 cm (5' 1 ) 03/31/2024 2:50 PM EST Body Mass Index 27.4 03/31/2024 2:50 PM EST Plan of Treatment Upcoming Encounters Date Type Department Care Team (Late st Contact Info) Description 03/11/2025 9:00 AM EDT Office Visit Gastroenterology - [address] [facility] [address] [place] [address] Dalia Khuory MD [address] [facility] [address] [place] [address] Health Maintenance Due Date Last Done Comments DTaP,Tdap,and Td Vaccines (2 - Td or Tdap) 11/08/2015 11/07/2005 Breast Cancer Screening 01/21/2020 01/20/2018 Falls Risk Assessment 04/27/2022 Medicare Annual Wellness Visit 04/27/2022 Social Influencers of Health Screening 04/27/2022 Cholesterol Screening (Lipid Panel) 08/12/2022 08/12/2017 Hypertension/CHF/CAD Annual BMP Blood Test 12/18/2023 06/24/2018 Depression Screening 05/26/2024 COVID-19 Vaccine ( season) 2025 08/06/2023, 03/18/2023, 06/05/2022, Additional history exists Influenza Vaccine (#1) 2025 , 03/13/2023, 03/18/2022, Additional history exists Pneumococcal Vaccine: 50+ Years (3 of 3 - PCV20 or PCV21) 06/15/2026 06/15/2021, 03/30/2016 Colorectal Cancer Screening: Colonoscopy 11/16/2026 11/16/2024, 06/25/2017 Osteoporosis Screening (Bone Density Screening) 01/21/2028 01/20/2018 Hepatitis C Screening Completed 11/03/2015 Zoster Vaccines Completed 04/12/2018, 11/2017, 07/19/2016 RSV Immunization Adult Patients Completed 09/21/2024 HIB Vaccines Aged Out No longer eligi [...] Name Priority Date/Time Associated Diagnosis Comments CT CHEST WO CONTRAST (LUNG-RADS F/U) Routine 01/18/2025 7:51 AM EDT Encounter for screening for malignant neoplasm of respiratory organs Nicotine dependence, cigarettes, uncomplicated CULTURE URINE Routine 12/24/2024 11:03 AM EDT Other abnormal findings in urine COLONOSCOPY Routine 11/16/2024 9:42 AM EDT ANNUAL BMP BLOOD TEST Routine 06/24/2018 SCR MAMMO BI INCL CAD Routine 01/20/2018 10:31 AM EDT Encounter for screening mammogram for malignant neoplasm of breast DXA BONE DENSITY STUDY 1+ SITS AXIAL SKEL Routine 01/20/2018 10:16 AM EDT Asymptomatic menopausal state LIPID PANEL Routine 08/12/2017 HEPATITIS C SCREENING Routine 11/03/2015 from Last 3 Months or Most Recently Relevant to Health Maintenance Results * CT Chest wo Contrast (Lung-RADS F/U) (01/18/2025 7:51 AM EDT) Anatomical Region Laterality Modality Body Computed Tomogra phy 01/21/2025 12:1 6 PM EDT Impressions 01/21/2025 12:41 PM EDT Unchanged small pleural associated nodule in the posterior left upper lobe. Prior right lung surgery. No new suspicious abnormality. The patient can resume high risk screening LUNG RADS: Lung-RADS 2: BENIGN S Modifier (Significant or Potentially Significant Findings): None present No suspicious nonpulmonary findings. RECOMMENDATIONS: 12 month screening low dose CT -------- FINAL REPORT -------- Dictated By: Andrew Jenkins Dictated Date: 01/21/2025 12:16 ET Assigned Physician: Andrew Jenkins Reviewed and Electronically Signed By: Andrew Jenkins Signed Date: 01/21/2025 12:41 ET Workstation ID: [id number] Transcribed By: Self Edit Transcribed Date: 01/21/2025 12:16 ET Narrative 01/21/2025 12:41 PM EDT EXAMINATION: CT CHEST WITHOUT CONTRAST CLINICAL INFORMATION: Lung nodule. Abnormal lung cancer screening CT COMPARISON: Portions of previous 07/18/24 TECHNIQUE: Multidetector CT. Examination of the chest. Examination of the chest without IV contrast. Reformatting in the coronal and sagittal planes. Device: [employer] VCT DLP: 149 mGy-cm CTDI: 4.83 Dose optimization was performed including the use of low-dose iterative reconstruction technique with automatic exposure control based on patient size. Type of contrast: None Volume of IV contrast: None Volume of contrast discarded: 0 mL FINDINGS: Digital freight receiver demonstrates volume loss in the thoracolumbar junction region and instrumentation of the left proximal humerus. LUNG: No suspicious abnormality of the trachea or mainstem bronchi. Postsurgical changes perhaps related to segmentectomy in the superior aspect of the right lower lobe. No convincing evidence of recurrent abnormality at the stump. LUNG NODULES: Small irregular pleural associated nodule in the posterior left upper lobe with slight tenting of the fissure 01/18/25-0.3 cm (4/45) 07/18/24-0.3 cm (remeasured) 06/30/23-not present OTHER PULMONARY: There is no new suspicious mass or nodule. There are linear and reticular opacities bilaterally with some volume loss in the inferior lingula and the posteromedial left lower lobe. MEDIASTINUM: Unchanged small left lobe thyroid nodule. No measurably enlarged mediastinal or hilar lymph nodes. There is a large hiatal hernia. CARDIAC: The heart is not enlarged. No pericardial fluid or thickening There are mild coronary calcifications. VASCULAR: There is no thoracic aortic aneurysm. The right and left pulmonary arteries are prominent. PLEURA: There is no pleural fluid or pneumothorax AXILLA/CHEST WALL: There are no enlarged axillary lymph nodes. No chest wall mass demonstrated. There is a fat attenuating posterior left lower chest wall mass likely a lipoma. VISUALIZED UPPER ABDOMEN: No suspicious abnormality on limited assessment of the visualized upper abdomen. No change in the left adrenal gland. There is a round low attenuating mass in the medial left upper kidney. This likely represents a cyst. MUSCULOSKELETAL: No suspicious focal bony lesion demonstrated. Moderate compression deformity T11. Marked compression deformity L1. Minimal compression deformity T5 and T6. These appear unchanged. Procedure Note Andrew Jenkins MD - 01/21/2025 EXAMINATION: CT CHEST WITHOUT CONTRAST CLINICAL INFORMATION: Lung nodule. Abnormal lung cancer screening CT COMPARISON: Portions of previous 07/18/24 TECHNIQUE: Multidetector CT. Examination of the chest. Examination of the chest without IV contrast. Reformatting in the coronal and sagittal planes. Device: Lightspeed VCT DLP: 149 mGy-cm CTDI: 4.83 Dose optimization was performed including the use of low-dose iterativereconstruction technique with automatic exposure control based on patientsize. Type of contrast: None Volume of IV contrast: None Volume of contrast discarded: 0 mL FINDINGS: Digital freight receiver demonstrates volume loss in the thoracolumbar junctionregion and instrumentation of the left proximal humerus. LUNG: No suspicious abnormality of the trachea or mainstem bronchi.Postsurgical changes perhaps related to segmentectomy in the superioraspect of the right lower lobe. No convincing evidence of recurrentabnormality at the stump. LUNG NODULES: Small irregular pleural associated nodule in the posterior left upper lobewith slight tenting of the fissure 01/18/25-0.3 cm (4/45) 07/18/24-0.3 cm (remeasured) 06/30/23-not present OTHER PULMONARY: There is no new suspicious mass or nodule. There arelinear and reticular opacities bilaterally with some volume loss in theinferior lingula and the posteromedial left lower lobe. MEDIASTINUM: Unchanged small left lobe thyroid nodule. No measurablyenlarged mediastinal or hilar lymph nodes. There is a large hiatalhernia. CARDIAC: The heart is not enlarged. No pericardial fluid or thickening There are mild coronary calcifications. VASCULAR: There is no thoracic aortic aneurysm. The right and leftpulmonary arteries are prominent. PLEURA: There is no pleural fluid or pneumothorax AXILLA/CHEST WALL: There are no enlarged axillary lymph nodes. No chestwall mass demonstrated. There is a fat attenuating posterior left lowerchest wall mass likely a lipoma. VISUALIZED UPPER ABDOMEN: No suspicious abnormality on limited assessmentof the visualized upper abdomen. No change in the left adrenal gland.There is a round low attenuating mass in the medial left upper kidney.This likely represents a cyst. MUSCULOSKELETAL: No suspicious focal bony lesion demonstrated. Moderatecompression deformity T11. Marked compression deformity L1. Minimalcompression deformity T5 and T6. These appear unchanged. IMPRESSION: Unchanged small pleural associated nodule in the posterior left upperlobe. Prior right lung surgery. No new suspicious abnormality. The patient can resume high risk screening LUNG RADS: Lung-RADS 2: BENIGN S Modifier (Significant or Potentially Significant Findings): Nonepresent No suspicious nonpulmonary findings. RECOMMENDATIONS: 12 month screening low dose CT -------- FINAL REPORT -------- Dictated By: Andrew Jenkins Dictated Date: 01/21/2025 12:16 ET Assigned Physician: Andrew Jenkins Reviewed and Electronically Signed By: Andrew Jenkins Signed Date: 01/21/2025 12:41 ET Workstation ID: [id number] Transcribed By: Self Edit Transcribed Date: 01/21/2025 12:16 ET us Dennis Camara MD [facility] PROCEDURES Final Result * (ABNORMAL) Culture urine (12/24/2024 11:03 AM EDT) Culture, Urine >=100,000 CFU/mL Escherichia coli(A) NAFISA 12/26/2024 8:37 AM EDT [facility] Urine Urine specimen from urethra / [...] Escherichia coli Trimethoprim/Sulfamethoxazole NAFISA <=20 ug/ml: Susceptible Skip Mccain MD LAB MICROBIOLOGY - GENER AL ORDERABLES Final Result [facility] [address] [place] [address], [place] [phone] * COLONOSCOPY (11/16/2024 9:42 AM EDT) Anatomical Region Laterality Modality Endoscopy Historical Provider GI~PROCEDURE ORDERABLES F inal Result * Annual [facility] Blood Test (06/24/2018) Pathologist [facility] Annual [facility] Blood Test Abstracted Historical Provider HEALTH MAINTENANCE [...] reviewed with CAD and compared to previous. The breasts are composed of fatty and fibroglandular tissue. No suspicious mass, architectural distortion or suspicious calcifications [...] Narrative 01/20/2018 4:47 PM EDT BONE DENSITY Lumbar Spine T-score is -3.8 (SD relative to 20-29 y/o adult) Z-score is -2.3 (SD relative to age matched peers) This is consistent with osteoporosis by criteria defined by the WHO. Left Hip T-score is -2.0 Z-score is -0.6 This is consistent with osteopenia by criteria defined by the WHO. Impression: Based on the World Health Organization criteria, Manju Fleming should be classified as having osteoporosis. [facility] Department of Internal Medicine recommends using [...] Based on the World Health Organization criteria, Manju Fleming should beclassified as having osteoporosis. [facility] Department of Internal Medicine recommendsusing National [...] risk by FRAX. 22 Mirella Kimble DO [facility] DXA PROCEDURE S Final Result * (ABNORMAL) Lipid panel (08/12/2017) [facility] LDL/HDL Ratio 4 0 - 4 Triglycerides 120 0 - 150 mg/dL Cholesterol 198 0 - 200 mg/dL HDL 54 >=40 mg/dL LDL Cholesterol 120(A) 0 - 100 mg/dL Blood Venous blood specimen / Unknown Historical Provider LAB BLOOD ORDERABLES Barbara l Result * Hepatitis C Screening (11/03/2015) [facility] Hepatitis C Screening Abstracted Historical Provider HEALTH MAINTENANCE Final Result from Last 3 Months or Most Recently Relevant to Health Maintenance Insurance [employer] MEDICAID - [place] Care Teams Embedded Software Programmer Relationship Specialty Start Date End Date Ralph Colorado MD [address] [place] [address] [address] [place], [place] PCP - General 05/15/22
--- OUTSIDE RECORDS SUMMARY | 2025-03-01 10:01 | XMS_ITS | Encounter Summary ---
Author Organization [facility] Address [address] [place] [address] Care Team Providers Care Hospital Fellow Name Role Phone Ralph Colorado MD Primary Care Provider Encounter Details Date Type Department Care Team (Late Contact Info) Description 04/09/[address] [facility] - Main Lab [address] [facility] [place] [phone] Jaja Cornelius MD [address] [address] Dysuria Social History Tobacco Use Types Packs/Day [...] Office Visit Gastroenterology - [address] [facility] [address] [place] [phone] Dalia Khoury MD 299 [facility] [address] [place] [address] documented as of this encounter Procedures Procedure Name Priority Date/Time Associated Diagnosis Comments CULTURE URINE Routine 04/09/2024 12:00 AM EST Dysuria documented in this encounter Results * (ABNORMAL) Culture urine (04/09/2024 12:00 AM EST) Culture, Urine >100,000 CFU/mL Escherichia coli(A) NAFISA 04/11/2024 9:[address] [facility] Comment: This is an edited result. [...] coli Trimethoprim/Sulfamethoxazole NAFISA <=20 ug/ml: Susceptible us Jaja Cornelius MD LAB MICROBIOLOGY - G ENERAL ORDERABLES Final Result [facility] [address] [place] [address], documented in this encounter Visit Diagnoses Diagnosis Dysuria documented in this encounter Care Teams Hospital Fellow Relationship Specialty Start Date End Date Ralph Colorado MD [address] [place] PCP - General 05/15/22 documented as of this encounter
--- OUTSIDE RECORDS SUMMARY | 2025-03-01 10:01 | XMS_ITS | Encounter Summary ---
Author Organization [facility] Address [address] [place] [address] Care Team Providers Care Car Hop Name Role Phone Ralph Colorado MD Primary Care Provider + [phone] Reason for Visit * Reason Onset Date Comments Referral 02/28/2025 Encounter Details Date Type Department Care Team (Late st Contact Info) Description 02/28/2025 Telephone Gastroenterology - [address] [facility] [facility] [address] [place] [phone] Dalia Khoury MD [address] [place] [address] Social History Tobacco Use Types Packs/Day Years [...] AM EST documented as of this encounter Progress Notes * Vicente Ivy - 02/28/2025 1:13 PM EDT .. documented in this encounter Plan of Treatment Upcoming Encounters Date Type Department Care Team (Late st Contact Info) Description 03/11/2025 9:00 AM EDT Office Visit Gastroenterology - 299 [address] [facility] [facility] [address] [place] [phone] Dalia Khoury MD [address] [facility] [address] [place] [address] documented as of this encounter Visit Diagnoses Not on filedocumented in this encounter Care Teams Car Hop Relationship Specialty Start Date End Date Ralph Colorado MD [address] [place] [address] [address] [place], [place] PCP - General 05/15/22 documented as of this encounter
--- OUTSIDE RECORDS SUMMARY | 2025-03-01 10:01 | XMS_ITS | Encounter Summary ---
Author Organization [facility] Address [address] [place] [address] Care Team Providers Care Computer Hardware Developer Name Role Phone Ralph Colorado MD Primary Care Provider Encounter Details Date Type Department Care Team (Late Contact Info) Description 10/01/2024 Lab Requisition [facility] - Main Lab [address] [facility] [place] [phone] Senia Lambert NP [address] [facility] [address] [place] [address] Frequency of micturition Social History Tobacco Use Types Packs/Day Years [...] 3:34 PM EST Sexual Orientation Straight 07/18/2024 8 :50 AM EST documented as of this encounter Plan of Treatment Upcoming Encounters Date Type Department Care Team (Late Contact Info) Description 03/11/2025 9:00 AM EDT Office Visit Gastroenterology - 299 [address] [facility] [address] [place] [phone] Dalia Khoury MD 299 [facility] [address] [place] [address] documented as of this encounter Procedures Procedure Name Priority Date/Time Associated Diagnosis Comments CULTURE URINE Routine 10/01/2024 12:00 AM EDT Frequency of micturition documented in this encounter Results * (ABNORMAL) Culture urine (10/01/2024 12:00 AM EDT) Culture, Urine 50,000-100,000 CFU/mL Escherichia coli(A) NAFISA 10/03/2024 8:[address] [facility] Comment: This is an edited result. Previous organism was Gram negative bacilli on 10/02/2024 at 0728 EDT. Urine Urine specimen from urinary conduit / Unknown 10/01/2024 10/01/2024 7:14 PM EDT Narrative Organism Antibiotic Method Susceptibility Escherichia coli Amoxicillin/Clavulanate NAFISA 16 ug/ml: Intermediate Escherichia coli Ampicillin/Sulbactam NAFISA >=32 ug/ml: Resistant Escherichia coli Piperacillin/Tazobactam NAFISA >=128 ug/ml: Resistant Escherichia coli Cefazolin (Urine) NAFISA >=32 ug/ml: Resistant Escherichia coli Cefoxitin NAFISA <=4 ug/ml: Susceptible Escherichia coli Ceftazidime NAFISA <=0.5 ug/ml: Susceptible Escherichia coli Ceftriaxone NAFISA <=0.25 ug/ml: Susceptible Escherichia coli Cefepime NAFISA <=0.12 ug/ml: Susceptible Escherichia coli Meropenem NAFISA <=0.25 ug/ml: Susceptible Escherichia coli Amikacin NAFISA 4 ug/ml: Susceptible Escherichia coli Gentamicin NAFISA <=1 ug/ml: Susceptible Escherichia coli Ciprofloxacin NAFISA >=4 ug/ml: Resistant Escherichia coli Levofloxacin NAFISA >=8 ug/ml: Resistant Escherichia coli Nitrofurantoin NAFISA <=16 ug/ml: Susceptible Escherichia coli Trimethoprim/Sulfamethoxazole NAFISA >=320 ug/ml: Resistant us Senia Lambert [facility] LAB MICROBIOLOGY - GENERA L ORDERABLES Final Result [facility] [address] [place] [address], documented in this encounter Visit Diagnoses Diagnosis Frequency of micturition Urinary frequency documented in this encounter Care Teams Computer Hardware Developer Relationship Specialty Start Date End Date Ralph Colorado MD [address] [place] [address] Dr [address] JAMES Alvarado PCP - General 05/15/22 documented as of this encounter
--- OUTSIDE RECORDS SUMMARY | 2025-03-01 10:01 | XMS_ITS | Encounter Summary ---
Author Organization [facility] Address [address] [place] [address] Care Team Providers Care Fresh Food Manager Name Role Phone Ralph Colorado MD Primary Care Provider Encounter Details Date Type Department Care Team (Late Contact Info) Description 07/16/[address] [facility] - Main Lab 299 [facility] [place] [phone] Senia Lambert NP 3640 [facility] 103 [place] [address] Urgency of urination Social History Tobacco Use [...] Office Visit Gastroenterology - 299 [address] [facility] [address] [place] [phone] Dalia Khoury MD 299 [facility] 419 [place] [address] documented as of this encounter Procedures Procedure Name Priority Date/Time Associated Diagnosis Comments CULTURE URINE Routine 07/16/2024 12:00 AM EST Urgency of urination documented in this encounter Results * Culture urine (07/16/2024 12:00 AM EST) Culture, Urine 10,000-49,000 CFU/mL Mixed bacterial morphotypes present suggestive of possible contamination during collection. Suggest appropriate recollection if clinically indicated. 07/17/2024 8:59 AM EST [facility] Urine Urine specimen from urinary conduit / Unknown 07/16/2024 07/16/2024 2:02 PM EST us Senia Lambert FIELD CROP II FARMWORKER LAB MICROBIOLOGY - GENERA L ORDERABLES Final Result [facility] 299 [place] [address], documented in this encounter Visit Diagnoses Diagnosis Urgency of urination documented in this encounter Care Teams Fresh Food Manager Relationship Specialty Start Date End Date Ralph Colorado MD [address] [place] [address] Dr Pierre [address] JAMES Alvarado PCP - General 05/15/22 documented as of this encounter
--- OUTSIDE RECORDS SUMMARY | 2025-03-01 10:01 | XMS_ITS | Encounter Summary ---
Author Organization [facility] Address [address] [place] [address] Care Team Providers Care Dry Drug Worker Name Role Phone Ralph Colorado MD Primary Care Provider Encounter Details Date Type Department Care Team (Late st Contact Info) Description 10/29/2024 Lab Requisition [facility] - Main Lab 299 [facility] [place] [address] Skip Mccain MD [facility] [place] [address] Urinary tract infection, site not specified Social History Tobacco Use Types Packs/Day Years [...] Office Visit Gastroenterology - 299 [address] 299 [facility] [address] [place] [phone] Dalia Khoury MD 299 [facility] 419 [place] [address] documented as of this encounter Procedures Procedure Name Priority Date/Time Associated Diagnosis Comments CULTURE URINE Routine 10/29/2024 9:47 AM EDT Urinary tract infection, site not specified documented in this encounter Results * (ABNORMAL) Culture urine (10/29/2024 9:47 AM EDT) Culture, Urine 10,000-49,0 00 CFU/mL Proteus mirabilis(A ) NAFISA 10/31/2024 8:50 AM EDT [facility] Comment: Edited result: Previously reported as Proteus species on 10/30/2024 at 0803 EDT. Urine Urine specimen from urethra / Unknown 10/29/2024 9:47 AM EDT 10/29/2024 12:43 PM EDT Narrative Organism Antibiotic Method Susceptibility Proteus mirabilis Amoxicillin/Clavulanate NAFISA <=2 ug/ml: Susceptible Proteus mirabilis Ampicillin/Sulbactam NAFISA <=2 ug/ml: Susceptible Proteus mirabilis Piperacillin/Tazobactam NAFISA <=4 ug/ml: Susceptible Proteus mirabilis Cefazolin (Urine) NAFISA 4 ug/ml: Susceptible Proteus mirabilis Cefoxitin NAFISA <=4 ug/ml: Susceptible Proteus mirabilis Ceftazidime NAFISA <=0.5 ug/ml: Susceptible Proteus mirabilis Ceftriaxone NAFISA <=0.25 ug/ml: Susceptible Proteus mirabilis Cefepime NAFISA <=0.12 ug/ml: Susceptible Proteus mirabilis Meropenem NAFISA <=0.25 ug/ml: Susceptible Proteus mirabilis Amikacin NAFISA 4 ug/ml: Susceptible Proteus mirabilis Gentamicin NAFISA <=1 ug/ml: Susceptible Proteus mirabilis Ciprofloxacin NAFISA <=0.06 ug/ml: Susceptible Proteus mirabilis Levofloxacin NAFISA <=0.12 ug/ml: Susceptible Proteus mirabilis Nitrofurantoin NAFISA 128 ug/ml: Resistant Proteus mirabilis Trimethoprim/Sulfamethoxazole NAFISA <=20 ug/ml: Susceptible Skip Mccain MD LAB MICROBIOLOGY - GENER AL ORDERABLES Final Result [facility] [address] [place] [address], documented in this encounter Visit Diagnoses Diagnosis Urinary tract infection, site not specified documented in this encounter Care Teams Dry Drug Worker Relationship Specialty Start Date End Date Ralph Colorado MD [address] [place] [address] Dr [address] [place], [place] PCP - General 05/15/22 documented as of this encounter
--- OUTSIDE RECORDS SUMMARY | 2025-03-01 10:01 | XMS_ITS | Clinical Summary ---
Author Organization [facility] Address [address] [place] [address] Care Team Providers Care Appraisal Analyst Name Role Phone Unavailable Primary Care Provider [...] Not on file [place]
== END 2025-03-01 10:52 | disposition home or self-care (01) ==
LOC: HO.HMCH 09:07
PROVIDERS: PCP Internal Medicine
DX: M25.562 Pain in left knee (principal)

== ENCOUNTER → 2025-03-01 09:06 | Outpatient (BNVA) | payer OTHER, SELFPAY | PROVIDERS: PCP Internal Medicine | DX: M81.0 Age-related osteoporosis without current pathological fracture (principal) | CPT/HCPCS: 99212 ==

== ENCOUNTER 2025-04-05 07:11 | Emergency (ER) | payer OTHER, SELFPAY ==
--- NOTE | ~2025-04-05 | XR_ITS ---
EXAMINATION: Thoracic spine, lumbar spine and chest x-ray with right RIBS. CLINICAL INDICATION: Right posterior lateral rib pain low back pain and mid back pain status post lifting injury. COMPARISON: Chest x-ray 05/14/2022. CT chest 11/03/2023 TECHNIQUE: Thoracic spine 2 views. Lumbar spine 3 views. Chest with right RIBS 4 views. FINDINGS: Thoracic spine: There is maintained thoracic kyphosis. There is anterior wedging of T11, T10 and T9 vertebrae, slightly worse at the T11 level. Rest of the vertebral heights, alignment and disc heights are normal. No visible acute fracture, dislocation or subluxation seen. The soft tissues are normal. There is mild dextroscoliosis of the dorsal lumbar junction. Chest with right RIBS: The lungs are expanded and clear of acute process. There has chain link sutures in the right midlung from previous wedge resection or lung intervention.. The heart size and pulmonary vascular is normal. There is small to moderate size hiatal hernia. No pleural effusion or thickening seen. Multiple views of right ribs obtained with a marker along the lower chest reveals nondisplaced fracture right lateral fourth, fifth and likely sixth rib fractures. There is no visible pneumothorax. Lumbar spine: There is normal lumbar lordosis. There is anterior wedging of L4, L1 and T11 vertebra. The L1 and L4 vertebral deformities are new since the previous CT chest exam 11/03/2023. The disc heights are maintained normal. No lytic or sclerotic process seen. The SI joints are symmetrical. The soft tissues are normal. XR/XR ribs RT min 3V w CXR1V IMPRESSION: Suspect lower right rib fractures involving fourth, fifth and likely sixth ribs. Compression fractures T11 vertebra likely old from 2023. There are new compression fractures L1 and L4 vertebra. Recommend CAT scan of lumbar spine if kyphoplasty is to be performed as part of treatment. Small to moderate size hiatal hernia. The lungs are otherwise clear. Electronically signed by: Daniel Michael MD 04/05/2025 09:24 AM [facility]
--- NOTE | ~2025-04-05 | XR_ITS ---
EXAMINATION: Thoracic spine, lumbar spine and chest x-ray with right RIBS. CLINICAL INDICATION: Right posterior lateral rib pain low back pain and mid back pain status post lifting injury. COMPARISON: Chest x-ray 05/14/2022. CT chest 11/03/2023 TECHNIQUE: Thoracic spine 2 views. Lumbar spine 3 views. Chest with right RIBS 4 views. FINDINGS: Thoracic spine: There is maintained thoracic kyphosis. There is anterior wedging of T11, T10 and T9 vertebrae, slightly worse at the T11 level. Rest of the vertebral heights, alignment and disc heights are normal. No visible acute fracture, dislocation or subluxation seen. The soft tissues are normal. There is mild dextroscoliosis of the dorsal lumbar junction. Chest with right RIBS: The lungs are expanded and clear of acute process. There has chain link sutures in the right midlung from previous wedge resection or lung intervention.. The heart size and pulmonary vascular is normal. There is small to moderate size hiatal hernia. No pleural effusion or thickening seen. Multiple views of right ribs obtained with a marker along the lower chest reveals nondisplaced fracture right lateral fourth, fifth and likely sixth rib fractures. There is no visible pneumothorax. Lumbar spine: There is normal lumbar lordosis. There is anterior wedging of L4, L1 and T11 vertebra. The L1 and L4 vertebral deformities are new since the previous CT chest exam 11/03/2023. The disc heights are maintained normal. No lytic or sclerotic process seen. The SI joints are symmetrical. The soft tissues are normal. XR/XR thoracic spine 3V IMPRESSION: Suspect lower right rib fractures involving fourth, fifth and likely sixth ribs. Compression fractures T11 vertebra likely old from 2023. There are new compression fractures L1 and L4 vertebra. Recommend CAT scan of lumbar spine if kyphoplasty is to be performed as part of treatment. Small to moderate size hiatal hernia. The lungs are otherwise clear. Electronically signed by: Daniel Michael MD 04/05/2025 09:24 AM EST
--- NOTE | ~2025-04-05 | CT_ITS ---
EXAMINATION: CT CHEST WITHOUT CONTRAST CLINICAL INFORMATION: Fractures. COMPARISON: November 03, 2023. TECHNIQUE: Multidetector volumetric CT imaging of the chest was done. Axial MIP volume rendering provided. Sagittal and coronal reformatted images were obtained. This CT examination was performed using dose optimization techniques as appropriate, variously including the following: *Automated exposure control *Adjustment of mA and/or kV according to patient size (this includes techniques or standardized protocols for targeted exams where dose is matched to indication/reason for exam; i.e. extremities or head) *Use of iterative reconstruction technique DLP: 247 mGy-cm FINDINGS: [employer]: Patient's large body habitus. Metallic hardware in the proximal left humerus. Cardiac mediastinal silhouette appears prominent. There is a hiatal hernia. Multilevel spondylosis. LUNGS: Linear and patchy attenuation abnormalities in the lung bases and lingula and right middle lung lobe. Focal bronchiectasis in the left lung base. No gross consolidation. No gross pulmonary nodule. MEDIASTINUM: Hiatal hernia, moderate size. Nonspecific mildly prominent mediastinal lymph nodes. Calcified plaque thoracic aorta wall without aneurysm. Calcified plaque in the coronary arteries. No pneumomediastinum. No pericardial effusion. No hemopericardium. Thyroid gland is not enlarged. CORONARY ARTERY CALCIFICATION: Calcified plaques. PLEURA: No pleural effusion. No pneumothorax. No hemothorax. No calcified pleural plaques. AXILLA: No lymphadenopathy. UPPER ABDOMEN: Hiatal hernia, moderate size. Subtle nodular surface of the liver. Probable cholelithiasis. Probable nonobstructing nephrolithiasis, right kidney. Cystic lesions in the kidneys. Mild prominent adrenal glands measuring less than 10 Hounsfield units. Calcified plaque splenic artery. No gross ascites. OSSEOUS STRUCTURES: No acute rib fracture. Multilevel compression fracture deformities likely osteoporotic in nature, the most conspicuous at L1, new since 2023. There is a superior endplate compression deformity at T11 representing 60% volume loss. There is 3 mm retropulsion upon central canal in the compression deformities at L1 and T11. Sternum is intact. There is a 7 cm fat density herniation through a focal abdominal wall defect in the left retroperitoneum adjacent to the left kidney. CT/CT chest wo IV con IMPRESSION: No acute rib fracture. Acute to subacute osteoporotic compression fracture deformities throughout the thoracic spine and L1 vertebra No acute airspace disease. Hiatal hernia. Coronary artery disease and atherosclerosis disease. 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 7 cm fat containing hernia left posterior lower thorax/lumbar region.. Fleischner guidelines were followed. Electronically signed by: Kashif Solis MD 04/05/2025 01:37 PM [facility]
[2025-04-05 07:14] VITALS: BP 155/85; PULSE 103; RESP 20; TEMP 36.2; O2SAT 96; BMI 28.3
--- OUTSIDE RECORDS SUMMARY | 2025-04-05 07:41 | XMS_ITS | Encounter Summary ---
Author Organization [facility] Address [address] [place] [address] Care Team Providers Care Head Filter Tank Tender Helper Name Role Phone Ralph Colorado MD Primary Care Provider + [phone] Encounter Details Date Type Department Care Team (Late st Contact Info) Description 12/24/2024 Lab Requisition [facility] - Main Lab 299 [facility] [place] [address] Skip Mccain MD [facility] [place] [address] Other abnormal findings in urine Social History Tobacco Use Types Packs/Day Years Used Date Smoking Tobacco: Former Cigarettes 0 Q uit: 04/25/2023 Smokeless Tobacco: Never Alcohol [...] Escherichia coli(A) NAFISA 12/26/2024 8:[address] [facility] Urine Urine specimen from urethra [...] coli Trimethoprim/Sulfamethoxazole NAFISA <=20 ug/ml: Susceptible us Skip Mccain MD LAB MICROBIOLOGY - GENER AL ORDERABLES Final Result [facility] [address] [place] [address], documented in this encounter Visit Diagnoses Diagnosis Other abnormal findings in urine documented in this encounter Care Teams Head Filter Tank Tender Helper Relationship Specialty Start Date End Date Ralph Colorado MD [address] [place] [address] Dr Pierre [address] [place] [address] [place] PCP - General 05/15/22 documented as of this encounter
--- OUTSIDE RECORDS SUMMARY | 2025-04-05 07:41 | XMS_ITS | Encounter Summary ---
Author Organization [facility] Address [address] [place] [address] Care Team Providers Care Missile Inspector Name Role Phone Ralph Colorado MD Primary Care Provider + [phone] Reason for Visit * Reason Onset Date Comments Referral 02/28/2025 Encounter Details Date Type Department Care Team (Late st Contact Info) Description 02/28/2025 Telephone Gastroenterology - 299 [address] [facility] [address] [place] [phone] Dalia Khoury MD [address] [facility] [address] [place] [address] [place] [address] Social History Tobacco Use Types Packs/Day Years [...] documented in this encounter Plan of Treatment Not on file documented as of this encounter Visit Diagnoses Not on filedocumented in this encounter Care Teams Missile Inspector Relationship Specialty Start Date End Date Ralph Colorado MD [address] [place] [address] [address] JAMES Alvarado PCP - General 05/15/22 documented as of this encounter
--- OUTSIDE RECORDS SUMMARY | 2025-04-05 07:41 | XMS_ITS | Encounter Summary ---
Author Organization [facility] Address [address] [place] [address] Care Team Providers Care Painting Machine Operator Name Role Phone Ralph Colorado MD Primary Care Provider + [phone] Encounter Details Date Type Department Care Team (Late st Contact Info) Description 10/29/2024 Lab Requisition [facility] - Main Lab 299 [facility] [place] [address] Skip Mccain MD [address] [place] [address] Urinary tract infection, site not specified Social [...] mirabilis(A ) NAFISA 10/31/2024 8:50 AM EDT [facility] Comment: Edited result: Previously reported as [...] Proteus mirabilis Trimethoprim/Sulfamethoxazole NAFISA <=20 ug/ml: Susceptible us Skip Mccain MD LAB MICROBIOLOGY - GENER AL ORDERABLES Final Result [facility] [address] [place] [address], [place] [phone] documented in this encounter Visit Diagnoses Diagnosis Urinary tract infection, site not specified documented in this encounter Care Teams Painting Machine Operator Relationship Specialty Start Date End Date Ralph Colorado MD [address] [place] [address] [address] JAMES Alvarado PCP - General 05/15/22 documented as of this encounter
--- OUTSIDE RECORDS SUMMARY | 2025-04-05 07:41 | XMS_ITS | Encounter Summary ---
Author Organization [facility] Address [address] [place] [address] Care Team Providers Care Crop Ranch Hand Name Role Phone Ralph Colorado MD Primary Care Provider + [phone] Encounter Details Date Type Department Care Team (Late st Contact Info) Description 10/01/2024 Lab Requisition [facility] - Main Lab 299 [facility] [place] [address] eSnia Lambert, MADONNA 3640 [facility] 103 [place] [address] Frequency of micturition Social History Tobacco Use [...] Escherichia coli(A) NAFISA 10/03/2024 8:43 AM EDT [facility] Comment: This is an [...] Escherichia coli Trimethoprim/Sulfamethoxazole NAFISA >=320 ug/ml: Resistant Senia Lambert LOAN OFFICER ASSISTANT LAB MICROBIOLOGY - GENERA L ORDERABLES Final Result [facility] [address] [place] [address], documented in this encounter Visit Diagnoses Diagnosis Frequency of micturition Urinary frequency documented in this encounter Care Teams Crop Ranch Hand Relationship Specialty Start Date End Date Ralph Colorado MD [address] [place] [address] [place] [address] [place] PCP - General 05/15/22 documented as of this encounter
--- OUTSIDE RECORDS SUMMARY | 2025-04-05 07:41 | XMS_ITS | Clinical Summary ---
Author Organization [facility] Address [address] [place] [address] Care Team Providers Care Supervisor Computer Operations Name Role Phone Unavailable Primary Care Provider [...] Not on file [place]
--- OUTSIDE RECORDS SUMMARY | 2025-04-05 07:41 | XMS_ITS | Encounter Summary ---
Author Organization [facility] Address [address] [place] [address] Care Team Providers Care Power Digger Operator Name Role Phone Ralph Colorado MD Primary Care Provider + [phone] Encounter Details Date Type Department Care Team (Late st Contact Info) Description 07/16/2024 Lab Requisition [facility] - Main Lab 299 [facility] [place] [address] Senia Lambert NP 3640 [facility] [place] [place] [address] Urgency of urination Social History Tobacco Use [...] if clinically indicated. 07/17/2024 8:[address] [facility] Urine Urine specimen from urinary conduit / Unknown 07/16/2024 07/16/2024 2:02 PM EST us Senia Lambert BENDING ROLL OPERATOR LAB MICROBIOLOGY - GENERA L ORDERABLES Final Result [facility] [address] [place] [address], documented in this encounter Visit Diagnoses Diagnosis Urgency of urination documented in this encounter Care Teams Power Digger Operator Relationship Specialty Start Date End Date Ralph Colorado MD [address] [place] [address] Dr [address] [place], [place] PCP - General 05/15/22 documented as of this encounter
--- OUTSIDE RECORDS SUMMARY | 2025-04-05 07:42 | XMS_ITS | Clinical Summary ---
Author Organization [facility] 299 [facility] Address [address] [place] [address] Phone Care Team Providers Care Police Matron Name Role Phone Ralph Colorado MD Primary Care Provider + [phone] Allergies Active Allergy Reactions Criticality Noted Date Comments Ibuprofen 09/10/2022 Medications buPROPion SR (WELLBUTRIN SR) 150 mg 12 hr tablet Take 300 mg by mouth. Daily Active calcium carbonate/vitami n D3 (CALCIUM + D ORAL) Take by mouth. Activ e hydrOXYzine HCL (ATARAX) 50 mg tablet Take 1 Tablet by mouth 3 times daily as needed. Active MESALAMINE ORAL Take by mouth. Active omeprazole (PRILOSEC) 20 mg tablet,delayed release (DR/EC) Take 40 mg by mouth 2 times daily. Active albuterol HFA (PROAIR HFA ; PROVENTIL HFA ; VENTOLIN HFA) 90 mcg/actuation inhaler Inhale 2 puffs by mouth. 3 Active Vitamin D3 25 mcg (1,000 unit) capsuleIndicatio ns:Vitamin D deficiency TAKE 1 CAPSULE BY MOUTH ONCE DAILY 90 capsule 2 5 Active mesalamine (LIALDA) 1.2 gram EC tablet Take 1 tablet (1.2 g total) by mouth 4 (four) times a day. Do not crush, chew, or split. 120 each 11 5 11/04/19 26 Active sucralfate (CARAFATE) 100 mg/mL suspensionIndica tions:Gastroesop hageal reflux disease, unspecified whether esophagitis present Take 10 mL (1 g total) by mouth 4 (four) times a day (with meals and nightly). Take 1 hour before meals and at bedtime 1200 mL 11 5 11/04/19 26 Active omeprazole (PriLOSEC) [address] Bertram ns:GERD (gastroesophagea l reflux disease) TAKE 1 CAPSULE BY MOUTH TWICE A DAY 180 capsule 1 5 Active acetaminophen (TylenoL) 325 mg tablet Take 3 tablets (975 mg total) by mouth every 8 (eight) hours if needed for mild pain. 5 Active amLODIPine (NORVASC) 5 mg tablet Take 1 tablet (5 mg total) by mouth 1 (one) time each day. 5 Active amoxicillin (AMOXIL) 500 mg capsule Take 4 capsules (2,000 mg total) by mouth 1 (one) time. TAKE 4 CAPSULES BY MOUTH 1 HOUR PRIOR TO PROCEDURE 5 Active Eliquis 2.5 mg tablet Take 1 tablet (2.5 mg total) by mouth 2 (two) times a day. 5 Active aspirin 81 mg EC tablet Take 1 tablet (81 mg total) by mouth 1 (one) time each day. 4 Active baclofen (LIORESAL) 5 mg tablet Take 1 tablet (5 mg total) by mouth 3 (three) times a day. Active cefpodoxime (VANTIN) 200 mg tablet Take 1 tablet (200 mg total) by mouth 2 (two) times a day. 5 Active celecoxib (CeleBREX) 200 mg capsule 5 Active clopidogreL (PLAVIX) 75 mg tablet Take 1 tablet (75 mg total) by mouth 1 (one) time each day. 4 Active Banophen 25 mg capsule Take 1 capsule (25 mg total) by mouth. 5 Active estradioL (ESTRACE) 0.01 % (0.1 mg/gram) vaginal cream APPLY 1 GRAM TOPICAL ONCE DAILY FOR 2 WEEKS THEN TWICE WEEKLY 4 Active fluticasone propionate (FLONASE) 50 mcg/actuation nasal spray INSTILL 2 SPRAYS INTO EACH NOSTRIL ONCE DAILY NEEDED FOR ALLERGY SYMPTOMS 5 Active gabapentin (NEURONTIN) 300 mg capsule Take 1 capsule (300 mg total) by mouth 3 (three) times a day. 5 Active loratadine (CLARITIN) 10 mg tablet Take 1 tablet (10 mg total) by mouth 1 (one) time each day. 5 Active LORazepam (ATIVAN) 0.5 mg tablet Take 1 tablet (0.5 mg total) by mouth every 8 (eight) hours if needed for anxiety. 5 Active mirtazapine (REMERON) 7.5 mg tablet Take 1 tablet (7.5 mg total) by mouth at bedtime as needed. Active traZODone (DESYREL) 50 mg tablet Take 1 tablet (50 mg total) by mouth at bedtime as needed. at bedtime for sleep Active Colace 100 mg capsule Take 1 capsule (100 mg total) by mouth. 5 03/17/20 25 Active Problems Problem Noted Date Diagnosed Date Class 1 obesity 03/11/2025 Hiatal hernia 04/18/2024 Assessment & Plan (04/18/2024 [...] to her next appointment. Assessment & Plan (03/11/2025 11:56 AM EDT): Assessment & Plan (11/03/2024 8:13 AM EDT): [...] to continue to monitor. VT (ventricular tachycardia) ([facility]/HCC V24, CMS/H CC V28) 05/28/2023 Overview (03/25/2024): [...] Encounters Date Type Department Care Team Description 03/11/2025 9:00 AM EDT Office Visit Gastroenterology - [address] [facility] [address] [place] [phone] Dalia Khoury MD Irritable bowel syndrome with diarrhea (Primary Dx); Gastroesophageal reflux disease without esophagitis 02/28/2025 Telephone Gastroenterology - [address] [facility] [address] [place] [phone] Dalia Khoury MD 01/18/2025 7:45 AM EDT - 01/18/2025 11:59 PM EDT Hospital Encounter [facility] CT Scan [address] [place] [phone] Encounter for screening for malignant neoplasm of respiratory organs; Nicotine dependence, cigarettes, uncomplicated Discharge Disposition: Home or Self Care from Last 3 Months Immunizations Immunization Administration Dates Next Due Influenza Quadravalent, 0.5m l (Fluzone High-dose) 65yo and older 03/18/2022 Influenza Quadravalent, MDCK , 0.5ml, preservative free (Flucelvax) 6mo and older 02/10/2019 Influenza Quadravalent, MDCK , 0.5ml, with preservative (Flucelvax) 6mo and older 02/14/2017 Influenza Quadrivalent, 0.5m l, preservative free (Fluarix; FluLaval; Fluzone) ages 6mo and older (Afluria) 3yo and older 03/13/2023,02/15/2020,04/12/2018 Influenza Quadrivalent, with preservative (Fluzone; Afluria) 6mo and older 03/04/2019 Influenza trivalent, 0.5mL ( Fluzone High-dose) 65yo and older 01/19/2024 Influenza trivalent, 0.5mL, preservative free (Fluarix; FluLaval; Fluzone) ages 6mo and older (Afluria) 3 years and older 02/24/2016,02/08/2015 Influenza trivalent, with pr eservative (Fluzone; Afluria) 6mo and older 03/18/2022,02/28/2021,02/15/2020,03/04,02/10/2019,04/12/2018,02/24/2016 ,02/08/2015,03/29/2006 Influenza, Unspecified 02/08/2015 Pneumococcal conjugate 13 va lent (Prevnar 13, PCV13) 2mo and older 06/15/2021 Pneumococcal polysaccharide 23 valent (Pneumovax 23) 2yo and older 03/30/2016 RSV, bivalent, protein subun it RSVpreF, 0.5mL, Preservative Free (ABRYSVO) 50yo and older or 32 through 36 wks of 09/21/2024 Td, Unspecified 11/07/2005 Zoster Live 07/19/2016 Zoster recombinant (Shingrix ) 19yo and older 04/12/2018,09/29/2017 Surgical History Surgery Date Site/Laterality Comments OOPHORECTOMY Left PROCEDURE: HISTORICAL OOPHORECTOMY PARTIAL HYSTERECTOMY 05/26/1999 PROCEDURE: KS SUPRACERVICAL ABDL HYSTER W/WO RMVL TUBE OVARY OTHER SURGICAL HISTORY PROCEDURE: KS CYSTO MANJ W/O RMVL URETERAL STONE; COMMENT: s/p bladder lift SINUS SURGERY 05/26/2016 PROCEDURE: KS UNLISTED PROCEDURE ACCESSORY SINUSES OTHER SURGICAL HISTORY 06/11/2022 Right PROCEDURE: KS RMVL LUNG OTHER THAN PNEUMONECT 1 SEGMENTECTOMY; COMMENT: Da Fauzia RLL superior segmentectomy, mediastinal lymphadenectomy, bronch w aspiration OTHER SURGICAL HISTORY 09/18/2022 PROCEDURE: KS LAPS RPR PARAESPHGL HRNA INCL FUNDPLSTY W/MESH OTHER SURGICAL HISTORY 04/15/2023 N/A PROCEDURE: KS LAPS RPR PARAESPHGL HRNA INCL FUNDPLSTY W/MESH ESOPHAGOGASTRODUODENOSCOPY 09/24/2023 esophagus ulcer, small hiatal hernia, gastric erosions, reflux esophagitis on biopsy, normal stomach biopsies COLONOSCOPY W/ BIOPSIES 10/21/2023 Reticulosis, normal appearing mucosa, minimally active colitis on biopsies Medical History Medical History Date Comments Chronic [...] Brother 2 Heart attack Father Hypertension Father [place] at age 46, s moker Kidney cancer Maternal Grandmother Abdominal Aortic Anuerysm (AAA) Mother Diabetes Mother Breast cancer Neg Hx Relation Name Status Comments Brother 1 Brother 2 Father Maternal Grandmother Mother Social History Tobacco Use Types Packs/Day Years Used Date Smoking Tobacco: Former Cigarettes 0 Q uit: 04/25/2023 Smokeless Tobacco: Never Tobacco [...] EST Inhaled Oxygen Concentration - - Weight 67.9 kg (149 lb 9.6 oz) 03/11/2025 9:12 A M EDT Height 154.9 cm (5' 1 ) 03/11/2025 9:12 AM EDT Body Mass Index 28.27 03/11/2025 9:12 AM EDT Plan of Treatment Health Maintenance Due Date Last Done Comments DTaP,Tdap,and Td Vaccines (2 - Td or Tdap) 11/08/2015 11/07/2005 Zoster Vaccines (3 of 3) 06/07/2018 11/ 018, 09/29/2017, 07/19/2016 Breast Cancer Screening 01/21/2020 01/20/2018 Falls Risk Assessment 04/27/2022 Medicare Annual Wellness Visit 04/27/2022 Social Influencers of Health Screening 04/27/2022 Cholesterol Screening (Lipid Panel) 08/12/2022 08/12/2017 Hypertension/CHF/CAD Annual BMP Blood Test 12/18/2023 06/24/2018 Depression Screening 05/26/2024 COVID-19 Vaccine ( season) 2025 01/28/2025, 08/06/2023, 03/18/2023, Additional history exists Pneumococcal Vaccine: 50+ Years (3 of 3 - PCV20 or PCV21) 06/15/2026 06/15/2021, 03/30/2016 Colorectal Cancer Screening: Colonoscopy 11/16/2026 11/16/2024, 06/25/2017 Osteoporosis Screening (Bone Density Screening) 01/21/2028 01/20/2018 Hepatitis C Screening Completed 11/03/2015 RSV Immunization Adult Patients Completed 09/21/2024 Influenza Vaccine Completed 01/19/2025, , 03/13/2023, Additional history exists HIB Vaccines Aged Out [...] of respiratory organs Nicotine dependence, cigarettes, uncomplicated COLONOSCOPY Routine 11/16/2024 9:42 AM EDT ANNUAL [...] Signed Date: 01/21/2025 12:41 ET Workstation ID: [id number] Transcribed By: Self Edit Transcribed Date: 01/21/2025 12:16 ET Narrative 01/21/2025 12:41 PM EDT EXAMINATION: CT CHEST WITHOUT CONTRAST CLINICAL INFORMATION: Lung nodule. Abnormal lung cancer screening CT COMPARISON: Portions of previous 07/18/24 TECHNIQUE: Multidetector CT. Examination of the chest. Examination of the chest without IV contrast. Reformatting in the coronal and sagittal planes. Device: Echovox VCT DLP: 149 mGy-cm CTDI: 4.83 Dose optimization was performed including the use of low-dose iterative reconstruction technique with automatic exposure control based on patient size. Type of contrast: None Volume of IV contrast: None Volume of contrast discarded: 0 mL FINDINGS: Digital bio medical technician demonstrates volume loss in the thoracolumbar junction [...] slight tenting of the fissure 01/18/25-0.3 cm (45) 07/18/24-0.3 cm (remeasured) 06/30/23-not present OTHER PULMONARY: [...] in the coronal and sagittal planes. Device: Echovox VCT DLP: 149 mGy-cm CTDI: 4.83 Dose optimization was performed including the use of low-dose iterativereconstruction technique with automatic exposure control based on patientsize. Type of contrast: None Volume of IV contrast: None Volume of contrast discarded: 0 mL FINDINGS: Digital bio medical technician demonstrates volume loss in the thoracolumbar junctionregion [...] slight tenting of the fissure 01/18/25-0.3 cm () 07/18/24-0.3 cm (remeasured) 06/30/23-not present OTHER PULMONARY: [...] Signed Date: 01/21/2025 12:41 ET Workstation ID: [id number] Transcribed By: Self Edit Transcribed Date: 01/21/2025 12:16 ET Dennis Camara MD IMG CT PROCEDURES Final Result * COLONOSCOPY (11/16/2024 9:42 AM EDT) Anatomical Region Laterality Modality Endoscopy Historical Provider GI~PROCEDURE ORDERABLES F inal Result * Annual BMP Blood Test (06/24/2018) Annual [...] should be classified as having osteoporosis. [facility] Department of Internal Medicine recommends [...] Fleming should beclassified as having osteoporosis. [facility] Department of Internal Medicine recommendsusing [...] risk by FRAX. 22 Mirella Kimble DO IMG DXA PROCEDURE S Final Result * (ABNORMAL) Lipid panel (08/12/2017) LDL/HDL Ratio 4 0 - 4 Triglycerides 120 0 - 150 mg/dL Cholesterol 198 0 - 200 mg/dL HDL 54 >=40 mg/dL LDL Cholesterol 120(A) 0 - 100 mg/dL Blood Venous blood specimen / Unknown Historical Provider LAB BLOOD ORDERABLES Barbara l Result * Hepatitis C Screening (11/03/2015) Pathologist [facility] Hepatitis C Screening Abstracted Historical Provider HEALTH MAINTENANCE Final Result from Last 3 Months or Most Recently Relevant to Health Maintenance Insurance [employer] MEDICARE ADVANTAGE MEDICAID - [place] Care Teams Police Matron Relationship Specialty Start Date End Date Ralph Colorado MD [address] [place] [address] Dr [address] JAMES Alvarado PCP - General 05/15/22
--- OUTSIDE RECORDS SUMMARY | 2025-04-05 07:42 | XMS_ITS | Encounter Summary ---
Author Organization [facility] Address [address] [place] [address] Care Team Providers Care Napping Machine Operator Name Role Phone Ralph Colorado MD Primary Care Provider [phone] Encounter Details Date Type Department Care Team (Late st Contact Info) Description 04/09/2024 Lab Requisition [facility] [address] [place] [address] Jaja Cornelius MD [address] [facility] [place] [address] [place] [id number] Dysuria Social History Tobacco Use Types Packs/Day [...] Escherichia coli(A) NAFISA 04/11/2024 9:54 AM EST [facility] Comment: This is an edited [...] MICROBIOLOGY - G ENERAL ORDERABLES Final Result [facility] [address] [place] [address], documented in this encounter Visit Diagnoses Diagnosis Dysuria documented in this encounter Care Teams Napping Machine Operator Relationship Specialty Start Date End Date Ralph Colorado MD [address] [place] [address] Dr Pierre [address] [place] [address] [place] PCP - General 05/15/22 documented as of this encounter
--- NOTE | 2025-04-05 08:09 | ED.GENADULT ---
HPI - General Adult General Chief complaint: Back Pain/Injury Stated complaint: back pain Time Seen by Provider: 04/05/25 07:22 Source: patient Mode of arrival: ambulatory Limitations: no limitations History of Present Illness ED Provider: PATRICIA GHOTRA PA-C HPI narrative: 69-year-old female with pmhx significant for osteoporosis, chronic back pain, presents to the ED today for evaluation of rib/back pain x 2-3 days. Endorses pain to the right posterior lower rib area and lower back, worse with coughing/movement/position changes. Pain is currently 9/10. Reports pain began after carrying heavy potted plants into her home from outdoors. Reports history of vertebral fractures and rib fractures secondary to osteoporosis. Admits to back pain, used to follow with pain management. She last followed with them approximately 2 years ago. She is no longer on a pain contract. Her pain is managed with gabapentin prescribed by her PCP. Admits to trialing gabapentin and OTC tylenol without relief. Her last dose of tylenol was around 0600 this morning. Also trialing heating pad. Denies saddle anesthesia, bowel or bladder incontinence or retention, numbness/tingling/weakness of the lower extremities, dysuria, hematuria, hemoptysis, chest pain, shortness of breath, wheezing, N/V, fever, chills. Denies hx of IVDU, spinal surgery. Related Data Home Medications ?Medication ?Instructions ?Recorded ?Confirmed bupropion HCl 300 mg 24 hr tablet, 300 mg PO DAILY 04/10/20 03/01/25 extended release cholecalciferol (vitamin D3) 25 25 mcg PO DAILY 04/10/20 03/01/25 mcg (1,000 unit) capsule mesalamine 1.2 gram tablet,delayed 1.2 g PO DAILY 10/29/23 03/01/25 release omeprazole 40 mg capsule,delayed 40 mg PO DAILY 10/29/23 03/01/25 release Previous Rx's ?Medication ?Instructions ?Recorded budesonide 180 mcg/actuation 2 inh PO BID #1 ea 03/25/21 breath activated powder inhaler (Pulmicort Flexhaler) fluticasone propionate 50 2 spray intranasal DAILY PRN 08/06/23 mcg/actuation nasal allergy symptoms 30 days #16 grams spray,suspension albuterol sulfate 90 mcg/actuation 2 puff PO Q6H PRN Shortness Of 01/09/24 aerosol inhaler Breath #8.5 grams amlodipine 5 mg tablet 5 mg PO DAILY 90 days #90 tabs 10/23/24 loratadine 10 mg tablet (Allergy 10 mg PO DAILY PRN allergy 01/04/25 Relief (loratadine)) symptoms #90 tabs diphenhydramine HCl 25 mg capsule 25 mg PO TID PRN allergy symptoms 01/05/25 30 days #90 caps baclofen 5 mg tablet 5 mg PO TID #60 tabs 03/01/25 gabapentin 300 mg capsule 300 mg PO TID 30 days #90 caps 03/01/25 oxycodone 5 mg tablet 5 mg PO Q6H PRN pain (scale score 04/05/25 7-10) 3 days #9 tabs trazodone 50 mg tablet 50 mg PO BEDTIME PRN sleep 30 days 04/05/25 #30 tabs Allergies Allergy/AdvReac Type Severity Reaction Status Date / Time ibuprofen (From Motrin) AdvReac Intermediate activates Verified 04/05/25 07:18 her Crohn's disease Review of Systems Review of Systems: Yes all other systems are reviewed and are negative [facility] Past Medical History Attestation statement: The following information was validated with the patient. Source: old records reviewed and nursing notes reviewed Medical History Generalized headaches Cerebral aneurysm Insomnia Primary osteoarthritis of left knee Compression fracture of T11 vertebra with delayed healing Compression fracture of L4 vertebra Obesity (BMI 30-39.9) Hiatal hernia Coccydynia Overweight (BMI 25.0-29.9) Depression Anxiety Renal calculi Vitamin D deficiency Allergic rhinitis Osteoporosis Lumbar degenerative disc disease GERD without esophagitis Crohn's disease COPD (chronic obstructive pulmonary disease) GERD (gastroesophageal reflux disease) Ear discharge of both ears Ear build-up Sacroiliitis Chronic pain syndrome Spondylolisthesis, lumbar region Spondylosis of lumbar region without myelopathy or radiculopathy Surgical History Hx of colonoscopy History of surgery History of hysterectomy History of surgery History of nasal surgery Social History Social History Housing: Apartment Alcohol intake: current Alcohol intake frequency: holidays/special occasions only Alcohol type: wine Patient Tobacco Use Status: Former Tobacco user Tobacco use type: Cigarette Smoked in Last 30 Days: No e-Cigarette/Vaping Use: Never Used Second Hand Smoke Exposure: No Use of substances other than those prescribed or required for medical reasons: No Advance Directives: No Advance Directives Information Provided: Yes Advance Directives Date on File: 06/02/20 Do you have a plan to hurt others: No Plan service: No Current occupational status: disabled Cognitive needs: No Hearing needs: No Vision needs: Yes (glasses) Physical Exam ED Vital Signs: Vital Signs - 24 hr 04/05/25 07:14 04/05/25 08:17 04/05/25 10:23 Temperature 97.1 F Pulse Rate 103 H 84 Respiratory Rate 20 18 20 Blood Pressure 155/85 H 129/97 H Pulse Oximetry 96 96 Oxygen Delivery Method Room Air Room Air 04/05/25 14:30 04/05/25 14:31 04/05/25 15:59 Temperature 98.0 F Pulse Rate 86 86 Respiratory Rate 20 20 20 Blood Pressure 105/72 105/72 Pulse Oximetry 98 98 Oxygen Delivery Method Room Air Room Air BMI result Body Mass Index 28.3 tachycardic, vitals are otherwise wnl. afebrile General: uncomfortable appearing, tearful Skin: Warm, dry, intact. No rashes or lesions. Head: Normocephalic, atraumatic. EENT: Hearing is intact b/l. Conjunctiva clear. PERRLA. EOM intact. Moist mucous membranes.? Neck: Supple without LAD Cardiac: Chest wall symmetric. RRR. ttp along right posterolateral chest wall, no palpable deformity, crepitus. no flail chest. Lungs: Normal respiratory effort without accessory muscle use. CTA bilaterally.? Abdomen: Soft, non-tender, non-distended. No rebound tenderness or guarding. Positive BS x4. Back: ttp along midline lumbar spine, no step off. Ext: Upper and lower extremities atraumatic, without tenderness, deformity, swelling or erythema. Full ROM throughout Neuro: AOx3. Normal speech. Strength 5/5 intact throughout. No saddle anesthesia. Sensation intact to light touch. NV intact distally. Ambulating with steady gait. Course Course Course Narrative: X-ray lumbar and thoracic spine showing chronic consider new compression fractures to L1 and L4. There are compression fractures to T11, likely chronic from 2023. Rib x-ray showing suspected lower right rib fractures involving 4/5/6 ribs, no pneumothorax. I did obtain CT chest to confirm fractures. No acute fractures noted. Administration of compression fracture to L1. Patient medicated with oxycodone + flexeril + lidocaine patch without improvement. She has only been able to find pain relief with IV Dilaudid. She has received 1 dose of this. I offered to trial a p.o. medication so that we can send her home on this for pain management. Patient is requested 1 more dose of IV Dilaudid. I did discuss possible admission to medicine for pain management if her pain continues to be poorly controlled with PO medications. Patient is adamantly declining admission for pain control. She is simply requesting 1 more dose of IV Dilaudid and then would like to be discharged with oral oxycodone. We have also discussed physical therapy/case management evaluations, patient declines at this time. She would like to be discharged home with pain control, states her grandson is at home to help her. she also tells me she previously had VNA services and is not interested in this. At this time, will discharge patient home with po oxycodone for management of acute vertebral compression fractures. advised to f/u with PCP. I did review [employer] - patient prescribed a 7 day script of oxydoeone over 1 mo ago, states this was for her left knee pain. otherwise, has only been prescribed gabapentin and ativan recently. take home narcan provided. Her family will be driving her home today. Patient has remained stable throughout ED visit today. Discussed worrisome signs and symptoms and when to return to the ED. All questions answered at this time. stable for discharge. Medications Administered Discontinued Medications Generic Name Dose Route Start Last Admin Trade Name Miloq PRN Reason Stop Dose Admin Cyclobenzaprine HCl 5 mg 04/05/25 08:01 04/05/25 08:19 Cyclobenzaprine Hcl 5 Mg Tablet PO 04/05/25 08:02 5 mg ONCE ONE Administration Hydromorphone HCl 1 mg 04/05/25 09:57 04/05/25 10:23 Hydromorphone Hcl 1 Mg/Ml Syringe IVPUSH 04/05/25 09:58 1 mg ONCE ONE Administration Protocol Hydromorphone HCl 1 mg 04/05/25 14:21 04/05/25 14:30 Hydromorphone Hcl 1 Mg/Ml Syringe IVPUSH 04/05/25 14:22 1 mg ONCE ONE Administration Protocol Lidocaine 1 patch 04/05/25 08:01 04/05/25 08:19 Lidocaine 4 % Patch Adh..Patch TRANSDERMA 04/05/25 08:02 1 patch ONCE ONE Administration Protocol Naloxone HCl 8 mg 04/05/25 14:27 04/05/25 15:08 Naloxone Hcl Nasal Take Home 4 Mg [place] NOSTRILALT 04/05/25 14:28 8 mg ONCE ONE Administration Oxycodone HCl 5 mg 04/05/25 09:04 04/05/25 09:36 Oxycodone Hcl Immed Release 5 Mg Tablet PO 04/05/25 09:05 5 mg ONCE ONE Administration Medical Decision Making Medical Decision Making MDM Narrative: 69-year-old female with pmhx significant for osteoporosis, chronic back pain, presents to the ED today for evaluation of rib/back pain x 2-3 days. Patient is hypertensive, tachycardic. She is uncomfortable appearing, tearful. On exam, chest wall symmetric. RRR. ttp along right posterolateral chest wall, no palpable deformity, crepitus. no flail chest. lungs clear. ttp along midline lumbar spine, no step off. Differential diagnosis includes msk sprain/ strain, contusion, muscle spasm, vertebral compression fracture. Unlikely cauda equina, Guillain-[place], epidural abscess, cord compression, pneumothorax, pneumonia. Plan for imaging, pain control, re-evaluation. Differential Diagnosis Differential Diagnoses: The differential diagnosis associated with the presentation includes As above Admission/Observation Not indicated Independent Interpretation I performed an independent interpretation of an: Plain X-Ray and CT Scan Interpretation: rib xrs with ?low rib fracture, no pneumo xr thoracic/lumbar spine showing lumbar compression fractures Radiology Impression Discussion of test interpretation with radiology: I have reviewed the radiologist's reading. Radiologist Impression: Procedure(s): CT chest wo IV con Accession Number(s): [id number] cc: Ralph Colorado MD; Patricia Ghotra~ Report Number: [id number]: Total DLP = 247.00 mGy-cm Reason for Exam: rib fractures EXAMINATION: CT CHEST WITHOUT CONTRAST CLINICAL INFORMATION: Fractures. COMPARISON: November 03, 2023. TECHNIQUE: Multidetector volumetric CT imaging of the chest was done. Axial MIP volume rendering provided. Sagittal and coronal reformatted images were obtained. This CT examination was performed using dose optimization techniques as appropriate, variously including the following: *Automated exposure control *Adjustment of mA and/or kV according to patient size (this includes techniques or standardized protocols for targeted exams where dose is matched to indication/reason for exam; i.e. extremities or head) *Use of iterative reconstruction technique DLP: 247 mGy-cm FINDINGS: ROOF SHINGLER: Patient's large body habitus. Metallic hardware in the proximal left humerus. Cardiac mediastinal silhouette appears prominent. There is a hiatal hernia. Multilevel spondylosis. LUNGS: Linear and patchy attenuation abnormalities in the lung bases and lingula and right middle lung lobe. Focal bronchiectasis in the left lung base. No gross consolidation. No gross pulmonary nodule. MEDIASTINUM: Hiatal hernia, moderate size. Nonspecific mildly prominent mediastinal lymph nodes. Calcified plaque thoracic aorta wall without aneurysm. Calcified plaque in the coronary arteries. No pneumomediastinum. No pericardial effusion. No hemopericardium. Thyroid gland is not enlarged. CORONARY ARTERY CALCIFICATION: Calcified plaques. PLEURA: No pleural effusion. No pneumothorax. No hemothorax. No calcified pleural plaques. AXILLA: No lymphadenopathy. UPPER ABDOMEN: Hiatal hernia, moderate size. Subtle nodular surface of the liver. Probable cholelithiasis. Probable nonobstructing nephrolithiasis, right kidney. Cystic lesions in the kidneys. Mild prominent adrenal glands measuring less than 10 Hounsfield units. Calcified plaque splenic artery. No gross ascites. OSSEOUS STRUCTURES: No acute rib fracture. Multilevel compression fracture deformities likely osteoporotic in nature, the most conspicuous at L1, new since 2023. There is a superior endplate compression deformity at T11 representing 60% volume loss. There is 3 mm retropulsion upon central canal in the compression deformities at L1 and T11. Sternum is intact. There is a 7 cm fat density herniation through a focal abdominal wall defect in the left retroperitoneum adjacent to the left kidney. CT/CT chest wo IV con IMPRESSION: No acute rib fracture. Acute to subacute osteoporotic compression fracture deformities throughout the thoracic spine and L1 vertebra No acute airspace disease. Hiatal hernia. Coronary artery disease and atherosclerosis disease. 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 7 cm fat containing hernia left posterior lower thorax/lumbar region.. Fleischner guidelines were followed. Electronically signed by: Kashif Solis MD 04/05/2025 01:37 PM EST Procedure(s): XR lumbar spine 2-3V Accession Number(s): [id number] cc: Ralph Colorado MD; Patricia Ghotra~ Reason for Exam: pain sp lifting EXAMINATION: Thoracic spine, lumbar spine and chest x-ray with right RIBS. CLINICAL INDICATION: Right posterior lateral rib pain low back pain and mid back pain status post lifting injury. COMPARISON: Chest x-ray 05/14/2022. CT chest 11/03/2023 TECHNIQUE: Thoracic spine 2 views. Lumbar spine 3 views. Chest with right RIBS 4 views. FINDINGS: Thoracic spine: There is maintained thoracic kyphosis. There is anterior wedging of T11, T10 and T9 vertebrae, slightly worse at the T11 level. Rest of the vertebral heights, alignment and disc heights are normal. No visible acute fracture, dislocation or subluxation seen. The soft tissues are normal. There is mild dextroscoliosis of the dorsal lumbar junction. Chest with right RIBS: The lungs are expanded and clear of acute process. There has chain link sutures in the right midlung from previous wedge resection or lung intervention.. The heart size and pulmonary vascular is normal. There is small to moderate size hiatal hernia. No pleural effusion or thickening seen. Multiple views of right ribs obtained with a marker along the lower chest reveals nondisplaced fracture right lateral fourth, fifth and likely sixth rib fractures. There is no visible pneumothorax. Lumbar spine: There is normal lumbar lordosis. There is anterior wedging of L4, L1 and T11 vertebra. The L1 and L4 vertebral deformities are new since the previous CT chest exam 11/03/2023. The disc heights are maintained normal. No lytic or sclerotic process seen. The SI joints are symmetrical. The soft tissues are normal. XR/XR lumbar spine 2-3V IMPRESSION: Suspect lower right rib fractures involving fourth, fifth and likely sixth ribs. Compression fractures T11 vertebra likely old from 2023. There are new compression fractures L1 and L4 vertebra. Recommend CAT scan of lumbar spine if kyphoplasty is to be performed as part of treatment. Small to moderate size hiatal hernia. The lungs are otherwise clear. Electronically signed by: Daniel Michael MD 04/05/2025 09:24 AM EST Procedure(s): XR thoracic spine 3V Accession Number(s): [id number] cc: Ralph Colorado MD; Patricia Ghotra~ Reason for Exam: pain s/p lifting EXAMINATION: Thoracic spine, lumbar spine and chest x-ray with right RIBS. CLINICAL INDICATION: Right posterior lateral rib pain low back pain and mid back pain status post lifting injury. COMPARISON: Chest x-ray 05/14/2022. CT chest 11/03/2023 TECHNIQUE: Thoracic spine 2 views. Lumbar spine 3 views. Chest with right RIBS 4 views. FINDINGS: Thoracic spine: There is maintained thoracic kyphosis. There is anterior wedging of T11, T10 and T9 vertebrae, slightly worse at the T11 level. Rest of the vertebral heights, alignment and disc heights are normal. No visible acute fracture, dislocation or subluxation seen. The soft tissues are normal. There is mild dextroscoliosis of the dorsal lumbar junction. Chest with right RIBS: The lungs are expanded and clear of acute process. There has chain link sutures in the right midlung from previous wedge resection or lung intervention.. The heart size and pulmonary vascular is normal. There is small to moderate size hiatal hernia. No pleural effusion or thickening seen. Multiple views of right ribs obtained with a marker along the lower chest reveals nondisplaced fracture right lateral fourth, fifth and likely sixth rib fractures. There is no visible pneumothorax. Lumbar spine: There is normal lumbar lordosis. There is anterior wedging of L4, L1 and T11 vertebra. The L1 and L4 vertebral deformities are new since the previous CT chest exam 11/03/2023. The disc heights are maintained normal. No lytic or sclerotic process seen. The SI joints are symmetrical. The soft tissues are normal. XR/XR thoracic spine 3V IMPRESSION: Suspect lower right rib fractures involving fourth, fifth and likely sixth ribs. Compression fractures T11 vertebra likely old from 2023. There are new compression fractures L1 and L4 vertebra. Recommend CAT scan of lumbar spine if kyphoplasty is to be performed as part of treatment. Small to moderate size hiatal hernia. The lungs are otherwise clear. Electronically signed by: Daniel Michael MD 04/05/2025 09:24 AM EST Procedure(s): XR ribs RT min 3V w CXR1V Accession Number(s): [id number] cc: Ralph Colorado MD; Patricia Ghotra~ Reason for Exam: right posteriolateral rib pain EXAMINATION: Thoracic spine, lumbar spine and chest x-ray with right RIBS. CLINICAL INDICATION: Right posterior lateral rib pain low back pain and mid back pain status post lifting injury. COMPARISON: Chest x-ray 05/14/2022. CT chest 11/03/2023 TECHNIQUE: Thoracic spine 2 views. Lumbar spine 3 views. Chest with right RIBS 4 views. FINDINGS: Thoracic spine: There is maintained thoracic kyphosis. There is anterior wedging of T11, T10 and T9 vertebrae, slightly worse at the T11 level. Rest of the vertebral heights, alignment and disc heights are normal. No visible acute fracture, dislocation or subluxation seen. The soft tissues are normal. There is mild dextroscoliosis of the dorsal lumbar junction. Chest with right RIBS: The lungs are expanded and clear of acute process. There has chain link sutures in the right midlung from previous wedge resection or lung intervention.. The heart size and pulmonary vascular is normal. There is small to moderate size hiatal hernia. No pleural effusion or thickening seen. Multiple views of right ribs obtained with a marker along the lower chest reveals nondisplaced fracture right lateral fourth, fifth and likely sixth rib fractures. There is no visible pneumothorax. Lumbar spine: There is normal lumbar lordosis. There is anterior wedging of L4, L1 and T11 vertebra. The L1 and L4 vertebral deformities are new since the previous CT chest exam 11/03/2023. The disc heights are maintained normal. No lytic or sclerotic process seen. The SI joints are symmetrical. The soft tissues are normal. XR/XR ribs RT min 3V w CXR1V IMPRESSION: Suspect lower right rib fractures involving fourth, fifth and likely sixth ribs. Compression fractures T11 vertebra likely old from 2023. There are new compression fractures L1 and L4 vertebra. Recommend CAT scan of lumbar spine if kyphoplasty is to be performed as part of treatment. Small to moderate size hiatal hernia. The lungs are otherwise clear. Electronically signed by: Daniel Michael MD 04/05/2025 09:24 AM EST External Record Review External record reviewed: Inpatient record, Office record, Outpatient record, Prior outpatient labs and Prior outpatient radiology Prescription Management I considered prescription management with: Pain Medication (oxycodone) Chronic Conditions Patient?s care impacted by: Other (chronic back pain) Social Determinants Patient?s care significantly limited by Social Determinants of Health including: Other Social Determinant of Health Critical Care Time Critical Care Time Critical Care Time: Yes Total Critical Care Time: 40 Attestation: Critical care time in the amount of 40 minutes has been provided to the patient in terms of direct patient care, frequent reevaluation on IV dilaudid, review and interpretation of medical data and results, and management of potentially life-threatening conditions. This is all outside of any medical procedures. Discharge Plan Discharge Clinical Impression: Closed compression fracture of L1 vertebra, Closed compression fracture of L4 vertebra Patient Disposition: Home, Self-Care Instructions: Vertebral Compression Fracture (ED) Additional Instructions: You were evaluated in the ED today for right rib/lower back pain. Your work up reveals a new compression fracture to your L1 and L4 vertebra. You are declining admission to our facility for pain control and would prefer to be discharged home with pain control. You are also declining any physical therapy evaluation. You may take tylenol/motrin at home for pain. I am sending oxycodone, a controlled pain medication, to your pharmacy for you to take for breakthrough pain control. Please use this with caution as opioid pain medications have addictive properties. I have also provided you with Narcan as accidental overdoses on oxycodone can occur. Opioid pain medications can often cause constipation. I recommend taking this with an over the counter laxative and/or stool softener to help move your bowels. Please follow up with your PCP. Return with any new or worsening symptoms. In the case of an emergency call 911. Prescriptions: New oxycodone 5 mg tablet 5 mg PO Q6H PRN (Reason: pain (scale score 7-10)) 3 Days Qty: 9 0RF Rx Instructions: Partial Fill upon patient request. No Action Pulmicort Flexhaler 180 mcg/actuation aerosol powdr breath activated 2 inh PO BID Qty: 1 0RF fluticasone propionate 50 mcg/actuation spray,suspension 2 spray intranasal DAILY PRN (Reason: allergy symptoms) 30 Days Qty: 16 5RF Rx Instructions: administer into each nostril amlodipine 5 mg tablet 5 mg PO DAILY 90 Days Qty: 90 1RF loratadine [Allergy Relief (loratadine)] 10 mg tablet 10 mg PO DAILY PRN (Reason: allergy symptoms) Qty: 90 0RF diphenhydramine HCl 25 mg capsule 25 mg PO TID PRN (Reason: allergy symptoms) 30 Days Qty: 90 0RF gabapentin 300 mg capsule 300 mg PO TID 30 Days Qty: 90 1RF trazodone 50 mg tablet 50 mg PO BEDTIME PRN (Reason: sleep) 30 Days Qty: 30 0RF bupropion HCl 300 mg tablet extended release 24 hr 300 mg PO DAILY cholecalciferol (vitamin D3) 25 mcg (1,000 unit) capsule 25 mcg PO DAILY omeprazole 40 mg capsule,delayed release(DR/EC) 40 mg PO DAILY mesalamine 1.2 gram tablet,delayed release (DR/EC) 1.2 g PO DAILY albuterol sulfate 90 mcg/actuation HFA aerosol inhaler 2 puff PO Q6H PRN (Reason: Shortness Of Breath) Qty: 8.5 0RF baclofen 5 mg tablet 5 mg PO TID Qty: 60 3RF [place] [facility] [place] Group, Pain Management] Ralph Colorado MD [Primary Care Provider, Internal Medicine] Interventions: ED Discharge Assessment Last Done: 04/05/25 15:59 Discharge Date/Time: 04/05/25 15:59 Print Language: Swedish
[2025-04-05 08:17] VITALS: BP 129/97; PULSE 84; RESP 18; O2SAT 96
[2025-04-05] MEDS: Lidocaine 4 % Patch ADH..PATCH 1 PATCH TRANSDERMA (08:19)
[2025-04-05] MEDS: oxyCODONE HCl Immed Release 5 MG TABLET PO (09:36)
[2025-04-05 10:23] VITALS: RESP 20
[2025-04-05 14:30] VITALS: RESP 20
[2025-04-05 14:31] VITALS: BP 105/72; PULSE 86; RESP 20; O2SAT 98
[2025-04-05] MEDS: Naloxone HCl Nasal TAKE HOME 4 MG SPRAY 8 MG NOSTRILALT (15:08)
[2025-04-05 15:59] VITALS: BP 105/72; PULSE 86; RESP 20; TEMP 36.7; O2SAT 98
== END 2025-04-05 15:59 | disposition home or self-care (01) ==
PROVIDERS: Emergency Provider Emergency Medicine; PCP Internal Medicine
DX: M48.54XA Collapsed vertebra, not elsewhere classified, thoracic region, initial encounter for fracture (principal); K21.9 Gastro-esophageal reflux disease without esophagitis; Z87.891 Personal history of nicotine dependence
CPT/HCPCS: 71101; 71250; 72072; 72100; 96374; 96375; 99284; J1171

== ENCOUNTER → 2025-04-05 07:31 | Outpatient (BNV) | payer OTHER, SELFPAY | PROVIDERS: Emergency Provider Emergency Medicine; PCP Internal Medicine; Visit Provider Radiology Diagnostic Radiology | DX: S22.009A Unspecified fracture of unspecified thoracic vertebra, initial encounter for closed fracture (principal); S32.010A Wedge compression fracture of first lumbar vertebra, initial encounter for closed fracture; I25.10 Atherosclerotic heart disease of native coronary artery without angina pectoris; K44.9 Diaphragmatic hernia without obstruction or gangrene; R07.89 Other chest pain; M54.6 Pain in thoracic spine; S32.040A Wedge compression fracture of fourth lumbar vertebra, initial encounter for closed fracture | CPT/HCPCS: 71101; 71250; 72072; 72100 ==

== ENCOUNTER 2025-05-06 14:46 | Outpatient (AMB) | payer OTHER, SELFPAY ==
--- NOTE | 2025-05-06 14:47 | MHC.PC.OV ---
Vital Signs 05/06/25 14:48 Height 5 ft 1 in Weight 145 lb 2 oz BMI 27.4 BP 124/82 Blood Pressure Location Lt brachial Position Sitting Pulse 91 Pulse Source Pulse Oximeter Pulse Oximetry (%) 98 Oxygen Delivery Method Room Air Intake Visit Reasons: Back fracture / Lung Problems Seo Coordinator Required: No Accompanied by: Self / Same As Patient Allergies ibuprofen (From Motrin) Adverse Reaction (Intermediate, Verified 05/06/25 15:15) activates her Crohn's disease Medication List - Last Reconciled 05/06/25 by Ralph Colorado MD albuterol sulfate 90 mcg/actuation 2 puffs PO Q6H PRN amlodipine 5 mg PO DAILY baclofen 5 mg PO TID budesonide 180 mcg/actuation (Pulmicort Flexhaler) 2 inhalations PO BID bupropion HCl XL 300 mg PO DAILY cholecalciferol (vitamin D3) 25 mcg PO DAILY diphenhydramine HCl 25 mg PO TID PRN 30 days fluticasone propionate 50 mcg/actuation 2 sprays intranasal DAILY PRN 30 days gabapentin 300 mg PO TID 30 days loratadine (Allergy Relief (loratadine)) 10 mg PO DAILY PRN mesalamine 1.2 grams PO DAILY omeprazole 40 mg PO DAILY oxycodone 5 mg PO Q6H PRN 3 days trazodone 50 mg PO BEDTIME PRN 30 days Tobacco use date assessed: 05/06/25 Fall risk assessment: 1 Fall in past year Last assessed Fall Risk: 05/06/25 Dental Screening Dental Screen Date: 05/06/25 Did you have a dental visit in the last 12 months?: No Did you have a dental problem in the last 6 months where you did not have access to dental care?: No Was dental information given to patient?: No HPI Back fracture / Lung Problems HPI Details Patient comes in today for her follow up visit States that she is still experiencing increased pain over her lower back She was diagnosed with vertebral compression fracture at L1 and L4 last month and she went to the ER at [facility] for increased low back pain Recalls that she has felt a sudden sharp pain over her low back 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 She also reportedly fell after her low back pain started and hurt her right chest wall CT of the lumbar spine revealed the L1 and L4 compression fractures States that her medication then, which consisted of oxycodone and acetaminophen, did not help much with her pain and the only medication that provided her with any relief at the time was IV Dilaudid She supposedly declined admission when it was recommended as she had no one to take care of her dog at the time and just asked for one more dose of IV Dilaudid before being discharged home but did go back to ER at [facility] a couple of days later to complete her evaluation and she was subsequently admitted for observation She was eventually discharged home the following day with some prescriptions for pain and instructed to follow-up with her PCP [facility] She has also been experiencing recurrent pain in her left knee She underwent a total left knee arthroplasty earlier this year with [facility] with some initial improvement of her knee pain but this seems to have regressed a few months later - states that she has been experiencing intermittent pain and swelling in her knee recently She was seen for evaluation again by Orthopedics a few days ago and was noted to have laxity to varus and valgus stresses on, consistent with ligamentous laxity She was prescribed a hinged knee brace, which she states helps a lot when she has her brace on She is supposedly being planned for some corrective surgery to increase the thickness of her polyethylene liner improved stability in her knee - this is currently scheduled out sometime in July 2025 Adds that she has also been experiencing symptoms of a sinus congestion and chest cold - notes that her chest feels tight at times and she's had a recurrent cough for over a week now Notes that she coughs up some minimal whitish to yellowish phlegm at times She denies any fever or sore throat although she did have sore throat for a day or two last week She denies any headaches or dizziness Denies any chest pain; notes (+) on and off chest congestion and some SHARIF at times lately No nausea/vomiting, no abdominal pain No change in bowel habits noted She has no follow up labs done recently [facility] Medical History Generalized headaches Cerebral aneurysm Insomnia Primary osteoarthritis of left knee Compression fracture of T11 vertebra with delayed healing Compression fracture of L4 vertebra Obesity (BMI 30-39.9) Hiatal hernia Coccydynia Overweight (BMI 25.0-29.9) Depression Anxiety Renal calculi Vitamin D deficiency Allergic rhinitis Osteoporosis Lumbar degenerative disc disease GERD without esophagitis Crohn's disease COPD (chronic obstructive pulmonary disease) GERD (gastroesophageal reflux disease) Ear discharge of both ears Ear build-up Sacroiliitis Chronic pain syndrome Spondylolisthesis, lumbar region Spondylosis of lumbar region without myelopathy or radiculopathy Surgical History Hx of colonoscopy History of surgery History of hysterectomy History of surgery History of nasal surgery Social History Housing: Apartment Alcohol intake: current Alcohol intake frequency: holidays/special occasions only Alcohol type: wine Patient Tobacco Use Status: Former Tobacco user Tobacco use type: Cigarette e-Cigarette/Vaping Use: Never Used Second Hand Smoke Exposure: No Advance Directives Date on File: 06/02/20 service: No Current occupational status: disabled Cognitive needs: No Hearing needs: No Vision needs: Yes (glasses) Questionnaire PHQ-9 Over the last 2 weeks, how often have you been bothered by any of the following problems? 1. Little interest or pleasure in doing things: several days 2. Feeling down, depressed, or hopeless: several days 3. Trouble falling or staying asleep, or sleeping too much: not at all 4. Feeling tired or having little energy: several days 5. Poor appetite or overeating: not at all 6. Feeling bad about yourself - or that you are a failure or have let yourself or your family down: not at all 7. Trouble concentrating on things, such as reading the newspaper or watching television: not at all 8. Moving or speaking so slowly that other people could have noticed. Or the opposite - being so fidgety or restless that you have been moving around a lot more than usual: not at all 9. Thoughts that you would be better off or of hurting yourself in some way: not at all Total score: 3 Depression Screening Interpretation: Positive Depression Screening Follow-up: Follow-up Visit Requested Depression Screening Done: Yes 87811 - PHQ-9 Billing: Yes Source: Developed by Drs. Francisco Javier Rodriguez, Palak العلي, Kamran Calvin and colleagues, with an educational kelsie from [employer]. Thrive Questionnaire Date Thrive assessed: 05/06/25 I am a: Patient What is your living situation today?: I have a steady place to live Within the past 12 months, did the food you bought not last and you didn't have the money to get more?: Never true Within the past 12 months, did you worry whether your food would run out before you got money to buy more?: Sometimes True Do you have trouble paying for medicines?: No Do you have trouble getting transportation to medical appointments?: No Do you have trouble paying your heating and electricity bill?: No Do you have trouble taking care of your child, family member or friend?: No Do you have trouble with day-to-day activities such as bathing, preparing meals, shopping, managing finances, etc.?: No Are you currently unemployed and looking for a job?: I choose not to answer this question Are you interested in more education?: No Please select the resources that you would like help with: Utilities Currently or been in a relationship where the following occur: No concerns reported THRIVE Score: 1 AUDIT C Alcohol Use Questionnaire (AUDIT-C) 1. How often do you have a drink containing alcohol?: Never 3. How often do you have six or more drinks on one occasion?: Never Total Score: 0 Score Reviewed/Action Taken: Yes CULLEN-7 AMB Questionnaire CULLEN-7 Date CULLEN - 7 assessed: 05/06/25 Feeling nervous, anxious, or on edge: 0 = Not at all Not being able to stop or control worryin = Not at all Worrying too much about different things: 0 = Not at all Trouble relaxin = Not at all Being so restless that it is hard to sit still: 0 = Not at all Becoming easily annoyed or irritable: 0 = Not at all Feeling afraid as if something awful might happen: 0 = Not at all Total CULLEN-7 score (0-4 normal; 5-9 mild; 10-14 moderate; 15-21 severe): 0 Source: Developed by Drs. Francisco Javier Rodriguez, Palak العلي, Kamran Calvin and colleagues, with an educational kelsie from [employer]. Review of Systems Const Denies chills, Reports difficulty sleeping (increased lately - wakes up often in the middle of the night), Reports fatigue, Denies fever(s) and Denies headache(s) ENT Denies dysphagia, Denies dizziness, Denies otalgia, Denies headache(s), Denies neck pain, Denies odynophagia and Denies sore throat Card Denies chest pain, Denies palpitations and Reports dyspnea on exertion Resp Reports chest congestion (at times), Reports cough (recurrent; coughs up thick whitish phlegm at times) and Reports dyspnea on exertion GI Denies abdominal pain, Denies constipation, Denies dysphagia, Denies heartburn, Denies diarrhea, Denies nausea, Denies odynophagia and Denies vomiting Denies difficulty voiding, Denies nocturia, Denies dysuria and Denies urinary urgency Musc Reports back pain (over the lower back - chronic; increased over the past month), Reports arthralgias (over both knees; on and off pain and swelling in the left knee) and Denies neck pain Skin/Breast Denies rash Neuro Denies dizziness and Denies headache(s) Psych Denies anxiety Endo Reports fatigue and Denies palpitations Physical exam (Primary Care) Vital Signs: Last Vital Signs Pulse 91 05/06/25 14:48 BP 124/82 05/06/25 14:48 Pulse Ox 98 05/06/25 14:48 Oxygen Delivery Method Room Air 05/06/25 14:48 BMI result Body Mass Index 27.4 Tobacco/Smoking Status: Tobacco use Status Tobacco use date assessed 05/06/25 05/06/25 14:54 Patient Tobacco Use Status Former Tobacco user 05/06/25 14:54 Tobacco use type Cigarette 05/06/25 14:54 e-Cigarette/Vaping Use Never Used 05/06/25 14:54 PHQ-9: PHQ-9 Score PHQ-9: Total score 3 05/06/25 15:36 Depression Screening Interpretation: Positive Depression Screening Follow-up: Follow-up Visit Requested Thrive Assessment: Date of Thrive Assessment Date Thrive assessed 05/06/25 05/06/25 14:54 Currently or been in a relationship where the following occur: No concerns reported Const General: no acute distress and alert HENMT Ears: TM's normal bilaterally and EAC's normal Throat: Yes posterior oropharynx normal and Yes tonsils normal (no TP congestion) Neck Neck: Yes supple and No lymphadenopathy Thyroid: Thyroid normal Resp Auscultation: no crackles, no rales, rhonchi (occasional) throughout, wheezes (faint, occasional) expiratory wheezes and diminished lung sounds (slightly) bilateral Cardio Rate: regular rate Rhythm: regular rhythm Heart sounds: no murmurs GI Palpation (GI): Soft to palpation and nontender Auscultation: normal bowel sounds General: Yes no CVA tenderness Back/Spine/Pelvis Back: no CVA tenderness Thoracic/Lumbar Spine: lumbar spinal tenderness Skin Rashes: no rashes Extrem Other: (+) healed vertical scar over the anterior aspect of the left knee General: Yes no clubbing, cyanosis or edema Right lower extremity: knee Details: tenderness; no swelling Left lower extremity: knee Details: tenderness; no swelling Coding Level of Care Code Est Pt Level 4 (82603) Add On Problem Visit Only Diagnoses Pure hypercholesterolemia E78.00 COPD exacerbation J44.1 Crohn's disease without complication, unspecified gastrointestinal tract location K50.90 Digestive disease complication type: without complication Gastrointestinal tract location: unspecified location Hiatal hernia K44.9 GERD without esophagitis K21.9 Age-related osteoporosis without current pathological fracture M81.0 Osteoporosis type: age-related Presence of current pathological fracture: without current pathological fracture Vitamin D deficiency E55.9 Allergic rhinitis, unspecified seasonality, unspecified trigger J30.9 Allergic rhinitis seasonality: unspecified Allergic rhinitis trigger: unspecified Primary osteoarthritis of left knee M17.12 Degeneration of intervertebral disc of lumbar region with discogenic back pain M51.360 Disc-related pain type: discogenic back pain only Renal calculi N20.0 Insomnia, unspecified type G47.00 Insomnia type: unspecified Anxiety F41.9 Episode of recurrent major depressive disorder, unspecified depression episode severity F33.9 Active/Remission status: currently active Depression Type: major depressive disorder Major depression episode severity: unspecified Major depression recurrence: recurrent Overweight (BMI 25.0-29.9) E66.3 Additional Codes PHQ-9 - 10464 - PHQ-9 Billing: Yes ([id number]) Assessment & Plan Assessment & Plan (1) Pure hypercholesterolemia: Code(s): E78.00 - Pure hypercholesterolemia, unspecified Category: Medical Plan: Patient has no follow-up labs done recently; her cholesterol levels last done in September 2024 were within acceptable range Reinforced low cholesterol diet; patient still does NOT wish to be started on cholesterol-lowering medications and prefers to continue working on diet modification alone Will recheck her fasting lipids and labs in 4 months for follow-up (2) COPD exacerbation: Code(s): J44.1 - Chronic obstructive pulmonary disease with (acute) exacerbation Category: Medical Plan: Will start patient empirically on Azithromycin QD x 5 days Will hold off on starting patient on oral Prednisone for now but she is advised to call if she feels worse or does not experience any improvement of her respiratory symptoms over the weekend She also admits that she has not been using any of her inhalers for a while now so will start her back on Pulmicort 180 mcg 2 inhalations BID and Albuterol HFA 1 to 2 inhalations Q 6 hours PRN (3) Crohn's disease: Code(s): K50.90 - Crohn's disease, unspecified, without complications Category: Medical Qualifiers: Digestive disease complication type: without complication Gastrointestinal tract location: unspecified location Qualified Code(s): K50.90 - Crohn's disease, unspecified, without complications Plan: Patient states that aside for some occasional diarrhea, her Crohn's disease has been mostly well-controlled overall on her current Rx Continue Mesalamine ER 1.2 gm 1 tablet QD and Dicyclomine 10 mg TID PRN She had a normal EGD and colonoscopy done at [facility] a few years ago on 03/31/2019 Repeat colonoscopy done last year on 10/21/2023 came out normal although she had a polyp removed Was recommended again for repeat colonoscopy in 5 years Follow-up with GI (Dr. Shepherd) as scheduled (4) Hiatal hernia: Code(s): K44.9 - Diaphragmatic hernia without obstruction or gangrene Category: Medical Plan: S/P repeat da Fauzia/laparoscopic paraesophageal hernia repair with mesh a couple of years ago on 04/15/2023 Follow up with thoracic surgery as scheduled (5) GERD without esophagitis: Code(s): K21.9 - Gastro-esophageal reflux disease without esophagitis Category: Medical Plan: Dietary restrictions reinforced Continue Omeprazole 40 mg QD Follow up with GI as scheduled (6) Osteoporosis: Code(s): M81.0 - Age-related osteoporosis without current pathological fracture Category: Medical Qualifiers: Osteoporosis type: age-related Presence of current pathological fracture: without current pathological fracture Qualified Code(s): M81.0 - Age-related osteoporosis without current pathological fracture Plan: Her baseline BMD done back on 10/31/2021 revealed (+) severe osteoporosis with a T score of -4.0 in the lumbar spine - this has declined significantly from her baseline BMD done in 2019 Reinforced fall precautions Patient developed compression fractures of her L1 and L4 vertebrae a couple of months ago after 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 Continue Calcitonin 200 units nasal spray QD Will send her for repeat BMD early next year (2025) for follow up Follow up with endocrinology as scheduled (7) Vitamin D deficiency: Code(s): E55.9 - Vitamin D deficiency, unspecified Category: Medical Plan: Continue Vitamin D3 1000 units QD (8) Allergic rhinitis: Code(s): J30.9 - Allergic rhinitis, unspecified Category: Medical Qualifiers: Allergic rhinitis seasonality: unspecified Allergic rhinitis trigger: unspecified Qualified Code(s): J30.9 - Allergic rhinitis, unspecified Plan: Continue Loratadine 10 mg QD PRN and Fluticasone 50 mcg nasal spray QD PRN (9) Primary osteoarthritis of left knee: Code(s): M17.12 - Unilateral primary osteoarthritis, left knee Category: Medical Plan: Patient underwent left knee TKA on 06/22/24 with [facility] and completed physical therapy as well She felt that the surgery helped with her knee pain a lot initially but her symptoms started regressing after a few months and she is now experiencing on and off swelling and pain in her knee She was seen by [facility] last week and was diagnosed with ligamentous laxity of the knee and advised to undergo further corrective surgery, which is currently scheduled in July 2025 Follow up with orthopedics as scheduled (10) Lumbar degenerative disc disease: Code(s): M51.36 - Other intervertebral disc degeneration, lumbar region Category: Medical Qualifiers: Disc-related pain type: discogenic back pain only Qualified Code(s): M51.360 - Other intervertebral disc degeneration, lumbar region with discogenic back pain only Plan: Reinforced activity and weight-lifting restrictions Spine CT done a couple of years ago showed (+) chronic T11 compression fracture as well as multilevel degenerative disc disease in her thoracolumbar spine She more recently developed a new compression fracture on her L4 (see HPI) Follow up with [facility] as scheduled (11) Renal calculi: Code(s): N20.0 - Calculus of kidney Category: Medical Plan: Patient has had to undergo ESWL a few times in the past due to recurrent obstructive kidney stones Follow up with urology (Dr. Genny Lopez) as scheduled (12) Insomnia: Code(s): G47.00 - Insomnia, unspecified Category: Medical Qualifiers: Insomnia type: unspecified Qualified Code(s): G47.00 - Insomnia, unspecified Plan: Sleep hygiene reinforced Continue Trazodone 50 mg Q HS PRN (13) Anxiety: Code(s): F41.9 - Anxiety disorder, unspecified Category: Medical Plan: Continue Hydroxyzine 50 mg BID PRN and Bupropion XL 300 mg QD (14) Depression: Code(s): F32.9 - Major depressive disorder, single episode, unspecified Category: Medical Qualifiers: Active/Remission status: currently active Depression Type: major depressive disorder Major depression episode severity: unspecified Major depression recurrence: recurrent Qualified Code(s): F33.9 - Major depressive disorder, recurrent, unspecified Plan: Continue Bupropion XL 300 mg QD Follow up with psychiatry as scheduled (15) Overweight (BMI 25.0-29.9): Code(s): E66.3 - Overweight Category: Medical Plan: Reinforced diet; exercise and weight loss are not practical given patient's multiple physical issues Plan Follow up in 4 months Orders: Orders Complete Blood Count Auto Diff 4 Months D64.9 - Anemia, unspecified UA CC w/rflx Micro + Cult 4 Months R30.0 - Dysuria Comprehensive Mcgrann. Panel Fast 4 Months E78.00 - Pure hypercholesterolemia, unspecified Lipid Panel 4 Months E78.00 - Pure hypercholesterolemia, unspecified TSH reflex Free T4 4 Months E78.00 - Pure hypercholesterolemia, unspecified Vitamin D 25-OH Total 4 Months E55.9 - Vitamin D deficiency, unspecified Medications: New azithromycin take 500 mg today (day 1), then 250 mg for 4 days (days 2-5) PO 6 tabs 0RF Changed From budesonide 180 mcg/actuation (Pulmicort Flexhaler) 2 inhalations PO BID 1 ea 0RF To Pulmicort Flexhaler 180 mcg/actuation (budesonide) 2 inhalations PO BID 1 ea 5RF 30 days NS From albuterol sulfate 90 mcg/actuation 2 puffs PO Q6H PRN 8.5 grams 0RF Shortness Of Breath R06.2 - Wheezing To albuterol sulfate 90 mcg/actuation 2 puffs PO Q6H PRN 8.5 grams 5RF shortness of breath or wheezing 30 days R06.2 - Wheezing
[2025-05-06 14:48] VITALS: BP 124/82; PULSE 91; O2SAT 98; BMI 27.4
--- OUTSIDE RECORDS SUMMARY | 2025-05-06 19:51 | XMS_ITS | Clinical Summary ---
Author Organization [facility] 299 [facility] Address [address] [place] [address] Phone Care Team Providers Care Assistant Reading Teacher Name Role Phone Ralph Colorado MD Primary Care Provider + [phone] Allergies Active Allergy Reactions Criticality Noted Date [...] as needed. at bedtime for sleep Active Active Problems Problem Noted Date Diagnosed [...] to continue to monitor. VT (ventricular tachycardia) 05/28/2023 Overview (03/25/2024): Last Assessment & Plan: [...] 01/16/2015 Chronic back pain 01/16/2015 Crohn's disease 01/16/2015 Depression 01/16/2015 Recurrent UTI 01/16/2015 Encounters Date Type Department Care Team Description 03/11/2025 9:00 AM EDT Office Visit Gastroenterology - [address] [facility] [address] [place] [address] Dalia Khoury MD Irritable bowel syndrome with diarrhea (Primary Dx); Gastroesophageal reflux disease without esophagitis 02/28/2025 Telephone Gastroenterology - [address] 299 [facility] [address] [place] [address] Dalia Khoury MD from Last 3 Months Immunizations Immunization Administration [...] PROCEDURE: HISTORICAL OOPHORECTOMY PARTIAL HYSTERECTOMY 05/26/1999 PROCEDURE: CO SUPRACERVICAL ABDL HYSTER W/WO RMVL TUBE OVARY OTHER SURGICAL HISTORY PROCEDURE: CO CYSTO MANJ W/O RMVL URETERAL STONE; COMMENT: s/p bladder lift SINUS SURGERY 05/26/2016 PROCEDURE: CO UNLISTED PROCEDURE ACCESSORY SINUSES OTHER SURGICAL HISTORY 06/11/2022 Right PROCEDURE: CO RMVL LUNG OTHER THAN PNEUMONECT 1 SEGMENTECTOMY; COMMENT: Da Fauzia RLL superior segmentectomy, mediastinal lymphadenectomy, bronch w aspiration OTHER SURGICAL HISTORY 09/18/2022 PROCEDURE: CO LAPS RPR PARAESPHGL HRNA INCL FUNDPLSTY W/MESH OTHER SURGICAL HISTORY 04/15/2023 N/A PROCEDURE: CO LAPS RPR PARAESPHGL HRNA INCL FUNDPLSTY W/MESH [...] UTI Depression DX:Depression Anxiety DX:Anxiety; COMM ENT: [facility] Cystocele 02/07/2015 DX:Cystocele Osteopenia 02/07/2015 DX:Osteopenia [...] Brother 2 Heart attack Father Hypertension Father [place] at age 46, s moker Kidney cancer [...] Orientation Straight 07/18/2024 8: 50 AM EST Last Filed Vital Signs Vital Sign Reading [...] 11/07/2005 Zoster Vaccines (3 of 3) 06/07/2018 018, 09/29/2017, 07/19/2016 Breast Cancer Screening 01/21/2020 [...] Procedure Name Priority Date/Time Associated Diagnosis Comments COLONOSCOPY Routine 11/16/2024 9:42 AM EDT ANNUAL [...] Recently Relevant to Health Maintenance Results * COLONOSCOPY (11/16/2024 9:42 AM EDT) Anatomical Region Laterality Modality Endoscopy us Historical Provider GI~PROCEDURE ORDERABLES F inal Result * Annual BMP Blood Test (06/24/2018) Annual BMP Blood Test Abstracted us Historical Provider HEALTH MAINTENANCE Final [...] Breast cancer risk category Low (<15%) Mirella Wigginswilvernon ECHEVARRIA IMIlana XR PROCEDURES Final Result * DXA BONE [...] should be classified as having osteoporosis. The [facility] Department of Internal Medicine recommends using [...] Fleming should beclassified as having osteoporosis. The [facility] Department of Internal Medicine recommendsusing National [...] l Result * Hepatitis C Screening (11/03/2015) Hepatitis C Screening Abstracted us Historical Provider HEALTH MAINTENANCE Final Result from Last 3 Months or Most Recently Relevant to Health Maintenance Insurance * Guarantor: Manju Fleming Account Type Relation to Patient Date of Phone Billing Address Personal/Family Self 1955 [address] [place] [address] [employer] MEDICAID - [place] Care Teams Assistant Reading Teacher Relationship Specialty Start Date End Date Ralph Colorado MD [address] [place] [address] Dr [address] [place], [place] PCP - General 05/15/22
--- OUTSIDE RECORDS SUMMARY | 2025-05-06 19:51 | XMS_ITS | Encounter Summary ---
Author Organization [facility] Address [address] [place] [address] Care Team Providers Care Lime Kiln Tender Name Role Phone Ralph Colorado MD Primary Care Provider [phone] Encounter Details Date Type Department Care Team (Late st Contact Info) Description 10/29/2024 Lab Requisition [facility] - Main Lab 299 [facility] [place] [address] Skip Mccain MD [address] [place] [address] Urinary tract infection, site not specified Social [...] mirabilis(A ) NAFISA 10/31/2024 8:50 AM EDT [facility] Comment: Edited result: Previously reported as [...] MICROBIOLOGY - GENER AL ORDERABLES Final Result [facility] [address] [place] [address], [place] [phone] documented in this encounter Visit Diagnoses Diagnosis Urinary tract infection, site not specified documented in this encounter Care Teams Lime Kiln Tender Relationship Specialty Start Date End Date Ralph Colorado MD [address] [place] [address] Dr [address] JAMES Alvarado PCP - General 05/15/22 documented as of this encounter
--- OUTSIDE RECORDS SUMMARY | 2025-05-06 19:51 | XMS_ITS | Encounter Summary ---
Author Organization [facility] Address [address] [place] [address] Care Team Providers Care Exposure Machine Operator Name Role Phone Ralph Colorado MD Primary Care Provider + [phone] Encounter Details Date Type Department Care Team (Late st Contact Info) Description 10/01/2024 Lab Requisition [facility] - Main Lab 299 [facility] [place] [address] Senia Lambert, MADONNA [address] [facility] [address] [place] [address] Frequency of micturition Social History Tobacco Use [...] Escherichia coli(A) NAFISA 10/03/2024 8:43 AM EDT [facility] Comment: This is an edited [...] NAFISA <=4 ug/ml: Susceptible Escherichia coli Ceftazidime NFAISA <=0.5 ug/ml: Susceptible Escherichia coli Ceftriaxone NAFISA [...] Trimethoprim/Sulfamethoxazole NAFISA >=320 ug/ml: Resistant Senia Lambert HVAC PROJECT MANAGER LAB MICROBIOLOGY - GENERA L ORDERABLES Final Result [facility] [address] [place] [address], documented in this encounter Visit Diagnoses Diagnosis Frequency of micturition Urinary frequency documented in this encounter Care Teams Exposure Machine Operator Relationship Specialty Start Date End Date Ralph Colorado MD [address] [place] [address] [place] [address] [place] PCP - General 05/15/22 documented as of this encounter
--- OUTSIDE RECORDS SUMMARY | 2025-05-06 19:51 | XMS_ITS | Encounter Summary ---
Author Organization Address [address] [place] [address] Care Team Providers Care Test Engineering Technician Name Role Phone Ralph Colorado MD Primary Care Provider [phone] Encounter Details Date Type Department Care Team (Late st Contact Info) Description 04/09/2024 Lab Requisition [facility] - Main Lab [address] [place] [address] Jaja Cornelius MD [address] [facility] Sarthak [address] [place] [address] Dysuria Social History Tobacco Use Types Packs/Day [...] Escherichia coli(A) NAFISA 04/11/2024 9:54 AM EST [facility] Comment: This is an edited [...] MICROBIOLOGY - G ENERAL ORDERABLES Final Result [facility] [address] [place] [address], documented in this encounter Visit Diagnoses Diagnosis Dysuria documented in this encounter Care Teams Test Engineering Technician Relationship Specialty Start Date End Date Ralph Colorado MD [address] [place] [address] Dr Pierre [address] [place] [address] [place] PCP - General 05/15/22 documented as of this encounter
--- OUTSIDE RECORDS SUMMARY | 2025-05-06 19:51 | XMS_ITS | Encounter Summary ---
Author Organization [facility] Address [address] [place] [address] Care Team Providers Care Press Operator Printing Name Role Phone Ralph Colorado MD Primary Care Provider + [phone] Encounter Details Date Type Department Care Team (Late st Contact Info) Description 12/24/2024 Lab Requisition [facility] - Main Lab [address] [facility] [place] [address] Skip Mccain MD [facility] [place] [address] Other abnormal findings in urine Social History [...] Escherichia coli(A) NAFISA 12/26/2024 8:37 AM EDT [facility] Urine Urine specimen from urethra [...] MICROBIOLOGY - GENER AL ORDERABLES Final Result [facility] [address] [place] [address], documented in this encounter Visit Diagnoses Diagnosis Other abnormal findings in urine documented in this encounter Care Teams Press Operator Printing Relationship Specialty Start Date End Date Ralph Colorado MD [address] [place] [address] Dr [address] [place] [address] [place] PCP - General 05/15/22 documented as of this encounter
--- OUTSIDE RECORDS SUMMARY | 2025-05-06 19:51 | XMS_ITS | Encounter Summary ---
Author Organization [facility] Address [address] [place] [address] Care Team Providers Care Packing Room Worker Name Role Phone Ralph Colorado MD Primary Care Provider + [phone] Encounter Details Date Type Department Care Team (Late st Contact Info) Description 07/16/2024 Lab Requisition [facility] - Main Lab 299 [facility] [place] [address] Senia Lambert, MADONNA [address] [facility] Sarthak [address] [place] [address] Urgency of urination Social History Tobacco Use [...] if clinically indicated. 07/17/2024 8:59 AM EST [facility] Urine Urine specimen from urinary conduit / Unknown 07/16/2024 07/16/2024 2:02 PM EST us Senia Lambert SUPERINTENDENT MECHANICAL LAB MICROBIOLOGY - GENERA L ORDERABLES Final Result [facility] [address] [place] [address], documented in this encounter Visit Diagnoses Diagnosis Urgency of urination documented in this encounter Care Teams Packing Room Worker Relationship Specialty Start Date End Date Ralph Colorado MD [address] [place] [address] Dr [address] [place], [place] PCP - General 05/15/22 documented as of this encounter
== END 2025-05-06 15:41 | disposition home or self-care (01) ==
LOC: HO.HMCH 14:46
PROVIDERS: PCP Internal Medicine; Visit Provider Internal Medicine
DX: E78.00 Pure hypercholesterolemia, unspecified (principal); J44.1 Chronic obstructive pulmonary disease with (acute) exacerbation; K50.90 Crohn's disease, unspecified, without complications; K44.9 Diaphragmatic hernia without obstruction or gangrene; K21.9 Gastro-esophageal reflux disease without esophagitis; M81.0 Age-related osteoporosis without current pathological fracture; E55.9 Vitamin D deficiency, unspecified; J30.9 Allergic rhinitis, unspecified; M17.12 Unilateral primary osteoarthritis, left knee; M51.360 Other intervertebral disc degeneration, lumbar region with discogenic back pain only; N20.0 Calculus of kidney; G47.00 Insomnia, unspecified; F41.9 Anxiety disorder, unspecified; F33.9 Major depressive disorder, recurrent, unspecified; E66.3 Overweight

== ENCOUNTER → 2025-05-06 14:46 | Outpatient (BNVA) | payer OTHER, SELFPAY | PROVIDERS: PCP Internal Medicine; Visit Provider Internal Medicine | DX: J44.1 Chronic obstructive pulmonary disease with (acute) exacerbation (principal); K50.90 Crohn's disease, unspecified, without complications; E78.00 Pure hypercholesterolemia, unspecified; K44.9 Diaphragmatic hernia without obstruction or gangrene; K21.9 Gastro-esophageal reflux disease without esophagitis; M81.0 Age-related osteoporosis without current pathological fracture; E55.9 Vitamin D deficiency, unspecified; J30.9 Allergic rhinitis, unspecified; M17.12 Unilateral primary osteoarthritis, left knee; M51.360 Other intervertebral disc degeneration, lumbar region with discogenic back pain only; N20.0 Calculus of kidney; G47.00 Insomnia, unspecified; F41.9 Anxiety disorder, unspecified; F33.9 Major depressive disorder, recurrent, unspecified; E66.3 Overweight | CPT/HCPCS: 96127; 99212 ==

== ENCOUNTER 2025-05-09 08:44 | Outpatient (AMB) | payer OTHER, SELFPAY ==
[2025-05-09 09:00] VITALS: BP 131/88; PULSE 95; RESP 16; O2SAT 94; BMI 27.8
--- NOTE | 2025-05-09 09:00 | MHC.OFFVIS ---
Vital Signs 05/09/25 09:00 Height 5 ft 1 in Weight 147 lb BMI 27.8 BP 131/88 Blood Pressure Location Lt brachial Position Sitting Respiration 16 Pulse 95 Pulse Source Pulse Oximeter Pulse Oximetry (%) 94 Oxygen Delivery Method Room Air Intake Visit Reasons: Compression fracture - L1 ED referral Sports Coordinator Required: No Allergies ibuprofen (From Motrin) Adverse Reaction (Intermediate, Verified 05/09/25 09:02) activates her Crohn's disease Medication List - Last Reconciled 05/09/25 by Erma Yo LPN albuterol sulfate 90 mcg/actuation 2 puffs PO Q6H PRN 30 days amlodipine 5 mg PO DAILY baclofen 5 mg PO TID bupropion HCl XL 300 mg PO DAILY cholecalciferol (vitamin D3) 25 mcg PO DAILY diphenhydramine HCl 25 mg PO TID PRN 30 days fluticasone propionate 50 mcg/actuation 2 sprays intranasal DAILY PRN 30 days gabapentin 300 mg PO TID 30 days loratadine (Allergy Relief (loratadine)) 10 mg PO DAILY PRN mesalamine 1.2 grams PO DAILY omeprazole 40 mg PO DAILY Pulmicort Flexhaler 180 mcg/actuation (budesonide) 2 inhalations PO BID 30 days NS trazodone 50 mg PO BEDTIME PRN 30 days HPI Comments Details: History of Present Illness The patient is a 69-year-old female presenting for evaluation of a new pelvic compression fracture. The onset of symptoms was April 07 after she picked up a box at home, with no associated fall or trauma. She was seen in the emergency department in March where lumbar spine X-rays and a CT scan showed compression fractures at T9, T10, T11, L1, and L4. The L1 and L4 deformities were noted to be new since her last CT exam on November 02. The patient has a history of osteoporosis and is at high risk for fractures, having sustained multiple fractures along her spine previously. A kyphoplasty procedure was offered in the past, but she declined due to concerns that it might cause other fractures after a provider could not guarantee it wouldn't. Her medical history is also significant for Crohn's disease, which prohibits her from taking ibuprofen, and a total knee replacement in May. Pain Description - Onset: April 07, after picking up a box. - Location: Lower back. - Radiation: Pain sometimes radiates to her right side. - Quality: Stabbing ache. - Severity: 6/10. - Timing: Occurs all day. - Exacerbating Factors: Laying on her back for long periods, sleeping on her side, getting up from lying or seated positions, and bending down. - Relieving Factors: She uses a heating pad, but prolonged use is difficult due to pain when lying on her back. - Associated Symptoms/Functional Impairment: She has difficulty getting up from bed and has to roll to her side. - She cannot bend down to pick things up and uses a grabber tool; she has gotten stuck on the floor and needed assistance to get up. Pain Management - Affect: The patient is distressed by her pain and has concerns about potential treatments. - Analgesia: She is taking Tylenol for pain, but her pain level remains at a 6/10. - Adverse effects: She cannot take ibuprofen due to her history of Crohn's disease. - Activities of Daily Living: Pain significantly interferes with mobility, including difficulty rising from a supine or seated position and an inability to bend down, necessitating the use of a grabber tool. - Aberrant Drug Related Behaviors: No aberrant drug-related behaviors were noted. Results - Lumbar Spine X-Ray/CT (March): Showed compression fractures at T9, T10, T11, L1, and L4. - The L1 and L4 deformities are new since a CT exam on November 02. - Last DEXA scan confirmed osteoporosis [facility] Medical History Generalized headaches Cerebral aneurysm Insomnia Primary osteoarthritis of left knee Compression fracture of T11 vertebra with delayed healing Compression fracture of L4 vertebra Obesity (BMI 30-39.9) Hiatal hernia Coccydynia Overweight (BMI 25.0-29.9) Depression Anxiety Renal calculi Vitamin D deficiency Allergic rhinitis Osteoporosis Lumbar degenerative disc disease GERD without esophagitis Crohn's disease COPD (chronic obstructive pulmonary disease) GERD (gastroesophageal reflux disease) Ear discharge of both ears Ear build-up Sacroiliitis Chronic pain syndrome Spondylolisthesis, lumbar region Spondylosis of lumbar region without myelopathy or radiculopathy Surgical History Hx of colonoscopy History of surgery History of hysterectomy History of surgery History of nasal surgery Social History Housing: Apartment Alcohol intake: current Alcohol intake frequency: holidays/special occasions only Alcohol type: wine Patient Tobacco Use Status: Former Tobacco user Tobacco use type: Cigarette e-Cigarette/Vaping Use: Never Used Second Hand Smoke Exposure: No Advance Directives Date on File: 06/02/20 service: No Current occupational status: disabled Cognitive needs: No Hearing needs: No Vision needs: Yes (glasses) Physical Exam Exam Exam: Physical Exam - Back: Tenderness to palpation over the L1 region, which was more pronounced than in the lower lumbar area. Vital Signs: Last Vital Signs Pulse 95 05/09/25 09:00 Resp 16 05/09/25 09:00 BP 131/88 05/09/25 09:00 Pulse Ox 94 05/09/25 09:00 Oxygen Delivery Method Room Air 05/09/25 09:00 BMI result Body Mass Index 27.8 Assessment & Plan Assessment & Plan (1) Osteoporotic compression fracture of vertebra: Code(s): M80.88XA - Other osteoporosis with current pathological fracture, vertebra(e), initial encounter for fracture Category: Medical Plan Patient was informed and verbally consented to the use of an ambient scribe for clinic note documentation during this visit. 1. Vertebral Compression Fracture - An MRI of the lumbar spine will be ordered to further assess the new compression fractures at L1 and L4 and to evaluate her candidacy for kyphoplasty. - Discussed the risks and benefits of a kyphoplasty procedure, clarifying that it decreases the risk of future fractures. - The patient will take two weeks to consider the procedure and will notify the office of her decision. - If she decides to proceed, insurance authorization will be submitted after she reaches the 6-week post-fracture obey. - A brochure for the kyphoplasty procedure was provided to the patient. 2. Low Back Pain - The patient can continue using Tylenol for pain management. - She was advised not to take ibuprofen due to her history of Crohn's disease. - No other pain medications were prescribed at this visit. Discussion Notes I had an in-depth discussion with the patient regarding her new L1 and L4 compression fractures. I explained that kyphoplasty would be a beneficial treatment option to stabilize the fracture and alleviate her pain. I addressed her concern about the procedure causing more fractures, clarifying that it actually decreases the risk of future fractures by restoring vertebral height and improving spinal alignment. I informed her that while all procedures carry risks, the benefits of kyphoplasty in her case outweigh the risks. The main risk discussed was cement leakage into the spinal canal, which has a very low probability of occurrence (less than 1%) as the procedure is performed under close X-ray guidance. I also mentioned that the procedure is done under anesthesia. I recommended she take two weeks to consider the procedure and will order a lumbar spine MRI for further evaluation. We will wait for her decision before requesting insurance authorization for kyphoplasty, which is typically considered after the 6-week obey. She was provided with a brochure and expressed understanding of the plan. Patient Instructions - An MRI of your lower back has been ordered. - You will get a phone call to schedule this appointment. - Please think about the kyphoplasty procedure for the next two weeks. - A brochure was given to you with more information. - Let our office know in about two weeks if you want to have the procedure. - You may continue to take Tylenol for your pain. - Do not take ibuprofen (Advil, Motrin) due to your history of Crohn's disease. Orders: Orders MR lumbar spine wo con 05/09/25 M80.88XA - Other osteoporosis with current pathological fracture, vertebra(e), initial encounter for fracture Coding Level of Care Code New Pt Level 4 (09789) Diagnoses Osteoporotic compression fracture of vertebra M80.88XA
== END 2025-05-09 09:39 | disposition home or self-care (01) ==
LOC: HO.PMC 08:45
PROVIDERS: Visit Provider Internal Medicine
DX: M80.88XA Other osteoporosis with current pathological fracture, vertebra(e), initial encounter for fracture (principal)
CPT/HCPCS: 99214

== ENCOUNTER → 2025-05-09 08:44 | Outpatient (BNVA) | payer OTHER, SELFPAY | PROVIDERS: Visit Provider Internal Medicine | DX: M80.88XA Other osteoporosis with current pathological fracture, vertebra(e), initial encounter for fracture (principal); M54.50 Low back pain, unspecified | CPT/HCPCS: 99212 ==

== ENCOUNTER 2025-05-11 07:46 | Outpatient (REF) | payer OTHER, SELFPAY ==
--- OUTSIDE RECORDS SUMMARY | 2025-05-09 | XMS_ITS | Continuity of Care Document ---
Author Organization [facility] Address [address] [place] [address]- Care Team Providers Care Aligner Name Role Phone Stanislav GARCIA, Ralph Bee Primary Care Physician [phone] Encounter 04/19/25 - 05/09/25 [facility] [address] [place] [address]- Discharge Disposition: GOALS MET Encounter Type: Disch [facility] Allergies, Adverse Reactions, Alerts Substance Criticality Severity Reaction Reaction Severity Status ibuprofen 1 High criticality Severe IBS/Crohn's flare; abd pain Active 1severe stomach pain r/t ulcerative colitis Immunizations Given and Recorded Vaccine Date Status Refusal Reason [id number] bivalent booster vax 06/05/22 Recorded influenza virus [...] toxoids (Td) 11/07/05 Given 1Result Comment: Lot [id number] Exp 11/22/06 Medications amLODIPine 5 mg oral tablet 5 mg, 1, tablet, By Mouth, Daily, # 30 tablet, Refills 0, Tot. Refills 0, Maintenance, 03/25/24 11:56:00 AM EDT, Route to Pharmacy Electronically, [facility], Partial fill upon patient request if the prescription is for a schedule II opioid drug., 155, cm, 03/25/24 9:45:00 EDT, Height, 72.5, kg, 03/23/24 23:20:00 EDT, Dry Weight Start Date: 03/25/24 Stop Date: 04/24/24 Status: Ordered Medication Dispense Status: Completed Quantity: 30.0 Unit: tablet Total Allowed Fills: 1 Fills Dispensed: 0 Banophen 25 mg oral capsule 1 capsule = 25 mg, By Mouth, 3 times a day, PRN for allergy symptoms, # 30 capsule, 0 Refills, Maintenance, 02/14/25 6:31:00 PM EDT, Capsule, Partial fill upon patient request if the prescription is for a schedule II opioid drug. Start Date: 02/14/25 Status: Ordered Medication Dispense Status: Completed Quantity: 30.0 Unit: capsule Total Allowed Fills: 1 Fills Dispensed: 0 buPROPion 300 mg/24 hours (XL) oral tablet, extended release 1 tablet = 300 mg, By Mouth, Daily, 0 Refills, Maintenance, 02/25/18 12:44:24 PM EDT, ER Tablet Start Date: 02/25/18 Status: Ordered Medication Dispense Status: Completed Total Allowed Fills: 1 Fills Dispensed: 0 Colace sodium 100 mg oral capsule 100 mg, 1, capsule, By Mouth, 2 times a day, PRN, # 60 capsule, Refills 0, Tot. Refills 0, Maintenance, as needed for constipation, 02/15/25 9:51:00 AM EDT, [id number] Partial fill upon patient request if the prescription is for a schedule II opioid drug., 155, cm, 02/15/25 6:56:00 EDT, Height, 67.27, kg, 02/13/25 23:17:00 EDT, Dry Weight Start Date: 02/15/25 Stop Date: 03/17/25 Status: Ordered Medication Dispense Status: Completed Quantity: 60.0 Unit: capsule Total Allowed Fills: 1 Fills Dispensed: 0 gabapentin 300 mg oral capsule 300 mg, 1, capsule, By Mouth, 3 times a day, # 90 capsule, Refills 0, Tot. Refills 0, Maintenance, 04/13/25 1:05:00 PM EST, Route to Pharmacy Electronically, [facility], Partial fill upon patient request if the prescription is for a schedule II opioid drug., 155, cm, 04/13/25 11:29:00 EST, Height, 68.4, kg, 04/08/25 19:56:00 EST, Dry Weight Start Date: 04/13/25 Stop Date: 05/13/25 Status: Ordered Medication Dispense Status: Completed Quantity: 90.0 Unit: capsule Total Allowed Fills: 1 Fills Dispensed: 0 loratadine 10 mg oral tablet 10 mg, 1, tablet, By Mouth, Daily, # 90 tablet, Refills 0, Maintenance, 02/14/25 6:31:00 PM EDT, Partial fill upon patient request if the prescription is for a schedule II opioid drug. Start Date: 02/14/25 Status: Ordered Medication Dispense Status: Completed Quantity: 90.0 Unit: tablet Total Allowed Fills: 1 Fills Dispensed: 0 LORazepam 0.5 mg oral tablet 1 tablet = 0.5 mg, By Mouth, Every 72 hours, NEEDED FOR SEVERE ANXIETY ONLY DISPENSED 10 A MONTH Start Date: 02/14/25 Status: Ordered Medication Dispense Status: Completed Total Allowed Fills: 1 Fills Dispensed: 0 mesalamine 1.2 g oral delayed release tablet 1 tablet = 1.2 Gm, By Mouth, 4 times a day, Maintenance, 05/22/23 6:06:00 PM EST Start Date: 05/22/23 Status: Ordered Medication Dispense Status: Completed Total Allowed Fills: 1 Fills Dispensed: 0 omeprazole 40 mg oral enteric coated capsule 1 capsule = 40 mg, By Mouth, 2 times a day, 0 Refills, Maintenance, 10/06/24 3:26:00 PM EDT, Partialfill upon patient request if the prescription is for a schedule II opioid drug. Start Date: 10/06/24 Status: Ordered Medication Dispense Status: Completed Total Allowed Fills: 1 Fills Dispensed: 0 sucralfate 1 gm/10 ml oral suspension 10 mL = 1 Gm, By Mouth, 3 times a day before meals and bedtime Start Date: 02/14/25 Status: Ordered Medication Dispense Status: Completed Total Allowed Fills: 1 Fills Dispensed: 0 traZODone 50 mg oral tablet 50 mg, 1, tablet, By Mouth, Daily at bedtime, Refills 0, Maintenance, 10/06/24 3:26:00 PM EDT, Partial fill upon patient request if the prescription is for a schedule II opioid drug. Start Date: 10/06/24 Status: Ordered Medication Dispense Status: Completed Total Allowed Fills: 1 Fills Dispensed: 0 Ventolin HFA 108 mcg/inh inhalation aerosol with adapter 2 puffs, Inhalation, Every 6 hours, PRN Wheezing/Shortness of Breath, 0 Refills, Maintenance, 10/10/22 8:14:00 PM EDT, Aerosol Start Date: 10/10/22 Status: Ordered Medication Dispense Status: Completed Total Allowed Fills: 1 Fills Dispensed: 0 Vitamin D3 1000 intl units oral tablet 1 tablet = 1,000 International_Units, By Mouth, Daily, 0 Refills, Maintenance, 10/31/16 9:53:42 AM EDT Start Date: 10/31/16 Status: Ordered Medication Dispense Status: Completed Total Allowed Fills: 1 Fills Dispensed: 0 Problem List Condition Confirmation Course Effective Dates [...] Care team information Care Team Personnel Name: Laisha Andre RN Position: [facility] RN Member Role: Primary Care Nurse Name: Ralph Colorado MD Position: Reference Physician Member Role: PCP Address: [address] [place] [address] [place], [place] [id number] Telecom: Name: Wendi Polk RN Position: [facility] RN Member Role: Primary Care Nurse Name: Valerie Choi RN Position: [facility] RN Member Role: Primary Care Nurse Name: Ayan Wang RN Position: [facility] RN Member Role: Primary Care Nurse Name: Benjamin Soliz RN Position: [facility] RN Member Role: Primary Care Nurse Name: Dallin Carter MA Position: [facility] ERICA MA Member Role: Primary Care Nurse Name: Javier Soria RN Position: [facility] RN Member Role: Primary Care Nurse Name: Narcisa Mauricio RN Position: [facility] OB RN Member Role: Primary Care Nurse Name: Erich Venegas RN Position: [facility] RN Member Role: Primary Care Nurse Name: Norma Oshea RN Position: [facility] RN Member Role: Primary Care Nurse Name: Zoila Driscoll Position: [facility] RN Member Role: Primary Care Nurse Name: Clara Gant RN Position: [facility] RN Member Role: Primary Care Nurse Name: Shanti Schmitz LPN Position: [facility] RN Member Role: Primary Care Nurse Name: Calos Stahl RN Position: S RN Member Role: Primary Care Nurse Name: Jj Cervantes RN Position: [facility] SN RN Member Role: Primary Care Nurse Care Team Related Persons Name: ADRIANA FLEMING Name: OTHER, SAJI Name: TRISTIAN GANT Name: CLARA CARRASCO Insurance Providers Guarantor name: MANJU FLEMING Flud Plan Information #: 1 Payer: ALEX BEEBE Payer Identifier: ZOE Member Number: [id number] Group Number: [id number] Subscriber Identifier: NA Relationship to Subscriber: self Coverage Type: Medicare Managed Care (Includes Medicare Advantage Plans) Coverage Verification Date: NA Telecom: ZOE Address: NA
--- NOTE | ~2025-05-11 | MM_ITS ---
EXAMINATION: DXA BONE DENSITY AXIAL HISTORY: M81.0 - Age-related osteoporosis without current pathological fracture TECHNIQUE: [employer] Dual energy absorptiometry (DEXA) of the lumbar spine, total left hip, and femoral neck was performed. COMPARISON: Comparison is made with the prior examination dated 10/31/2021. FINDINGS: The bone mineral density of the lumbar spine is 0.783 g/cm2, corresponding to a T-score of -3.3, and a Z-score of -1.7. This is indicative of osteoporosis. This represents a BMD change of 11.5% compared to the prior exam. This is statistically significant. The bone mineral density of the left total hip is 0.738 g/cm2, corresponding to a T-score of -2.1, and a Z-score of -0.8. This is indicative of osteopenia. This represents a BMD change of 1.2% compared to the prior exam. This is not statistically significant. The bone mineral density of the left femoral neck is 0.694 g/cm2, corresponding to a T-score of -2.5, and a Z-score of -0.9. This is indicative of osteoporosis. This represents a BMD change of -2.4% compared to the prior exam. FRACTURE RISK: The FRAX index suggests a ten year probability of major osteoporotic fracture of 24.2%, and of hip fracture 8.9%. MM/XR DEXA axial skeleton IMPRESSION: Based on bone mineral density, and according to World Health Organization (WHO) criteria, the diagnosis is consistent with osteoporosis. Statistically, 68% of repeat scans fall within 1 SD (+/- 0.010 g/cm2 for AP spine L1-L4) and 1 SD (+/- 0.012 g/cm2 for femur total) FRAX is a trademark of the [employer]'s [place] for Metabolic Bone Disease, a World Health Organization (WHO) Collaborating Center. Electronically signed by: Francisco Javier Cruz MD 05/11/2025 08:44 AM [facility]
--- OUTSIDE RECORDS SUMMARY | 2025-05-11 07:49 | XMS_ITS | Encounter Summary ---
Author Organization [facility] Address [address] [place] [address] Care Team Providers Care Drywall Foreman Name Role Phone Ralph Colorado MD Primary Care Provider + [phone] Encounter Details Date Type Department Care Team (Late st Contact Info) Description 10/01/2024 Lab Requisition [facility] - Main Lab 299 [facility] [place] [address] Senia Lambert, MADONNA [address] [facility] [address] [place] [address] Frequency of micturition Social History Tobacco Use [...] Escherichia coli(A) NAFISA 10/03/2024 8:43 AM EDT [facility] Comment: This is an [...] Trimethoprim/Sulfamethoxazole NAFISA >=320 ug/ml: Resistant Senia Lambert PNEUMATIC TESTER LAB MICROBIOLOGY - GENERA L ORDERABLES Final Result [facility] [address] [place] [address], documented in this encounter Visit Diagnoses Diagnosis Frequency of micturition Urinary frequency documented in this encounter Care Teams Drywall Foreman Relationship Specialty Start Date End Date Ralph Colorado MD [address] [place] [address] [place] [address] [place] PCP - General 05/15/22 documented as of this encounter
--- OUTSIDE RECORDS SUMMARY | 2025-05-11 07:49 | XMS_ITS | Encounter Summary ---
Author Organization [facility] Address [address] [place] [address] Care Team Providers Care Clinical Staff Pharmacist Name Role Phone Ralph Colorado MD Primary Care Provider + [phone] Encounter Details Date Type Department Care Team (Late st Contact Info) Description 12/24/2024 Lab Requisition [facility] - Main Lab 299 [facility] [place] [address] Skip Mccain MD [facility] [place] [address] Other abnormal findings in urine Social History [...] coli(A) NAFISA 12/26/2024 8:37 AM EDT [facility] Urine Urine specimen from urethra [...] - GENER AL ORDERABLES Final Result [facility] [address] [place] [address], documented in this encounter Visit Diagnoses Diagnosis Other abnormal findings in urine documented in this encounter Care Teams Clinical Staff Pharmacist Relationship Specialty Start Date End Date Ralph Colorado MD [address] [place] [address] Dr Pierre [address] [place] [address] [place] PCP - General 05/15/22 documented as of this encounter
--- OUTSIDE RECORDS SUMMARY | 2025-05-11 07:49 | XMS_ITS | Encounter Summary ---
Author Organization [facility] Address [address] [place] [address] Care Team Providers Care Flavor Tank Tender Name Role Phone Ralph Colorado MD Primary Care Provider [phone] Encounter Details Date Type Department Care Team (Late st Contact Info) Description 10/29/2024 Lab Requisition [facility] - Main Lab 299 [facility] [place] [address] Skip Mccain MD [address] [place] [address] Urinary tract infection, site not specified Social [...] mirabilis(A ) NAFISA 10/31/2024 8:50 AM EDT [facility] Comment: Edited result: Previously reported as [...] MICROBIOLOGY - GENER AL ORDERABLES Final Result [facility] [address] [place] [address], [place] [phone] documented in this encounter Visit Diagnoses Diagnosis Urinary tract infection, site not specified documented in this encounter Care Teams Flavor Tank Tender Relationship Specialty Start Date End Date Ralph Colorado MD [address] [place] [address] Dr [address] JAMES Alvarado PCP - General 05/15/22 documented as of this encounter
--- OUTSIDE RECORDS SUMMARY | 2025-05-11 07:49 | XMS_ITS | Clinical Summary ---
Author Organization [facility] 299 [facility] Address [address] [place] [address] Phone Care Team Providers Care Electrician Supervisor Airplane Name Role Phone Ralph Colorado MD Primary Care Provider + [phone] Allergies Active Allergy Reactions Criticality Noted Date [...] post total abdominal hysterectomy and bilateral salpingo-oophorectomy (ARFI-BSO) 03/26/2024 GERD (gastroesophageal reflux disease) Overview (03/25/2024): [...] Office Visit Gastroenterology - [address] [facility] [address] [place] [address] Dalia Khoury MD Irritable bowel syndrome with diarrhea (Primary Dx); Gastroesophageal reflux disease without esophagitis 02/28/2025 Telephone Gastroenterology - [address] [facility] [address] [place] [address] Dalia Khoury MD from Last [...] PROCEDURE: HISTORICAL OOPHORECTOMY PARTIAL HYSTERECTOMY 05/26/1999 PROCEDURE: TX SUPRACERVICAL ABDL HYSTER W/WO RMVL TUBE OVARY OTHER SURGICAL HISTORY PROCEDURE: TX CYSTO MANJ W/O RMVL URETERAL STONE; COMMENT: s/p bladder lift SINUS SURGERY 05/26/2016 PROCEDURE: TX UNLISTED PROCEDURE ACCESSORY SINUSES OTHER SURGICAL HISTORY 06/11/2022 Right PROCEDURE: TX RMVL LUNG OTHER THAN PNEUMONECT 1 SEGMENTECTOMY; COMMENT: Da Fauzia RLL superior segmentectomy, mediastinal lymphadenectomy, bronch w aspiration OTHER SURGICAL HISTORY 09/18/2022 PROCEDURE: TX LAPS RPR PARAESPHGL HRNA INCL FUNDPLSTY W/MESH OTHER SURGICAL HISTORY 04/15/2023 N/A PROCEDURE: TX LAPS RPR PARAESPHGL HRNA INCL FUNDPLSTY W/MESH [...] UTI Depression DX:Depression Anxiety DX:Anxiety; COMM ENT: [facility] Cystocele 02/07/2015 DX:Cystocele Osteopenia 02/07/2015 DX:Osteopenia Allergic [...] Brother 2 Heart attack Father Hypertension Father [place] at age 46, s moker Kidney cancer [...] should be classified as having osteoporosis. [facility] Department of Internal Medicine recommends using National [...] Fleming should beclassified as having osteoporosis. The [facility] Department of Internal Medicine recommendsusing National Osteoporosis [...] risk by FRAX. 22 Mirella Kimble DO [facility] DXA PROCEDURE S Final Result * (ABNORMAL) [...] Phone Billing Address Personal/Family Self 1955 [address] [facility] [place] [address] [facility] [employer] MEDICAID - [place] Care Teams Electrician Supervisor Airplane Relationship Specialty Start Date End Date Ralph Colorado MD [address] [place] [address] [address] [place], [place] PCP - General 05/15/22
--- OUTSIDE RECORDS SUMMARY | 2025-05-11 07:49 | XMS_ITS | Encounter Summary ---
Author Organization [facility] Address [address] [place] [address] Care Team Providers Care Watch Caser Name Role Phone Ralph Colorado MD Primary Care Provider + [phone] Encounter Details Date Type Department Care Team (Late st Contact Info) Description 07/16/2024 Lab Requisition [facility] - Main Lab 299 [facility] [place] [address] Senia Lambert NP [address] [facility] [address] [place] [address] Urgency of urination Social History Tobacco Use [...] 07/16/2024 2:02 PM EST us Senia Lambert THERAPEUTIC SPECIALIST LAB MICROBIOLOGY - GENERA L ORDERABLES Final Result [facility] [address] [place] [address], documented in this encounter Visit Diagnoses Diagnosis Urgency of urination documented in this encounter Care Teams Watch Caser Relationship Specialty Start Date End Date Ralph Colorado MD [address] [place] [address] Dr [address] [place], [place] PCP - General 05/15/22 documented as of this encounter
--- OUTSIDE RECORDS SUMMARY | 2025-05-11 07:49 | XMS_ITS | Encounter Summary ---
Author Organization [facility] Address [address] [place] [address] Care Team Providers Care Appraiser Art Name Role Phone Ralph Colorado MD Primary Care Provider [phone] Encounter Details Date Type Department Care Team (Late st Contact Info) Description 04/09/2024 Lab Requisition [facility] - Main Lab [address] [place] [address] Jaja Cornelius MD [address] [facility] Sarthak [address] [place] [address] Dysuria Social History Tobacco Use Types Packs/Day [...] Escherichia coli(A) NAFISA 04/11/2024 9:54 AM EST [facility] Comment: This is an [...] MICROBIOLOGY - G ENERAL ORDERABLES Final Result [facility] [address] [place] [address], documented in this encounter Visit Diagnoses Diagnosis Dysuria documented in this encounter Care Teams Appraiser Art Relationship Specialty Start Date End Date Ralph Colorado MD [address] [place] [address] Dr Pierre [address] [place] [address] [place] PCP - General 05/15/22 documented as of this encounter
== END 2025-05-11 07:47 | disposition home or self-care (01) ==
LOC: HO.MAMMO 07:46
PROVIDERS: PCP Internal Medicine; Visit Provider Internal Medicine
DX: Z12.31 Encounter for screening mammogram for malignant neoplasm of breast (principal); M81.0 Age-related osteoporosis without current pathological fracture
CPT/HCPCS: 77063; 77067; 77080

== ENCOUNTER → 2025-05-11 08:15 | Outpatient (BNV) | payer OTHER, SELFPAY | PROVIDERS: PCP Internal Medicine; Visit Provider Radiology Diagnostic Radiology | DX: E28.39 Other primary ovarian failure (principal) | CPT/HCPCS: 77080 ==

== ENCOUNTER 2025-05-14 15:23 | Observation (INO) | payer OTHER, SELFPAY ==
--- OUTSIDE RECORDS SUMMARY | 2025-05-11 23:59 | XMS_ITS | Continuity of Care Document ---
Author Organization [facility] Address [address] [place] [address]- Care Team Providers Care Hides And Skins Colorer Name Role Phone Stanislav GARCIA, Ralph Bee Primary Care Physician Encounter [facility] [id number] Date(s): 04/11/25 - 05/11/[address] [address] Attending Physician: Not on Staff, Attending MD Admitting Physician: Not on Staff, Admitting MD Referring Physician: Not on Staff, Referring MD Encounter Type: Pre-Outpt Allergies, Adverse Reactions, Alerts Substance Criticality Severity Reaction Reaction Severity Status ibuprofen 1 High criticality Severe IBS/Crohn's flare; abd pain Active 1severe stomach pain r/t ulcerative colitis Immunizations Given and Recorded Vaccine Date Status Refusal Reason [id number] bivalent booster vax 06/05/22 Recorded influenza virus [...] toxoids (Td) 11/07/05 Given 1Result Comment: Lot [id number] Exp 11/22/06 Medications amLODIPine 5 mg oral tablet 5 mg, 1, tablet, By Mouth, Daily, # 30 tablet, Refills 0, Tot. Refills 0, Maintenance, 03/25/24 11:56:00 AM EDT, Route to Pharmacy Electronically, [facility], Partial fill upon patient request [...] 9:51:00 AM EDT, [id number], Partial fill upon patient request if [...] 1:05:00 PM EST, Route to Pharmacy Electronically, [facility], Partial fill [...] Team Personnel Name: Laisha Andre RN Position: [facility] RN Member Role: Primary Care Nurse Name: Ralph Colorado MD Position: Reference Physician Member Role: PCP Address: [address] [place] [address] [place] [address] Telecom: Name: Wendi Polk RN Position: [facility] RN Member Role: Primary Care Nurse Name: Valerie Choi RN Position: [facility] RN Member Role: Primary Care Nurse Name: Ayan Wang RN Position: [facility] RN Member Role: Primary Care Nurse Name: Benjamin Soliz RN Position: [facility] RN Member Role: Primary Care Nurse Name: Dallin Carter MA Position: [facility] ERICA MA Member Role: Primary Care Nurse Name: Javier Soria RN Position: S RN Member Role: Primary Care Nurse Name: Narcisa Mauricio RN Position: [facility] OB RN Member Role: Primary Care Nurse Name: Erich Venegas RN Position: [facility] RN Member Role: Primary Care Nurse Name: Norma Oshea RN Position: S RN Member Role: Primary Care Nurse Name: Zoila Driscoll Position: [facility] RN Member Role: Primary Care Nurse Name: Clara Gant RN Position: S RN Member Role: Primary Care Nurse Name: Shanti Schmitz LPN Position: S RN Member Role: Primary Care Nurse Name: Calos Stahl RN Position: [facility] RN Member Role: Primary Care Nurse Name: Billy WILLETT, Jj Position: [facility] RN Member Role: Primary Care Nurse Care Team Related Persons Name: CAMPOSJOSE GADRIANA [place] Name: OTHER, SAJI Name: TRISTIAN GANT Name: CLARA CARRASCO Insurance Providers Guarantor name: [facility] Information #: 1 [facility] Payer Identifier: NA Member Number: [id number] Group Number: [id number] Subscriber Identifier: NA Relationship to Subscriber: self Coverage Type: Medicare Managed Care (Includes Medicare Advantage Plans) Coverage Verification Date: NA Telecom: NA Address: NA
--- OUTSIDE RECORDS SUMMARY | 2025-05-12 14:42 | XMS_ITS | Continuity of Care Document ---
Author Organization [facility] Address [address] [place] [address] Care Team Providers Care Senior Naval Parachutist Name Role Phone Ralph Colorado MD Primary Care Physician Encounter [facility] Date(s): 03/08/25 - 05/12/[address] [address] Encounter Diagnosis Presence of left artificial knee joint(Final) - Discharge Disposition: A-D/C Home Attending Physician: Ralph Colorado MD Admitting Physician: Ralph Colorado MD Referring Physician: Ralph Colorado MD Encounter Type: Disch Recurring OP Allergies, Adverse Reactions, Alerts Substance Criticality Severity Reaction Reaction Severity Status ibuprofen 1 High criticality Severe IBS/Crohn's flare; abd pain Active 1severe stomach pain r/t ulcerative colitis Immunizations Given and Recorded Vaccine Date Status Refusal Reason [id number] bivalent booster vax 06/05/22 Recorded influenza virus [...] toxoids (Td) 11/07/05 Given 1Result Comment: Lot [id number] Exp 11/22/06 Medications amLODIPine 5 mg oral tablet 5 mg, 1, tablet, By Mouth, Daily, # 30 tablet, Refills 0, Tot. Refills 0, Maintenance, 03/25/24 11:56:00 AM EDT, Route to Pharmacy Electronically, [facility], Partial fill upon patient [...] 9:51:00 AM EDT, [id number] Partial fill upon patient request if the [...] 1:05:00 PM EST, Route to Pharmacy Electronically, [facility], Partial fill upon patient [...] Team Personnel Name: Laisha Andre RN Position: [facility] RN Member Role: Primary Care Nurse Name: Ralph Colorado MD Position: Reference Physician Member Role: PCP Address: [address] [place] [address] [place] [address] Telecom: Name: Wendi Polk RN Position: [facility] RN Member Role: Primary Care Nurse Name: Valerie Choi RN Position: S RN Member Role: Primary Care Nurse Name: Ayan Wang RN Position: [facility] RN Member Role: Primary Care Nurse Name: Benjamin Soliz RN Position: [facility] RN Member Role: Primary Care Nurse Name: Dallin Carter MA Position: [facility] ERICA RAMIREZ Member Role: Primary Care Nurse Name: Javier Soria RN Position: [facility] RN Member Role: Primary Care Nurse Name: Narcisa Mauricio RN Position: [facility] OB RN Member Role: Primary Care Nurse Name: Erich Venegas RN Position: [facility] RN Member Role: Primary Care Nurse Name: Norma Oshea RN Position: [facility] RN Member Role: Primary Care Nurse Name: Zoila Driscoll Position: S RN Member Role: Primary Care Nurse Name: Clara Gant RN Position: [facility] RN Member Role: Primary Care Nurse Name: Shanti Schmitz LPN Position: [facility] RN Member Role: Primary Care Nurse Name: Calos Stahl RN Position: S RN Member Role: Primary Care Nurse Name: Jj Cervantes RN Position: [facility] RN Member Role: Primary Care Nurse Care Team Related Persons Name: ADRIANA FLEMING Name: OTHER, SAJI Name: TRISTIAN GANT Name: CLARA CARRASCO Insurance Providers Guarantor name: [employer] Plan Information #: 1 Payer: ALEX GIPSON CTHerbert Payer Identifier: ZOE Member Number: [id number] Group Number: [id number] Subscriber Identifier: [id number] Relationship to Subscriber: self Coverage Type: Medicare Managed Care (Includes Medicare Advantage Plans) Coverage Verification Date: ZOE Telecom: ZOE Address:
--- NOTE | ~2025-05-14 | CT_ITS ---
CLINICAL HISTORY: pain CT thoracic spine without contrast, CT lumbar spine without contrast. Comparison: CT/REG/SR - CT CHEST WITHOUT IV CONTRAST - 04/05/25 12:12 EST Findings: New compression deformity of T9 vertebral body ( 40%) with internal sclerosis. There is also mild compression deformity (20%) of the T10 vertebral body. Mildly decreased vertebral body height loss at T4, T5, and T6 are unchanged. Similar severe compression deformity at L1. 60% decreased vertebral body height at L4. No retropulsion into the spinal canal. Multilevel degenerative disc disease. Facet arthropathy of the lumbar spine from L3-S1, worst at L5-S1. No high-grade spinal canal or neural foraminal narrowing of the lumbar spine. There is [id number] narrowing of the neural foramen at the level of T11-T12. No high-grade spinal canal narrowing of the thoracic spine. Atherosclerotic disease of the thoracic aorta prominent right internal jugular vein. Motion artifact limits evaluation of the lung parenchyma. There is subsegmental atelectasis in bilateral lung bases and distal bronchial plugging in within the left lower lobe. Large hiatal hernia. Renal cyst in the upper pole of the left kidney. Atherosclerotic disease of the abdominal aorta. Bilateral nonobstructing renal stones. Colonic diverticulosis. IMPRESSION: New compression deformity of T9 vertebral body causing 40% decreased vertebral body height. Sclerotic changes suggests subacute etiology. However, underlying metastatic disease can not be excluded. Recommend follow-up thoracic spine MRI in 3-6 months. New minimal compression deformity of T10. No retropulsion. Similar severe compression deformity at L1. Compression deformity at L4 with 60% decreased vertebral body height without retropulsion. Large hiatal hernia. Bilateral nonobstructing renal stones. This document has been electronically signed by: Yi Peterson MD on 05/14/2025 21:18:31
[2025-05-14 15:34] VITALS: BP 183/111; PULSE 104; O2SAT 98
[2025-05-14 15:41] VITALS: BP 148/96; PULSE 92; RESP 18; TEMP 37.1; O2SAT 97; BMI 28.3
--- NOTE | 2025-05-14 15:43 | ECG_ITS ---
Test Reason : CP Blood Pressure : */* mmHG Vent. Rate : 90 BPM Atrial Rate : 90 BPM P-R Int : 124 ms QRS Dur : 70 ms QT Int : 380 ms P-R-T Axes : 19 -38 -32 degrees QTcB Int : 464 ms Normal sinus rhythm Left axis deviation Nonspecific ST abnormality Abnormal ECG When compared with ECG of 14-Feb-2024 11:40, No significant change was found Referred By: Generic ED Physician Electronically Signed By: Benny Li
--- OUTSIDE RECORDS SUMMARY | 2025-05-14 16:03 | XMS_ITS | Clinical Summary ---
Author Organization [facility] 299 [facility] Address [address] [place] [address] Phone Care Team Providers Care Skip Hoist Operator Name Role Phone Ralph Colorado MD Primary Care Provider + [phone] Allergies Active Allergy Reactions Criticality Noted Date [...] Office Visit Gastroenterology - [address] [facility] [address] [place] [address] Dalia Khoury MD Irritable bowel syndrome with diarrhea (Primary Dx); Gastroesophageal reflux disease without esophagitis 02/28/2025 Telephone Gastroenterology - [address] [facility] [address] [place] [address] Dalia Khoury MD from Last [...] UTI Depression DX:Depression Anxiety DX:Anxiety; COMM ENT: [facility] Cystocele 02/07/2015 DX:Cystocele Osteopenia 02/07/2015 DX:Osteopenia [...] Health Maintenance Due Date Last Done Comments Drug Screen 1955 Non-Opioid Controlled Substance Agreement 1955 DTaP,Tdap,and Td Vaccines (2 - Td or Tdap) 11/08/2015 11/07/2005 Zoster Vaccines (3 of 3) 06/07/2018 11/2 018, 09/29/2017, 07/19/2016 Breast Cancer Screening 01/21/2020 [...] should be classified as having osteoporosis. The [facility] Department of Internal Medicine recommends using National [...] Fleming should beclassified as having osteoporosis. The [facility] Department of Internal Medicine recommendsusing National Osteoporosis [...] risk by FRAX. 22 Mirella Kimble DO [facility] DXA PROCEDURE S Final Result * (ABNORMAL) Lipid panel (08/12/2017) LDL/HDL Ratio 4 0 - 4 Triglycerides 120 0 - 150 mg/dL Cholesterol 198 0 - 200 mg/dL HDL 54 >=40 mg/dL LDL Cholesterol 120(A) 0 - 100 mg/dL Blood Venous blood specimen / Unknown us Historical Provider LAB BLOOD ORDERABLES Barbara l Result * Hepatitis C Screening (11/03/2015) Hepatitis C Screening Abstracted Historical Provider HEALTH MAINTENANCE Final Result from Last 3 Months or Most Recently Relevant to Health Maintenance Insurance * Guarantor: Manju Fleming Account Type Relation to Patient Date of Phone Billing Address Personal/Family Self 1955 [address] [place] [address] [employer] [facility] [employer]AGE MEDICAID - [place] Care Teams Skip Hoist Operator Relationship Specialty Start Date End Date Ralph Colorado MD [address] [place] [address] [address] [place] PCP - General 05/15/22
--- OUTSIDE RECORDS SUMMARY | 2025-05-14 16:03 | XMS_ITS | Encounter Summary ---
Author Organization [facility] Address [address] [place] [address] Care Team Providers Care Card Reader Name Role Phone Ralph Colorado MD Primary Care Provider + [phone] Encounter Details Date Type Department Care Team (Late st Contact Info) Description 07/16/2024 Lab Requisition [facility] - Main Lab 299 [facility] [place] [address] Senia Lambert NP [address] [facility] [address] [place] [address] Urgency of urination Social History Tobacco Use [...] if clinically indicated. 07/17/2024 8:59 AM EST [facility] Urine Urine specimen from urinary conduit / Unknown 07/16/2024 07/16/2024 2:02 PM EST us Senia Lambert VALVE SETTER LAB MICROBIOLOGY - GENERA L ORDERABLES Final Result [facility] [address] [place] [address], documented in this encounter Visit Diagnoses Diagnosis Urgency of urination documented in this encounter Care Teams Card Reader Relationship Specialty Start Date End Date Ralph Colorado MD [address] [place] [address] [address] [place], [place] PCP - General 05/15/22 documented as of this encounter
--- OUTSIDE RECORDS SUMMARY | 2025-05-14 16:03 | XMS_ITS | Encounter Summary ---
Author Organization [facility] Address [address] [place] [address] Care Team Providers Care Entry Level Software Engineer Name Role Phone Ralph Colorado MD Primary Care Provider + [phone] Encounter Details Date Type Department Care Team (Late st Contact Info) Description 10/01/[address] [facility] - Main Lab 299 [facility] [place] [address] Senia Lambert, MADONNA [address] [facility] [address] [place] [address] Frequency of micturition Social History Tobacco Use [...] Trimethoprim/Sulfamethoxazole NAFISA >=320 ug/ml: Resistant Senia Lambert OTR OWNER OPERATOR LAB MICROBIOLOGY - GENERA L ORDERABLES Final Result [facility] [address] [place] [address], documented in this encounter Visit Diagnoses Diagnosis Frequency of micturition Urinary frequency documented in this encounter Care Teams Entry Level Software Engineer Relationship Specialty Start Date End Date Ralph Colorado MD [address] [place] [address] [place] [address] [place] PCP - General 05/15/22 documented as of this encounter
--- OUTSIDE RECORDS SUMMARY | 2025-05-14 16:03 | XMS_ITS | Encounter Summary ---
Author Organization [facility] Address [address] [place] [address] Care Team Providers Care Home Worker Name Role Phone Ralph Colorado MD Primary Care Provider [phone] Encounter Details Date Type Department Care Team (Late st Contact Info) Description 04/09/2024 Lab Requisition [facility] - Main Lab [address] [place] [address] Jaja Cornelius MD [address] [facility] [address] [place] [address] Dysuria Social History Tobacco Use Types Packs/Day [...] Escherichia coli(A) NAFISA 04/11/2024 9:54 AM EST [facility] Comment: This is an [...] MICROBIOLOGY - G ENERAL ORDERABLES Final Result [facility] [address] [place] [address], documented in this encounter Visit Diagnoses Diagnosis Dysuria documented in this encounter Care Teams Home Worker Relationship Specialty Start Date End Date Ralph Colorado MD [address] [place] [address] Dr Pierre [address] [place] [address] [place] PCP - General 05/15/22 documented as of this encounter
--- OUTSIDE RECORDS SUMMARY | 2025-05-14 16:03 | XMS_ITS | Encounter Summary ---
Author Organization [facility] Address [address] [place] [address] Care Team Providers Care Quality Assurance Manager Name Role Phone Ralph Colorado MD Primary Care Provider + [phone] Encounter Details Date Type Department Care Team (Late st Contact Info) Description 12/24/2024 Lab Requisition [facility] - Main Lab 299 [facility] [place] [address] Skip Mccain MD [facility] [place] [address] Other abnormal findings in urine Social History [...] Escherichia coli(A) NAFISA 12/26/2024 8:37 AM EDT [facility] Urine Urine specimen from [...] MICROBIOLOGY - GENER AL ORDERABLES Final Result [facility] [address] [place] [address], documented in this encounter Visit Diagnoses Diagnosis Other abnormal findings in urine documented in this encounter Care Teams Quality Assurance Manager Relationship Specialty Start Date End Date Ralph Colorado MD [address] [place] [address] Dr Pierre [address] [place] [address] [place] PCP - General 05/15/22 documented as of this encounter
--- OUTSIDE RECORDS SUMMARY | 2025-05-14 16:03 | XMS_ITS | Encounter Summary ---
Author Organization [facility] Address [address] [place] [address] Care Team Providers Care Administration Professional Name Role Phone Ralph Colorado MD Primary Care Provider [phone] Encounter Details Date Type Department Care Team (Late st Contact Info) Description 10/29/[address] [facility] - Main Lab 299 [facility] [place] [address] Skip Mccain MD [address] [place] [address] Urinary tract infection, site not specified Social [...] mirabilis(A ) NAFISA 10/31/2024 8:50 AM EDT [facility] Comment: Edited result: Previously reported as [...] MICROBIOLOGY - GENER AL ORDERABLES Final Result [facility] [address] [place] [address], [place] [phone] documented in this encounter Visit Diagnoses Diagnosis Urinary tract infection, site not specified documented in this encounter Care Teams Administration Professional Relationship Specialty Start Date End Date Ralph Colorado MD [address] [place] [address] Dr [address] JAMES Alvarado PCP - General 05/15/22 documented as of this encounter
--- NOTE | 2025-05-14 17:26 | ED.BACK ---
HPI - Back Pain/Injury General Chief Complaint: Back Pain/Injury Stated Complaint: back pain, L1 & L4 fx x 1 month ago Time Seen by Provider: 05/14/25 16:03 History of Present Illness HPI Narrative: patient is a 69-year-old female with a history of compression fracture presented today with having increasing pain to her back. There is no bowel urinary incontinence. There is no focal weakness. There is no additional trauma. Patient stated that she got some steroids and Z-José Miguel for coughing. He turned the wrong way cough the wrong way and the pain has gotten worse. There is no radiation of the pain the pain is in the lower back area. Patient is from home. Worsened with movement. Had a previous x-ray done and shows a compression fracture. No history of sudden deaths in the family. History of COPD. History of Crohn's disease. Patient claims that she can not take NSAIDs due to it makes her Crohn's disease much worse. No numbness in the legs. No difficulty ambulating pain is just localized to the back. No history of IV drug use. Related Data Home Medications ?Medication ?Instructions ?Recorded ?Confirmed bupropion HCl 300 mg 24 hr tablet, 300 mg PO DAILY 04/10/20 05/09/25 extended release cholecalciferol (vitamin D3) 25 25 mcg PO DAILY 04/10/20 05/09/25 mcg (1,000 unit) capsule mesalamine 1.2 gram tablet,delayed 1.2 g PO DAILY 10/29/23 05/09/25 release omeprazole 40 mg capsule,delayed 40 mg PO DAILY 10/29/23 05/09/25 release Previous Rx's ?Medication ?Instructions ?Recorded fluticasone propionate 50 2 spray intranasal DAILY PRN 08/06/23 mcg/actuation nasal allergy symptoms 30 days #16 grams spray,suspension loratadine 10 mg tablet (Allergy 10 mg PO DAILY PRN allergy 01/04/25 Relief (loratadine)) symptoms #90 tabs diphenhydramine HCl 25 mg capsule 25 mg PO TID PRN allergy symptoms 01/05/25 30 days #90 caps baclofen 5 mg tablet 5 mg PO TID #60 tabs 03/01/25 amlodipine 5 mg tablet 5 mg PO DAILY #90 tabs 04/19/25 gabapentin 300 mg capsule 300 mg PO TID 30 days #90 caps 04/28/25 Pulmicort Flexhaler 180 2 inh PO BID 30 days #1 ea 05/06/25 mcg/actuation breath activated (budesonide) albuterol sulfate 90 mcg/actuation 2 puff PO Q6H PRN shortness of 05/06/25 aerosol inhaler breath or wheezing 30 days #8.5 grams trazodone 50 mg tablet 50 mg PO BEDTIME PRN sleep 30 days 05/06/25 #30 tabs prednisone 20 mg tablet 20 mg PO DAILY 3 days #3 tabs 05/10/25 oxycodone 5 mg tablet 5 mg PO BID-TID PRN severe pain 05/11/25 #10 tabs Allergies Allergy/AdvReac Type Severity Reaction Status Date / Time ibuprofen (From Motrin) AdvReac Intermediate activates Verified 05/14/25 15:43 her Crohn's disease Review of Systems Review of Systems: Positive back pain Yes all other systems are reviewed and are negative PMFSH Past Medical History Attestation statement: The following information was validated with the patient. Medical History Generalized headaches Cerebral aneurysm Insomnia Primary osteoarthritis of left knee Compression fracture of T11 vertebra with delayed healing Compression fracture of L4 vertebra Obesity (BMI 30-39.9) Hiatal hernia Coccydynia Overweight (BMI 25.0-29.9) Depression Anxiety Renal calculi Vitamin D deficiency Allergic rhinitis Osteoporosis Lumbar degenerative disc disease GERD without esophagitis Crohn's disease COPD (chronic obstructive pulmonary disease) GERD (gastroesophageal reflux disease) Ear discharge of both ears Ear build-up Sacroiliitis Chronic pain syndrome Spondylolisthesis, lumbar region Spondylosis of lumbar region without myelopathy or radiculopathy Surgical History Hx of colonoscopy History of surgery History of hysterectomy History of surgery History of nasal surgery Social History Social History Housing: Apartment Alcohol intake: current Alcohol intake frequency: a few times a month Alcohol type: wine Patient Tobacco Use Status: Former Tobacco user Tobacco use type: Cigarette Smoked in Last 30 Days: No e-Cigarette/Vaping Use: Never Used Second Hand Smoke Exposure: No Use of substances other than those prescribed or required for medical reasons: No Advance Directives: No Advance Directives Information Provided: No Advance Directives Date on File: 06/02/20 Nutrition Risks: No Nutritional Risk service: No Current occupational status: disabled Cognitive needs: No Hearing needs: No Vision needs: Yes (glasses) Physical Exam Exam: Exam: Appearance: Alert. Oriented X3. No acute distress. Eyes: Pupils equal, round and reactive to light. ENT: Pharynx normal. Neck: Normal inspection. Neck supple. No lymph nodes noted. No crepitus CVS: Normal heart rate and rhythm. Pulses normal. Normal S1 and S2 Respiratory: No respiratory distress. Breath sounds normal. No Wheezing. No rales Abdomen: Soft and nontender. No rigidity. No distention. good BS x4 palpation of the posterior spine showed no focal point tenderness. Skin: Skin warm and dry. Normal skin color. Normal skin turgor. Extremities: No lower extremity edema. Neurovascular intact to all extremities. No Lacerations. No Rash Neuro: Oriented X 3. No motor deficit. No sensory deficit. Moving all extermities. No slurred speech Vital Signs: Vital Signs: Last Vital Signs Temp 97.8 F 05/15/25 00:00 Pulse 79 05/15/25 00:00 Resp 18 05/15/25 00:00 BP 128/93 H 05/15/25 00:00 Pulse Ox 94 05/15/25 00:00 O2 Del Method Room Air 05/15/25 00:00 BMI result Body Mass Index 28.3 Medications Administered Generic Name Dose Route Start Last Admin Trade Name Freq PRN Reason Stop Dose Admin Enoxaparin Sodium 40 mg 05/14/25 22:30 05/14/25 23:53 Enoxaparin Sodium 40 Mg/0.4 Ml Syringe SUBCUT 40 mg Q24H MERLY Administration Lidocaine 1 patch 05/14/25 22:25 05/14/25 23:53 Lidocaine 4 % Patch Adh..Patch TRANSDERMA 1 patch DAILY MERLY Administration Protocol Melatonin 6 mg 05/14/25 22:18 05/15/25 00:42 Melatonin 3 Mg Tablet PO 6 mg BEDTIME PRN Administration Insomnia Sodium Chloride 3 ml 05/15/25 00:00 05/15/25 00:34 0.9 % Sodium Chloride Flush 3 Ml Syringe IVFLUSH 3 ml QSHIFT MERLY Administration Discontinued Medications Generic Name Dose Route Start Last Admin Trade Name Natacha PRN Reason Stop Dose Admin Acetaminophen 975 mg 05/14/25 21:53 05/14/25 22:07 Acetaminophen 325 Mg Tablet PO 05/14/25 21:54 975 mg ONCE ONE Administration Dexamethasone Sodium Phosphate 8 mg 05/14/25 21:28 05/14/25 21:47 Dexamethasone Sod Phosphate 4 Mg/Ml Vial IVPUSH 05/14/25 21:29 8 mg ONCE ONE Administration Hydromorphone HCl 0.5 mg 05/14/25 17:08 05/14/25 17:27 Hydromorphone Hcl 0.5 Mg/0.5 Ml Syringe IVPUSH 05/14/25 17:09 0.5 mg ONCE ONE Administration Protocol Hydromorphone HCl 0.5 mg 05/14/25 18:25 05/14/25 18:35 Hydromorphone Hcl 0.5 Mg/0.5 Ml Syringe IVPUSH 05/14/25 18:26 0.5 mg ONCE ONE Administration Protocol Hydromorphone HCl 0.5 mg 05/14/25 20:45 05/14/25 21:19 Hydromorphone Hcl 0.5 Mg/0.5 Ml Syringe IVPUSH 05/14/25 20:46 0.5 mg ONCE ONE Administration Protocol Hydromorphone HCl 0.5 mg 05/15/25 00:28 05/15/25 00:33 Hydromorphone Hcl 0.5 Mg/0.5 Ml Syringe IVPUSH 05/15/25 00:29 0.5 mg ONCE ONE Administration Protocol Midazolam HCl 2 mg 05/14/25 17:08 05/14/25 17:27 Midazolam Hcl 2 Mg/2 Ml Vial IVPUSH 05/14/25 17:09 2 mg ONCE ONE Administration Ondansetron HCl 4 mg 05/14/25 17:08 05/14/25 17:27 Ondansetron Hcl 4 Mg/2 Ml Vial IVPUSH 05/14/25 17:09 4 mg ONCE ONE Administration Medical Decision Making Medical Decision Making MDM Narrative: multiple rounds of medication was given. Pain still not controlled. Will admit for further evaluation steroids given. Patient cat scan of the thoracic and lumbar spine was done. Multiple compression fracture was found. There is no signs of cauda equina syndrome. No bowel urinary incontinence. Patient well-appearing otherwise. Case consulted with the hospitalist team. Will admit for further evaluation. Differential Diagnosis Differential Diagnoses: The differential diagnosis associated with the presentation includes Fracture, abscess, musculoskeletal strain, cauda equinus syndrome Admission/Observation Consideration of admission/observation: Escalation of care including admission/observation considered Lab Data MDM Lab Attestation statement: I reviewed the patient's lab results. 05/14/25 23:28 05/14/25 23:28 Radiology Impression Discussion of test interpretation with radiology: I have reviewed the radiologist's reading. External Record Review External record reviewed: Inpatient record Chronic Conditions history of back pain history of COPD Social Determinants Patient?s care significantly limited by Social Determinants of Health including: Problems related to primary support group Discharge Plan Discharge Clinical Impression: Back pain, Compression fracture of body of thoracic vertebra Patient Disposition: Admitted As Inpatient
[2025-05-14 17:27] VITALS: RESP 18
[2025-05-14 18:12] VITALS: BP 122/91; PULSE 81; RESP 20; O2SAT 96
[2025-05-14 18:35] VITALS: RESP 20
--- NOTE | 2025-05-14 21:49 | PC.NURSE ---
Pt medicated per [facility] Plan of care ongoing.
--- NOTE | 2025-05-14 22:05 | PM.IMHP ---
History of Present Illness Date of Service: 05/14/25 Chief Complaint: Intractable Back pain A 69-year-old female with a history of vertebral compression fracture, COPD, and Crohn?s disease who presents from home with worsening low back pain. She reports a recent episode of COPD exacerbation last 5 days with coughing for which she was treated with steroids and azithromycin. During this period, she twisted awkwardly while coughing, after which her back pain acutely worsened. The pain is localized to the lower back without radiation and is exacerbated by movement. She denies new trauma, bowel or bladder incontinence, lower extremity numbness, focal weakness, or difficulty ambulating. She reports no numbness or tingling in the legs. There is no history of IV drug use. She was unable to get out of the bed, she has no help at home, at risk of fall and unable to take care of her self. She previously underwent CT imaging of spine that demonstrated a new compression fracture at T9, minimal T10, Severe L1 and L4 60% decreased body with no reported retropulsion or compression symptoms . She is unable to take NSAIDs as they significantly exacerbate her Crohn?s disease. She denies systemic symptoms. Admitted for pain control and observation of worsening of symptoms. Review of Systems Review of Systems: Yes all other systems are reviewed and are negative [facility] Medical History Generalized headaches Cerebral aneurysm Insomnia Primary osteoarthritis of left knee Compression fracture of T11 vertebra with delayed healing Compression fracture of L4 vertebra Obesity (BMI 30-39.9) Hiatal hernia Coccydynia Overweight (BMI 25.0-29.9) Depression Anxiety Renal calculi Vitamin D deficiency Allergic rhinitis Osteoporosis Lumbar degenerative disc disease GERD without esophagitis Crohn's disease COPD (chronic obstructive pulmonary disease) GERD (gastroesophageal reflux disease) Ear discharge of both ears Ear build-up Sacroiliitis Chronic pain syndrome Spondylolisthesis, lumbar region Spondylosis of lumbar region without myelopathy or radiculopathy Surgical History Hx of colonoscopy History of surgery History of hysterectomy History of surgery History of nasal surgery Social History Housing: Apartment Alcohol intake: current Alcohol intake frequency: a few times a month Alcohol type: wine Patient Tobacco Use Status: Former Tobacco user Tobacco use type: Cigarette Smoked in Last 30 Days: No e-Cigarette/Vaping Use: Never Used Second Hand Smoke Exposure: No Use of substances other than those prescribed or required for medical reasons: No Advance Directives: No Advance Directives Information Provided: No Advance Directives Date on File: 06/02/20 service: No Current occupational status: disabled Cognitive needs: No Hearing needs: No Vision needs: Yes (glasses) Meds Allergies Allergy/AdvReac Type Severity Reaction Status Date / Time ibuprofen (From Motrin) AdvReac Intermediate activates Verified 05/14/25 15:43 her Crohn's disease Home Medications ?Medication ?Instructions ?Recorded ?Confirmed ?Last Taken ?Type bupropion HCl 300 mg 24 hr tablet, 300 mg PO DAILY 04/10/20 05/09/25 10/13/20 06:30 History extended release cholecalciferol (vitamin D3) 25 25 mcg PO DAILY 04/10/20 05/09/25 06/02/20 06:00 History mcg (1,000 unit) capsule mesalamine 1.2 gram tablet,delayed 1.2 g PO DAILY 10/29/23 05/09/25 Unknown History release omeprazole 40 mg capsule,delayed 40 mg PO DAILY 10/29/23 05/09/25 Unknown History release Physical Exam Vital Signs and Narrative: Vital Signs: Last Vital Signs Temp 98.7 F 05/14/25 15:41 Pulse 81 05/14/25 18:12 Resp 20 05/14/25 18:35 BP 122/91 H 05/14/25 18:12 Pulse Ox 96 05/14/25 18:12 O2 Del Method Room Air 05/14/25 18:12 BMI result Body Mass Index 28.3 Const: Other: Constitutional : Awake, interactive, not in distress Neck : Normal inspection, Supple Cardiovascular : RRR, no JVP, no lower extremity edema Respiratory : good bilateral air entry, no crackles, wheezes or rhonchi Gastrointestinal: soft, lax, Normal bowel sounds, Non tender Skin : Warm, Dry Neurological : Alert & oriented x3, No focal deficit , normal sensation Assessment and Plan (1) Osteoporosis: Qualifiers: Osteoporosis type: age-related Presence of current pathological fracture: without current pathological fracture Qualified Code(s): M81.0 - Age-related osteoporosis without current pathological fracture Status: Acute (2) Compression fracture of L4 vertebra: Qualifiers: Encounter type: initial encounter Qualified Code(s): S32.040A - Wedge compression fracture of fourth lumbar vertebra, initial encounter for closed fracture Status: Acute (3) Osteoporotic compression fracture of vertebra: Status: Acute (4) COPD (chronic obstructive pulmonary disease): Qualifiers: COPD type: unspecified COPD Qualified Code(s): J44.9 - Chronic obstructive pulmonary disease, unspecified Status: Acute (5) Vertebral compression fracture: Status: Acute (6) Intractable back pain: Status: Acute Plan A 69-year-old female with a history of vertebral compression fracture, COPD, and Crohn?s disease who presents from home with worsening low back pain. She reports a recent episode of COPD exacerbation last 5 days with coughing for which she was treated with steroids and azithromycin. During this period, she twisted awkwardly while coughing, after which her back pain acutely worsened. # Low Back Pain / Compression Fracture in patient with Osteoporosis Pain control with acetaminophen Avoid NSAIDs due to Crohn?s disease Consider short-course opioid if pain uncontrolled Trial lidocaine patch Continue Baclofen , Gabapentin home dose Consider repeat spine imaging if pain is significantly worse or persistent, otherwise repeat in 3 months as OP Encourage activity as tolerated PT referral vitamin D supplementation, check levels Outpatient DEXA earlier this month positive for Osteoporosis: will need follow up with Endocrinology Monitor for new neurologic symptoms, bowel/bladder changes Outpatient spine/primary care follow-up COPD not in exacerbaiton continue home inhalers PRN Duonebs HTN Continue home meds Crohns disease , in remission Continue Meselamine, PPI DVT PPx Lovenox Quality Stroke Does the patient have a stroke diagnosis?: No VTE Prior VTE?: No VTE Risk Level:: Medical - moderate - high VTE Device Contraindication: Treatment Not Indicated VTE Drug Contraindication: N/A - Med Ordered
--- NOTE | 2025-05-14 22:09 | PC.NURSE ---
Pt medicated per [facility] Plan of care ongoing.
[2025-05-14 23:33] LABS: Hematocrit 35.7 % (37.0-47.0); Hemoglobin 11.3 g/dl (12.0-16.0); Imm Gran Abs Auto 0.03 X10*3/uL (0.00-0.03); Imm Gran Pct Auto 0.3 % (0.0-0.4); Lymphocytes Absolute Auto 1.0 X10*3/uL (1.2-4.9); MANUAL DIFF FLAG NO; Mean Corpuscular HGB Conc 31.7 g/dl (31.0-35.0); Mean Corpuscular Hemoglobin 27.0 pg (27.0-33.0); Mean Corpuscular Volume 85.4 fL (80.0-98.0); NRBC Abs Auto 0.000 X10*3/uL (0.0-0.012); NRBC Pct Auto 0.0 /100WBC (0.0-0.2); Platelet Count 185 X10*3/uL (160-400); Red Blood Count 4.18 X10*6/uL (4.20-5.50); White Blood Count 8.6 X10*3/uL (4.8-10.8)
[2025-05-14 23:53] LABS: Anion Gap 12 (12-20); Blood Urea Nitrogen 17 mg/dL (9-16); Calcium 8.4 mg/dL (8.4-10.2); Carbon Dioxide 25 mmol/L (22-29); Chloride 107 mmol/L (96-108); Creatinine Clr Calc Pharmacy 89.6; Estimated Glomerular Filt Rate > 60; Potassium 3.1 mmol/L (3.3-5.1); Sodium 141 mmol/L (135-145)
[2025-05-14] MEDS: Lidocaine 4 % Patch ADH..PATCH 1 PATCH TRANSDERMA (23:53)
[2025-05-15] VITALS (7 sets, daily range): BP systolic 95–136; BP diastolic 58–93; PULSE 70–86; RESP 16–18; TEMP 36.4–36.8; O2SAT 94–97; BMI 28.3
[2025-05-15] MEDS: 0.9 % Sodium Chloride Flush 3 ML SYRINGE IVFLUSH ×2 (00:34→21:04)
--- NOTE | 2025-05-15 02:01 | PC.NURSE ---
assist with bedpan, pt tolerated well.
--- NOTE | 2025-05-15 04:18 | HO.NURTONUR ---
pt presents to ED for low back pain. chronic pain, significantly worse after coughing episode. at baseline pt independent at home, with this increased back pain, pt unable to care for self at home. pt A/O x4, calm and cooperative with care, using bedpan, scared/unable to ambulate. CT spine scan: new compression fracture at T9, minimal T10, Severe L1 and L4 60% decreased body. ADMIT:pain control and observation of worsening of symptoms. PT consult. 20g IV RAC. lidocaine patch to mid/low back
--- NOTE | 2025-05-15 08:18 | P.PNIM_ITS ---
Subjective Subjective Date of Service: 05/15/25 Interval History: severe back pain Physical Exam 2 Exam: Exam: General: AO X 3, in pain, teary Resp: CTA bilateral, no accessory muscles used CVS: S1,S2,RRR GI: soft, non tender, non distended Neuro: motor grossly intact, alert Psych: appropriate affect, appropriate insight Vital Signs: Vital Signs: Last Vital Signs Temp 98.2 F 05/15/25 08:02 Pulse 84 05/15/25 08:02 Resp 16 05/15/25 08:02 BP 106/71 05/15/25 08:02 Pulse Ox 97 05/15/25 08:02 O2 Del Method Room Air 05/15/25 08:02 BMI result Body Mass Index 28.3 Objective Data Active Medications Acetaminophen (Acetaminophen 325 Mg Tablet) 650 mg PO Q6H PRN PRN Reason: Pain, Mild 1-3,fever,headache Acetaminophen (Acetaminophen 325 Mg Tablet) 650 mg PO Q6H [facility] Last Admin: 05/15/25 07:13 Dose: Not Given Documented By: TAYA Non-Admin Reason: Patient Refused Albuterol/Ipratropium (Albuterol/Iprat 2.5/0.5mg 3 Ml Ampul.Neb) 3 ml INHALE Q4H PRN PRN Reason: Shortness of Breath/Wheezing Benzonatate (Benzonatate 100 Mg Capsule) 100 mg PO TID PRN PRN Reason: Cough Calcium Carbonate (Calcium Carbonate 750 Mg Tab.Chew) 750 mg PO Q4H PRN PRN Reason: Heartburn Enoxaparin Sodium (Enoxaparin Sodium 40 Mg/0.4 Ml Syringe) 40 mg SUBCUT Q24H [facility] Last Admin: 05/14/25 23:53 Dose: 40 mg Documented By: KUMAR Gabapentin (Gabapentin 300 Mg Capsule) 300 mg PO TID [facility] Hydromorphone HCl (Hydromorphone Hcl 1 Mg/Ml Syringe) 0.5 mg IVPUSH Q4H PRN; Protocol PRN Reason: Pain, Severe (Pain Scale 7-10) Last Admin: 05/15/25 04:35 Dose: 0.5 mg Documented By: KUMAR Lidocaine (Lidocaine 4 % Patch Adh..Patch) 1 patch TRANSDERMA DAILY [facility]; Protocol Last Admin: 12/20/25 23:53 Dose: 1 patch Documented By: KUMAR Magnesium Hydroxide (Milk Of Magnesia 30 Ml Oral.Susp) 30 ml PO DAILY PRN PRN Reason: Constipation Melatonin (Melatonin 3 Mg Tablet) 6 mg PO BEDTIME PRN PRN Reason: Insomnia Last Admin: 05/15/25 00:42 Dose: 6 mg Documented By: KUMAR Ondansetron HCl (Ondansetron Hcl 4 Mg/2 Ml Vial) 4 mg IVPUSH Q8H PRN PRN Reason: Nausea and Vomiting Sodium Chloride (0.9 % Sodium Chloride Flush 3 Ml Syringe) 3 ml IVFLUSH QSHIFT MERLY Last Admin: 05/15/25 07:14 Dose: Not Given Documented By: TAYA Non-Admin Reason: See Note Labs 05/14/25 23:28 05/14/25 23:28 Labs: Laboratory Results - last 24 hr 05/14/25 23:28 MCV 85.4 MCH 27.0 MCHC 31.7 RDW 12.2 Plt Count 185 D MPV 8.9 L Immature Gran % (Auto) 0.3 Neut % (Auto) 79.8 H Lymph % (Auto) 11.7 L Chase % (Auto) 5.2 Eos % (Auto) 2.7 Baso % (Auto) 0.3 Lymph # (Auto) 1.0 L Chase # (Auto) 0.5 Eos # (Auto) 0.2 Baso # (Auto) 0.0 Abs Immat Gran (auto) 0.03 Absolute Neuts (auto) 6.8 Absolute Nucleated RBC 0.000 Nucleated RBC % (auto) 0.0 Anion Gap 12 Estim Creat Clear Calc 89.6 Estimated GFR > 60 Random Glucose 198 H Calcium 8.4 D 25-OH Vitamin D Total 26.4 L Assessment and Plan (1) Anxiety: Status: Acute Plan 69F PMH cirrhosis with vertebral compression fracture, hypertension, COPD, Crohn's, mood disorder presented with severe back pain Severe back pain due to T9 compression fracture due to osteoporosis Increase oxycodone to 10 mg q.4 hours p.r.n. severe pain Lidoderm patch Tylenol Bowel regimen PT eval Baclofen, gabapentin Vitamin-D Outpatient Endocrine If conservative management fails may need vertebroplasty COPD Continue inhalers Hypertension Amlodipine Mood disorder Bupropion Crohn's Mesalamine DVT prophylaxis with Lovenox Full code reason for continued hospitalization: Pain still uncontrolled Quality Stroke Does the patient have a stroke diagnosis?: No VTE Prior VTE?: No VTE Risk Level:: Medical - moderate - high VTE Device Contraindication: Treatment Not Indicated VTE Drug Contraindication: N/A - Med Ordered
--- NOTE | 2025-05-15 08:31 | MHC.EDTECH ---
Patient washed up and teeth brushed
[2025-05-15] MEDS: Lidocaine 4 % Patch ADH..PATCH 1 PATCH TRANSDERMA (08:36)
[2025-05-15] MEDS: oxyCODONE HCl Immed Release 5 MG TABLET 10 MG PO ×4 (08:37→21:05)
--- NOTE | 2025-05-15 08:49 | PHA.MEDREC ---
Addendum entered by Ulises Sanchez [facility] 05/15/25 10:54: Patient was unsure of how often she takes the mesalamine and said the latest fill from [facility] is the most accurate (which is 1 tablet 4 times a day). Addendum entered by Ulises Sanchez [facility] 05/15/25 10:15: MED REC REVIEWED BY [facility] Addendum entered by Lefty Betancur 05/15/25 10:06: Patient takes omeprazole [address] capsule by mouth once daily. Original Note: Pharmacy Consult ? Medication Reconciliation Pharmacy has completed the medication reconciliation. Confirmed medication list with patient and against pharmacy claims. Patient claims she uses pulmicort inhaler as needed and also claims she takes baclofen 5 mg tablet TID as needed for back pain. Patient also claims she has been out of her pulmicort inhaler for a year and is waiting on refills. Patient states she took all of her medications yesterday morning except for her trazodone that she claims she last took on Friday night.
[2025-05-15] MEDS: diazePAM 10 MG/2 ML CARTRIDGE 5 MG IVPUSH (10:13)
[2025-05-15] MEDS: buPROPion HCl XL 300 MG TAB.ER.24H PO (10:48)
[2025-05-15 11:57] LABS: Appearance Urine Cloudy; Glucose Urine UA Negative (Negative); PH 6.0 (5.0-9.0); Specific Gravity - Urine 1.020 (1.005-1.025); UMIC TRIGGER UACC YES
[2025-05-15 12:02] LABS: UACC Culture Trigger YES
[2025-05-15] MEDS: Sucralfate Oral Suspension 1 GM/10 ML ORAL.SUSP PO ×3 (12:55→20:57)
[2025-05-16] MEDS: oxyCODONE HCl Immed Release 5 MG TABLET 10 MG PO ×4 (01:05→11:03)
[2025-05-16 03:55] VITALS: BP 130/70; PULSE 76; RESP 18; TEMP 36.8; O2SAT 98
[2025-05-16 06:08] LABS: Hematocrit 35.7 % (37.0-47.0); Hemoglobin 11.5 g/dl (12.0-16.0); Mean Corpuscular HGB Conc 32.2 g/dl (31.0-35.0); Mean Corpuscular Hemoglobin 27.7 pg (27.0-33.0); Mean Corpuscular Volume 86.0 fL (80.0-98.0); NRBC Abs Auto 0.000 X10*3/uL (0.0-0.012); NRBC Pct Auto 0.0 /100WBC (0.0-0.2); Platelet Count 222 X10*3/uL (160-400); Red Blood Count 4.15 X10*6/uL (4.20-5.50); White Blood Count 8.1 X10*3/uL (4.8-10.8)
[2025-05-16 06:19] LABS: Anion Gap 12 (12-20); Blood Urea Nitrogen 14 mg/dL (9-16); Calcium 8.8 mg/dL (8.4-10.2); Carbon Dioxide 26 mmol/L (22-29); Chloride 108 mmol/L (96-108); Creatinine Clr Calc Pharmacy 76.6; Estimated Glomerular Filt Rate > 60; Magnesium 1.9 mg/dL (1.6-2.6); Potassium 3.8 mmol/L (3.3-5.1); Sodium 142 mmol/L (135-145)
[2025-05-16 07:37] VITALS: BP 104/76; PULSE 76; RESP 16; TEMP 36.4; O2SAT 95
[2025-05-16] MEDS: Sucralfate Oral Suspension 1 GM/10 ML ORAL.SUSP PO (08:08)
[2025-05-16] MEDS: buPROPion HCl XL 300 MG TAB.ER.24H PO (08:08)
[2025-05-16] MEDS: 0.9 % Sodium Chloride Flush 3 ML SYRINGE IVFLUSH (08:08)
--- NOTE | 2025-05-16 08:19 | PM.DS ---
DS: Providers Provider Date of admission: 05/14/25 22:18 Date of discharge: 05/16/25 Primary care physician: Ralph Colorado MD DS: Diagnosis Discharge Diagnosis (1) Anxiety: Status: Acute DS: Summary Hospital Course Hospital Course: from initial hpi: 69-year-old female with a history of vertebral compression fracture, COPD, and Crohn?s disease who presents from home with worsening low back pain. She reports a recent episode of COPD exacerbation last 5 days with coughing for which she was treated with steroids and azithromycin. During this period, she twisted awkwardly while coughing, after which her back pain acutely worsened. The pain is localized to the lower back without radiation and is exacerbated by movement. She denies new trauma, bowel or bladder incontinence, lower extremity numbness, focal weakness, or difficulty ambulating. She reports no numbness or tingling in the legs. There is no history of IV drug use. She was unable to get out of the bed, she has no help at home, at risk of fall and unable to take care of her self. She previously underwent CT imaging of spine that demonstrated a new compression fracture at T9, minimal T10, Severe L1 and L4 60% decreased body with no reported retropulsion or compression symptoms . She is unable to take NSAIDs as they significantly exacerbate her Crohn?s disease. She denies systemic symptoms. Admitted for pain control and observation of worsening of symptoms. hospital course: Was admitted for severe back pain due to T9 compression fracture due to osteoporosis. Her oxycodone was increased to 10 mg and was started on Lidoderm patch with improvement in pain. She was also continued on baclofen, gabapentin, vitamin-D she is recommended to follow up outpatient for management of osteoporosis. Pain is better controlled and she is able to ambulate. She will be discharged home. For COPD was continued on inhalers. Hypertension continued on amlodipine. Mood disorder continued on bupropion. Crohn's continued on mesalamine. Patient was incidentally noted to have pyuria and bacteriuria possibly due to urinary tract infection. She has been empirically treated with ceftriaxone and on discharge we will continue cefuroxime. Culture should be followed up as outpatient and antibiotics adjusted as needed. was seen by PT who recomended home pt Time Attestation Discharge Coordination Time (in mins): 33 Quality: Safe Use of Opioids Does Pt have an Active Cancer Diagnosis on the Problem List?: No Quality: Stroke Does the patient have a stroke diagnosis?: No Physical Exam Exam: Exam: General: AO X 3, no acute distress Resp: CTA bilateral, no accessory muscles used CVS: S1,S2,RRR GI: soft, non tender, non distended Neuro: motor grossly intact, alert Psych: appropriate affect, appropriate insight Vital Signs: Vital Signs: Last Vital Signs Temp 97.6 F 05/16/25 07:37 Pulse 76 05/16/25 07:37 Resp 16 05/16/25 07:37 BP 104/76 05/16/25 07:37 Pulse Ox 95 05/16/25 07:37 O2 Del Method Room Air 05/16/25 07:37 BMI result Body Mass Index 28.3 DS: Data Data Completed and Pending Labs on day of discharge: Laboratory Results - last 24 hr 05/15/25 05/16/25 11:48 05:54 WBC 8.1 RBC 4.15 L Hgb 11.5 L Hct 35.7 L MCV 86.0 MCH 27.7 MCHC 32.2 RDW 12.3 Plt Count 222 MPV 9.2 L Absolute Nucleated RBC 0.000 Nucleated RBC % (auto) 0.0 Sodium 142 Potassium 3.8 D Chloride 108 Carbon Dioxide 26 Anion Gap 12 BUN 14 Creatinine 0.62 Estim Creat Clear Calc 76.6 Estimated GFR > 60 Random Glucose 109 Calcium 8.8 Magnesium 1.9 Urine Color Yellow Urine Appearance Cloudy Urine pH 6.0 Ur Specific [place] 1.020 Urine Protein 30 (1+) H Urine Glucose (UA) Negative Urine Ketones Negative Urine Blood Trace H Urine Nitrite Negative Ur Leukocyte Esterase Large (3+) H Urine RBC 0-2 Urine WBC >50 H Ur Squamous Epith Cells 0-2 Urine Bacteria 4+ Hyaline Casts 0-2 Discharge Plan Discharge Anticipated Discharge Date/Time: 05/16/25 08:15 Patient Disposition: Home, Self-Care Discharge Diagnosis: t9 fracture Referrals: Ralph Colorado MD [Primary Care Provider, Internal Medicine] - 1 Week Discharge Medications: New polyethylene glycol 3350 17 gram Powder In Packet 17 g PO DAILY Qty: 30 0RF oxycodone 5 mg Tablet 10 mg PO Q4H PRN (Reason: Pain, Severe (Pain Scale 7-10)) Qty: 20 0RF Rx Instructions: Partial Fill upon patient request. cefuroxime axetil 500 mg tablet 500 mg PO BID Qty: 10 0RF Continued fluticasone propionate 50 mcg/actuation spray,suspension 2 spray intranasal DAILY PRN (Reason: allergy symptoms) 30 Days Qty: 16 5RF Rx Instructions: administer into each nostril diphenhydramine HCl 25 mg capsule 25 mg PO TID PRN (Reason: allergy symptoms) 30 Days Qty: 90 0RF amlodipine 5 mg tablet 5 mg PO DAILY Qty: 90 1RF gabapentin 300 mg capsule 300 mg PO TID 30 Days Qty: 90 1RF trazodone 50 mg tablet 50 mg PO BEDTIME PRN (Reason: sleep) 30 Days Qty: 30 0RF baclofen 5 mg tablet 5 mg PO TID PRN (Reason: Back Pain) Pulmicort Flexhaler 180 mcg/actuation aerosol powdr breath activated 2 inh PO BID PRN (Reason: Wheezing) Patient Comments: Patient takes as a PRN. Patient has not had for about a year. sucralfate 100 mg/mL suspension 10 ml PO QID lorazepam 0.5 mg tablet 0.5 mg PO Q3D PRN (Reason: anxiety attack) bupropion HCl 300 mg tablet extended release 24 hr 300 mg PO DAILY cholecalciferol (vitamin D3) 25 mcg (1,000 unit) capsule 25 mcg PO DAILY omeprazole 40 mg capsule,delayed release(DR/EC) 40 mg PO DAILY mesalamine 1.2 gram tablet,delayed release (DR/EC) 1.2 g PO QID albuterol sulfate 90 mcg/actuation HFA aerosol inhaler 2 puff PO Q6H PRN (Reason: shortness of breath or wheezing) 30 Days Qty: 8.5 5RF Discontinued oxycodone 5 mg tablet 5 mg PO BID-TID PRN (Reason: severe pain) Qty: 10 0RF Rx Instructions: Partial Fill upon patient request. Discharge Orders: Discharge Order (Routine); Ordered 05/16/25 Ordered By: Oleg Perrin Diet: Advance to usual diet Activity on Discharge: As tolerated Stand Alone Forms: Patient Portal Discharge page Print Language: Chinese Care Plan Goals: recovery Health Concerns: t9 fracture Plan of Treatment: continue pain control, bowel regiment, PT, follow up regarding treatment for osteoporosis Assessment: see above
[2025-05-16 10:09] VITALS: BP 104/76; PULSE 76; O2SAT 95
--- NOTE | 2025-05-16 10:49 | W.MHC.F2F ---
Service Date Service Date: 05/16/25 Encounter Date of encounter: 05/16/25 Reasons for Services Signs and symptoms assessed: pain on ambulation Reason for physical therapy: home safety and mobility, therapeutic exercises and gait/transfer training Homebound: Leaving the home is medically contraindicated at this time without the asist of a device and/or another person due th the listed conditions above and below. Reason homebound: pain with transfers Certification: Based on the above findings, I certify that this patient is confined to the home and needs intermittent intermediate care, physical therapy and/or speech therapy, or continues to need occupational therapy. The patient is under my care, and I have initiated the establishment of the plan of care. The patient will be followed by a physician who will periodically review the plan of care. Time Spent With Patient Time: Total time managing care of this patient today ____ minutes.
--- NOTE | 2025-05-16 10:49 | MHC.CM.PN ---
pt dcd home with ns
--- NOTE | 2025-05-16 10:58 | MHC.CM.PN ---
pt lives alone dgter will staying with her for 2 weeks ptwill go home with vna
[2025-05-16 11:04] VITALS: BP 131/77; PULSE 82; RESP 16; TEMP 36.2; O2SAT 97
--- NOTE | 2025-05-16 11:04 | MHC.CM.PN ---
pt lives alone will have vna whyen dcd
--- NOTE | 2025-05-16 13:22 | MHC.CM.PN ---
pt was [facility]naported home by [facility] vna referral made to integrated services thru [facility] who will manage a vna search for pt
== END 2025-05-16 11:22 | disposition home health service (06) ==
LOC: HO.ED 16:09 → HO.EDOVER 22:30 → HO.S3 05-15 17:04
PROVIDERS: Admitting Provider Student in an Organized Health Care Education/Training Program; Emergency Provider Emergency Medicine Emergency Medical Services; PCP Internal Medicine; Visit Provider Internal Medicine
DX: S32.040A Wedge compression fracture of fourth lumbar vertebra, initial encounter for closed fracture (principal); M80.88XA Other osteoporosis with current pathological fracture, vertebra(e), initial encounter for fracture; J44.9 Chronic obstructive pulmonary disease, unspecified; M54.9 Dorsalgia, unspecified; F41.9 Anxiety disorder, unspecified; R41.9 Unspecified symptoms and signs involving cognitive functions and awareness; I10 Essential (primary) hypertension; R07.9 Chest pain, unspecified; R94.31 Abnormal electrocardiogram [ECG] [EKG]; M54.50 Low back pain, unspecified; M54.6 Pain in thoracic spine; K50.90 Crohn's disease, unspecified, without complications; K21.9 Gastro-esophageal reflux disease without esophagitis; Z79.899 Other long term (current) drug therapy; Z87.891 Personal history of nicotine dependence
CPT/HCPCS: 36415; 72128; 72131; 80048; 81001; 82306; 83735; 85025; 85027; 87086; 87088; 87186; 93005; 96365; 96372; 96375; 96376; 97161; 99221; 99285; J0696; J1100; J1171; J1650; J2250; J2405; J3360

== ENCOUNTER → 2025-05-14 15:43 | Outpatient (BNV) | payer OTHER, SELFPAY | PROVIDERS: Admitting Provider Student in an Organized Health Care Education/Training Program; Emergency Provider Emergency Medicine Emergency Medical Services; PCP Internal Medicine; Visit Provider Internal Medicine Cardiovascular Disease | DX: R94.31 Abnormal electrocardiogram [ECG] [EKG] (principal); R07.9 Chest pain, unspecified | CPT/HCPCS: 93010 ==

== ENCOUNTER → 2025-05-14 17:31 | Outpatient (BNV) | payer OTHER, SELFPAY | PROVIDERS: Emergency Provider Emergency Medicine Emergency Medical Services; PCP Internal Medicine; Visit Provider Student in an Organized Health Care Education/Training Program | DX: M48.56XA Collapsed vertebra, not elsewhere classified, lumbar region, initial encounter for fracture (principal); N20.0 Calculus of kidney; K44.9 Diaphragmatic hernia without obstruction or gangrene; M48.54XA Collapsed vertebra, not elsewhere classified, thoracic region, initial encounter for fracture | CPT/HCPCS: 72128; 72131 ==

== ENCOUNTER → 2025-05-14 22:18 | Outpatient (BNV) | payer OTHER, SELFPAY | PROVIDERS: Admitting Provider Student in an Organized Health Care Education/Training Program; Emergency Provider Emergency Medicine Emergency Medical Services; PCP Internal Medicine; Visit Provider Student in an Organized Health Care Education/Training Program | DX: F41.9 Anxiety disorder, unspecified (principal) | CPT/HCPCS: 99233 ==

== ENCOUNTER 2025-05-20 15:30 | Emergency (ER) | payer OTHER, SELFPAY ==
--- OUTSIDE RECORDS SUMMARY | 2025-05-15 23:59 | XMS_ITS | Continuity of Care Document ---
Author Organization [facility] Address [address] [place] [id number]- Care Team Providers Care Heel Buffer Name Role Phone Stanislav GARCIA, Ralph Bee Primary Care Physician Encounter [facility] Date(s): 04/15/25 - 05/15/25 [facility] [address] [place] [id number] Attending Physician: Lissy Nicole Admitting Physician: Lissy Nicole Referring Physician: AdmtrLissy Encounter Type: Triage Allergies, Adverse Reactions, Alerts Substance Criticality Severity Reaction Reaction Severity Status ibuprofen 1 High criticality Severe IBS/Crohn's flare; abd pain Active 1severe stomach pain r/t ulcerative colitis Immunizations Given and Recorded Vaccine Date Status Refusal Reason [id number] bivalent booster vax 06/05/22 Recorded influenza virus vaccine, inactivated 03/18/22 Heriberto rded influenza virus vaccine, inactivated 02/28/21 Heriberto rded influenza virus vaccine, inactivated 02/15/20 Heriberto rded influenza virus vaccine, inactivated 03/04/19 Heriberto rded influenza virus vaccine, inactivated 9/18/19 Heriberto rded influenza virus vaccine, inactivated 04/12/18 [...] toxoids (Td) 11/07/05 Given 1Result Comment: Lot [id number] 11/22/06 Medications amLODIPine 5 mg oral tablet 5 mg, 1, tablet, By Mouth, Daily, # 30 tablet, Refills 0, Tot. Refills 0, Maintenance, 03/25/24 11:56:00 AM EDT, Route to Pharmacy Electronically, [facility], Partial fill upon patient request [...] 1:05:00 PM EST, Route to Pharmacy Electronically, [facility], Partial fill upon patient request [...] Team Personnel Name: Laisha Andre RN Position: [facility] RN Member Role: Primary Care Nurse Name: Ralph Colorado MD Position: Reference Physician Member Role: PCP Address: [address] [place] [address] Telecom: Name: Wendi Polk RN Position: [facility] RN Member Role: Primary Care Nurse Name: Valerie Choi RN Position: [facility] RN Member Role: Primary Care Nurse Name: Ayan Wang RN Position: [facility] RN Member Role: Primary Care Nurse Name: Benjamin Soliz RN Position: [facility] RN Member Role: Primary Care Nurse Name: Dallin Carter MA Position: [facility] MA Member Role: Primary Care Nurse Name: Javier Soria RN Position: [facility] RN Member Role: Primary Care Nurse Name: Narcsia Mauricio RN Position: [facility] OB RN Member Role: Primary Care Nurse Name: Erich Venegas RN Position: [facility] RN Member Role: Primary Care Nurse [...] Care Nurse Name: Jj Cervantes RN Position: [facility] RN Member Role: Primary Care Nurse Care Team Related Persons Name: ADRIANA FLEMING Name: OTHER, SAJI Name: TRISTIAN GANT Name: CLARA CARRASCO Insurance Providers Guarantor name: formerly [facility] Information #: 1 [facility] Payer Identifier: NA Member Number: [id number] Group Number: [id number] Subscriber Identifier: NA Relationship to Subscriber: self Coverage Type: Medicare Managed Care (Includes Medicare Advantage Plans) Coverage Verification Date: NA Telecom: NA Address: NA
--- OUTSIDE RECORDS SUMMARY | 2025-05-15 23:59 | XMS_ITS | Continuity of Care Document ---
Author Organization [facility] Address [address] [place] [id number]- Care Team Providers Care Manager Quality Compliance Name Role Phone Ralph Colorado MD [id number] [address] [place] [id number] Attending Physician: Meena Irby MD Admitting Physician: Meena Irby MD Referring Physician: Ralph Colorado MD Encounter Type: Pre-OutPatient One Time Allergies, Adverse Reactions, Alerts Substance Criticality Severity Reaction Reaction Severity Status ibuprofen 1 High criticality Severe IBS/Crohn's flare; abd pain Active 1severe stomach pain r/t ulcerative colitis Immunizations Given and Recorded Vaccine Date Status Refusal Reason [id number] bivalent booster vax 06/05/22 Recorded influenza virus [...] toxoids (Td) 11/07/05 Given 1Result Comment: Lot [id number] Exp 11/22/06 Medications amLODIPine 5 mg oral tablet 5 mg, 1, tablet, By Mouth, Daily, # 30 tablet, Refills 0, Tot. Refills 0, Maintenance, 03/25/24 11:56:00 AM EDT, Route to Pharmacy Electronically, [facility], Partial fill upon patient [...] 9:51:00 AM EDT, [id number] Partial fill upon patient request [...] 1:05:00 PM EST, Route to Pharmacy Electronically, [facility], Partial fill upon patient request if [...] Team Personnel Name: Laisha Andre RN Position: [facility] RN Member Role: Primary Care Nurse Name: Ralph Colorado MD Position: Reference Physician Member Role: PCP Address: [address] [place] [address] [place] [address] Telecom: Name: Wendi Polk RN Position: [facility] RN Member Role: Primary Care Nurse Name: Valerie Choi RN Position: [facility] RN Member Role: Primary Care Nurse Name: Ayan Wang RN Position: [facility] RN Member Role: Primary Care Nurse Name: Benjamin Soliz RN Position: [facility] RN Member Role: Primary Care Nurse Name: Dallin Carter [place] Position: [facility] ERICA RAMIREZ Member Role: Primary Care Nurse Name: Javier Soria RN Position: S RN Member Role: Primary Care Nurse Name: Narcisa Mauricio RN Position: [facility] OB RN Member Role: Primary Care Nurse Name: Erich Venegas RN Position: [facility] RN Member Role: Primary Care [...] Name: CLARA CARRASCO Insurance Providers Guarantor name: [facility] Information #: 1 Payer: ALEX GIPSON [employer]bert Payer Identifier: ZOE Member Number: [id number] Group Number: [id number] Subscriber Identifier: [id number] Relationship to Subscriber: self Coverage Type: Medicare Managed Care (Includes Medicare Advantage Plans) Coverage Verification Date: NA Telecom: ZOE Address:
--- OUTSIDE RECORDS SUMMARY | 2025-05-15 23:59 | XMS_ITS | Continuity of Care Document ---
Author Organization [facility] Address [address] [place] [address]- Care Team Providers Care Software Project Lead Name Role Phone Stanislav GARCIA, Ralph Bee Primary Care Physician En[place] [facility] [place] Date(s): 04/15/25 - 05/15/[address] [address] Attending Physician: Lissy Nicole Admitting Physician: Lissy Nicole Referring Physician: AdmtrLissy Encounter Type: Triage Allergies, Adverse Reactions, Alerts Substance Criticality Severity Reaction Reaction Severity Status ibuprofen 1 High criticality Severe IBS/Crohn's flare; abd pain Active 1severe stomach pain r/t ulcerative colitis Immunizations Given and Recorded Vaccine Date Status Refusal Reason [id number] bivalent booster vax 06/05/22 Recorded influenza virus [...] toxoids (Td) 11/07/05 Given 1Result Comment: Lot [id number] Exp 11/22/06 Medications amLODIPine 5 mg oral tablet 5 mg, 1, tablet, By Mouth, Daily, # 30 tablet, Refills 0, Tot. Refills 0, Maintenance, 03/25/24 11:56:00 AM EDT, Route to Pharmacy Electronically, [facility], Partial fill upon patient [...] 9:51:00 AM EDT, [id number] Partial fill upon patient request [...] 1:05:00 PM EST, Route to Pharmacy Electronically, [facility], Partial fill upon patient [...] Team Personnel Name: Laisha Andre RN Position: [facility] RN Member Role: Primary Care Nurse Name: Ralph Colorado MD Position: Reference Physician Member Role: PCP Address: [address] [place] [address] [place] [address] Telecom: Name: Wendi Polk RN Position: [facility] RN Member Role: Primary Care Nurse Name: Valerie Choi RN Position: [facility] RN Member Role: Primary Care Nurse Name: Ayan Wang RN Position: [facility] RN Member Role: Primary Care Nurse Name: Benjamin Soliz RN Position: [facility] RN Member Role: Primary Care Nurse Name: Dallin Carter MA Position: [facility] AMB MA Member Role: Primary Care Nurse Name: Javier Soria RN Position: S RN Member Role: Primary Care Nurse Name: Narcisa Mauricio RN Position: [facility] OB RN Member Role: Primary Care Nurse Name: Erich Venegas RN Position: [facility] RN Member Role: Primary Care Nurse Name: Norma Oshea RN Position: S RN Member Role: Primary Care Nurse Name: Zoila Driscoll Position: S RN Member Role: Primary Care Nurse Name: Clara Gant RN Position: [facility] RN Member Role: Primary Care Nurse Name: Shanti Schmitz LPN Position: S RN Member Role: Primary Care Nurse Name: Calos Stahl RN Position: [facility] RN Member Role: Primary Care Nurse Name: Jj Cervantes RN Position: [facility] SHARIF RN Member Role: Primary Care Nurse Care Team Related Persons Name: ADRIANA FLEMING Name: OTHER, SAJI Name: TRISTIAN GANT Name: CLARA CARRASCO Insurance Providers Guarantor name: [facility] [employer] [facility] Information #: 1 [facility] [place] Payer Identifier: NA Member Number: [id number] Group Number: [id number] Subscriber Identifier: NA Relationship to Subscriber: self Coverage Type: Medicare Managed Care (Includes Medicare Advantage Plans) Coverage Verification Date: NA Telecom: ZOE Address: NA
--- NOTE | ~2025-05-20 | CT_ITS ---
CLINICAL HISTORY: fall Exam: Nonenhanced CT lumbar spine. Comparison: 05/14/2025 Findings: Osseous structures: There is stable L1 compression deformity with loss of the up to 80% vertebral body height centrally. There is stable L4 compression deformity loss of the up to 50% vertebral body height. These appear likely remote with no definable fracture lines or paravertebral stranding. Remaining lumbar vertebral body heights and alignment are maintained. Stable partially imaged T11 compression deformity. No acute vertebral fractures or traumatic malalignment. No destructive osseous lesions. Intervertebral disc heights are reasonably maintained. Soft tissues: Minimal disc bulging at L1-L4 are re-identified and appear grossly similar compared with the prior exam. No definable new compromise of the thecal sac or spinal canal. Visceral structures reveal no acute abnormalities. Bilateral nonobstructing renal calculi are re-identified. Colonic diverticulosis is present, without CT evidence of diverticulitis. A left renal cyst measuring 3.6 cm (15; 67, 2 Hounsfield units) is re-identified. Impression: 1. Similar-appearing compression deformities at T11, L1 and L4. No signal interval change compared with the prior exam. 2. Similar-appearing degenerative changes as described above. This document has been electronically signed by: Jigar Motley MD on 05/20/2025 19:49:20
--- NOTE | ~2025-05-20 | XR_ITS ---
CLINICAL HISTORY: fall pain 2 views right forearm Comparison: None Findings: No fractures or dislocations. No joint effusion. No significant arthritic change. No radiopaque foreign body. Impression: 1. Normal right forearm This document has been electronically signed by: Jigar Motley MD on 05/20/2025 17:59:45
--- NOTE | ~2025-05-20 | XR_ITS ---
CLINICAL HISTORY: fall pain 4 views right wrist Comparison: None Findings: No fractures or dislocations. No significant arthritic change. Mild deformity of the distal ulnar shaft is compatible with remote healed fracture. No radiopaque foreign body. Impression: 1. No acute fracture or dislocation. This document has been electronically signed by: Jigar Motley MD on 05/20/2025 18:02:15
--- NOTE | ~2025-05-20 | CT_ITS ---
CLINICAL HISTORY: fall Exam: Unenhanced CT of the thoracic spine with multiplanar reformats. Comparison: 05/14/2025 Findings: Osseous structures: Previously noted compression deformity at T9 appears stable, with loss of the proximally 30% vertebral body height. Slight central compression deformity at T10 is grossly stable. Remote appearing compression deformity at T11 appear stable as well. No new compression deformities appreciated. Vertebral alignments appear maintained. Soft tissues: Paravertebral stranding at T9 level may be very slightly increased since the prior exam. No other abnormal epidural or paraspinal soft tissue appreciated. No evidence of compromise of the thecal sac or spinal canal. Visualized lungs reveal similar suture line within right lower lobe. No gross consolidation. Impression: 1. Similar-appearing subacute compression deformity at T9. 2. Stable remote compression deformity at T11. 3. Stable slight central compression deformity at T10. This document has been electronically signed by: Jigar Motley MD on 05/20/2025 19:55:45
--- NOTE | ~2025-05-20 | CT_ITS ---
CLINICAL HISTORY: fall Exam: Unenhanced CT pelvis with multiplanar reformats. Comparison: Same-day lumbar CT Findings: Osseous structures: There are no acute fractures or traumatic malalignment. Stable compression deformity at L4. No destructive osseous lesions. Soft tissues: No pelvic masses, fluid or adenopathy. Uterus is surgically absent. Urinary bladder is free of gross filling defects. No circumscribed collection or evidence of hematoma. Impression: No evidence of fracture or traumatic malalignment. This document has been electronically signed by: Jigar Motley MD on 05/20/2025 19:51:00
[2025-05-20 15:39] VITALS: BP 131/87; PULSE 91; O2SAT 99
[2025-05-20 15:47] VITALS: BP 145/104; PULSE 87; RESP 16; O2SAT 97; BMI 24.6
[2025-05-20 16:12] LABS: MANUAL DIFF FLAG NO
[2025-05-20 16:17] LABS: Hematocrit 37.2 % (37.0-47.0); Hemoglobin 11.8 g/dl (12.0-16.0); Imm Gran Abs Auto 0.05 X10*3/uL (0.00-0.03); Imm Gran Pct Auto 0.5 % (0.0-0.4); Lymphocytes Absolute Auto 1.1 X10*3/uL (1.2-4.9); Mean Corpuscular HGB Conc 31.7 g/dl (31.0-35.0); Mean Corpuscular Hemoglobin 27.7 pg (27.0-33.0); Mean Corpuscular Volume 87.3 fL (80.0-98.0); NRBC Abs Auto 0.000 X10*3/uL (0.0-0.012); NRBC Pct Auto 0.0 /100WBC (0.0-0.2); Platelet Count 239 X10*3/uL (160-400); Red Blood Count 4.26 X10*6/uL (4.20-5.50); White Blood Count 10.4 X10*3/uL (4.8-10.8)
[2025-05-20 16:22] LABS: INTERNATIONAL NORM RATIO 1.0 (0.9-1.1); Prothrombin Time 12.0 SEC (11.2-13.5)
--- OUTSIDE RECORDS SUMMARY | 2025-05-20 16:32 | XMS_ITS | Encounter Summary ---
Author Organization [facility] Address [address] [place] [address] Care Team Providers Care Supervising Broker Name Role Phone Ralph Colorado MD Primary Care Provider + [phone] Encounter Details Date Type Department Care Team (Late st Contact Info) Description 10/29/2024 Lab Requisition [facility] - Main Lab [address] [facility] [place] [address] Skip Mccain MD [address] [place] [address] Urinary tract infection, site not specified Social [...] mirabilis(A ) NAFISA 10/31/2024 8:50 AM EDT [facility] Comment: Edited result: Previously reported as [...] MICROBIOLOGY - GENER AL ORDERABLES Final Result [facility] ([facility]) [facility] [address] [place] [address], [place] [phone] documented in this encounter Visit Diagnoses Diagnosis Urinary tract infection, site not specified documented in this encounter Care Teams Supervising Broker Relationship Specialty Start Date End Date Ralph Colorado MD [address] [place] [address] Dr [address] JAMES Alvarado PCP - General 05/15/22 documented as of this encounter
--- OUTSIDE RECORDS SUMMARY | 2025-05-20 16:32 | XMS_ITS | Encounter Summary ---
Author Organization [facility] Address [address] [place] [address] Care Team Providers Care Poultry Farm Supervisor Name Role Phone Ralph Colorado MD Primary Care Provider + [phone] Encounter Details Date Type Department Care Team (Late st Contact Info) Description 10/01/[address] [facility] - Main Lab [address] [facility] [place] [address] Senia Lambert NP [address] [facility] [address] [place] [address] Frequency of micturition Social History Tobacco Use [...] Escherichia coli(A) NAFISA 10/03/2024 8:43 AM EDT [facility] Comment: This [...] Trimethoprim/Sulfamethoxazole NAFISA >=320 ug/ml: Resistant Senia Lambert RETAIL ADVERTISING ACCOUNT EXECUTIVE LAB MICROBIOLOGY - GENERA L ORDERABLES Final Result [facility] [address] [place] [address], documented in this encounter Visit Diagnoses Diagnosis Frequency of micturition Urinary frequency documented in this encounter Care Teams Poultry Farm Supervisor Relationship Specialty Start Date End Date Ralph Colorado MD [address] [place] [address] [place] [address] [place] PCP - General 05/15/22 documented as of this encounter
--- OUTSIDE RECORDS SUMMARY | 2025-05-20 16:32 | XMS_ITS | Encounter Summary ---
Author Organization [facility] Address [address] [place] [address] Care Team Providers Care Dump Truck Driver Name Role Phone Ralph Colorado MD Primary Care Provider + [phone] Encounter Details Date Type Department Care Team (Late st Contact Info) Description 12/24/2024 Lab Requisition [facility] - Main Lab [address] [facility] [place] [address] Skip Mccain MD [facility] [place] [address] Other abnormal findings in urine Social History [...] Escherichia coli(A) NAFISA 12/26/2024 8:37 AM EDT [facility] Urine Urine specimen from urethra [...] MICROBIOLOGY - GENER AL ORDERABLES Final Result [facility] [address] [place] [address], documented in this encounter Visit Diagnoses Diagnosis Other abnormal findings in urine documented in this encounter Care Teams Dump Truck Driver Relationship Specialty Start Date End Date Ralph Colorado MD [address] [place] [address] Dr [address] [place] [address] [place] PCP - General 05/15/22 documented as of this encounter
--- OUTSIDE RECORDS SUMMARY | 2025-05-20 16:32 | XMS_ITS | Encounter Summary ---
Author Organization [facility] Address [address] [place] [address] Care Team Providers Care Chief Engineer Research Name Role Phone Ralph Colorado MD Primary Care Provider + [phone] Encounter Details Date Type Department Care Team (Late st Contact Info) Description 07/16/2024 Lab Requisition [facility] - Main Lab [address] [facility] [place] [address] Senia Lambert NP [address] [facility] [place] [place] [address] Urgency of urination Social History Tobacco Use [...] if clinically indicated. 07/17/2024 8:59 AM EST [facility] Urine Urine specimen from urinary conduit / Unknown 07/16/2024 07/16/2024 2:02 PM EST us Senia Lambert DEER FARM WORKER LAB MICROBIOLOGY - GENERA L ORDERABLES Final Result [facility] [address] [place] [address], documented in this encounter Visit Diagnoses Diagnosis Urgency of urination documented in this encounter Care Teams Chief Engineer Research Relationship Specialty Start Date End Date Ralph Colorado MD [address] [place] [address] Dr [address] [place], [place] PCP - General 05/15/22 documented as of this encounter
--- OUTSIDE RECORDS SUMMARY | 2025-05-20 16:32 | XMS_ITS | Data Portability ---
Author Organization [place] - [facility], Allergy Address [address] [address] Care Team Providers Care Maintenance Equipment Operator Name Role Phone AILEEN JOSUE Referring Provider [phone] Assessment Encounter Date Assessment Date Assessment LastModified by Organization Details LastModified Time 05/16/2025 05/16/2025 61-year-old fema le with a history of mild downsloping to severe/profound high-frequency sensorineural hearing loss bilaterally, bilateral eustachian tube dysfunction, allergic rhinitis, history of osteoporosis. Right cerumen impaction removed under microscopic guidance today. - Start Flonase twice daily for eustachian tube dysfunction - The patient has evidence today of significant hearing loss in both ears, as noted above. We discussed that the patient would be an excellent candidate for hearing amplification and discussed its benefits which include improved hearing, potential tinnitus reduction, reduction in the rate of cognitive decline, and reduction in the prevalence of depression or mental health disorders. Otologic examination today does not reveal any contraindications for the use of hearing amplification. The patient would like to pursue this, I will provide them with medical clearance today. I provided them a list of director speech and hearing's within the region to choose from. [email or web address] Not available 05/16/2025 16:37:00 Plan of Treatment Reminders Order Date Submit Date Provider Last Modified By Organization Details Last Modified Time Details Appointments Establish ed 15 2025 03:45P Ely Tejeda, DO Not available Not available Not available Lab None recorded. Referral None recorded. Procedures None recorded. Surgeries None recorded. Imaging None recorded. Medication Orders None recorded. Patient TargetsNo targets recorded. Patient Instructions Encounter Date Encounter Id Patient Instructions Last Modified By Organization Details Last Modified Time 05/16/2025 [id number] Use Flonase nasal spray twice daily (morning and evening) for a few weeks. Use baby oil or peroxide once or twice weekly to manage earwax buildup safely. Review hearing test results and medical clearance form for hearing aids. Explore options for hearing aids, including supplementary insurance coverage. [email or web address] Not available 05/16/2025 16:16:00 Please note: Parts of this encounter note have been generated by AI based on audio conversation. Patient consent was required prior to utilizing this technology. Content review was required prior to finalizing the note. [email or web address] Not available 05/16/2025 16:16:00 Reason for Referral None Reported. Results Created Date Observation Date Name Description Value Unit Range Abnormal Flag Note LastModifiedBy Organization Detail LastModifiedTime 05/17/20 25 audio gram No observ ation record ed. BARCODE Not Available 2024 10:17:58 Result Notes None recorded. Problems Name Problem SNOMED Code Status Onset Date Resolution Date Notes Provider Name and Address Organization Details Recorded Time Sensorineur al hearing loss of bilateral ears 217806729 Active 2024 EDGAR MARINELLI, AUD [address] [address], [place], [address], [facility] - [facility] 15:18:19 Allergic rhinitis 79365217 Active 2024 Walter Tejeda, DO [address] [address], [place], [address], [facility] - [facility] [place] 5 16:36:02 Impacted cerumen in right ear 1332109261556 103 Active 2024 Walter Tejeda, DO 100 [facility] [address] [facility], [place], [address], [place] - [facility] [place] 5 16:36:06 Dysfunction of bilateral eustachian tubes 2746845952377 100 Active 2024 Walter Tejeda, DO [address] [address], [place], [address], [facility] - [facility] [place] 5 16:36:12 Problem Notes None recorded. Procedures Surgical History Date Name Laterality Status Provider Name and Address Organization Details Recorded Time 5 Comp Audio with Tymps - 16966 & 84016 completed EDGAR MARINELLI, AUD 100 [facility] 100, [place], [address], [facility] 05/16/2025 15:18:14 5 Cerumen removal with microscope right completed Walter Tejeda, DO 100 [facility] [address], [address], [facility] 05/16/2025 16:37:05 Imaging Results None recorded. Procedure Notes None recorded. Medical Equipment None Reported. Allergies Allergen ID Allergen Name Allergen Category Reaction Reaction Severity Criticality Documentation Date Start Date Code Code System Note Provider Name and Address Organization Details Recorded Time 617288 ibuprofen medicatio n Not available Not available [facility] 05/16/2025 5640 RxNorm sever e stoma ch pain r/t ulcer ative colit is Not Available pradeep - External Data Service - prod 5 03:39:35 Medications Name Sig Start Date Stop Date Status Note LastModified by Organization Details LastModified Time celecoxib 200 mg capsule TAKE 1 CAPSULE BY MOUTH TWICE A DAY FOR 14 DAYS active Not Available Not Available No t Available cyclobenzap rine 10 mg tablet TAKE 1 TABLET BY MOUTH THREE TIMES A DAY FOR 10 DAYS active Not Available Not Available No t Available amoxicillin 500 mg capsule TAKE 4 CAPSULES BY MOUTH 1 HOUR PRIOR TO PROCEDURE 05/13 completed Not Available Not Available Not Available betamethaso ne valerate 0.1 % topical ointment PLEASE SEE ATTACHED FOR DETAILED DIRECTION S active Not Available Not Available No t Available acetaminoph en 325 mg tablet TAKE 3 TABLETS BY MOUTH EVERY 8 HOURS NEEDED FOR PAIN active Not Available Not Available No t Available doxycycline hyclate 100 mg capsule TAKE 1 CAPSULE BY MOUTH TWICE A DAY FOR 10 DAYS 12/07 completed Not Available Not Available Not Available tizanidine 2 mg tablet TAKE 1 TABLET BY MOUTH 3 TIMES A DAY NEEDED FOR MUSCLE SPACITY active Not Available Not Available No t Available trazodone 50 mg tablet TAKE 1 TABLET BY MOUTH AT BEDTIME NEEDED FOR SLEEP FOR 30 DAYS. active Not Available Not Available No t Available cefpodoxime 200 mg tablet TAKE 1 TABLET BY MOUTH TWICE A DAY active Not Available Not Available No t Available azithromyci n 250 mg tablet TAKE 2 TABLETS BY MOUTH TODAY, THEN TAKE 1 TABLET DAILY FOR 4 DAYS DIRECTED active Not Available Not Available No t Available benzonatate 200 mg capsule TAKE 1 CAPSULE BY MOUTH 2 TO 3 TIMES A DAY NEEDED FOR COUGH active Not Available Not Available No t Available hydrocodone 5 mg-acetamin ophen 325 mg tablet TAKE 1 TABLET EVERY 4 HOURS BY MOUTH NEEDED FOR 7 DAYS, FOR SEVERE PAIN. active Not Available Not Available No t Available prazosin 1 mg capsule TAKE 1 CAPSULE BY MOUTH AT BEDTIME NEEDED FOR SLEEP active Not Available Not Available No t Available sucralfate 100 mg/mL oral suspension TAKE 10 ML BY MOUTH 4 TIMES A DAY 1 HOUR BEFORE MEALS AND AT BEDTIME active Not Available Not Available No t Available phenazopyri dine 200 mg tablet TAKE 1 TABLET BY MOUTH 3 TIMES A DAY FOR 7 DAYS active Not Available Not Available No t Available ondansetron HCl 4 mg tablet TAKE 1 TABLET BY MOUTH EVERY 8 HOURS NEEDED FOR NAUSEA AND VOMITING. active Not Available Not Available No t Available prednisone 20 mg tablet TAKE 1 TABLET BY MOUTH EVERY DAY FOR 3 DAYS active Not Available Not Available No t Available hydroxyzine HCl 50 mg tablet TAKE 1 TABLET BY MOUTH TWICE A DAY NEEDED active Not Available Not Available No t Available clopidogrel 75 mg tablet TAKE 1 TABLET BY MOUTH EVERY DAY active Not Available Not Available No t Available amlodipine 5 mg tablet TAKE 1 TABLET BY MOUTH EVERY DAY active Not Available Not Available No t Available sulfamethox azole 800 mg-trimetho prim 160 mg tablet TAKE 1 TABLET BY MOUTH TWICE A DAY 12/07 completed Not Available Not Available Not Available omeprazole 40 mg capsule,del ayed release TAKE 1 CAPSULE BY MOUTH TWICE A DAY active Not Available Not Available No t Available aspirin 81 mg tablet,remy yed release TAKE 1 TABLET BY MOUTH EVERY DAY active Not Available Not Available No t Available tramadol 50 mg tablet TAKE 1 TABLET BY MOUTH EVERY 8 HOURS NEEDED FOR MILD TO MODERATE PAIN. active Not Available Not Available No t Available oxycodone-a cetaminophe n 5 mg-325 mg tablet TAKE 1 TABLET BY MOUTH EVERY 6 HOURS NEEDED FOR PAIN active Not Available Not Available No t Available hydromorpho ne 2 mg tablet TAKE 1 TABLET BY MOUTH EVERY 4 TO 6 HOURS FOR 7 DAYS NEEDED FOR SEVERE PAIN active Not Available Not Available No t Available lorazepam 0.5 mg tablet TAKE 1 TABLET BY MOUTH EVERY 72 HOURS (3 DAYS) NEEDED FOR SEVERE ANXIETY active Not Available Not Available No t Available meclizine 25 mg tablet TAKE 1 TABLET BY MOUTH THREE TIMES A DAY NEEDED FOR DIZZINESS active Not Available Not Available No t Available benzonatate 100 mg capsule TAKE 1 CAPSULE BY MOUTH 3 TIMES A DAY active Not Available Not Available No t Available cephalexin 500 mg capsule TAKE 1 CAPSULE BY MOUTH FOUR TIMES A DAY FOR 5 DAYS 12/07 completed Not Available Not Available Not Available prednisone 50 mg tablet TAKE 1 TABLET BY MOUTH DAILY FOR 5 DAYS active Not Available Not Available No t Available oxycodone 5 mg capsule TAKE 1 CAPSULE BY MOUTH EVERY 6 HOURS NEEDED PAIN active Not Available Not Available No t Available docusate sodium 100 mg capsule TAKE 1 CAPSULE BY MOUTH TWICE A DAY NEEDED FOR CONSTIPAT ION active Not Available Not Available No t Available gabapentin 300 mg capsule TAKE 1 CAPSULE BY MOUTH 3 TIMES A DAY TOO SOON 04/29/25 active Not Available Not Available No t Available Banophen 25 mg capsule TAKE 1 CAPSULE BY MOUTH THREE TIMES A DAY NEEDED FOR ALLERGIES active Not Available Not Available No t Available gabapentin 100 mg capsule TAKE 1 CAPSULE BY MOUTH 3 TIMES A DAY active Not Available Not Available No t Available estradiol 0.01% (0.1 mg/gram) vaginal cream APPLY 1 GRAM TOPICAL ONCE DAILY FOR 2 WEEKS THEN TWICE WEEKLY active Not Available Not Available No t Available albuterol sulfate HFA 90 mcg/actuati on aerosol inhaler INHALE 2 PUFF ORALLY EVERY 6 HOURS NEEDED FOR SHORTNESS OF BREATH OR WHEEZING FOR 30 DAYS active Not Available Not Available No t Available ondansetron 4 mg disintegrat ing tablet DISSOLVE 1 TABLET ON THE TONGUE EVERY 8 HOURS NEEDED FOR NAUSEA AND VOMITING active Not Available Not Available No t Available fluticasone propionate 50 mcg/actuati on nasal spray,suspe nsion INSTILL 2 SPRAYS INTO EACH NOSTRIL ONCE DAILY NEEDED FOR ALLERGY SYMPTOMS active Not Available Not Available No t Available loratadine 10 mg tablet TAKE 1 TAB (10 MG) ORALLY DAILY NEEDED FOR ALLERGY SYMPTOMS active Not Available Not Available No t Available oxycodone 5 mg tablet TAKE 1 TABLET ORALLY 2 TO 3 TIMES A DAY NEEDED FOR SEVERE PAIN active Not Available Not Available No t Available azithromyci n 500 mg tablet TAKE 1 TABLET BY MOUTH DALIY FOR 3 DAYS 12/07 completed Not Available Not Available Not Available Vitamin D3 25 mcg (1,000 unit) capsule TAKE 1 CAPSULE BY MOUTH ONCE DAILY active Not Available Not Available No t Available bupropion HCl XL 300 mg 24 hr tablet, extended release TAKE 1 TABLET BY MOUTH EVERY DAY active Not Available Not Available No t Available mirtazapine 7.5 mg tablet TAKE 1 TABLET BY MOUTH EVERY NIGHT AT BEDTIME NEEDED active Not Available Not Available No t Available nitrofurant oin monohydrate /macrocryst als 100 mg capsule TAKE 1 CAPSULE BY MOUTH TWICE A DAY 05/13 completed Not Available Not Available Not Available hydrocodone 5 mg-acetamin ophen 300 mg tablet TAKE 1 TABLET ORALLY EVERY 4 TO 6 HOURS NEEDED FOR SEVERE PAIN PARTIAL FILL UPON PATIENT REQUEST. active Not Available Not Available No t Available mesalamine 1.2 gram tablet,remy yed release TAKE 1 TABLET (1.2 G TOTAL) BY MOUTH 4 (FOUR) TIMES A DAY. DO NOT CRUSH, CHEW, OR SPLIT. active Not Available Not Available No t Available Pulmicort Flexhaler 180 mcg/actuati on breath activated INHALE 2 PUFFS BY MOUTH TWICE A DAY active Not Available Not Available No t Available oxycodone 10 mg tablet TAKE 1 TABLET BY MOUTH EVERY 6 HOURS NEEDED FOR PAIN active Not Available Not Available No t Available Eliquis 2.5 mg tablet TAKE 1 TABLET BY MOUTH TWO TIMES A DAY active Not Available Not Available No t Available baclofen 5 mg tablet TAKE 1 TABLET BY MOUTH 3 TIMES A DAY active Not Available Not Available No t Available oxybutynin chloride 2.5 mg tablet TAKE 1 TABLET BY MOUTH TWICE DAILY NEEDED FOR SEVERE CRAMPING. active Not Available Not Available No t Available Vitals Date Recorded Body height Body mass index (BMI) Body weight Provider Name and Address Organization Details Last Updated DateTime 05/16/2025 154.94 cm 28.9 kg/m2 37882.63 g La Nena Bhatia [place] - [facility] 05/16/2025 15:35:38 Social History None recorded. Functional Status None recorded. Mental Status None recorded. Family History Nothing Reported. Medical History Condition Response Arthritis Y Hypertension Y Depression Y Kidney Disease Y Gynecological HistoryNo gynecological history recorded. Obstetrics History GPAL:G 0 P 0 0 0 0 Past Encounters Encounter ID Performer Location Encounter Start Date Encounter Closed Date Diagnosis/Indication Diagnosis SNOMED-CT Code Diagnosis ICD10 Code Diagnosis IMO Codes Diagnosis Note [id number] Walter Tejeda DO [facility] [address] [address] 05/16/2025 14:47:58 05/16/2025 16:25:45 Sensorineural hearing loss of bilateral ears 881943825 H90.3 50475683 Right Ear:Mild to severe SNHL with excellent speech discrimina tion.Type C tympanogra m-hypermob ile.Left Ear:Mild to severe SNHL with excellent speech discrimina tion.Type C tympanogra m-hypermob ile. Allergic rhinitis 717781 04 J30.9 9619508 Impacted c erumen in right ear 6652082002 953477 H61.21 4692286 Dysfunctio n of bilateral eustachian tubes 6842863850 163377 H69.93 [id number] Health Concerns Section Related Observation LastModified by Organization Detai ls LastModified Time None Recorded Concern Status LastModified by Organization Details LastModified Time None Recorded Advance Directives Directive None Recorded Payers Insurance Date Sequence Insurance Name Policy Number Policy Johansen Covered Member ID Johansen Member ID Guarantor Name 05/16/2025 1 [facility] [place] - [facility] (MEDICARE REPLACEMENT/ ADVANTAGE - HMO) Vicki Pizarro Lexa [id number] Vicki Lindquist Notes Date Note Type Note Provider Name and Address Organization Details Recorded Time 05/16/2025 text/html Vicki Lindquist is a 69-year-old female who presents for evaluation of hearing loss and ear-related symptoms. She reports a history of a polyp removal from her throat and describes her ears as feeling somewhat blocked, accompanied by mild hearing loss. She occasionally experiences ringing in the ears and intermittent popping noises in the right ear. She notes the presence of earwax in the right ear but avoids attempting removal due to fear of causing harm. She recently underwent a hearing test, which revealed mild hearing loss in lower frequencies and severe to profound hearing loss in upper frequencies bilaterally. She struggles with hearing high-pitched voices and background noise in crowded settings. She also mentions a history of osteoporosis with multiple fractures in her back, which limits her mobility and causes significant discomfort. Walter Tejeda, DO 100 [facility],[address] [address], [place], [address], [place] - [facility] 05/16/2025 16:37:32 OBGyn Episode No OBEpisode recorded.
--- OUTSIDE RECORDS SUMMARY | 2025-05-20 16:32 | XMS_ITS | Continuity of Care Document ---
Author Organization [place] - [facility], [facility] Address 100 [place] [address] Care Team Providers Care Assistant Director Of Public Works Name Role Phone AILEEN JOSUE Referring Provider Assessment Encounter Date Assessment Date Assessment LastModified [...] today. I provided them a list of dental surgeon's within the region to choose from. [email or web address] [...] By Organization Details Last Modified Time 05/16/2025 [id number] Use Flonase nasal spray twice daily (morning [...] Sensorineur al hearing loss of bilateral ears 686289597 Active 2024 EDGAR MARINELLI, AUD [address] [address], [place], [address], [facility] - [facility] 5 15:18:19 Allergic rhinitis 22612016 Active 2024 Walter Tejeda, DO [address] [address], [place], [address], [facility] - [facility] 5 16:36:02 Impacted cerumen in right ear 1950991379399 103 Active 2024 Walter Tejeda, DO 100 [facility] E [facility], [place], [address], [facility] - [facility] 5 16:36:06 Dysfunction of bilateral eustachian tubes 7820509534391 100 Active 2024 Walter Tejeda, DO 100 [facility] [address], [place], [address], [facility] - [facility] 5 16:36:12 Problem Notes None recorded. Procedures Surgical History Date Name Laterality Status Provider Name and Address Organization Details Recorded Time 5 Comp Audio with Tymps - 44956 & 86868 completed EDGAR MARINELLI, AUD 100 [facility],[address], [place], [address], [facility] - [facility] 05/16/2025 15:18:14 5 Cerumen removal with microscope right completed Walter Tejeda, DO 100 [facility] 100, [place], [address], [facility] 05/16/2025 16:37:05 Imaging Results None recorded. Procedure Notes None recorded. Medical Equipment None Reported. Allergies Allergen ID Allergen Name Allergen Category Reaction Reaction Severity Criticality Documentation Date Start Date Code Code System Note Provider Name and Address Organization Details Recorded Time 206830 ibuprofen medicatio n Not available Not available [facility] 05/16/2025 5640 RxNorm sever e stoma ch pain r/t ulcer ative colit is Not Available pradeep - External Data Service - prod 03:39:35 Medications Name Sig Start Date Stop [...] mg tablet TAKE 1 TABLET BY MOUTH AMY FOR 3 DAYS 12/07 completed Not Available [...] Updated DateTime 05/16/2025 154.94 cm 28.9 kg/m2 84667.63 g La Nena Bhatia [place] - [facility] 05/16/2025 15:35:38 Social History None recorded. [...] ICD10 Code Diagnosis IMO Codes Diagnosis Note [id number] Walter Tejeda DO [facility] of [address] [address] 05/16/2025 14:47:58 05/16/2025 16:25:45 Sensorineural hearing loss of bilateral ears 698119109 H90.3 34731024 Right Ear:Mild to severe SNHL with excellent speech discrimina tion.Type C tympanogra m-hypermob ile.Left Ear:Mild to severe SNHL with excellent speech discrimina tion.Type C tympanogra m-hypermob ile. Allergic rhinitis 772966 04 J30.9 2395213 Impacted c erumen in right ear 0125397520 805396 H61.21 4402482 Dysfunctio n of bilateral eustachian tubes 4706915398 372235 H69.93 [id number] Health Concerns Section Related Observation LastModified by Organization Detai ls LastModified Time None Recorded Concern Status LastModified by Organization Details LastModified Time None Recorded Payers Encounter Date Sequence Insurance Name Policy Number Policy Johansen Covered Member ID Johansen Member ID Guarantor Name 05/16/2025 1 [facility] (MEDICARE REPLACEMENT/ ADVANTAGE - HMO) Vicki Granadosadam [id number] Vicki Lindquist Notes Date Note Type Note [...] causes significant discomfort. Walter Tejeda, DO 100 [facility],[address] [address], [place], [address], [facility] - [facility] 05/16/2025 16:37:32 OBGyn Episode No OBEpisode recorded.
--- OUTSIDE RECORDS SUMMARY | 2025-05-20 16:32 | XMS_ITS | Encounter Summary ---
Author Organization [facility] Address [address] [place] [address] Care Team Providers Care Barrel Repairer Name Role Phone Ralph Colorado MD Primary Care Provider [phone] Encounter Details Date Type Department Care Team (Late st Contact Info) Description 04/09/2024 Lab Requisition [facility] [address] [place] [address] Jaja Cornelius MD [address] [facility] [place] [address] [place] [address] Dysuria Social History Tobacco Use Types Packs/Day [...] Escherichia coli(A) NAFISA 04/11/2024 9:54 AM EST [facility] Comment: This is an edited [...] MICROBIOLOGY - G ENERAL ORDERABLES Final Result [facility] [address] [place] [address], documented in this encounter Visit Diagnoses Diagnosis Dysuria documented in this encounter Care Teams Barrel Repairer Relationship Specialty Start Date End Date Ralph Colorado MD [address] [place] [address] Dr Pierre [address] [place] [address] [place] PCP - General 05/15/22 documented as of this encounter
--- OUTSIDE RECORDS SUMMARY | 2025-05-20 16:32 | XMS_ITS | Clinical Summary ---
Author Organization [facility] 299 [facility] Address [address] [place] [address] Phone Care Team Providers Care Student Services Director Name Role Phone Ralph Colorado MD Primary Care Provider + [phone] Allergies Active Allergy Reactions Criticality Noted Date [...] [facility] [address] [place] [address] Dalia Khoury MD Irritable bowel syndrome with diarrhea (Primary Dx); Gastroesophageal reflux disease without esophagitis 02/28/2025 Telephone Gastroenterology - [address] [facility] [address] [place] [address] Dalia Khoury MD from Last [...] UTI Depression DX:Depression Anxiety DX:Anxiety; [facility] Cystocele 02/07/2015 DX:Cystocele Osteopenia 02/07/2015 DX:Osteopenia [...] Brother 2 Heart attack Father Hypertension Father CT at age 46, s moker Kidney cancer [...] should be classified as having osteoporosis. [facility] Department of Internal Medicine recommends using [...] Fleming should beclassified as having osteoporosis. [facility] Department of Internal Medicine recommendsusing National [...] risk by FRAX. 22 Mirella Kimble DO [facility] DXA PROCEDURE S Final Result * (ABNORMAL) [...] Personal/Family Self 1955 [address] [place] [address] [facility] MEDICARE ADVANTAGE MEDICAID - [place] Care Teams Student Services Director Relationship Specialty Start Date End Date Ralph Colorado MD [address] [place] [address] [address] [place] PCP - General 05/15/22
[2025-05-20 16:38] LABS: Alanine Aminotransferase 12 U/L (0-31); Albumin Level 4.3 g/dL (3.5-5.0); Alkaline Phosphatase 101 U/L (39-117); Anion Gap 13 (12-20); Aspartate Amino Transferase 18 U/L (5-31); Blood Urea Nitrogen 17 mg/dL (9-16); Calcium 9.7 mg/dL (8.4-10.2); Carbon Dioxide 28 mmol/L (22-29); Chloride 107 mmol/L (96-108); Creatinine Clr Calc Pharmacy 71.2; Estimated Glomerular Filt Rate > 60; Potassium 3.5 mmol/L (3.3-5.1); Sodium 144 mmol/L (135-145); Total Protein 6.8 g/dL (6.5-8.0)
--- NOTE | 2025-05-20 17:27 | ED.GENADULT ---
HPI - General Adult General Chief complaint: Fall Stated complaint: back pain after fall Time Seen by Provider: 05/20/25 17:20 Source: patient Mode of arrival: ambulatory Limitations: no limitations History of Present Illness ED Provider: Dr. Dale HPI narrative: This is a 69-year-old female history compression fracture presented hospital today for a slipped in the fall. Patient stated that she is complaining of coccyx pain and lumbar pain. No other injury. Patient states is difficult for her to move around due to the pain. Related Data Home Medications ?Medication ?Instructions ?Recorded ?Confirmed bupropion HCl 300 mg 24 hr tablet, 300 mg PO DAILY 04/10/20 05/17/25 extended release cholecalciferol (vitamin D3) 25 25 mcg PO DAILY 04/10/20 05/17/25 mcg (1,000 unit) capsule mesalamine 1.2 gram tablet,delayed 1.2 g PO QID 10/29/23 05/17/25 release omeprazole 40 mg capsule,delayed 40 mg PO DAILY 10/29/23 05/17/25 release baclofen 5 mg tablet 5 mg PO TID PRN Back Pain 05/15/25 05/17/25 budesonide 180 mcg/actuation 2 inh PO BID PRN Wheezing 05/15/25 05/17/25 breath activated powder inhaler (Pulmicort Flexhaler) lorazepam 0.5 mg tablet 0.5 mg PO Q3D PRN anxiety attack 05/15/25 05/17/25 sucralfate 100 mg/mL oral 10 ml PO QID 05/15/25 05/17/25 suspension Previous Rx's ?Medication ?Instructions ?Recorded fluticasone propionate 50 2 spray intranasal DAILY PRN 08/06/23 mcg/actuation nasal allergy symptoms 30 days #16 grams spray,suspension diphenhydramine HCl 25 mg capsule 25 mg PO TID PRN allergy symptoms 01/05/25 30 days #90 caps amlodipine 5 mg tablet 5 mg PO DAILY #90 tabs 04/19/25 gabapentin 300 mg capsule 300 mg PO TID 30 days #90 caps 04/28/25 albuterol sulfate 90 mcg/actuation 2 puff PO Q6H PRN shortness of 05/06/25 aerosol inhaler breath or wheezing 30 days #8.5 grams trazodone 50 mg tablet 50 mg PO BEDTIME PRN sleep 30 days 05/06/25 #30 tabs cefuroxime axetil 500 mg tablet 500 mg PO BID #10 tabs 05/16/25 oxycodone 5 mg tablet 10 mg (2 x 5 mg) PO Q4H PRN Pain, 05/16/25 Severe (Pain Scale 7-10) #20 tabs polyethylene glycol 3350 17 gram 17 g PO DAILY #30 ea 05/16/25 oral powder packet hydromorphone 2 mg tablet 2 mg PO Q4H PRN pain #16 tabs 05/21/25 (Dilaudid) lidocaine 5 % topical patch 1 patch topical DAILY #15 ea 05/21/25 ondansetron 4 mg disintegrating 4 mg PO Q8H PRN nausea and 05/21/25 tablet vomiting #14 tabs prednisone 20 mg tablet 20 mg PO DAILY 7 days #7 tabs 05/21/25 sennosides 8.6 mg capsule (senna) 8.6 mg PO DAILY 14 days #14 caps 05/21/25 Allergies Allergy/AdvReac Type Severity Reaction Status Date / Time ibuprofen (From Motrin) AdvReac Intermediate activates Verified 05/20/25 15:50 her Crohn's disease Review of Systems Review of Systems: Pertinent review of systems as mentioned in HPI. All other system otherwise negative. [facility] Past Medical History [facility] Narrative: Medical history as mentioned in HPI Medical History Generalized headaches Cerebral aneurysm Insomnia Primary osteoarthritis of left knee Compression fracture of T11 vertebra with delayed healing Compression fracture of L4 vertebra Obesity (BMI 30-39.9) Hiatal hernia Coccydynia Overweight (BMI 25.0-29.9) Depression Anxiety Renal calculi Vitamin D deficiency Allergic rhinitis Osteoporosis Lumbar degenerative disc disease GERD without esophagitis Crohn's disease COPD (chronic obstructive pulmonary disease) GERD (gastroesophageal reflux disease) Ear discharge of both ears Ear build-up Sacroiliitis Chronic pain syndrome Spondylolisthesis, lumbar region Spondylosis of lumbar region without myelopathy or radiculopathy Surgical History Hx of colonoscopy History of surgery History of hysterectomy History of surgery History of nasal surgery Social History Social History Household Members: None Housing: Apartment Housing Other:: 2nd floor Alcohol intake: current Alcohol intake frequency: a few times a month Alcohol type: wine Patient Tobacco Use Status: Former Tobacco user Tobacco use type: Cigarette Smoked in Last 30 Days: No e-Cigarette/Vaping Use: Never Used Second Hand Smoke Exposure: No Use of substances other than those prescribed or required for medical reasons: No Advance Directives: No Advance Directives Information Provided: No Advance Directives Date on File: 06/02/20 Do you have a plan to hurt others: No Plan service: No Current occupational status: disabled Cognitive needs: No Hearing needs: No Vision needs: Yes (glasses) Physical Exam ED Exam Exam: General: Pleasant, no distress, interacting appropriately Head: Normacephalic, atraumatic ENT: oral mucosa moist, neck supple, no tracheal deviation MSK: Lumbar tenderness on palpation, paraspinal lumbar pain on palpation as well. No hip tenderness on exam. Neurological: Awake and alert, no facial droop noted Skin: Warm and dry Psychiatric: Appropriate mood and thoughts Vital Signs: Vital Signs - 24 hr 05/20/25 15:47 05/20/25 18:19 05/20/25 20:09 Temperature 97.7 F Pulse Rate 87 80 Respiratory Rate 16 18 Blood Pressure 145/104 H 162/117 H 154/91 H Pulse Oximetry 97 98 Oxygen Delivery Method Room Air Room Air 05/20/25 22:56 Temperature 98.1 F Pulse Rate 74 Respiratory Rate 17 Blood Pressure 143/82 H Pulse Oximetry 96 Oxygen Delivery Method Room Air BMI result Body Mass Index 24.6 Medications Administered Discontinued Medications Generic Name Dose Route Start Last Admin Trade Name Freq PRN Reason Stop Dose Admin Acetaminophen 975 mg 05/20/25 20:36 05/20/25 20:45 Acetaminophen 325 Mg Tablet PO 05/20/25 20:37 975 mg ONCE ONE Administration Dexamethasone Sodium Phosphate 6 mg 05/20/25 21:07 05/20/25 22:36 Dexamethasone Sod Phosphate 4 Mg/Ml Vial IVPUSH 05/20/25 21:08 6 mg ONCE ONE Administration Hydromorphone HCl 0.5 mg 05/20/25 17:30 05/20/25 17:34 Hydromorphone Hcl 0.5 Mg/0.5 Ml Syringe IVPUSH 05/20/25 17:31 0.5 mg ONCE ONE Administration Protocol Hydromorphone HCl 1 mg 05/20/25 20:32 05/20/25 20:44 Hydromorphone Hcl 1 Mg/Ml Syringe IVPUSH 05/20/25 20:33 1 mg ONCE ONE Administration Protocol Hydromorphone HCl 2 mg 05/20/25 22:21 05/20/25 22:36 Hydromorphone Hcl 2 Mg Tablet PO 05/20/25 22:22 2 mg ONCE ONE Administration Lidocaine 1 patch 05/20/25 18:40 05/20/25 18:50 Lidocaine 4 % Patch Adh..Patch TRANSDERMA 05/20/25 18:41 1 patch ONCE ONE Administration Protocol Ondansetron HCl 4 mg 05/20/25 23:35 05/20/25 23:39 Ondansetron Odt 4 Mg Tab.Rapdis TRANSLINGU 05/20/25 23:36 4 mg ONCE ONE Administration Oxycodone HCl 10 mg 05/20/25 18:40 05/20/25 18:49 Oxycodone Hcl Immed Release 5 Mg Tablet PO 05/20/25 18:41 10 mg ONCE ONE Administration Medical Decision Making Medical Decision Making MDM Narrative: This is a 69-year-old female history of compression fracture recent admission for pain from compression fracture presented hospital today after a fall. Complaining of lumbar and pelvic pain from the fall. CT imaging will be obtained for thoracic, lumbar spine and pelvic to assess for any signs of any other fracture. Patient does have point tenderness that is reproducible on exam. I suspect patient has may have exacerbated her injuries. Patient is currently being follow up at pain clinic for this. We will plan to give patient is lidocaine patch IV Dilaudid will be given for pain control, a dose of Tylenol will be given to the patient as well. No sign of urinary retention, bowel incontinence or saddle paresthesia. No red flag symptoms for the patient's low back pain. CT imaging did not show any signs of acute fractures at this time. No change from previous imaging. No new fractures. Patient was given additional IV Dilaudid. This was transitioned to 2 mg p.o. Dilaudid. Pain is controlled at this time. Patient stated that she is upset that no one had given her anything for stomach reflux and we only gave her nausea medicine. P.o. Maalox and p.o. times will be given to the patient. Patient will be discharged. Differential Diagnosis Differential Diagnoses: The differential diagnosis associated with the presentation includes Low back pain, compression fracture, lumbar radiculopathy Lab Data [facility] Lab Attestation statement: I reviewed the patient's lab results. 05/20/25 16:08 05/20/25 16:08 Labs: Lab Results 05/20/25 Range/Units 16:08 WBC 10.4 (4.8-10.8) X10*3/uL RBC 4.26 (4.20-5.50) X10*6/uL Hgb 11.8 L (12.0-16.0) g/dl Hct 37.2 (37.0-47.0) % MCV 87.3 (80.0-98.0) fL MCH 27.7 (27.0-33.0) pg MCHC 31.7 (31.0-35.0) g/dl RDW 12.3 (11.0-16.0) % Plt Count 239 (160-400) X10*3/uL MPV 8.9 L (9.4-12.3) fL Immature Gran % (Auto) 0.5 H (0.0-0.4) % Neut % (Auto) 80.1 H (45-73) % Lymph % (Auto) 11.0 L (20-40) % Imperial % (Auto) 6.9 (2-11) % Eos % (Auto) 1.2 (0-4) % Baso % (Auto) 0.3 (0-2) % Lymph # (Auto) 1.1 L (1.2-4.9) X10*3/uL Imperial # (Auto) 0.7 (0.1-1.2) X10*3/uL Eos # (Auto) 0.1 (0.0-0.4) X10*3/uL Baso # (Auto) 0.0 (0.0-0.2) X10*3/uL Abs Immat Gran (auto) 0.05 H (0.00-0.03) X10*3/uL Absolute Neuts (auto) 8.3 (2.0-8.3) x10*3/uL Absolute Nucleated RBC 0.000 (0.0-0.012) X10*3/uL Nucleated RBC % (auto) 0.0 (0.0-0.2) /100WBC PT 12.0 (11.2-13.5) SEC INR 1.0 (0.9-1.1) Sodium 144 (135-145) mmol/L Potassium 3.5 (3.3-5.1) mmol/L Chloride 107 (96-108) mmol/L Carbon Dioxide 28 (22-29) mmol/L Anion Gap 13 (12-20) BUN 17 H (9-16) mg/dL Creatinine 0.68 (0.5-1.4) mg/dL Estim Creat Clear Calc 71.2 Estimated GFR > 60 Random Glucose 106 (60-115) mg/dL Calcium 9.7 D (8.4-10.2) mg/dL Total Bilirubin 0.5 (0.0-1.0) mg/dL AST 18 (5-31) U/L ALT 12 (0-31) U/L Alkaline Phosphatase 101 (39-117) U/L Total Protein 6.8 (6.5-8.0) g/dL Albumin 4.3 (3.5-5.0) g/dL Independent Interpretation I performed an independent interpretation of an: CT Scan Radiology Impression Discussion of test interpretation with radiology: I have reviewed the radiologist's reading. Discharge Plan Discharge Clinical Impression: Back pain Qualifiers: Back pain location: low back pain Chronicity: acute Back pain laterality: unspecified Sciatica presence: without sciatica Qualified Code(s): M54.50 - Low back pain, unspecified Patient Disposition: Home, Self-Care Instructions: Acute Low Back Pain (ED) Additional Instructions: No signs of further fracture on your CT imaging. Follow up with your primary care doctor and pain management clinic. I will give referral to the spine clinic for you. Prescriptions: New hydromorphone [Dilaudid] 2 mg tablet 2 mg PO Q4H PRN (Reason: pain) Qty: 16 0RF Rx Instructions: Partial Fill upon patient request. prednisone 20 mg tablet 20 mg PO DAILY 7 Days Qty: 7 0RF lidocaine 5 % adhesive patch,medicated 1 patch topical DAILY Qty: 15 0RF Rx Instructions: leave on most painful area for up to 12 hrs ondansetron 4 mg tablet,disintegrating 4 mg PO Q8H PRN (Reason: nausea and vomiting) Qty: 14 0RF senna 8.6 mg capsule 8.6 mg PO DAILY 14 Days Qty: 14 0RF No Action fluticasone propionate 50 mcg/actuation spray,suspension 2 spray intranasal DAILY PRN (Reason: allergy symptoms) 30 Days Qty: 16 5RF Rx Instructions: administer into each nostril diphenhydramine HCl 25 mg capsule 25 mg PO TID PRN (Reason: allergy symptoms) 30 Days Qty: 90 0RF amlodipine 5 mg tablet 5 mg PO DAILY Qty: 90 1RF gabapentin 300 mg capsule 300 mg PO TID 30 Days Qty: 90 1RF trazodone 50 mg tablet 50 mg PO BEDTIME PRN (Reason: sleep) 30 Days Qty: 30 0RF baclofen 5 mg tablet 5 mg PO TID PRN (Reason: Back Pain) Pulmicort Flexhaler 180 mcg/actuation aerosol powdr breath activated 2 inh PO BID PRN (Reason: Wheezing) Patient Comments: Patient takes as a PRN. Patient has not had for about a year. sucralfate 100 mg/mL suspension 10 ml PO QID lorazepam 0.5 mg tablet 0.5 mg PO Q3D PRN (Reason: anxiety attack) polyethylene glycol 3350 17 gram Powder In Packet 17 g PO DAILY Qty: 30 0RF oxycodone 5 mg Tablet 10 mg PO Q4H PRN (Reason: Pain, Severe (Pain Scale 7-10)) Qty: 20 0RF Rx Instructions: Partial Fill upon patient request. cefuroxime axetil 500 mg tablet 500 mg PO BID Qty: 10 0RF bupropion HCl 300 mg tablet extended release 24 hr 300 mg PO DAILY cholecalciferol (vitamin D3) 25 mcg (1,000 unit) capsule 25 mcg PO DAILY omeprazole 40 mg capsule,delayed release(DR/EC) 40 mg PO DAILY mesalamine 1.2 gram tablet,delayed release (DR/EC) 1.2 g PO QID albuterol sulfate 90 mcg/actuation HFA aerosol inhaler 2 puff PO Q6H PRN (Reason: shortness of breath or wheezing) 30 Days Qty: 8.5 5RF Referrals: [facility] [place], [place] Phys[facility] [Provider Group, Physiatry] [facility] [place] [place] [facility] [Provider Group, Neurosurgery] Print Language: Kinyarwanda
[2025-05-20 18:19] VITALS: BP 162/117
--- NOTE | 2025-05-20 18:35 | PC.NURSE ---
ED provider Dr. Dale made aware patient is still crying in pain. Provider to order back imaging as patient was just here / admitted for back pain.
[2025-05-20] MEDS: oxyCODONE HCl Immed Release 5 MG TABLET 10 MG PO (18:49)
[2025-05-20] MEDS: Lidocaine 4 % Patch ADH..PATCH 1 PATCH TRANSDERMA (18:50)
[2025-05-20 20:09] VITALS: BP 154/91; PULSE 80; RESP 18; TEMP 36.5; O2SAT 98
[2025-05-20 22:56] VITALS: BP 143/82; PULSE 74; RESP 17; TEMP 36.7; O2SAT 96
[2025-05-21] MEDS: Magnesium Hydrox/Alum Hydrox 30 ML ORAL.SUSP PO (01:03)
[2025-05-21 02:59] VITALS: BP 143/82; PULSE 74; RESP 17; TEMP 36.7; O2SAT 96
== END 2025-05-21 02:59 | disposition home or self-care (01) ==
PROVIDERS: Emergency Provider Student in an Organized Health Care Education/Training Program; PCP Internal Medicine
DX: M54.50 Low back pain, unspecified (principal); M53.3 Sacrococcygeal disorders, not elsewhere classified; M79.601 Pain in right arm; M25.531 Pain in right wrist; Z87.891 Personal history of nicotine dependence; Z79.899 Other long term (current) drug therapy; Z91.81 History of falling
CPT/HCPCS: 36415; 72128; 72131; 72192; 73090; 73100; 80053; 85025; 85610; 96374; 96375; 96376; 99284; J1100; J1171

== ENCOUNTER → 2025-05-20 17:41 | Outpatient (BNV) | payer OTHER, SELFPAY | PROVIDERS: Emergency Provider Student in an Organized Health Care Education/Training Program; PCP Internal Medicine; Visit Provider Radiology Diagnostic Radiology | DX: M51.360 Other intervertebral disc degeneration, lumbar region with discogenic back pain only (principal); M95.4 Acquired deformity of chest and rib; M25.531 Pain in right wrist; M79.631 Pain in right forearm; Z04.3 Encounter for examination and observation following other accident | CPT/HCPCS: 72128; 72131; 72192; 73090; 73100 ==